=== PATIENT | male | born 1930 | race African-American/Black ===

== ENCOUNTER 2018-03-07 23:02 | Inpatient (IN) | payer MEDICARE, OTHER ==
[~2018-03-07] VITALS: Ht 175.3 cm; Wt 81.2 kg
[2018-03-08] VITALS (10 sets, daily range): BP systolic 85–186; BP diastolic 52–113
--- NOTE | 2018-03-08 00:10 | NUR ---
NURSE NOTES: Given report via telephone by Zayra CONTRERAS from [place]. Will await for pt arrival.
--- NOTE | 2018-03-08 02:10 | NUR ---
NURSE NOTES: Pt transferred via gurney by QUE Urbina from [facility]. Pt asleep, no s/s of acute distress noted, breathing even and unlabored to room air. Pt was given Dilaudid 1mg IVP at 1240 before being transferred to our facility. Oriented pt to room, instructed pt to use call light when needed assistance. Bed to lowest position, call light within reach. belongings at bedside with patient. Will continue to monitor. Will call MD for admission orders.
--- NOTE | 2018-03-08 02:30 | NUR ---
Called and left message to Dr. Valdovinos for admission orders. Will await for call back.
--- NOTE | 2018-03-08 03:56 | NUR ---
NURSE NOTES: Called and left message to Dr. Valdovinos for admitting orders. Awaiting for call back.
[2018-03-08] MEDS ORDERED: Norco 5mg/325mg tab ORAL PRN ×2 (05:30→17:30)
--- NOTE | 2018-03-08 06:00 | NUR ---
NURSE NOTES: Pt not able to tell his medication taken at home and background history. The only thing he remember is being diagnosed with HTN.
[2018-03-08 07:00] LABS: INR 1.1 (0.9-1.1)
[2018-03-08 07:09] LABS: BASOPHILS % (AUTO) 0.2 % (0.0-2.0); HEMATOCRIT 35.9 % (42.0-52.0); HEMOGLOBIN 11.9 G/DL (14.2-18.0); LYMPHOCYTES % (AUTO) 6.7 % (20.0-45.0); MEAN CORPUSCULAR VOLUME 87 FL (80-99); MONOCYTES % (AUTO) 8.2 % (1.0-10.0); NEUTROPHILS % (AUTO) 84.9 % (45.0-75.0); PLATELET COUNT 179 K/UL (150-450); RED BLOOD COUNT 4.12 M/UL (4.70-6.10); RED CELL DISTRIBUTION WIDTH 12.1 % (11.6-14.8); WHITE BLOOD COUNT 12.6 K/UL (4.8-10.8)
--- NOTE | 2018-03-08 07:10 | NUR ---
HAND-OFF: Report given to BEN Haq.
[2018-03-08 07:14] LABS: ALANINE AMINOTRANSFERASE 17 U/L (12-78); ALBUMIN 3.5 G/DL (3.4-5.0); ALBUMIN/GLOBULIN RATIO 0.9 (1.0-2.7); ALKALINE PHOSPHATASE 77 U/L (46-116); ANION GAP 12 mmol/L (5-15); ASPARTATE AMINO TRANSFERASE 18 U/L (15-37); BLOOD UREA NITROGEN 21 mg/dL (7-18); CALCIUM 9.5 MG/DL (8.5-10.1); CARBON DIOXIDE 27 MMOL/L (21-32); CHLORIDE 104 MMOL/L (98-107); CREATININE 2.7 MG/DL (0.55-1.30); PHOSPHORUS 4.9 MG/DL (2.5-4.9); POTASSIUM 4.7 MMOL/L (3.5-5.1); SODIUM 142 MMOL/L (136-145)
[2018-03-08] MEDS: Morphine Sulfate 4mg/ml Inj (IV/IM USE ONLY) IVP PRN ×2 (08:14→14:39)
[2018-03-08] MEDS: D5 1/2NS w/KCl 20mEq 1,000 ML IV SCH ×2 (08:24→21:23)
[2018-03-08] MEDS: Heparin 5000 units/ml inj SUBQ SCH ×2 (09:00→21:00)
[2018-03-08] MEDS: Metoprolol 25mg tab ORAL SCH ×2 (09:00→18:00)
--- NOTE | 2018-03-08 09:10 | NUR ---
NURSE NOTES:Pt complaining of pain Morphine given as well as Zofran ,. Pt noted with brown emesis moderate in amount. Dr. Ingram made aware, pt pending for Left ORIF
--- NOTE | 2018-03-08 11:37 | History & Physical ---
History and Physical History & Physicial JoB [id number] Kaiser Price MD Mar 08, 2018 11:37
[2018-03-08] MEDS ORDERED: Magnesium Sulfate 2,000 MG in D5W 100 ML IV ONE (11:45)
--- NOTE | 2018-03-08 12:20 | Diagnostic Imaging Report ---
Indication: Shortness of breath Technique: One view of the chest Comparison: none Findings: Reticular interstitial disease is seen at both lung bases. There is some atelectasis at the left lung base. The heart is enlarged. The upper lungs are clear. Impression: Bilateral basilar reticular interstitial disease, acuity indeterminant, may reflect chronic interstitial fibrosis or acute infiltrates. Correlate with clinical findings
[2018-03-08] MEDS: Magnesium Sulfate 1gm/100ml IVPB SCH ×2 (12:30→14:39)
--- NOTE | 2018-03-08 12:30 | NUR ---
NURSE NOTES: 1200 v/s entered in error. Correction made
--- NOTE | 2018-03-08 12:36 | Cardiac Electrophysiology PN ---
Subjective Subjective [id number] Objective Last 24 Hour Vital Signs Date Time Temp Pulse Resp B/P (MAP) Pulse Ox O2 Delivery O2 Flow Rate FiO2 03/08/18 03:45 98.0 92 18 131/62 (85) 94 03/08/18 02:43 Room Air Intake and Output 03/07/18 03/08/18 19:00 07:00 Output Total 0 ml Balance 0 ml Output Urine Total 0 ml Laboratory Tests Test 03/08/18 06:30 White Blood Count 12.6 K/UL (4.8-10.8) H Red Blood Count 4.12 M/UL (4.70-6.10) L Hemoglobin 11.9 G/DL (14.2-18.0) L Hematocrit 35.9 % (42.0-52.0) L Mean Corpuscular Volume 87 FL (80-99) Mean Corpuscular Hemoglobin 29.0 PG (27.0-31.0) Mean Corpuscular Hemoglobin Concent 33.3 G/DL (32.0-36.0) Red Cell Distribution Width 12.1 % (11.6-14.8) Platelet Count 179 K/UL (150-450) Mean Platelet Volume 5.3 FL (6.5-10.1) L Neutrophils (%) (Auto) 84.9 % (45.0-75.0) H Lymphocytes (%) (Auto) 6.7 % (20.0-45.0) L Monocytes (%) (Auto) 8.2 % (1.0-10.0) Eosinophils (%) (Auto) 0.0 % (0.0-3.0) Basophils (%) (Auto) 0.2 % (0.0-2.0) Prothrombin Time 11.5 SEC (9.30-11.50) Prothromb Time International Ratio 1.1 (0.9-1.1) Activated Partial Thromboplast Time 23 SEC (23-33) Sodium Level 142 MMOL/L (136-145) Potassium Level 4.7 MMOL/L (3.5-5.1) Chloride Level 104 MMOL/L (98-107) Carbon Dioxide Level 27 MMOL/L (21-32) Anion Gap 12 mmol/L (5-15) Blood Urea Nitrogen 21 mg/dL (7-18) H Creatinine 2.7 MG/DL (0.55-1.30) H Estimat Glomerular Filtration Rate mL/min (>60) Glucose Level 168 MG/DL (74-106) H Calcium Level 9.5 MG/DL (8.5-10.1) Phosphorus Level 4.9 MG/DL (2.5-4.9) Magnesium Level 1.6 MG/DL (1.8-2.4) L Total Bilirubin 1.0 MG/DL (0.2-1.0) Aspartate Amino Transf (AST/SGOT) 18 U/L (15-37) Alanine Aminotransferase (ALT/SGPT) 17 U/L (12-78) Alkaline Phosphatase 77 U/L (46-116) Troponin I 0.000 ng/mL (0.000-0.056) Total Protein 7.5 G/DL (6.4-8.2) Albumin 3.5 G/DL (3.4-5.0) Globulin 4.0 g/dL Albumin/Globulin Ratio 0.9 (1.0-2.7) L Med Faria MD Mar 08, 2018 12:36
--- NOTE | 2018-03-08 14:14 | Consultation ---
Consult Note Consult Note Asked to eval by Dr Price had mechanical fall and left hip fx Cr 2.7 High Glucose at bedside conditions: 1. Mechanical fall with the left hip fracture. 2. Hypertension. 3. Chronic kidney disease. 4. BPH. 5. 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 Assessment/Plan plan: campbell monitor renal parameters Avoid nephrotoxics cardiac clearance- Ortho intervention Ortiz Kinsey MD Mar 08, 2018 14:14
--- NOTE | 2018-03-08 14:30 | NUR ---
NURSE NOTES: Sister is at bedside. New IV site required to be placed, due to intermittent confusion. Required education on importance of keeping O2 in place. attempted to apply f/c pt did not have urine backflow. Is able to answer direct questions despite slight confusion.
--- NOTE | 2018-03-08 15:54 | GI Initial Consult Note ---
History of Present Illness General Date patient seen: Mar 08, 2018 Time patient seen: 15:50 Referring physician: kady Price Reason for Consultation: Coffee-ground emesis Present Illness HPI Patient is a 88-year-old male who presents with left leg pain status post mechanical fall today. The patient reported that he was walking downstairs lost his balance and fell onto his hip. The patient denies hitting his head or losing. Patient unable to bear any weight on his left lower extremity. Patient complaining of deformity to his left leg. Patient reports the pain of positional, severe intensity, nonradiating. GI consulted for reports of coffee-ground emesis. ROS limited, patient seen awake alert no apparent distress and no signs of symptoms of nausea vomiting. DPOA at bedside. Per RN report the patient arrived to the hospital noted with coffee-ground emesis. Labs reviewed showed the patient has normocytic anemia. Mild leukocytosis. No transaminitis. Hypo-magnesemia. Patient denies any pain at this time. No noted bowel movements at this time. Unknown history of endoscopic or colonoscopy. Patient is pending ORIF today. Med list reviewed/reconciled: Yes Allergies: Coded Allergies: NO KNOWN ALLERGIES (Verified Allergy, Unknown, 03/08/18) Patient History Limited by: medical condition History Provided By: Medical Record PMH Narrative See HPI Social History: Denies: smoking, alcohol use, drug use, other Review of Systems All Other Systems: limited Physical Exam Vital Signs Date Time Temp Pulse Resp B/P (MAP) Pulse Ox O2 Delivery O2 Flow Rate FiO2 03/08/18 02:43 Room Air 03/08/18 03:45 98.0 92 18 131/62 (85) 94 03/08/18 09:00 2.0 Sp02 EP Interpretation: reviewed, normal Labs Laboratory Tests Test 03/08/18 06:30 White Blood Count 12.6 K/UL (4.8-10.8) H Red Blood Count 4.12 M/UL (4.70-6.10) L Hemoglobin 11.9 G/DL (14.2-18.0) L Hematocrit 35.9 % (42.0-52.0) L Mean Corpuscular Volume 87 FL (80-99) Mean Corpuscular Hemoglobin 29.0 PG (27.0-31.0) Mean Corpuscular Hemoglobin Concent 33.3 G/DL (32.0-36.0) Red Cell Distribution Width 12.1 % (11.6-14.8) Platelet Count 179 K/UL (150-450) Mean Platelet Volume 5.3 FL (6.5-10.1) L Neutrophils (%) (Auto) 84.9 % (45.0-75.0) H Lymphocytes (%) (Auto) 6.7 % (20.0-45.0) L Monocytes (%) (Auto) 8.2 % (1.0-10.0) Eosinophils (%) (Auto) 0.0 % (0.0-3.0) Basophils (%) (Auto) 0.2 % (0.0-2.0) Prothrombin Time 11.5 SEC (9.30-11.50) Prothromb Time International Ratio 1.1 (0.9-1.1) Activated Partial Thromboplast Time 23 SEC (23-33) Sodium Level 142 MMOL/L (136-145) Potassium Level 4.7 MMOL/L (3.5-5.1) Chloride Level 104 MMOL/L (98-107) Carbon Dioxide Level 27 MMOL/L (21-32) Anion Gap 12 mmol/L (5-15) Blood Urea Nitrogen 21 mg/dL (7-18) H Creatinine 2.7 MG/DL (0.55-1.30) H Estimat Glomerular Filtration Rate mL/min (>60) Glucose Level 168 MG/DL (74-106) H Calcium Level 9.5 MG/DL (8.5-10.1) Phosphorus Level 4.9 MG/DL (2.5-4.9) Magnesium Level 1.6 MG/DL (1.8-2.4) L Total Bilirubin 1.0 MG/DL (0.2-1.0) Aspartate Amino Transf (AST/SGOT) 18 U/L (15-37) Alanine Aminotransferase (ALT/SGPT) 17 U/L (12-78) Alkaline Phosphatase 77 U/L (46-116) Troponin I 0.000 ng/mL (0.000-0.056) C-Reactive Protein, Quantitative 1.5 mg/dL (0.00-0.90) H Total Protein 7.5 G/DL (6.4-8.2) Albumin 3.5 G/DL (3.4-5.0) Globulin 4.0 g/dL Albumin/Globulin Ratio 0.9 (1.0-2.7) L General Appearance: well appearing, no apparent distress, alert Head: normocephalic EENT: PERRL/EOMI, normal ENT inspection Neck: supple Respiratory: normal breath sounds, no respiratory distress Cardiovascular: normal rate Gastrointestinal: normal inspection, non tender, soft, normal bowel sounds, non -distended Rectal: deferred Genitourinary: deferred Musculoskeletal: normal inspection, back normal Neurologic: alert Psychiatric: normal inspection, judgement/insight normal, memory normal Skin: normal inspection, normal color, no rash, warm/dry, palpation normal, well hydrated Lymphatic: normal inspection, no adenopathy Current Medications Current Medications Medications (Trade) Dose Ordered Sig/Lorena Route PRN Reason Start Time Stop Time Status Last Admin Dose Admin Acetaminophen (Tylenol) 650 mg Q6H PRN ORAL Mild Pain/Temp > 100.0 03/08/18 05:30 04/07/18 05:29 Acetaminophen/ Hydrocodone Bitart (Whitmer 5/325) 1 tab Q6H PRN ORAL For Pain 03/08/18 05:30 03/15/18 05:29 Clonidine HCl (Catapres Tab) 0.1 mg Q4H PRN ORAL sbp>170 03/08/18 12:39 04/07/18 12:38 Dextrose/ Electrolytes 1,000 ml @ 75 mls/hr [id number] IV 03/08/18 07:00 04/07/18 06:59 03/08/18 08:24 Heparin Sodium (Porcine) (Heparin 5000 units/ml) 5,000 units EVERY 12 HOURS SUBQ 03/08/18 09:00 04/07/18 08:59 Metoprolol Tartrate (Lopressor) 25 mg BID ORAL 03/08/18 09:00 04/07/18 08:59 Morphine Sulfate (Morphine Sulfate) 4 mg Q4H PRN IVP For Pain 03/08/18 05:30 03/15/18 05:29 03/08/18 14:39 Ondansetron HCl (Zofran) 4 mg Q4HR PRN IVP Nausea & Vomiting 03/08/18 05:30 04/07/18 05:29 03/08/18 08:14 Pantoprazole (Protonix) 40 mg DAILY ORAL 03/09/18 09:00 04/08/18 08:59 GI: Plan Problems: (1) Anemia (2) Coffee ground emesis (3) Electrolyte imbalance (4) Leukocytosis (5) Upper GI bleed Plan Patient scheduled for ORIF today. We will consider endoscopy next Sunday pending anemia workup OB stool r/o GI bleed monitor H&H, prn transfusions bowel regime ppi BID fu labs will follow with additional recommendations over the weekend Discussed with Dr. Krause. Thank you for this patient referral, we will follow. The patient was seen and examined at bedside and all new and available data was reviewed in the patients chart. I agree with the above findings, impression and plan. (Patient seen earlier today. Signature stamp does not reflect patient encounter time.). - MD [facility] Mar 08, 2018 15:54
[2018-03-08 16:27] LABS: APPEARANCE,URINE SLIGHTLY CLOUDY; BILIRUBIN, URINE NEGATIVE (NEGATIVE); COLOR,URINE PALE YELLOW; GLUCOSE, URINE (UA) NEGATIVE (NEGATIVE); KETONES,URINE NEGATIVE (NEGATIVE); LEUKOCYTE ESTERASE ,URINE 1+ (NEGATIVE); NITRITE,URINE NEGATIVE (NEGATIVE); PH,URINE 8 (4.5-8.0); PROTEIN,URINE 1+ (NEGATIVE); UROBILINOGEN,URINE NORMAL MG/DL (0.0-1.0)
--- NOTE | 2018-03-08 16:30 | NUR ---
NURSE NOTES: Patient off unit, for pending ORIf to left hip. Dr Pham here in facility seen pt gave orders for Protonix. Made aware of pt emeses, appearance coffee ground moderate in amount. Dr will follow up with further orders after procedure.
[2018-03-08] MEDS ORDERED: D5 1/2NS w/KCl 20mEq 1,000 ML IV SCH (16:37)
--- NOTE | 2018-03-08 16:37 | Pre-Procedure Note/Attestation ---
Pre-Procedure Note/Attestation Complete Prior to Procedure Planned Procedure: left Procedure Narrative: hip orif Indications for Procedure Pre-Operative Diagnosis: left it hip fx Attestation I attest that I discussed the nature of the procedure; its benefits; risks and complications; and alternatives (and the risks and benefits of such alternatives ), prior to the procedure, with the patient (or the patient's legal airline security representative). I attest that, if there was a reasonable possibility of needing a blood transfusion, the patient (or the patient's legal airline security representative) was given the [facility] standardized written summary, pursuant to the Asael Wilkerson Blood Safety Act ([place] Health and Safety Code # 1645, as amended). I attest that I re-evaluated the patient just prior to the surgery and that there has been no change in the patient's H&P, except as documented below: Cezar Ingram MD Mar 08, 2018 16:37
--- NOTE | 2018-03-08 16:38 | Operative Note - PDOC ---
Operative Note Operative Note Pre-op Diagnosis: left it hip fx Procedure: see op report Post-op Diagnosis: same as pre-op plus Operative Findings: consistent w/pre-op dx studies Anesthesia: MAC Specimen: none Complications: none Condition: stable Estimated Blood Loss: none Implant(s) used?: Yes Cezar Ingram MD Mar 08, 2018 16:38
--- NOTE | 2018-03-08 16:41 | NUR ---
CASE MANAGEMENT:REVIEW DIRECT ADMIT FROM [place] SI: LT HIP FRACTURE 97.4 107 18 110/61 96% ON 2L/NC IS: TO SURGERY LT HIP ORIF : TO MED/SURG INTERQUAL CRITERIA MET
[2018-03-08] MEDS ORDERED: Morphine Sulfate 2mg/ml Inj IVP PRN ×2 (16:45)
[2018-03-08] MEDS ORDERED: Milk of Magnesia 30ml Ud ORAL PRN (16:45)
[2018-03-08] MEDS ORDERED: HYDROcodone/Acetamin 7.5/325 tab ORAL PRN ×2 (16:45→17:30)
--- NOTE | 2018-03-08 17:01 | History and Physical Report ---
DATE OF ADMISSION: 03/08/2018 CHIEF COMPLAINT: Fall with left hip injury. HISTORY OF PRESENT ILLNESS: This is a 87-year-old gentleman with past medical history significant for hypertension, chronic kidney disease, BPH who presented to the hospital initially to [facility] complaining about the fall with the left hip injury. The patient stated that he had a mechanical fall while he was walking downstairs and lost his balance and fell onto his left hip. Denies any head trauma or loss of consciousness. Denies any seizure activity. He was not able to bear weight on his left lower extremity and complained about the deformity of the left leg and reports the pain worsening on position and shortly after initial evaluation at [facility] the patient was confirmed to have the left hip fracture and was subsequently transferred to the [facility] for possible surgical intervention. PAST MEDICAL HISTORY/PAST SURGICAL HISTORY: As above, history of hypertension, chronic kidney disease, BPH. The patient is a poor historian and forgetful. The patient denies any past surgical history. MEDICATIONS: At home significant for finasteride and blood pressure medication, but he does not remember specifically. ALLERGIES: No known drug allergies. SOCIAL HISTORY: The patient has a far history of smoking over 40 years ago. Denies any substance or alcohol abuse. He is retired. Lives by himself. 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 FAMILY HISTORY: Noncontributory. REVIEW OF SYSTEMS: Mostly as above. Denies any dysuria, frequency, or hematuria. Denies any hemoptysis, hematochezia. Denies any chest pain. Denies any loss of consciousness, complained about the left hip pain. Denies any double vision. Denies any suicidal or homicidal ideation. PHYSICAL EXAMINATION: VITAL SIGNS: Upon arrival to the hospital, temperature 98, pulse of 92, respirations 18, and blood pressure 131/62. GENERAL: The patient is awake, responsive, in no acute distress. HEENT: Head and neck examination, pupils are reactive to light. Extraocular movements are intact. NECK: Supple. No JVD. LUNGS: Good air entry. No wheezes or rales. HEART: S1 and S2. Regular rhythm. No gallops. ABDOMEN: Soft, nondistended, nontender. Positive bowel sounds. EXTREMITIES: No cyanosis, clubbing, or edema. Left hip has a tenderness to touch as well as left lower extremity has external rotated flexion. NEUROLOGIC: Cranial nerves II through XII grossly intact. The patient moving all extremities except the left lower extremity due to the pain. RECTAL/GENITOURINARY: Refused and deferred. LABORATORY AND DIAGNOSTIC DATA: On admission sodium 142, potassium 4.7, chloride 104, bicarbonate 27, BUN 21, creatinine 2.7, calcium is 9.5, glucose is 168, magnesium is 1.6. Troponin 0.00. Total protein is 7.5 and PT of 11, INR 1.1, and PTT of 23. WBC of 12, hemoglobin of 11, hematocrit 35, platelets is 179. EKG still pending. Echocardiogram done, results still pending. ASSESSMENT: 1. Mechanical fall with the left hip fracture. 2. Hypertension. 3. Chronic kidney disease. 4. BPH. 5. 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 PLAN: Admit the patient to the medical floor. We will follow up with an EKG as well as chest x-ray. Evaluate the patient for surgery for a part of preop. Follow up with Dr. Colin Ingram from Orthopedics, Dr. Faria from Cardiology and Dr. Fields from Nephrology. Code status full code. DVT prophylaxis, heparin subcutaneous. Discussed with the patient extensively with regard to the care will be provided and possible surgery today. The patient is NPO after breakfast. IV hydration. Kaiser Price M.D. DR: Alex JOB#: [id number] CC:
--- NOTE | 2018-03-08 17:15 | Consultation ---
DATE OF CONSULTATION: 03/08/2018 CARDIOLOGY CONSULTATION CONSULTING PHYSICIAN: Med Faria M.D. REFERRING PHYSICIAN: Kaiser Price M.D. REASON FOR CONSULTATION: Preoperative clearance prior to surgery. HISTORY OF PRESENT ILLNESS: The patient is an 88-year-old gentleman, who presented to [facility] Emergency Room with left leg pain after he had a mechanical fall with resultant hip fracture. The patient denied losing consciousness or hitting his head. The patient was then transferred to [facility] for further evaluation and management. At the time of my evaluation, the patient denies any chest pain, palpitation, or shortness of breath. REVIEW OF SYSTEMS: Negative other than what was mentioned in the history of present illness. PAST MEDICAL HISTORY: The patient denies any prior myocardial infarction, congestive heart failure, or coronary artery disease. FAMILY HISTORY: Noncontributory. SOCIAL HISTORY: Does not smoke or drink alcohol. MEDICATIONS: Currently, he is taking metoprolol 25 mg b.i.d. PHYSICAL EXAMINATION: VITAL SIGNS: Show blood pressure 131/62, pulse is 92, respirations 18, and he is afebrile. HEAD AND NECK: Showed no JVD or carotid bruit. LUNGS: Clear. CARDIOVASCULAR: Shows regular S1 and S2 with no gallop or murmur. ABDOMEN: Soft. EXTREMITIES: He has left leg with external rotation. LABORATORY DATA: White count 12.7, hemoglobin 11.9, hematocrit 35.9, platelet 179,000. Sodium 142, potassium 4.7, BUN of 21, creatinine of 2.7, glucose of 168. Troponin is negative. ASSESSMENT AND PLAN: 1. Status post mechanical fall with left hip fracture. The patient's EKG shows sinus rhythm with right bundle-branch block and left anterior fascicular block. His echocardiogram showed normal left ventricular systolic function, EF of 60%. No further cardiac intervention is needed at this time for this gentleman with no prior history of coronary artery disease or congestive heart failure. The patient is also able to lie flat in bed without any shortness of breath. I will keep the patient on metoprolol perioperatively to decrease the risk of postoperative atrial fibrillation. 2. Questionable hypertension. Blood pressure is stable on metoprolol 25 mg p.o. b.i.d. 3. Renal failure with creatinine of 2.7. Thank you very much, Dr. Price, for allowing me to participate in the care of this patient. Please do not hesitate to contact me for any questions regarding my evaluation. Med Faria M.D. DR: Celia JOB#: [id number] CC:
[2018-03-08] MEDS ORDERED: cloNIDine 1000mcg/10ml inj ONE (17:19)
[2018-03-08] MEDS ORDERED: Bupivacaine 0.5% Inj 30 ml vial INJ ONE ×2 (17:19→17:23)
[2018-03-08] MEDS ORDERED: LR 1000ml 1,000 ML IVLG SCH (17:23)
[2018-03-08] MEDS ORDERED: Bacitracin 50000 Units Vial ONE (17:24)
[2018-03-08] MEDS ORDERED: NeoSporin Gu Irrig 1ml Amp IRRIG ONE (17:24)
--- NOTE | 2018-03-08 17:26 | Anethesia Preoperative Eval ---
Anesthesia Pre-op PMH/ROS General Date of Evaluation: Mar 08, 2018 Time of Evaluation: 17:52 Anesthesiologist: Farhat ASA Score: ASA 4 - Emergency Mallampati Score Class I : Soft palate, uvula, fauces, pillars visible Class II: Soft palate, uvula, fauces visible Class III: Soft palate, base of uvula visible Class IV: Only hard plate visible Mallampati Classification: Class III Surgeon: Juan Jose Diagnosis: L Hip Pain Surgical Procedure: L Hip ORIF Anesthesia History: none Family History: no anesthesia problems Allergies: Coded Allergies: NO KNOWN ALLERGIES (Verified Allergy, Unknown, 03/08/18) Medications: see eMAR Patient NPO?: Yes NPO Date: Mar 07, 2018 NPO Time: 2300 Past Medical History Cardiovascular: Reports: HTN Gastrointestinal/Genitourinary: Reports: other - UGI Bleed Neurologic/Psychiatric: Reports: dementia Hematology/Immune: Reports: anemia Musculoskeletal/Integumentary: Reports: other - L Hip Fracture Anesthesia Pre-op Phys. Exam Physician Exam Last Vital Signs Date Time Temp Pulse Resp B/P (MAP) Pulse Ox O2 Delivery O2 Flow Rate FiO2 03/08/18 09:00 Nasal Cannula 2.0 03/08/18 08:00 97.4 107 18 110/61 (77) 96 Constitutional: NAD Neurologic: CN 2-12 intact Cardiovascular: RRR Respiratory: CTA Gastrointestinal: S/NT/ND Airway Exam Mallampati Score: Class III MO: full ROM: limited Teeth: missing, intact Anesthesia Pre-op A/P Labs Hematology Test 03/08/18 06:30 White Blood Count 12.6 K/UL (4.8-10.8) H Red Blood Count 4.12 M/UL (4.70-6.10) L Hemoglobin 11.9 G/DL (14.2-18.0) L Hematocrit 35.9 % (42.0-52.0) L Mean Corpuscular Volume 87 FL (80-99) Mean Corpuscular Hemoglobin 29.0 PG (27.0-31.0) Mean Corpuscular Hemoglobin Concent 33.3 G/DL (32.0-36.0) Red Cell Distribution Width 12.1 % (11.6-14.8) Platelet Count 179 K/UL (150-450) Mean Platelet Volume 5.3 FL (6.5-10.1) L Neutrophils (%) (Auto) 84.9 % (45.0-75.0) H Lymphocytes (%) (Auto) 6.7 % (20.0-45.0) L Monocytes (%) (Auto) 8.2 % (1.0-10.0) Eosinophils (%) (Auto) 0.0 % (0.0-3.0) Basophils (%) (Auto) 0.2 % (0.0-2.0) Coagulation Test 03/08/18 06:30 Prothrombin Time 11.5 SEC (9.30-11.50) Prothromb Time International Ratio 1.1 (0.9-1.1) Activated Partial Thromboplast Time 23 SEC (23-33) Chemistry Test 03/08/18 06:30 Sodium Level 142 MMOL/L (136-145) Potassium Level 4.7 MMOL/L (3.5-5.1) Chloride Level 104 MMOL/L (98-107) Carbon Dioxide Level 27 MMOL/L (21-32) Anion Gap 12 mmol/L (5-15) Blood Urea Nitrogen 21 mg/dL (7-18) H Creatinine 2.7 MG/DL (0.55-1.30) H Estimat Glomerular Filtration Rate mL/min (>60) Glucose Level 168 MG/DL (74-106) H Calcium Level 9.5 MG/DL (8.5-10.1) Phosphorus Level 4.9 MG/DL (2.5-4.9) Magnesium Level 1.6 MG/DL (1.8-2.4) L Total Bilirubin 1.0 MG/DL (0.2-1.0) Aspartate Amino Transf (AST/SGOT) 18 U/L (15-37) Alanine Aminotransferase (ALT/SGPT) 17 U/L (12-78) Alkaline Phosphatase 77 U/L (46-116) Troponin I 0.000 ng/mL (0.000-0.056) C-Reactive Protein, Quantitative 1.5 mg/dL (0.00-0.90) H Total Protein 7.5 G/DL (6.4-8.2) Albumin 3.5 G/DL (3.4-5.0) Globulin 4.0 g/dL Albumin/Globulin Ratio 0.9 (1.0-2.7) L Risk Assessment & Plan Assessment: ASA 4E Plan: GA, SED, Spinal Status Change Before Surgery: No Pre-Antibiotics Dru Gram Ancef IV Given Within 1 Hr of Incision: Yes Time Given: 18:24 Jefe Dougherty MD Mar 08, 2018 17:26
[2018-03-08] MEDS ORDERED: DiphenhydrAMINE 50mg/ml Inj IVP PRN (17:30)
[2018-03-08] MEDS ORDERED: Midazolam 2mg/2ml Inj IVP PRN (17:30)
[2018-03-08] MEDS ORDERED: fentaNYL 100 mcg/2 mL IV PRN (17:30)
[2018-03-08] MEDS ORDERED: Meperidine 50mg/ml Inj(FOR RIGORS ONLY) IVP PRN (17:30)
[2018-03-08] MEDS ORDERED: Hydromorphone 0.5mg/0.5ml inj IVP PRN (17:30)
[2018-03-08] MEDS ORDERED: Atropine Sulfate 0.4mg/ml inj IVP PRN (17:30)
[2018-03-08] MEDS ORDERED: LORazepam Inj 2mg/ml 1ml IV PRN (17:30)
[2018-03-08] MEDS ORDERED: oxyCODONE HCL/Acetaminophen 5/325mg ORAL PRN (17:30)
[2018-03-08] MEDS ORDERED: Metoclopramide 10mg/2ml Inj IVP PRN (17:30)
[2018-03-08] MEDS ORDERED: Lidocaine 1% MPF 10mg/ml 5ml ONE (17:47)
[2018-03-08] MEDS ORDERED: Propofol 200mg/20ml IV ONE (17:47)
[2018-03-08] MEDS ORDERED: Sodium Chloride 10ml vial INJ ONE (17:47)
[2018-03-08] MEDS ORDERED: LR 1000ml ONE (18:00)
[2018-03-08] MEDS ORDERED: Midazolam 2mg/2ml Inj ONE (18:01)
[2018-03-08] MEDS ORDERED: NS Irrig 1000ml IRRIG ONE (18:17)
--- NOTE | 2018-03-08 18:32 | Immediate Post-Op Evaluation ---
Immediate Post-Op Evalulation Immediate Post-Op Evalulation Procedure: ORIF L Hip Date of Evaluation: Mar 08, 2018 Time of Evaluation: 19:40 IV Fluids: 700 LR Blood Products: 0 Estimated Blood Loss: 75 Urinary Output: 100 Blood Pressure Systolic: 186 Blood Pressure Diastolic: 101 Pulse Rate: 107 Respiratory Rate: 16 O2 Sat by Pulse Oximetry: 99 Pain Score (1-10): 1 Nausea: No Vomiting: No Complications 0 Patient Status: awake, reacts, patent, none Hydration Status: adequate Dru Gram Ancef IV Given Within 1 Hr of Incision: Yes Time Given: 18:24 Jefe Dougherty MD Mar 08, 2018 18:32
--- NOTE | 2018-03-08 18:32 | 48 Hour Post Anesthesia Eval ---
Post Anesthesia Evaluation Procedure: ORIF L Hip Date of Evaluation: Mar 08, 2018 Time of Evaluation: 21:45 Blood Pressure Systolic: 98 0: 67 Pulse Rate: 98 Respiratory Rate: 18 Temperature (Fahrenheit): 98.2 O2 Sat by Pulse Oximetry: 97 Airway: patent Nausea: No Vomiting: No Pain Intensity: 1 Hydration Status: adequate Cardiopulmonary Status: Stable Mental Status/LOC: patient returned to baseline Follow-up Care/Observations: 0 Post-Anesthesia Complications: 0 Follow-up care needed: N/A Jefe Dougherty MD Mar 08, 2018 18:32
[2018-03-08] MEDS ORDERED: ePHEDrine 50mg/ml Inj ONE ×2 (18:47→18:49)
--- NOTE | 2018-03-08 19:25 | NUR ---
NURSE NOTES: Pt is not in unit. Will await for his return.
--- NOTE | 2018-03-08 19:28 | NUR ---
NURSE NOTES: Upon this writing pt remains off unit for left hip ORIF. Oncoming nurse made aware of acknowledge orders, pending evaluation from Dr. Pham, as well as pending stool collection for occult blood.
--- NOTE | 2018-03-08 19:30 | NUR ---
HAND-OFF: Report given to Anabella CONTRERAS.
--- NOTE | 2018-03-08 19:58 | NUR ---
NURSE NOTES: Dr Price phoned in regards to pt congestion and order for albumin from Dr Kinsey. Pt is on hospice, Rt phoned made aware of need for breathing tx, for comfort. Oncoming nurse made aware of current status. Remains on oxygen at this time. Nonverbal. Charge nurse made aware, awaiting return page from Dr. Price Addendum: 03/08/18 at 2004 by Eun Mcintyre RN wrong pt errror in entry
--- NOTE | 2018-03-08 20:02 | NUR ---
HAND-OFF: Report given to Fabrizio RN Addendum: 03/08/18 at 2003 by Eun Mcintyre RN error in entry wrong pt
--- NOTE | 2018-03-08 20:16 | NUR ---
HAND-OFF: Report given to Dee CONTRERAS.
--- NOTE | 2018-03-08 20:57 | NUR ---
NURSE NOTES: Pt came back from surgery, report given by BEN Han. Pt breathing even and unlabored to via NC 3L/min. IV patent with no s/s of infiltration. Wound dressing left thigh has mild serosanguinous drainage. BP low 94/57 with O2 status 94%. Addendum: 03/08/18 at 2114 by Dee Soliman RN Heart rate 90, campbell catheter draining, pt no c/o pain, pt resting in bed. bed to lowest position, call light within reach will continue to monitor.
[2018-03-08] MEDS ORDERED: Pantoprazole Inj IVP SCH (21:00)
--- NOTE | 2018-03-08 22:30 | Consultation ---
DATE OF CONSULTATION: 03/08/2018 ORTHOPEDIC CONSULTATION HISTORY OF PRESENT ILLNESS: The patient is a pleasant 87-year-old gentleman, who was seen at outside facility at [place], diagnosed with right intertrochanteric fracture, and transferred here at [facility]. Orthopedic consultation was obtained for fracture of the left hip. The patient has marked pain and discomfort in the left hip. He denied any shortness of breath or chest pain. PAST MEDICAL HISTORY: Reviewed from the intake chart. SURGICAL HISTORY: Reviewed from the intake chart. MEDICATION: Reviewed from the intake chart. PHYSICAL EXAMINATION: GENERAL: The patient is alert. He is resting comfortably in bed. He has pain in his left hip. Posterior calf is soft. Neurovascular is normal. Report from [facility] showed three-part intertrochanteric hip fracture. ASSESSMENT: Right three-part intertrochanteric hip fracture. DISCUSSION: We will just proceed with open reduction and internal fixation of the left hip. Risks, limitations, expectations, and complications of the procedure were discussed in detail. All questions addressed. He will be made NPO today. Anticipation of surgery later on today. Cezar Ingram M.D. DR: LEFTY JOB#: [id number] CC: MEGHANA
--- NOTE | 2018-03-08 23:05 | NUR ---
NURSE NOTES: Instructed pt to use incentive spirometer as MD ordered, Pt verbalized understanding. Will continue to monitor.
[2018-03-09] VITALS (10 sets, daily range): BP systolic 91–139; BP diastolic 58–71
--- NOTE | 2018-03-09 00:51 | Consultation ---
History of Present Illness General Date patient seen: Mar 08, 2018 Referring physician: kady Price Reason for Consultation: agitation Present Illness HPI 87-year-old male with history significant for hypertension, chronic kidney disease, BPH who presented to the hospital initially to [facility] complaining about the fall with the left hip injury. the pt is waxing and waning. he was disoriented and agitated he pulled his IV access out. The pt was unable to understand the questions. Allergies: Coded Allergies: NO KNOWN ALLERGIES (Verified Allergy, Unknown, 03/08/18) Patient History Limited by: medical condition History Provided By: Patient, Medical Record, PMD Healthcare decision maker Resuscitation status Advanced Directive on File No Past Medical/Surgical History Past Medical/Surgical History: (1) Hip fracture (2) Anemia (3) Leukocytosis (4) Electrolyte imbalance (5) Coffee ground emesis (6) Upper GI bleed Review of Systems Psychiatric: Reports: anxiety, hallucinations Physical Exam General Appearance: confused, moderate distress, agitated Last 24 Hour Vital Signs Date Time Temp Pulse Resp B/P (MAP) Pulse Ox O2 Delivery O2 Flow Rate FiO2 03/08/18 20:30 97.9 92 15 99/61 96 Nasal Cannula 3 03/08/18 20:15 95 19 89/55 96 Nasal Cannula 3 03/08/18 20:00 82 17 88/56 95 Nasal Cannula 3 03/08/18 19:50 91 19 109/66 96 Simple Mask 6 03/08/18 19:40 93 20 85/52 98 Simple Mask 6 03/08/18 19:33 98 18 97 03/08/18 19:29 97.6 107 16 186/113 99 Simple Mask 6 03/08/18 19:29 107 16 99 03/08/18 16:00 98.6 90 18 99/59 (72) 98 03/08/18 12:00 97.5 65 18 93/54 (67) 95 03/08/18 12:00 115/72 (86) 03/08/18 09:00 Nasal Cannula 2.0 03/08/18 08:00 97.4 107 18 110/61 (77) 96 03/08/18 03:45 98.0 92 18 131/62 (85) 94 03/08/18 02:43 Room Air Intake and Output 03/08/18 03/09/18 19:00 07:00 Intake Total 300 ml 200 ml Output Total 100 ml Balance 300 ml 100 ml Intake Oral 50 ml IV Total 300 ml 150 ml Output Urine Total 100 ml # Voids 1 Laboratory Tests Test 03/08/18 06:30 03/08/18 15:10 White Blood Count 12.6 K/UL (4.8-10.8) H Red Blood Count 4.12 M/UL (4.70-6.10) L Hemoglobin 11.9 G/DL (14.2-18.0) L Hematocrit 35.9 % (42.0-52.0) L Mean Corpuscular Volume 87 FL (80-99) Mean Corpuscular Hemoglobin 29.0 PG (27.0-31.0) Mean Corpuscular Hemoglobin Concent 33.3 G/DL (32.0-36.0) Red Cell Distribution Width 12.1 % (11.6-14.8) Platelet Count 179 K/UL (150-450) Mean Platelet Volume 5.3 FL (6.5-10.1) L Neutrophils (%) (Auto) 84.9 % (45.0-75.0) H Lymphocytes (%) (Auto) 6.7 % (20.0-45.0) L Monocytes (%) (Auto) 8.2 % (1.0-10.0) Eosinophils (%) (Auto) 0.0 % (0.0-3.0) Basophils (%) (Auto) 0.2 % (0.0-2.0) Prothrombin Time 11.5 SEC (9.30-11.50) Prothromb Time International Ratio 1.1 (0.9-1.1) Activated Partial Thromboplast Time 23 SEC (23-33) Sodium Level 142 MMOL/L (136-145) Potassium Level 4.7 MMOL/L (3.5-5.1) Chloride Level 104 MMOL/L (98-107) Carbon Dioxide Level 27 MMOL/L (21-32) Anion Gap 12 mmol/L (5-15) Blood Urea Nitrogen 21 mg/dL (7-18) H Creatinine 2.7 MG/DL (0.55-1.30) H Estimat Glomerular Filtration Rate mL/min (>60) Glucose Level 168 MG/DL (74-106) H Calcium Level 9.5 MG/DL (8.5-10.1) Phosphorus Level 4.9 MG/DL (2.5-4.9) Magnesium Level 1.6 MG/DL (1.8-2.4) L Total Bilirubin 1.0 MG/DL (0.2-1.0) Aspartate Amino Transf (AST/SGOT) 18 U/L (15-37) Alanine Aminotransferase (ALT/SGPT) 17 U/L (12-78) Alkaline Phosphatase 77 U/L (46-116) Troponin I 0.000 ng/mL (0.000-0.056) C-Reactive Protein, Quantitative 1.5 mg/dL (0.00-0.90) H Total Protein 7.5 G/DL (6.4-8.2) Albumin 3.5 G/DL (3.4-5.0) Globulin 4.0 g/dL Albumin/Globulin Ratio 0.9 (1.0-2.7) L Urine Color Pale yellow Urine Appearance Slightly cloudy Urine pH 8 (4.5-8.0) Urine Specific Tyner 1.005 (1.005-1.035) Urine Protein 1+ (NEGATIVE) H Urine Glucose (UA) Negative (NEGATIVE) Urine Ketones Negative (NEGATIVE) Urine Blood Negative (NEGATIVE) Urine Nitrite Negative (NEGATIVE) Urine Bilirubin Negative (NEGATIVE) Urine Urobilinogen Normal MG/DL (0.0-1.0) Urine Leukocyte Esterase 1+ (NEGATIVE) H Urine RBC 0-2 /HPF (0 - 0) H Urine WBC 10-15 /HPF (0 - 0) H Urine Squamous Epithelial Cells Moderate /LPF (NONE/OCC) H Urine Bacteria Many /HPF (NONE) H Height (Feet): 5 Height (Inches): 9.00 Weight (Pounds): 178 Medications Current Medications Medications (Trade) Dose Ordered Sig/Lorena Route PRN Reason Start Time Stop Time Status Last Admin Dose Admin Acetaminophen (Tylenol) 650 mg Q6H PRN ORAL Mild Pain/Temp > 100.0 03/08/18 05:30 04/07/18 05:29 Acetaminophen/ Hydrocodone Bitart (Delco 5/325) 2 tab Q6H PRN ORAL Severe Pain (Pain Scale 7-10) 03/08/18 16:45 03/15/18 16:44 Acetaminophen/ Hydrocodone Bitart (Delco 7.5/325) 1 tab Q4H PRN ORAL Moderate Pain (Pain Scale 4-6) 03/08/18 16:45 03/15/18 16:44 Cefazolin Sodium 2 gm/Dextrose 110 ml @ 220 mls/hr Q8H IV 03/09/18 03:00 03/09/18 11:29 Clonidine HCl (Catapres Tab) 0.1 mg Q4H PRN ORAL sbp>170 03/08/18 12:39 04/07/18 12:38 Dextrose/ Electrolytes 1,000 ml @ 75 mls/hr [id number] IV 03/08/18 07:00 04/07/18 06:59 03/08/18 21:23 Docusate Sodium (Colace) 100 mg THREE TIMES A DAY ORAL 03/09/18 09:00 04/08/18 08:59 Ferrous Sulfate (Feosol) 325 mg THREE TIMES A DAY ORAL 03/09/18 09:00 04/08/18 08:59 Heparin Sodium (Porcine) (Heparin 5000 units/ml) 5,000 units EVERY 12 HOURS SUBQ 03/08/18 09:00 04/07/18 08:59 Magnesium Hydroxide (Mom) 30 ml DAILYPRN PRN ORAL Constipation 03/08/18 16:45 04/07/18 16:44 Metoprolol Tartrate (Lopressor) 25 mg BID ORAL 03/08/18 09:00 04/07/18 08:59 Morphine Sulfate (Morphine Sulfate) 1 mg Q3H PRN IVP Pain scale 1-3 03/08/18 16:45 03/15/18 16:44 Morphine Sulfate (Morphine Sulfate) 2 mg Q3H PRN IVP Moderate Pain (Pain Scale 4-6) 03/08/18 16:45 03/15/18 16:44 Ondansetron HCl (Zofran) 4 mg Q6H PRN IVP Nausea & Vomiting 03/08/18 16:45 04/07/18 16:44 Pantoprazole (Protonix) 40 mg BID ORAL 03/08/18 18:00 04/07/18 17:59 Senna/Docusate Sodium (Ijeoma-Colace) 1 tab TWICE A DAY ORAL 03/09/18 09:00 04/08/18 08:59 Temazepam (Restoril) 7.5 mg DAILY PRN ORAL Insomnia 03/08/18 16:45 03/15/18 16:44 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
[2018-03-09] MEDS ORDERED: Haloperidol 5mg/ml Inj IM PRN (01:00)
[2018-03-09] MEDS: Norco 5mg/325mg tab ORAL PRN ×2 (01:00→08:26)
--- NOTE | 2018-03-09 02:30 | Operative Note - Dictated ---
DATE OF OPERATION: 03/08/2018 PREOPERATIVE DIAGNOSIS: Left comminuted intertrochanteric subtroch femur fracture. POSTOPERATIVE DIAGNOSIS: Left comminuted intertrochanteric subtroch femur fracture. PROCEDURES: Open reduction and internal fixation of left comminuted intertrochanteric subtroch fracture. SURGEON: Cezar Ingram M.D. ANESTHESIA: Spinal. INDICATION FOR PROCEDURE: The patient is a pleasant gentleman who sustained a mechanical fall and was diagnosed with left intertrochanteric subtroch fractures and intraoperative fixation. Risks, limitations, expectations, and complications of procedure were discussed in detail. All questions were addressed. DESCRIPTION OF PROCEDURE: After informed consent was obtained, the patient was brought to the operating room and placed under spinal anesthesia. Dowell catheter was placed. Ancef was administered. The patient was then placed on the fracture table. Reduction of the fracture was attempted under fluoroscopic imaging. There was some comminution with a pretty significant lateral or medial butterfly fragment. Multiple attempts for possible anatomic reduction. However, overall alignment of the femoral neck-head junction was unacceptable. Therefore, a lateral stab incision was then made, guidewire was placed in proximal femur. Guidewire was then passed through the proximal segment of the distal fragment. Sequential reaming was performed, 11 x 330 nail was placed, a 105 cannulated screw was placed in the neck-head junction. Two distal locking screws were placed. There was still significant comminution with the medial calcar, medial butterfly fragment, but given his age and activity level, it was felt that formal fixation with open reduction and internal fixation for this stripping would require additional operative time, potentially increased infection, and wound complications. It was felt that the overall alignment although the bone was not anatomic was acceptable and hopefully will heal. ESTIMATED BLOOD LOSS: 25 mL. COMPLICATIONS: None. SPECIMENS: None. IMPLANTS: Include a long gamma nail 11 x 330, a 105 mm cannulated screw and 2 distal locking screws 45 mm and 47.5. Cezar Ingram M.D. DR: LEFTY JOB#: [id number] CC:
[2018-03-09] MEDS ORDERED: ceFAZolin sod 2 GM in D5W 110 ML IV SCH (03:00)
[2018-03-09 06:14] LABS: APPEARANCE,URINE SLIGHTLY CLOUDY; BILIRUBIN, URINE NEGATIVE (NEGATIVE); GLUCOSE, URINE (UA) NEGATIVE (NEGATIVE); KETONES,URINE NEGATIVE (NEGATIVE); LEUKOCYTE ESTERASE ,URINE 1+ (NEGATIVE); NITRITE,URINE NEGATIVE (NEGATIVE); PH,URINE 8 (4.5-8.0); PROTEIN,URINE 2+ (NEGATIVE); UROBILINOGEN,URINE 1 MG/DL (0.0-1.0)
[2018-03-09 06:16] LABS: COLOR,URINE BROWN
--- NOTE | 2018-03-09 06:25 | NUR ---
NURSE NOTES: Pt transferred to ast, via bed. Report given to Zachary CONTRERAS. Patient alert and oriented x3, patient transferred with oxygenation 2L/min. IV site patent and no s/s of infiltration. Pt stated, "belongings were taken by Micki (friend) to his home".
--- NOTE | 2018-03-09 06:30 | NUR ---
NURSE NOTES: Patient transferred from on hospital bed, report taken from Dee RN. Patient dressing has minor saturation, but intact. Patient is A&Ox3, needs orienting to where he is. IV site clean, dry, intact and patent, wrapped with gauze because patient has taken IV out before. Belongings were reported by patient that he gave them to a friend to take home. Bed in lowest position, call light within reach.
--- NOTE | 2018-03-09 07:34 | NUR ---
HAND-OFF: Report given to BEN Saenz and BEN Stephens.
[2018-03-09 07:36] LABS: ALANINE AMINOTRANSFERASE 23 U/L (12-78); ALBUMIN 2.9 G/DL (3.4-5.0); ALKALINE PHOSPHATASE 57 U/L (46-116); ANION GAP 14 mmol/L (5-15); ASPARTATE AMINO TRANSFERASE 79 U/L (15-37); BILIRUBIN,DIRECT 0.3 MG/DL (0.0-0.3); BILIRUBIN,TOTAL 0.9 MG/DL (0.2-1.0); BLOOD UREA NITROGEN 46 mg/dL (7-18); CALCIUM 9.1 MG/DL (8.5-10.1); CARBON DIOXIDE 24 MMOL/L (21-32); CHLORIDE 102 MMOL/L (98-107); CHOLESTEROL 80 MG/DL (< 200); CREATINE KINASE 1857 U/L (26-308); FERRITIN 182 NG/ML (8-388); GAMMA GLUTAMYL TRANSPEPTIDASE 28 U/L (5-85); HDL CHOLESTEROL 40 MG/DL (40-60); PHOSPHORUS 2.9 MG/DL (2.5-4.9); POTASSIUM 4.5 MMOL/L (3.5-5.1); SODIUM 140 MMOL/L (136-145); TRIGLYCERIDES 85 MG/DL (30-150)
[2018-03-09 07:37] LABS: % IRON SATURATION 10 % (15-50); IRON 24 ug/dL (50-175); TOTAL IRON BINDING CAPACITY 233 ug/dL (250-450)
[2018-03-09 07:43] LABS: BASOPHILS % (AUTO) 0.5 % (0.0-2.0); HEMATOCRIT 28.2 % (42.0-52.0); HEMOGLOBIN 9.3 G/DL (14.2-18.0); LYMPHOCYTES % (AUTO) 8.9 % (20.0-45.0); MEAN CORPUSCULAR VOLUME 87 FL (80-99); MONOCYTES % (AUTO) 9.2 % (1.0-10.0); NEUTROPHILS % (AUTO) 81.4 % (45.0-75.0); PLATELET COUNT 142 K/UL (150-450); RED BLOOD COUNT 3.25 M/UL (4.70-6.10); RED CELL DISTRIBUTION WIDTH 12.1 % (11.6-14.8)
--- NOTE | 2018-03-09 07:46 | NUR ---
NURSE NOTES: Received report from BEN Ledbetter. Pt is in the bed, On the 2L NC. No s/s of respiratory distress or discomfort noted. Bed is in the lowest position. Call light is within the reach. Will continue to monitor.
[2018-03-09] MEDS: Metoprolol 25mg tab ORAL SCH ×3 (08:25→21:57)
--- NOTE | 2018-03-09 08:29 | General Progress Note ---
Assessment/Plan Problem List: (1) Renal insufficiency ICD Codes: N28.9 - Disorder of kidney and ureter, unspecified SNOMED: 765483811, 957103661 (2) Coffee ground emesis ICD Codes: K92.0 - Hematemesis SNOMED: 91804046, 597381481 (3) Hip fracture ICD Codes: S72.009A - Fracture of unspecified part of neck of unspecified femur , initial encounter for closed fracture SNOMED: 562440546 (4) Anemia ICD Codes: D64.9 - Anemia, unspecified SNOMED: 258254324 Assessment/Plan add colace and miralax fu stool ob EGD if needed ppi daily Subjective ROS Limited/Unobtainable: Yes Allergies: Coded Allergies: NO KNOWN ALLERGIES (Verified Allergy, Unknown, 03/08/18) Objective Last 24 Hour Vital Signs Date Time Temp Pulse Resp B/P (MAP) Pulse Ox O2 Delivery O2 Flow Rate FiO2 03/09/18 08:25 108 139/61 03/09/18 08:00 99.0 108 18 139/61 (87) 96 03/09/18 06:30 99.5 108 21 137/65 (89) 98 03/09/18 04:00 98.5 100 20 105/69 (81) 93 03/09/18 01:00 103 20 121/65 (83) 95 03/09/18 00:00 98.2 104 20 91/58 (69) 91 03/08/18 21:00 Nasal Cannula 2.0 03/08/18 20:30 97.9 92 15 99/61 96 Nasal Cannula 3 03/08/18 20:15 95 19 89/55 96 Nasal Cannula 3 03/08/18 20:00 82 17 88/56 95 Nasal Cannula 3 03/08/18 19:50 91 19 109/66 96 Simple Mask 6 03/08/18 19:40 93 20 85/52 98 Simple Mask 6 03/08/18 19:33 98 18 97 03/08/18 19:29 97.6 107 16 186/113 99 Simple Mask 6 03/08/18 19:29 107 16 99 03/08/18 16:00 98.6 90 18 99/59 (72) 98 03/08/18 12:00 97.5 65 18 93/54 (67) 95 12/21/18 12:00 115/72 (86) 03/08/18 09:00 Nasal Cannula 2.0 Intake and Output 03/08/18 03/09/18 18:59 06:59 Intake Total 300 ml 630 ml Output Total 550 ml Balance 300 ml 80 ml Intake Oral 110 ml IV Total 300 ml 520 ml Output Urine Total 550 ml # Voids 1 Laboratory Tests 03/08/18 15:10: Urine Color Pale yellow, Urine Appearance Slightly cloudy, Urine pH 8, Urine Specific Daggett 1.005, Urine Protein 1+H, Urine Glucose (UA) Negative, Urine Ketones Negative, Urine Blood Negative, Urine Nitrite Negative, Urine Bilirubin Negative, Urine Urobilinogen Normal, Urine Leukocyte Esterase 1+H, Urine RBC 0- 2H, Urine WBC 10-15H, Urine Squamous Epithelial Cells ModerateH, Urine Bacteria ManyH 03/09/18 03:50: Urine Color Brown, Urine Appearance Slightly cloudy, Urine pH 8, Urine Specific Daggett 1.015, Urine Protein 2+H, Urine Glucose (UA) Negative, Urine Ketones Negative, Urine Blood 5+H, Urine Nitrite Negative, Urine Bilirubin Negative, Urine Urobilinogen 1H, Urine Leukocyte Esterase 1+H, Urine RBC 40-60H, Urine WBC 5-10H, Urine Squamous Epithelial Cells Occasional, Urine Bacteria ModerateH 03/09/18 05:15: White Blood Count 16.0H, Red Blood Count 3.25L, Hemoglobin 9.3L, Hematocrit 28.2L, Mean Corpuscular Volume 87, Mean Corpuscular Hemoglobin 28.7, Mean Corpuscular Hemoglobin Concent 33.0, Red Cell Distribution Width 12.1, Platelet Count 142L, Mean Platelet Volume 5.7L, Neutrophils (%) (Auto) 81.4H, Lymphocytes (%) (Auto) 8.9L, Monocytes (%) (Auto) 9.2, Eosinophils (%) (Auto) 0.0, Basophils (%) (Auto) 0.5, Sodium Level 140, Potassium Level 4.5, Chloride Level 102, Carbon Dioxide Level 24, Anion Gap 14, Blood Urea Nitrogen 46H, Creatinine 4.0H, Estimat Glomerular Filtration Rate , Glucose Level 99, Hemoglobin A1c 5.2, Uric Acid 7.3H, Calcium Level 9.1, Phosphorus Level 2.9, Magnesium Level 1.7L, Iron Level 24L, Total Iron Binding Capacity 233L, Percent Iron Saturation 10L, Unsaturated Iron Binding 209, Ferritin 182, Total Bilirubin 0.9, Direct Bilirubin 0.3, Gamma Glutamyl Transpeptidase 28, Aspartate Amino Transf (AST/SGOT) 79H, Alanine Aminotransferase (ALT/SGPT) 23, Alkaline Phosphatase 57, Total Creatine Kinase 1857H, Troponin I 0.029, Pro-B- Type Natriuretic Peptide 552H, Total Protein 6.5, Albumin 2.9L, Triglycerides Level 85, Cholesterol Level 80, LDL Cholesterol 36, HDL Cholesterol 40, Cholesterol/HDL Ratio 2.0L, Vitamin B12 Level 472, Folate 26.5, Thyroid Stimulating Hormone (TSH) 1.077 Height (Feet): 5 Height (Inches): 9.00 Weight (Pounds): 178 General Appearance: alert EENT: normal ENT inspection Neck: supple Cardiovascular: normal rate Respiratory/Chest: decreased breath sounds Abdomen: normal bowel sounds, non tender, soft Extremities: non-tender Roderick rKause MD Mar 09, 2018 08:29
[2018-03-09] MEDS: Docusate 100mg cap ORAL SCH ×2 (09:00→18:13)
[2018-03-09] MEDS ORDERED: Docusate 100mg cap ORAL SCH (09:00)
[2018-03-09] MEDS ORDERED: Docusate Sod/Senna tab ORAL SCH (09:00)
[2018-03-09] MEDS: Heparin 5000 units/ml inj SUBQ SCH ×2 (09:00→21:00)
[2018-03-09] MEDS: D5 1/2NS w/KCl 20mEq 1,000 ML IV SCH (09:40)
--- NOTE | 2018-03-09 10:48 | NUR ---
Social Work This SW received a consult to assist with a home safety evaluation. This SW met with patient who appears alert/oriented x3, with some forgetfulness. Patient explained to this SW that he lives with his friend, Anisa Sweet who was assisting him with basic ADLs ie cooking, cleaning. Patient explained he was independent with ADLS, ambulation and did not use any DME prior. Patient currently is requiring max assist with ambulation/ADLs due to fractured hip. This Sw recommended SNF placement for further P.T/rehab upon discharge (patient in agreement). Patient explains his son, Campbell Aldridge ([phone]) is his POA for healthcare, but is currently out of town (this SW made attempts to contact son, no answer).
[2018-03-09] MEDS ORDERED: ceFAZolin 2gm/50ml Premix 50 ML IV SCH (11:00)
--- NOTE | 2018-03-09 12:30 | Cardiology Report ---
APPROVED REPORT EXAM: Two-dimensional and M-mode echocardiogram with Doppler and color Doppler. INDICATION Pre-Op Technically difficult and limited study due to poor acoustic windows. Study quality precludes accurate assessment of regional wall motion. M-mode measurements of left ventricle not obtainable due to cardiac position (angle). Normal left ventricular chamber size, hyperdynamic systolic function and wall motion. Left ventricular ejection fraction estimated to be 70-75 % with evidence for cavity obliteration . There appears to be mild left ventricular hypertrophy. No evidence of pericardial effusion. All other cardiac chamber sizes are within normal limits. Focal aortic valve sclerosis with adequate cusp excursion. Thickened mitral valve leaflets with normal excursion. Mitral annulus and aortic root calcification. Pulmonic valve not visualized. Normal tricuspid valve structure. IVC is normal in size with physiological collapse. A color flow and spectral Doppler study was performed and revealed: No aortic insufficiency. No mitral regurgitation. Mitral diastolic velocities suggest mild left ventricular diastolic dysfunction (Grade I). Trace tricuspid regurgitation. Tricuspid systolic velocities suggests peak right ventricular systolic pressure of 34 mmHg.
--- NOTE | 2018-03-09 13:32 | NUR ---
NURSE NOTES: Patient became agitated, trying to get out of the bed. Pulled his IV and trying to pull out Dowell. Tried to reorient patient along with the charge nurse. Dr Price and Dr Mchugh are notified. Addendum: 03/09/18 at 1503 by Jerri Mix RN NURSE NOTES: Holdol administered.
--- NOTE | 2018-03-09 15:14 | Nephrology Progress Note ---
Assessment/Plan Problem List: (1) Acute on chronic renal failure (2) Hip fracture Assessment: left- surgery 03/08 (3) Anemia Assessment: likely mixed ckd and blood loss (4) BPH (benign prostatic hyperplasia) (5) Hypertensive kidney disease Assessment Acute on chronic renal failure Hip Surgery 03/08 - Post op day one today- left hip HTN BPH CKD Dementia Plan NPO as mentation is poor and prone to aspiration Restraint hands- pulled out campbell re insert Campbell IV fluids IV Venofer Alb bolus as needed IV protonix monitor renal parameters Subjective ROS Limited/Unobtainable: No Constitutional: Reports: malaise, other - sedated Objective Objective Last 24 Hour Vital Signs Date Time Temp Pulse Resp B/P (MAP) Pulse Ox O2 Delivery O2 Flow Rate FiO2 03/09/18 12:00 98.5 105 19 96/71 (79) 93 03/09/18 09:00 Nasal Cannula 2.0 03/09/18 08:25 108 139/61 03/09/18 08:00 99.0 108 18 139/61 (87) 96 03/09/18 06:30 99.5 108 21 137/65 (89) 98 03/09/18 04:00 98.5 100 20 105/69 (81) 93 03/09/18 01:00 103 20 121/65 (83) 95 03/09/18 00:00 98.2 104 20 91/58 (69) 91 03/08/18 21:00 Nasal Cannula 2.0 03/08/18 20:30 97.9 92 15 99/61 96 Nasal Cannula 3 03/08/18 20:15 95 19 89/55 96 Nasal Cannula 3 03/08/18 20:00 82 17 88/56 95 Nasal Cannula 3 03/08/18 19:50 91 19 109/66 96 Simple Mask 6 03/08/18 19:40 93 20 85/52 98 Simple Mask 6 03/08/18 19:33 98 18 97 03/08/18 19:29 97.6 107 16 186/113 99 Simple Mask 6 03/08/18 19:29 107 16 99 03/08/18 16:00 98.6 90 18 99/59 (72) 98 Intake and Output 03/08/18 03/09/18 19:00 07:00 Intake Total 300 ml 630 ml Output Total 550 ml Balance 300 ml 80 ml Intake Oral 110 ml IV Total 300 ml 520 ml Output Urine Total 550 ml # Voids 1 Laboratory Tests 03/09/18 03:50: Urine Color Brown, Urine Appearance Slightly cloudy, Urine pH 8, Urine Specific Willis 1.015, Urine Protein 2+H, Urine Glucose (UA) Negative, Urine Ketones Negative, Urine Blood 5+H, Urine Nitrite Negative, Urine Bilirubin Negative, Urine Urobilinogen 1H, Urine Leukocyte Esterase 1+H, Urine RBC 40-60H, Urine WBC 5-10H, Urine Squamous Epithelial Cells Occasional, Urine Bacteria ModerateH 03/09/18 05:15: White Blood Count 16.0H, Red Blood Count 3.25L, Hemoglobin 9.3L, Hematocrit 28.2L, Mean Corpuscular Volume 87, Mean Corpuscular Hemoglobin 28.7, Mean Corpuscular Hemoglobin Concent 33.0, Red Cell Distribution Width 12.1, Platelet Count 142L, Mean Platelet Volume 5.7L, Neutrophils (%) (Auto) 81.4H, Lymphocytes (%) (Auto) 8.9L, Monocytes (%) (Auto) 9.2, Eosinophils (%) (Auto) 0.0, Basophils (%) (Auto) 0.5, Sodium Level 140, Potassium Level 4.5, Chloride Level 102, Carbon Dioxide Level 24, Anion Gap 14, Blood Urea Nitrogen 46H, Creatinine 4.0H, Estimat Glomerular Filtration Rate , Glucose Level 99, Hemoglobin A1c 5.2, Uric Acid 7.3H, Calcium Level 9.1, Phosphorus Level 2.9, Magnesium Level 1.7L, Iron Level 24L, Total Iron Binding Capacity 233L, Percent Iron Saturation 10L, Unsaturated Iron Binding 209, Ferritin 182, Total Bilirubin 0.9, Direct Bilirubin 0.3, Gamma Glutamyl Transpeptidase 28, Aspartate Amino Transf (AST/SGOT) 79H, Alanine Aminotransferase (ALT/SGPT) 23, Alkaline Phosphatase 57, Total Creatine Kinase 1857H, Troponin I 0.029, Pro-B- Type Natriuretic Peptide 552H, Total Protein 6.5, Albumin 2.9L, Triglycerides Level 85, Cholesterol Level 80, LDL Cholesterol 36, HDL Cholesterol 40, Cholesterol/HDL Ratio 2.0L, Vitamin B12 Level 472, Folate 26.5, Thyroid Stimulating Hormone (TSH) 1.077 Height (Feet): 5 Height (Inches): 9.00 Weight (Pounds): 178 Cardiovascular: tachycardia Respiratory/Chest: decreased breath sounds Abdomen: soft Neurologic: other - agitated at times and uncooprative Ortiz Kinsey MD Mar 09, 2018 15:14
[2018-03-09] MEDS ORDERED: D5 1/2NS 1,000 ML IV SCH (15:15)
[2018-03-09] MEDS ORDERED: HydrALAZINE 25mg tab ORAL PRN (15:15)
--- NOTE | 2018-03-09 15:56 | Internal Med Progress Note ---
Subjective Date of Service: Mar 09, 2018 Physician Name CarlieFletcher Attending Physician Kaiser Price MD Current Medications Medications (Trade) Dose Ordered Sig/Lorena Route PRN Reason Start Time Stop Time Status Last Admin Dose Admin Acetaminophen (Tylenol) 650 mg Q6H PRN ORAL Mild Pain/Temp > 100.0 03/08/18 05:30 04/07/18 05:29 Albumin Human 500 ml @ 0 mls/hr Q0M ONCE IV 03/09/18 16:00 03/09/18 16:01 Dextrose/Sodium Chloride 1,000 ml @ 100 mls/hr Q10H IV 03/09/18 15:15 04/08/18 15:14 Docusate Sodium (Colace) 100 mg TWICE A DAY ORAL 03/09/18 09:00 04/08/18 08:59 Haloperidol Lactate (Haldol) 5 mg Q6H PRN IM Agitation 03/09/18 01:00 04/08/18 00:59 03/09/18 13:39 Heparin Sodium (Porcine) (Heparin 5000 units/ml) 5,000 units EVERY 12 HOURS SUBQ 03/08/18 09:00 04/07/18 08:59 Hydralazine HCl (Apresoline) 25 mg Q4H PRN ORAL bp over 160 syst 03/09/18 15:15 04/08/18 15:14 Iron Sucrose 100 mg/Sodium Chloride 60 ml @ 240 mls/hr BEDTIME IV 03/10/18 21:00 03/14/18 21:14 Iron Sucrose 200 mg/Sodium Chloride 120 ml @ 240 mls/hr ONCE IV 03/09/18 16:00 03/09/18 17:00 Metoprolol Tartrate (Lopressor) 25 mg Q12HR ORAL 03/09/18 21:00 04/08/18 20:59 Morphine Sulfate (Morphine Sulfate) 1 mg Q3H PRN IVP Pain scale 1-3 03/08/18 16:45 03/15/18 16:44 Morphine Sulfate (Morphine Sulfate) 2 mg Q3H PRN IVP Moderate Pain (Pain Scale 4-6) 03/08/18 16:45 03/15/18 16:44 03/09/18 06:12 Ondansetron HCl (Zofran) 4 mg Q6H PRN IVP Nausea & Vomiting 03/08/18 16:45 04/07/18 16:44 Pantoprazole (Protonix) 40 mg EVERY 12 HOURS IVP 03/09/18 21:00 04/08/18 20:59 Polyethylene Glycol (Miralax) 17 gm BEDTIME ORAL 03/09/18 21:00 04/08/18 20:59 Temazepam (Restoril) 7.5 mg DAILY PRN ORAL Insomnia 03/08/18 16:45 03/15/18 16:44 Allergies: Coded Allergies: NO KNOWN ALLERGIES (Verified Allergy, Unknown, 03/08/18) ROS Limited/Unobtainable: No Constitutional: Reports: no symptoms HEENT: Reports: no symptoms Cardiovascular: Reports: no symptoms Respiratory: Reports: no symptoms Gastrointestinal/Abdominal: Reports: no symptoms Genitourinary: Reports: no symptoms Neurologic/Psychiatric: Reports: no symptoms Subjective 87 YO M admitted with fracture left femur. S/P ORIF 03/08/18. Cover for Int Aashish-Dr Price Objective Last Vital Signs Date Time Temp Pulse Resp B/P (MAP) Pulse Ox O2 Delivery O2 Flow Rate FiO2 03/09/18 12:00 98.5 105 19 96/71 (79) 93 03/09/18 09:00 Nasal Cannula 2.0 General Appearance: WD/WN, no apparent distress, alert EENT: PERRL/EOMI, normal ENT inspection, TMs normal Neck: non-tender, normal alignment, supple, normal inspection Cardiovascular: normal peripheral pulses, normal rate, regular rhythm, no gallop/murmur, no JVD Respiratory/Chest: chest wall non-tender, lungs clear, normal breath sounds, no respiratory distress, no accessory muscle use Abdomen: normal bowel sounds, non tender, soft, no organomegaly, no mass Extremities: normal range of motion, non-tender 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 II-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 grossly normal, no motor/sensory deficits Skin: normal pigmentation, warm/dry Laboratory Tests Test 03/09/18 03:50 03/09/18 05:15 Urine Color Brown Urine Appearance Slightly cloudy Urine pH 8 (4.5-8.0) Urine Specific [place] 1.015 (1.005-1.035) Urine Protein 2+ (NEGATIVE) H Urine Glucose (UA) Negative (NEGATIVE) Urine Ketones Negative (NEGATIVE) Urine Blood 5+ (NEGATIVE) H Urine Nitrite Negative (NEGATIVE) Urine Bilirubin Negative (NEGATIVE) Urine Urobilinogen 1 MG/DL (0.0-1.0) H Urine Leukocyte Esterase 1+ (NEGATIVE) H Urine RBC 40-60 /HPF (0 - 0) H Urine WBC 5-10 /HPF (0 - 0) H Urine Squamous Epithelial Cells Occasional /LPF Urine Bacteria Moderate /HPF (NONE) H White Blood Count 16.0 K/UL (4.8-10.8) H Red Blood Count 3.25 M/UL (4.70-6.10) L Hemoglobin 9.3 G/DL (14.2-18.0) L Hematocrit 28.2 % (42.0-52.0) L Mean Corpuscular Volume 87 FL (80-99) Mean Corpuscular Hemoglobin 28.7 PG (27.0-31.0) Mean Corpuscular Hemoglobin Concent 33.0 G/DL (32.0-36.0) Red Cell Distribution Width 12.1 % (11.6-14.8) Platelet Count 142 K/UL (150-450) L Mean Platelet Volume 5.7 FL (6.5-10.1) L Neutrophils (%) (Auto) 81.4 % (45.0-75.0) H Lymphocytes (%) (Auto) 8.9 % (20.0-45.0) L Monocytes (%) (Auto) 9.2 % (1.0-10.0) Eosinophils (%) (Auto) 0.0 % (0.0-3.0) Basophils (%) (Auto) 0.5 % (0.0-2.0) Sodium Level 140 MMOL/L (136-145) Potassium Level 4.5 MMOL/L (3.5-5.1) Chloride Level 102 MMOL/L (98-107) Carbon Dioxide Level 24 MMOL/L (21-32) Anion Gap 14 mmol/L (5-15) Blood Urea Nitrogen 46 mg/dL (7-18) H Creatinine 4.0 MG/DL (0.55-1.30) H Estimat Glomerular Filtration Rate mL/min (>60) Glucose Level 99 MG/DL (74-106) Hemoglobin A1c 5.2 % (4.3-6.0) Uric Acid 7.3 MG/DL (2.6-7.2) H Calcium Level 9.1 MG/DL (8.5-10.1) Phosphorus Level 2.9 MG/DL (2.5-4.9) Magnesium Level 1.7 MG/DL (1.8-2.4) L Iron Level 24 ug/dL (50-175) L Total Iron Binding Capacity 233 ug/dL (250-450) L Percent Iron Saturation 10 % (15-50) L Unsaturated Iron Binding 209 ug/dL (112-346) Ferritin 182 NG/ML (8-388) Total Bilirubin 0.9 MG/DL (0.2-1.0) Direct Bilirubin 0.3 MG/DL (0.0-0.3) Gamma Glutamyl Transpeptidase 28 U/L (5-85) Aspartate Amino Transf (AST/SGOT) 79 U/L (15-37) H Alanine Aminotransferase (ALT/SGPT) 23 U/L (12-78) Alkaline Phosphatase 57 U/L (46-116) Total Creatine Kinase 1857 U/L (26-308) H Troponin I 0.029 ng/mL (0.000-0.056) C-Reactive Protein, Quantitative Pending Pro-B-Type Natriuretic Peptide 552 pg/mL (0-125) H Total Protein 6.5 G/DL (6.4-8.2) Albumin 2.9 G/DL (3.4-5.0) L Triglycerides Level 85 MG/DL (30-150) Cholesterol Level 80 MG/DL (< 200) LDL Cholesterol 36 mg/dL (<100) HDL Cholesterol 40 MG/DL (40-60) Cholesterol/HDL Ratio 2.0 (3.3-4.4) L Vitamin B12 Level 472 PG/ML (193-986) Folate 26.5 NG/ML (8.6-58.9) Thyroid Stimulating Hormone (TSH) 1.077 uiU/mL (0.358-3.740) Microbiology Date/Time Source Procedure Growth Status 03/08/18 15:10 Urine,Clean Catch Urine Culture - Preliminary NO GROWTH Resulted Intake and Output 03/08/18 03/09/18 19:00 07:00 Intake Total 300 ml 630 ml Output Total 550 ml Balance 300 ml 80 ml Intake Oral 110 ml IV Total 300 ml 520 ml Output Urine Total 550 ml # Voids 1 Assessment/Plan Problem List: (1) Hypertension Assessment & Plan: Continue current medication (2) Left displaced femoral neck fracture Assessment & Plan: S/P ORIF on 03/08/18. See ortho note. (3) BPH (benign prostatic hyperplasia) (4) Acute on chronic renal failure Assessment & Plan: See nephrology note. May require hemodialysis Fletcher Sexton MD Mar 09, 2018 15:56
[2018-03-09] MEDS ORDERED: Iron Sucrose 200 MG in NS 110 ML IV SCH (16:00)
--- NOTE | 2018-03-09 16:28 | NUR ---
PT Note PT urvashi completed, treatment initiated. Patient's LLE is held in external rotation and is swollen. Patient was able to sit at the EOB but was unable to stand. Patient needs skilled PT services to increase his muscle strength to improve his functional mobility and gait. Recommend for patient to be DC'd to a SNF. Addendum: 03/09/18 at 1629 by CHRISTIANA PELLETIER PT Amended: Links added.
--- NOTE | 2018-03-09 18:16 | NUR ---
NURSE NOTES: Patient was noted with the removed campbell catheter. No bleeding. Patient is confused and disoriented. Removing the Nasal Canula and incompliant. Per Dr Kinsey's order, non behavioral restraints applied. as well as 16 Fr Campbell catheter inserted. Addendum: 03/09/18 at 1822 by Jerri Mix RN NURSE NOTES: Restraints were applied at 1500
--- NOTE | 2018-03-09 19:10 | NUR ---
HAND-OFF: Report given to BEN Armstrong.
[2018-03-09] MEDS ORDERED: Iron Sucrose 100 MG in NS 55 ML IV SCH (21:00)
[2018-03-09] MEDS ORDERED: Miralax 17gm pkt ORAL SCH (21:00)
--- NOTE | 2018-03-09 21:56 | General Progress Note ---
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 Status: stable, progressing Assessment/Plan Haldol Im prn the pts next of keen should makes decisions the pt lacks capacity Subjective Neurologic/Psychiatric: Reports: anxiety, emotional problems Allergies: Coded Allergies: NO KNOWN ALLERGIES (Verified Allergy, Unknown, 03/08/18) Objective Last 24 Hour Vital Signs Date Time Temp Pulse Resp B/P (MAP) Pulse Ox O2 Delivery O2 Flow Rate FiO2 03/09/18 16:00 100.1 103 19 91/58 (69) 97 03/09/18 12:00 98.5 105 19 96/71 (79) 93 03/09/18 09:00 Nasal Cannula 2.0 03/09/18 08:25 108 139/61 03/09/18 08:00 99.0 108 18 139/61 (87) 96 03/09/18 06:30 99.5 108 21 137/65 (89) 98 03/09/18 04:00 98.5 100 20 105/69 (81) 93 03/09/18 01:00 103 20 121/65 (83) 95 03/09/18 00:00 98.2 104 20 91/58 (69) 91 Intake and Output 03/08/18 03/09/18 19:00 07:00 Intake Total 300 ml 630 ml Output Total 550 ml Balance 300 ml 80 ml Intake Oral 110 ml IV Total 300 ml 520 ml Output Urine Total 550 ml # Voids 1 Laboratory Tests 03/09/18 03:50: Urine Color Brown, Urine Appearance Slightly cloudy, Urine pH 8, Urine Specific [place] 1.015, Urine Protein 2+H, Urine Glucose (UA) Negative, Urine Ketones Negative, Urine Blood 5+H, Urine Nitrite Negative, Urine Bilirubin Negative, Urine Urobilinogen 1H, Urine Leukocyte Esterase 1+H, Urine RBC 40-60H, Urine WBC 5-10H, Urine Squamous Epithelial Cells Occasional, Urine Bacteria ModerateH 03/09/18 05:15: White Blood Count 16.0H, Red Blood Count 3.25L, Hemoglobin 9.3L, Hematocrit 28.2L, Mean Corpuscular Volume 87, Mean Corpuscular Hemoglobin 28.7, Mean Corpuscular Hemoglobin Concent 33.0, Red Cell Distribution Width 12.1, Platelet Count 142L, Mean Platelet Volume 5.7L, Neutrophils (%) (Auto) 81.4H, Lymphocytes (%) (Auto) 8.9L, Monocytes (%) (Auto) 9.2, Eosinophils (%) (Auto) 0.0, Basophils (%) (Auto) 0.5, Sodium Level 140, Potassium Level 4.5, Chloride Level 102, Carbon Dioxide Level 24, Anion Gap 14, Blood Urea Nitrogen 46H, Creatinine 4.0H, Estimat Glomerular Filtration Rate , Glucose Level 99, Hemoglobin A1c 5.2, Uric Acid 7.3H, Calcium Level 9.1, Phosphorus Level 2.9, Magnesium Level 1.7L, Iron Level 24L, Total Iron Binding Capacity 233L, Percent Iron Saturation 10L, Unsaturated Iron Binding 209, Ferritin 182, Total Bilirubin 0.9, Direct Bilirubin 0.3, Gamma Glutamyl Transpeptidase 28, Aspartate Amino Transf (AST/SGOT) 79H, Alanine Aminotransferase (ALT/SGPT) 23, Alkaline Phosphatase 57, Total Creatine Kinase 1857H, Troponin I 0.029, C- Reactive Protein, Quantitative 24.8H, Pro-B-Type Natriuretic Peptide 552H, Total Protein 6.5, Albumin 2.9L, Triglycerides Level 85, Cholesterol Level 80, LDL Cholesterol 36, HDL Cholesterol 40, Cholesterol/HDL Ratio 2.0L, Vitamin B12 Level 472, Folate 26.5, Thyroid Stimulating Hormone (TSH) 1.077 Height (Feet): 5 Height (Inches): 9.00 Weight (Pounds): 178 General Appearance: confused, agitated Domenic Solomon MD Mar 09, 2018 21:56
--- NOTE | 2018-03-09 22:24 | NUR ---
NURSE NOTES: Patient's hr ranging 115-155. O2 sat ranging 74-84. RT called for assessment. Placed on nonrebreather. current o2 100 percent. HR 118-155. Patient remains confused, aox2. Skin warm to touch, hands slightly cool touch. Expresses pain related to urge to have a bm. Refusing po Metoprolol. Dr. Price made aware. Patiet to be transferred to [facility] for rehabilitation. Stat cxr ordered.
[2018-03-09] MEDS: Pantoprazole Inj IVP SCH (22:33)
[2018-03-09] MEDS ORDERED: Metoprolol 5mg/5ml Inj IVP SCH (23:15)
--- NOTE | 2018-03-09 23:24 | NUR ---
NURSE NOTES: Patient transferred to [facility]. Report given to Joanna CONTRERAS. Belongings list signed.
--- NOTE | 2018-03-09 23:25 | NUR ---
NURSE NOTES: Received report from BEN Armstrong. Patient was transferred from 3E to 2E Telemetry unit via 2 staff member assist without incident. No signs of acute distress noted; denies pain at this time. On 15L non-rebreather mask saturating at 100%. AOx2-3; verbalizes needs with periods of confusion. Checked IV site; patent and flushed. No erythema, bleeding, or infiltration noted. Patient put on Tele box; sinus tachycardic with BBB and PACs (110s and peaking at 151 bpm). Belongings list checked with transferring RN. Dowell catheter draining well to gravity. Bed at lowest position, brakes on, siderails up x3. Call light within reach. Will continue to monitor.
[2018-03-10] VITALS (7 sets, daily range): BP systolic 99–161; BP diastolic 54–74
[2018-03-10] MEDS: Pantoprazole Inj IVP SCH ×3 (00:07→21:36)
--- NOTE | 2018-03-10 01:20 | NUR ---
NURSE NOTES: Patient strongly refuses to use abduction pillow at this time. Risks and benefits explained x3; still refusing.
--- NOTE | 2018-03-10 02:05 | NUR ---
NURSE NOTES: Patient is strongly refusing ABG draw at this time, stating, "I don't want it now. Come back next week." Risks and benefits explained x3; still adamantly refusing.
[2018-03-10] MEDS ORDERED: HydrALAZINE 25mg tab ORAL PRN ×2 (03:15→11:15)
--- NOTE | 2018-03-10 03:33 | NUR ---
NURSE NOTES: Patient is awake lying semi-metzger's; resting comfortably. No signs of acute distress noted; denies pain at this time. On 15L non-rebreather mask saturating at 98%. Dowell catheter draining well to gravity.
[2018-03-10] MEDS ORDERED: Morphine Sulfate 2mg/ml Inj IVP PRN (04:45)
--- NOTE | 2018-03-10 05:26 | NUR ---
NURSE NOTES: Called Dr. Price regarding patient's ABG results and heart rate peaking at 151 bpm. Awaiting callback. Addendum: 03/10/18 at 0813 by TANIA JOY RN RN Also notified Dr. Price regarding patient's hgb of 7.8.
[2018-03-10 05:55] LABS: HEMOGLOBIN 7.8 G/DL (14.2-18.0); MEAN CORPUSCULAR VOLUME 85 FL (80-99); PLATELET COUNT 130 K/UL (150-450); RED BLOOD COUNT 2.69 M/UL (4.70-6.10); WHITE BLOOD COUNT 12.3 K/UL (4.8-10.8)
[2018-03-10 06:27] LABS: ALANINE AMINOTRANSFERASE 38 U/L (12-78); ALBUMIN 3.1 G/DL (3.4-5.0); ALBUMIN/GLOBULIN RATIO 0.9 (1.0-2.7); ALKALINE PHOSPHATASE 53 U/L (46-116); ANION GAP 12 mmol/L (5-15); ASPARTATE AMINO TRANSFERASE 176 U/L (15-37); BILIRUBIN,TOTAL 1.1 MG/DL (0.2-1.0); BLOOD UREA NITROGEN 44 mg/dL (7-18); CALCIUM 9.2 MG/DL (8.5-10.1); CARBON DIOXIDE 25 MMOL/L (21-32); CHLORIDE 106 MMOL/L (98-107); CREATINE KINASE 4173 U/L (26-308); CREATININE 2.7 MG/DL (0.55-1.30); GAMMA GLUTAMYL TRANSPEPTIDASE 28 U/L (5-85); PHOSPHORUS 2.7 MG/DL (2.5-4.9); SODIUM 143 MMOL/L (136-145)
[2018-03-10 06:29] LABS: BILIRUBIN,DIRECT 0.5 MG/DL (0.0-0.3)
[2018-03-10] MEDS ORDERED: Haloperidol 5mg/ml Inj IM PRN ×2 (07:00→13:00)
--- NOTE | 2018-03-10 07:44 | NUR ---
NURSE NOTES: Received new orders from Dr. Price. Noted and carried out.
--- NOTE | 2018-03-10 07:55 | NUR ---
HAND-OFF: Report given to Corine RN and BEN Rhodes. Patient is awake restless. On 15L non-rebreather mask. Dowell catheter draining well to gravity. Endorsed to oncoming RN regarding patient's pending transfer to [facility]; verbalized understanding.
[2018-03-10] MEDS ORDERED: Digoxin 0.5mg/2ml Inj IVP SCH ×2 (08:00→09:15)
--- NOTE | 2018-03-10 08:00 | NUR ---
NURSE NOTES: Received bedside report from Britney CONTRERAS. Previous shift nurse received order from Dr. Price to transfer pt. to ICU/[facility] now.
--- NOTE | 2018-03-10 08:10 | NUR ---
NURSE NOTES: Patient arrived in unit with RN Viji 2E per bed on venturi mask 50%,campbell,left hip surgery,small pink/red drainage,head elevated 30 degrees,aspiration precaution,tachycardic, HR-128,made comfortable,continue care,there is order digoxin
--- NOTE | 2018-03-10 08:25 | NUR ---
NURSE NOTES: Transferred pt. to 2W room 234. Gave report to Donna CONTRERAS.
[2018-03-10] MEDS ORDERED: D5 1/2NS 1000ml IV ONE (08:42)
[2018-03-10] MEDS ORDERED: Tubing IV Secondary IV ONE (08:42)
--- NOTE | 2018-03-10 08:43 | NUR ---
PT Note Patient was transferred to tele unit last night then transferred to [facility] this AM due to decline in medical condition. Will hold PT for now when patient is more medically stable and when new orders are received.
[2018-03-10] MEDS ORDERED: Digoxin 0.5mg/2ml Inj IVP ONE (09:00)
[2018-03-10] MEDS ORDERED: Heparin 5000 units/ml inj SUBQ SCH (09:00)
[2018-03-10] MEDS ORDERED: Pantoprazole Inj IVP SCH (09:00)
[2018-03-10] MEDS ORDERED: Docusate 100mg cap ORAL SCH (09:00)
[2018-03-10] MEDS ORDERED: Metoprolol 25mg tab ORAL SCH (09:00)
--- NOTE | 2018-03-10 09:48 | General Progress Note ---
Assessment/Plan Problem List: (1) Renal insufficiency ICD Codes: N28.9 - Disorder of kidney and ureter, unspecified SNOMED: 914408013, 702331585 (2) Coffee ground emesis ICD Codes: K92.0 - Hematemesis SNOMED: 66956304, 566707728 (3) Hip fracture ICD Codes: S72.009A - Fracture of unspecified part of neck of unspecified femur , initial encounter for closed fracture SNOMED: 270839442 (4) Anemia ICD Codes: D64.9 - Anemia, unspecified SNOMED: 473013968 Assessment/Plan colace and miralax fu stool ob transfuse one unit PRBC ppi daily EGD in am if stable Subjective ROS Limited/Unobtainable: Yes Allergies: Coded Allergies: NO KNOWN ALLERGIES (Verified Allergy, Unknown, 03/08/18) Objective Last 24 Hour Vital Signs Date Time Temp Pulse Resp B/P (MAP) Pulse Ox O2 Delivery O2 Flow Rate FiO2 03/10/18 08:00 99.5 75 20 121/54 (76) 93 03/10/18 04:00 99.1 113 20 117/66 (83) 99 03/10/18 04:00 121 03/10/18 01:27 96 Non-Rebreather 15.0 100 03/10/18 01:27 Non-Rebreather 15.0 100 03/10/18 00:00 98.5 111 20 99/65 (76) 99 03/09/18 23:46 109 03/09/18 23:43 115 102/64 03/09/18 23:17 151 03/09/18 22:00 138 20 110/64 (79) 100 03/09/18 21:30 117 18 106/68 (81) 78 03/09/18 21:00 Nasal Cannula 2.0 03/09/18 21:00 97.9 123 20 116/65 (82) 96 03/09/18 16:00 100.1 103 19 91/58 (69) 97 03/09/18 12:00 98.5 105 19 96/71 (79) 93 Intake and Output 03/09/18 03/10/18 18:59 06:59 Intake Total 700 ml Output Total 500 ml 1700 ml Balance 200 ml -1700 ml Intake Oral 600 ml IV Total 100 ml Output Urine Total 500 ml 1700 ml Laboratory Tests 03/10/18 03:03: Arterial Blood pH 7.498H, Arterial Blood Partial Pressure CO2 30.6L, Arterial Blood Partial Pressure O2 110.5H, Arterial Blood HCO3 23.2, Arterial Blood Oxygen Saturation 97.1, Arterial Blood Base Excess 0.3, Marito Test Positive 03/10/18 05:25: White Blood Count 12.3H, Red Blood Count 2.69L, Hemoglobin 7.8L, Hematocrit 23.0L, Mean Corpuscular Volume 85, Mean Corpuscular Hemoglobin 29.0, Mean Corpuscular Hemoglobin Concent 34.0, Red Cell Distribution Width 12.0, Platelet Count 130L, Mean Platelet Volume 5.6L, Neutrophils (%) (Auto) , Lymphocytes (%) (Auto) , Monocytes (%) (Auto) , Eosinophils (%) (Auto) , Basophils (%) (Auto) , Differential Total Cells Counted 100, Neutrophils % (Manual) 84H, Lymphocytes % (Manual) 10L, Monocytes % (Manual) 6, Eosinophils % (Manual) 0, Basophils % ( Manual) 0, Band Neutrophils 0, Platelet Estimate DecreasedL, Platelet Morphology Normal, Hypochromasia 1+, Sodium Level 143, Potassium Level 4.0, Chloride Level 106, Carbon Dioxide Level 25, Anion Gap 12, Blood Urea Nitrogen 44H, Creatinine 2.7H, Estimat Glomerular Filtration Rate , Glucose Level 86, Uric Acid 8.0H, Calcium Level 9.2, Phosphorus Level 2.7, Magnesium Level 1.8, Total Bilirubin 1.1H, Direct Bilirubin 0.5H, Gamma Glutamyl Transpeptidase 28, Aspartate Amino Transf (AST/SGOT) 176H, Alanine Aminotransferase (ALT/SGPT) 38, Alkaline Phosphatase 53, Total Creatine Kinase 4173H, Pro-B-Type Natriuretic Peptide 3142H, Total Protein 6.5, Albumin 3.1L, Globulin 3.4, Albumin/Globulin Ratio 0.9L Height (Feet): 5 Height (Inches): 9.00 Weight (Pounds): 178 General Appearance: mild distress EENT: normal ENT inspection Neck: supple Cardiovascular: tachycardia Respiratory/Chest: decreased breath sounds Abdomen: normal bowel sounds, non tender, soft Extremities: non-tender Roderick Krause MD Mar 10, 2018 09:48
--- NOTE | 2018-03-10 09:55 | NUR ---
NURSE NOTES: Digoxin given HR 125for CT chest
--- NOTE | 2018-03-10 10:30 | NUR ---
NURSE NOTES: with patient to CT scan [place] cardioac monitor HR [phone] ,tolerated 1040 back to unit ,HR better ,no chest pain
--- NOTE | 2018-03-10 11:19 | Diagnostic Imaging Report ---
EXAM: CT Chest Without Intravenous Contrast CLINICAL HISTORY: Shortness of breath TECHNIQUE: Axial computed tomography images of the chest without intravenous contrast. CTDI is 22.57 mGy and DLP is 645 mGy-cm. One or more of the following dose reduction techniques were used: automated exposure control, adjustment of the mA and/or kV according to patient size, use of iterative reconstruction technique. COMPARISON: Chest x-ray dated 03/09/18 FINDINGS: Lungs: Patchy consolidation in the right lower lobe with reticular interstitial infiltrates in the dependent portions of the right upper and middle lobes and the left lower lobe, concerning for pneumonia. Pleural space: Small layering right pleural effusion. No pneumothorax. Heart: Coronary Artery Calcifications. No significant pericardial effusion. Bones/joints: Moderate degenerative changes in the right shoulder joint. Multilevel degenerative changes throughout the visualized spine with disc space loss and endplate osteophytes. No acute fracture. No dislocation. Soft tissues: Unremarkable. Vasculature: Unremarkable. No thoracic aortic aneurysm. Lymph nodes: Unremarkable. No enlarged lymph nodes. Spleen: Scattered subcentimeter Granulomas in the Liver and Spleen. Kidneys and ureters: Partial visualization of a 5.4 seen simple- appearing left upper pole renal cortical cyst. IMPRESSION: 1. Patchy consolidation in the right lower lobe with reticular interstitial infiltrates in the dependent portions of the right upper and middle lobes and the left lower lobe, concerning for pneumonia. 2. Small layering right pleural effusion. 3. Coronary Artery Calcifications. 4. Partial visualization of a 5.4 seen simple-appearing left upper pole renal cortical cyst.
[2018-03-10] MEDS: Docusate 100mg cap ORAL SCH ×2 (12:18→18:00)
[2018-03-10] MEDS: Heparin 5000 units/ml inj SUBQ SCH ×2 (12:27→21:00)
[2018-03-10] MEDS: Metoprolol 25mg tab ORAL SCH ×2 (12:28→21:36)
[2018-03-10] MEDS ORDERED: Albuterol/Ipratropium 3ml neb HHN PRN (14:00)
[2018-03-10] MEDS: D5 1/2NS 1,000 ML IV SCH ×2 (14:03→23:28)
--- NOTE | 2018-03-10 14:05 | Nephrology Progress Note ---
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 Subjective ROS Limited/Unobtainable: No Constitutional: Reports: malaise, weakness, other - agitated periodically Objective Objective Last 24 Hour Vital Signs Date Time Temp Pulse Resp B/P (MAP) Pulse Ox O2 Delivery O2 Flow Rate FiO2 03/10/18 12:28 124 141/74 03/10/18 12:00 100.0 124 20 141/74 (96) 100 03/10/18 09:51 75 03/10/18 08:30 100.4 118 20 105/60 (75) 96 03/10/18 08:00 99.5 75 20 121/54 (76) 93 03/10/18 04:00 99.1 113 20 117/66 (83) 99 03/10/18 04:00 121 03/10/18 01:27 96 Non-Rebreather 15.0 100 03/10/18 01:27 Non-Rebreather 15.0 100 03/10/18 00:00 98.5 111 20 99/65 (76) 99 03/09/18 23:46 109 03/09/18 23:43 115 102/64 03/09/18 23:17 151 03/09/18 22:00 138 20 110/64 (79) 100 03/09/18 21:30 117 18 106/68 (81) 78 03/09/18 21:00 Nasal Cannula 2.0 03/09/18 21:00 97.9 123 20 116/65 (82) 96 03/09/18 16:00 100.1 103 19 91/58 (69) 97 Intake and Output 03/09/18 03/10/18 19:00 07:00 Intake Total 700 ml Output Total 500 ml 1700 ml Balance 200 ml -1700 ml Intake Oral 600 ml IV Total 100 ml Output Urine Total 500 ml 1700 ml Laboratory Tests 03/10/18 03:03: Arterial Blood pH 7.498H, Arterial Blood Partial Pressure CO2 30.6L, Arterial Blood Partial Pressure O2 110.5H, Arterial Blood HCO3 23.2, Arterial Blood Oxygen Saturation 97.1, Arterial Blood Base Excess 0.3, Marito Test Positive 03/10/18 05:25: White Blood Count 12.3H, Red Blood Count 2.69L, Hemoglobin 7.8L, Hematocrit 23.0L, Mean Corpuscular Volume 85, Mean Corpuscular Hemoglobin 29.0, Mean Corpuscular Hemoglobin Concent 34.0, Red Cell Distribution Width 12.0, Platelet Count 130L, Mean Platelet Volume 5.6L, Neutrophils (%) (Auto) , Lymphocytes (%) (Auto) , Monocytes (%) (Auto) , Eosinophils (%) (Auto) , Basophils (%) (Auto) , Differential Total Cells Counted 100, Neutrophils % (Manual) 84H, Lymphocytes % (Manual) 10L, Monocytes % (Manual) 6, Eosinophils % (Manual) 0, Basophils % ( Manual) 0, Band Neutrophils 0, Platelet Estimate DecreasedL, Platelet Morphology Normal, Hypochromasia 1+, Sodium Level 143, Potassium Level 4.0, Chloride Level 106, Carbon Dioxide Level 25, Anion Gap 12, Blood Urea Nitrogen 44H, Creatinine 2.7H, Estimat Glomerular Filtration Rate , Glucose Level 86, Uric Acid 8.0H, Calcium Level 9.2, Phosphorus Level 2.7, Magnesium Level 1.8, Total Bilirubin 1.1H, Direct Bilirubin 0.5H, Gamma Glutamyl Transpeptidase 28, Aspartate Amino Transf (AST/SGOT) 176H, Alanine Aminotransferase (ALT/SGPT) 38, Alkaline Phosphatase 53, Total Creatine Kinase 4173H, Pro-B-Type Natriuretic Peptide 3142H, Total Protein 6.5, Albumin 3.1L, Globulin 3.4, Albumin/Globulin Ratio 0.9L 03/10/18 08:53: Arterial Blood pH 7.507H, Arterial Blood Partial Pressure CO2 29.0L, Arterial Blood Partial Pressure O2 78.2, Arterial Blood HCO3 22.5, Arterial Blood Oxygen Saturation 94.3L, Arterial Blood Base Excess -0.2, Marito Test Positive Height (Feet): 5 Height (Inches): 9.00 Weight (Pounds): 178 Cardiovascular: tachycardia Respiratory/Chest: decreased breath sounds Abdomen: distended Ortiz Kinsey MD Mar 10, 2018 14:05
--- NOTE | 2018-03-10 14:07 | Consultation ---
History of Present Illness General Date patient seen: Mar 10, 2018 Time patient seen: 13:58 Chief Complaint: SOB/hypoxemia Referring physician: kady Price Reason for Consultation: SOB Present Illness HPI 87 M h/o HTN, CKD, possible dementia initially transferred from [facility] after mechanical fall and ? CGE with L hip Fx now S/P ORIF 03/08. Post-op course c/b anemia, worsening encephalopathy, YOAV on CKD and progressive hypoxemia. Non- contrast CT shows RLL infiltrates c/w aspiration. Given abnormal renal function angio not done. The patient himself is confused and is unable to provide any further history. Allergies: Coded Allergies: NO KNOWN ALLERGIES (Verified Allergy, Unknown, 03/08/18) Medication History Medications Narrative Current Medications Medications (Trade) Dose Ordered Sig/Lorena Route PRN Reason Start Time Stop Time Status Last Admin Dose Admin Acetaminophen (Tylenol) 650 mg Q6H PRN ORAL Mild Pain/Temp > 100.0 03/10/18 11:30 04/07/18 05:29 03/10/18 12:20 Amlodipine Besylate (Norvasc) 5 mg Q4H PRN ORAL SBP > 120 03/10/18 11:15 04/08/18 19:14 Dextrose/Sodium Chloride 1,000 ml @ 100 mls/hr Q10H IV 03/10/18 12:30 04/09/18 12:29 Docusate Sodium (Colace) 100 mg TWICE A DAY ORAL 03/10/18 09:00 04/08/18 08:59 03/10/18 12:18 Finasteride (Proscar) 5 mg DAILY ORAL 03/10/18 09:00 04/09/18 08:59 03/10/18 12:19 Haloperidol Lactate (Haldol) 5 mg Q6H PRN IM Agitation 03/10/18 13:00 04/08/18 00:59 Heparin Sodium (Porcine) (Heparin 5000 units/ml) 5,000 units EVERY 12 HOURS SUBQ 03/10/18 09:00 04/07/18 08:59 03/10/18 12:27 Hydralazine HCl (Apresoline) 25 mg Q4H PRN ORAL bp over 160 syst 03/10/18 11:15 04/08/18 15:14 Iron Sucrose 100 mg/Sodium Chloride 60 ml @ 240 mls/hr BEDTIME IV 03/10/18 21:00 03/14/18 21:14 Metoprolol Tartrate (Lopressor) 25 mg Q12HR ORAL 03/10/18 09:00 04/08/18 20:59 03/10/18 12:28 Morphine Sulfate (Morphine Sulfate) 2 mg Q3H PRN IVP Moderate Pain (Pain Scale 4-6) 03/10/18 10:45 03/15/18 16:44 Ondansetron HCl (Zofran) 4 mg Q6H PRN IVP Nausea & Vomiting 03/10/18 10:45 04/07/18 16:44 Pantoprazole (Protonix) 40 mg EVERY 12 HOURS IVP 03/10/18 09:00 04/08/18 20:59 03/10/18 12:18 Piperacillin Sod/ Tazobactam Sod 3.375 gm/Dextrose 110 ml @ 27.5 mls/hr Q8H IVPB 03/10/18 16:00 03/17/18 15:59 Polyethylene Glycol (Miralax) 17 gm BEDTIME ORAL 03/10/18 21:00 04/08/18 20:59 Temazepam (Restoril) 7.5 mg DAILYPRN PRN ORAL Insomnia 03/10/18 09:00 03/17/18 08:59 Patient History Limited by: medical condition History Provided By: Medical Record Healthcare decision maker Resuscitation status Advanced Directive on File No Past Medical/Surgical History Past Medical/Surgical History: (1) Hypertensive kidney disease (2) BPH (benign prostatic hyperplasia) (3) Renal insufficiency (4) Hypertension Review of Systems ROS Narrative Unobtainable Physical Exam General Appearance: no apparent distress, confused Lines, tubes and drains: peripheral HEENT: normocephalic, atraumatic, anicteric, mucous membranes moist Neck: supple Respiratory/Chest: rhonchi - bilaterally Cardiovascular/Chest: normal peripheral pulses, normal rate, regular rhythm Abdomen: normal bowel sounds, non tender, soft, no organomegaly, no mass Extremities: no edema, no cyanosis Neurologic: disoriented Last 24 Hour Vital Signs Date Time Temp Pulse Resp B/P (MAP) Pulse Ox O2 Delivery O2 Flow Rate FiO2 03/10/18 12:28 124 141/74 03/10/18 12:00 100.0 124 20 141/74 (96) 100 03/10/18 09:51 75 03/10/18 08:30 100.4 118 20 105/60 (75) 96 03/10/18 08:00 99.5 75 20 121/54 (76) 93 03/10/18 04:00 99.1 113 20 117/66 (83) 99 03/10/18 04:00 121 03/10/18 01:27 96 Non-Rebreather 15.0 100 03/10/18 01:27 Non-Rebreather 15.0 100 03/10/18 00:00 98.5 111 20 99/65 (76) 99 03/09/18 23:46 109 03/09/18 23:43 115 102/64 03/09/18 23:17 151 03/09/18 22:00 138 20 110/64 (79) 100 03/09/18 21:30 117 18 106/68 (81) 78 03/09/18 21:00 Nasal Cannula 2.0 03/09/18 21:00 97.9 123 20 116/65 (82) 96 03/09/18 16:00 100.1 103 19 91/58 (69) 97 Intake and Output 03/09/18 03/10/18 19:00 07:00 Intake Total 700 ml Output Total 500 ml 1700 ml Balance 200 ml -1700 ml Intake Oral 600 ml IV Total 100 ml Output Urine Total 500 ml 1700 ml Laboratory Tests Test 03/10/18 03:03 03/10/18 05:25 03/10/18 08:53 Arterial Blood pH 7.498 (7.350-7.450) 7.507 (7.350-7.450) Arterial Blood Partial Pressure CO2 30.6 mmHg (35.0-45.0) L 29.0 mmHg (35.0-45.0) L Arterial Blood Partial Pressure O2 110.5 mmHg (75.0-100.0) H 78.2 mmHg (75.0-100.0) Arterial Blood HCO3 23.2 mmol/L (22.0-26.0) 22.5 mmol/L (22.0-26.0) Arterial Blood Oxygen Saturation 97.1 % (95-100) 94.3 % (95-100) L Arterial Blood Base Excess 0.3 (-2-2) -0.2 (-2-2) Marito Test Positive Positive White Blood Count 12.3 K/UL (4.8-10.8) H Red Blood Count 2.69 M/UL (4.70-6.10) L Hemoglobin 7.8 G/DL (14.2-18.0) L Hematocrit 23.0 % (42.0-52.0) L Mean Corpuscular Volume 85 FL (80-99) Mean Corpuscular Hemoglobin 29.0 PG (27.0-31.0) Mean Corpuscular Hemoglobin Concent 34.0 G/DL (32.0-36.0) Red Cell Distribution Width 12.0 % (11.6-14.8) Platelet Count 130 K/UL (150-450) L Mean Platelet Volume 5.6 FL (6.5-10.1) L Neutrophils (%) (Auto) % (45.0-75.0) Lymphocytes (%) (Auto) % (20.0-45.0) Monocytes (%) (Auto) % (1.0-10.0) Eosinophils (%) (Auto) % (0.0-3.0) Basophils (%) (Auto) % (0.0-2.0) Differential Total Cells Counted 100 Neutrophils % (Manual) 84 % (45-75) H Lymphocytes % (Manual) 10 % (20-45) L Monocytes % (Manual) 6 % (1-10) Eosinophils % (Manual) 0 % (0-3) Basophils % (Manual) 0 % (0-2) Band Neutrophils 0 % (0-8) Platelet Estimate Decreased L Platelet Morphology Normal Hypochromasia 1+ Sodium Level 143 MMOL/L (136-145) Potassium Level 4.0 MMOL/L (3.5-5.1) Chloride Level 106 MMOL/L (98-107) Carbon Dioxide Level 25 MMOL/L (21-32) Anion Gap 12 mmol/L (5-15) Blood Urea Nitrogen 44 mg/dL (7-18) H Creatinine 2.7 MG/DL (0.55-1.30) H Estimat Glomerular Filtration Rate mL/min (>60) Glucose Level 86 MG/DL (74-106) Uric Acid 8.0 MG/DL (2.6-7.2) H Calcium Level 9.2 MG/DL (8.5-10.1) Phosphorus Level 2.7 MG/DL (2.5-4.9) Magnesium Level 1.8 MG/DL (1.8-2.4) Total Bilirubin 1.1 MG/DL (0.2-1.0) H Direct Bilirubin 0.5 MG/DL (0.0-0.3) H Gamma Glutamyl Transpeptidase 28 U/L (5-85) Aspartate Amino Transf (AST/SGOT) 176 U/L (15-37) H Alanine Aminotransferase (ALT/SGPT) 38 U/L (12-78) Alkaline Phosphatase 53 U/L (46-116) Total Creatine Kinase 4173 U/L (26-308) H Pro-B-Type Natriuretic Peptide 3142 pg/mL (0-125) H Total Protein 6.5 G/DL (6.4-8.2) Albumin 3.1 G/DL (3.4-5.0) L Globulin 3.4 g/dL Albumin/Globulin Ratio 0.9 (1.0-2.7) L Height (Feet): 5 Height (Inches): 9.00 Weight (Pounds): 178 Medications Current Medications Medications (Trade) Dose Ordered Sig/Lorena Route PRN Reason Start Time Stop Time Status Last Admin Dose Admin Acetaminophen (Tylenol) 650 mg Q6H PRN ORAL Mild Pain/Temp > 100.0 03/10/18 11:30 04/07/18 05:29 03/10/18 12:20 Amlodipine Besylate (Norvasc) 5 mg Q4H PRN ORAL SBP > 120 03/10/18 11:15 04/08/18 19:14 Dextrose/Sodium Chloride 1,000 ml @ 100 mls/hr Q10H IV 03/10/18 12:30 04/09/18 12:29 Docusate Sodium (Colace) 100 mg TWICE A DAY ORAL 03/10/18 09:00 04/08/18 08:59 03/10/18 12:18 Finasteride (Proscar) 5 mg DAILY ORAL 03/10/18 09:00 04/09/18 08:59 03/10/18 12:19 Haloperidol Lactate (Haldol) 5 mg Q6H PRN IM Agitation 03/10/18 13:00 04/08/18 00:59 Heparin Sodium (Porcine) (Heparin 5000 units/ml) 5,000 units EVERY 12 HOURS SUBQ 03/10/18 09:00 04/07/18 08:59 03/10/18 12:27 Hydralazine HCl (Apresoline) 25 mg Q4H PRN ORAL bp over 160 syst 03/10/18 11:15 04/08/18 15:14 Iron Sucrose 100 mg/Sodium Chloride 60 ml @ 240 mls/hr BEDTIME IV 03/10/18 21:00 03/14/18 21:14 Metoprolol Tartrate (Lopressor) 25 mg Q12HR ORAL 03/10/18 09:00 04/08/18 20:59 03/10/18 12:28 Morphine Sulfate (Morphine Sulfate) 2 mg Q3H PRN IVP Moderate Pain (Pain Scale 4-6) 03/10/18 10:45 03/15/18 16:44 Ondansetron HCl (Zofran) 4 mg Q6H PRN IVP Nausea & Vomiting 03/10/18 10:45 04/07/18 16:44 Pantoprazole (Protonix) 40 mg EVERY 12 HOURS IVP 03/10/18 09:00 04/08/18 20:59 03/10/18 12:18 Piperacillin Sod/ Tazobactam Sod 3.375 gm/Dextrose 110 ml @ 27.5 mls/hr Q8H IVPB 03/10/18 16:00 03/17/18 15:59 Polyethylene Glycol (Miralax) 17 gm BEDTIME ORAL 03/10/18 21:00 04/08/18 20:59 Temazepam (Restoril) 7.5 mg DAILYPRN PRN ORAL Insomnia 03/10/18 09:00 03/17/18 08:59 Assessment/Plan Status Narrative 87 M h/o HTN, CKD, possible dementia initially transferred from [facility] after mechanical fall and ? CGE with L hip Fx now S/P ORIF 03/08. Post-op course c/b anemia, worsening encephalopathy, YOAV on CKD and progressive hypoxemia likely 2/ 2 aspiration pneumonia. Assessment/Plan ASSESSMENT: * Post-operative hypoxemia * RLL infiltrate, likely aspiration * L hip Fx S/P ORIF 03/08 * Mechanical fall * YOAV on CKD * HTN * AMS, likely toxic metabolic encephalopathy on top of underlying dementia * Acute on chronic anemia * ? CGE PLAN: * Optimize pulmonary hygiene/mobilize as tolerated * Titrate down FiO2 to keep SaO2 > 90% * RTC and PRN DUOnebs * Start Zosyn (D1), F/U Cx's * F/U Duplex * NPO, [employer] eval when able * Pain control/supportive care * Monitor volumes and renal function * Monitor HH, transfuse as needed, PPI, F/U GI recs, plan for endoscopy tomorrow * mIVF * DVT Px: Hep SQ * FC Gabe Willams MD Mar 10, 2018 14:07
--- NOTE | 2018-03-10 14:07 | Cardiology Report ---
APPROVED REPORT EKG Measurement Heart [id number] Sinus tachycardia with premature atrial complexes with aberrant conduction Left axis deviation Right bundle branch block Abnormal ECG
--- NOTE | 2018-03-10 14:13 | Cardiology Report ---
APPROVED REPORT EKG Measurement Heart [id number] Sinus tachycardia with premature supraventricular complexes Right bundle branch block Left anterior fascicular block Bifascicular block Septal infarct, age undetermined Abnormal ECG
--- NOTE | 2018-03-10 14:45 | Internal Med Progress Note ---
Subjective Physician Name Kaiser Price Attending Physician Kaiser Price MD Current Medications Medications (Trade) Dose Ordered Sig/Lorena Route PRN Reason Start Time Stop Time Status Last Admin Dose Admin Acetaminophen (Tylenol) 650 mg Q6H PRN ORAL Mild Pain/Temp > 100.0 03/10/18 11:30 04/07/18 05:29 03/10/18 12:20 Albuterol/ Ipratropium (Albuterol/ Ipratropium) 3 ml Q4H PRN HHN Shortness of Breath 03/10/18 14:00 03/15/18 13:59 Albuterol/ Ipratropium (Albuterol/ Ipratropium) 3 ml Q6HRT HHN 03/10/18 19:00 03/15/18 18:59 Amlodipine Besylate (Norvasc) 5 mg Q4H PRN ORAL SBP > 120 03/10/18 11:15 04/08/18 19:14 Dextrose/Sodium Chloride 1,000 ml @ 100 mls/hr Q10H IV 03/10/18 12:30 04/09/18 12:29 03/10/18 14:03 Docusate Sodium (Colace) 100 mg TWICE A DAY ORAL 03/10/18 09:00 04/08/18 08:59 03/10/18 12:18 Finasteride (Proscar) 5 mg DAILY ORAL 03/10/18 09:00 04/09/18 08:59 03/10/18 12:19 Haloperidol Lactate (Haldol) 5 mg Q6H PRN IM Agitation 03/10/18 13:00 04/08/18 00:59 Heparin Sodium (Porcine) (Heparin 5000 units/ml) 5,000 units EVERY 12 HOURS SUBQ 03/10/18 09:00 04/07/18 08:59 03/10/18 12:27 Hydralazine HCl (Apresoline) 25 mg Q4H PRN ORAL bp over 160 syst 03/10/18 11:15 04/08/18 15:14 Iron Sucrose 100 mg/Sodium Chloride 60 ml @ 240 mls/hr BEDTIME IV 03/10/18 21:00 03/14/18 21:14 Metoprolol Tartrate (Lopressor) 25 mg Q12HR ORAL 03/10/18 09:00 04/08/18 20:59 03/10/18 12:28 Morphine Sulfate (Morphine Sulfate) 2 mg Q3H PRN IVP Moderate Pain (Pain Scale 4-6) 03/10/18 10:45 03/15/18 16:44 Ondansetron HCl (Zofran) 4 mg Q6H PRN IVP Nausea & Vomiting 03/10/18 10:45 04/07/18 16:44 Pantoprazole (Protonix) 40 mg EVERY 12 HOURS IVP 03/10/18 09:00 04/08/18 20:59 03/10/18 12:18 Piperacillin Sod/ Tazobactam Sod 3.375 gm/Dextrose 110 ml @ 27.5 mls/hr Q12H IVPB 03/10/18 16:00 03/17/18 15:59 Polyethylene Glycol (Miralax) 17 gm BEDTIME ORAL 03/10/18 21:00 04/08/18 20:59 Temazepam (Restoril) 7.5 mg DAILYPRN PRN ORAL Insomnia 03/10/18 09:00 03/17/18 08:59 Allergies: Coded Allergies: NO KNOWN ALLERGIES (Verified Allergy, Unknown, 03/08/18) Subjective Hypoxemia and tachycardia, transfer to [facility], awake, responsive, but confuse, Hgb : 7.8, Objective Last Vital Signs Date Time Temp Pulse Resp B/P (MAP) Pulse Ox O2 Delivery O2 Flow Rate FiO2 03/10/18 12:50 100.5 03/10/18 12:28 124 141/74 03/10/18 12:00 20 100 03/10/18 01:27 Non-Rebreather 15.0 100 Laboratory Tests Test 03/10/18 03:03 03/10/18 05:25 03/10/18 08:53 Arterial Blood pH 7.498 (7.350-7.450) 7.507 (7.350-7.450) Arterial Blood Partial Pressure CO2 30.6 mmHg (35.0-45.0) L 29.0 mmHg (35.0-45.0) L Arterial Blood Partial Pressure O2 110.5 mmHg (75.0-100.0) H 78.2 mmHg (75.0-100.0) Arterial Blood HCO3 23.2 mmol/L (22.0-26.0) 22.5 mmol/L (22.0-26.0) Arterial Blood Oxygen Saturation 97.1 % (95-100) 94.3 % (95-100) L Arterial Blood Base Excess 0.3 (-2-2) -0.2 (-2-2) Marito Test Positive Positive White Blood Count 12.3 K/UL (4.8-10.8) H Red Blood Count 2.69 M/UL (4.70-6.10) L Hemoglobin 7.8 G/DL (14.2-18.0) L Hematocrit 23.0 % (42.0-52.0) L Mean Corpuscular Volume 85 FL (80-99) Mean Corpuscular Hemoglobin 29.0 PG (27.0-31.0) Mean Corpuscular Hemoglobin Concent 34.0 G/DL (32.0-36.0) Red Cell Distribution Width 12.0 % (11.6-14.8) Platelet Count 130 K/UL (150-450) L Mean Platelet Volume 5.6 FL (6.5-10.1) L Neutrophils (%) (Auto) % (45.0-75.0) Lymphocytes (%) (Auto) % (20.0-45.0) Monocytes (%) (Auto) % (1.0-10.0) Eosinophils (%) (Auto) % (0.0-3.0) Basophils (%) (Auto) % (0.0-2.0) Differential Total Cells Counted 100 Neutrophils % (Manual) 84 % (45-75) H Lymphocytes % (Manual) 10 % (20-45) L Monocytes % (Manual) 6 % (1-10) Eosinophils % (Manual) 0 % (0-3) Basophils % (Manual) 0 % (0-2) Band Neutrophils 0 % (0-8) Platelet Estimate Decreased L Platelet Morphology Normal Hypochromasia 1+ Sodium Level 143 MMOL/L (136-145) Potassium Level 4.0 MMOL/L (3.5-5.1) Chloride Level 106 MMOL/L (98-107) Carbon Dioxide Level 25 MMOL/L (21-32) Anion Gap 12 mmol/L (5-15) Blood Urea Nitrogen 44 mg/dL (7-18) H Creatinine 2.7 MG/DL (0.55-1.30) H Estimat Glomerular Filtration Rate mL/min (>60) Glucose Level 86 MG/DL (74-106) Uric Acid 8.0 MG/DL (2.6-7.2) H Calcium Level 9.2 MG/DL (8.5-10.1) Phosphorus Level 2.7 MG/DL (2.5-4.9) Magnesium Level 1.8 MG/DL (1.8-2.4) Total Bilirubin 1.1 MG/DL (0.2-1.0) H Direct Bilirubin 0.5 MG/DL (0.0-0.3) H Gamma Glutamyl Transpeptidase 28 U/L (5-85) Aspartate Amino Transf (AST/SGOT) 176 U/L (15-37) H Alanine Aminotransferase (ALT/SGPT) 38 U/L (12-78) Alkaline Phosphatase 53 U/L (46-116) Total Creatine Kinase 4173 U/L (26-308) H Pro-B-Type Natriuretic Peptide 3142 pg/mL (0-125) H Total Protein 6.5 G/DL (6.4-8.2) Albumin 3.1 G/DL (3.4-5.0) L Globulin 3.4 g/dL Albumin/Globulin Ratio 0.9 (1.0-2.7) L Microbiology Date/Time Source Procedure Growth Status 03/09/18 03:50 Urine,Clean Catch Urine Culture - Preliminary NO GROWTH Resulted 03/08/18 15:10 Urine,Clean Catch Urine Culture - Preliminary Mixed Gram Positive Organism Resulted Intake and Output 03/09/18 03/10/18 19:00 07:00 Intake Total 700 ml Output Total 500 ml 1700 ml Balance 200 ml -1700 ml Intake Oral 600 ml IV Total 100 ml Output Urine Total 500 ml 1700 ml Objective General: No acute distress, awake and alert HEENT: NCAT, sclera anicteric, PERRL, EOMI. Neck: Supple, no significant jugular venous distention, Lungs: Fair inspiratory effort, decrease air on bases, no Wheeze or Rales. Heart: Regular rate and rhythm, normal S1/S2, no murmurs Abdomen: soft, nontender, nondistended. Normoactive bowel sounds. / Rectal: Refused and deferred. Extremities: No Cyanosis , clubbing or edema. Left hip surgical incision intact. Neuro: A&O x 3, Able to move all extremities Skin: warm, no rashes or lesions Assessment/Plan Assessment/Plan 1. Mechanical fall with the left hip fracture / Left comminuted intertrochanteric subtroch femur fracture S/p Open reduction and internal fixation of left comminuted intertrochanteric subtroch fracture (03/08/2018). 2. Hypertension. 3. YOAV on Chronic kidney disease. 4. BPH. 5. 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 6. Post surgery Anemia, most likely due to acute blood loss. 7. Hypoxemia most likely due to aspiration pneumonia. 8. Coffee ground emesis possible due to Upper GI bleeding. 9. Sinus tachycardia with premature supraventricular complexes, Right bundle branch block, Left anterior fascicular block, (Bifascicular block). 10. Dementia with agitation. PLAN: Code status full code. DVT prophylaxis, heparin subcutaneous. Transfuse 1 U PRBC Start on Zosyn IV Sitter at bedside Discuss with Daughter, Nancy, at bedside regarding plan of care and blood transfusion. Kaiser Price MD Mar 10, 2018 14:45
[2018-03-10] MEDS ORDERED: Piperacillin/Tazobactam 3.375 GM in D5W 110 ML IVPB SCH (16:00)
[2018-03-10] MEDS: Piperacillin/Tazobactam 3.375 GM in D5W 110 ML IVPB SCH (16:00)
--- NOTE | 2018-03-10 16:06 | NUR ---
NURSE NOTES: sputum collected by Respiratory therapistMassiel,collected sent to lab Addendum: 03/10/18 at 1752 by Jadiel CHOPRA RN Patient NPO no IV fluids,notified Dr. Kinsey ordered to keep IV D51/2 NS at 100 ml/hr,notified resume when transferred here,verbalize he ordered yesterday for this IV fluids,IV infusing starting 0800 Addendum: 03/10/18 at 1950 [address] RN [address] Price notified Platelet 130-to give Heparin,patient no signs bleeding
[2018-03-10] MEDS: Albuterol/Ipratropium 3ml neb HHN SCH (19:18)
--- NOTE | 2018-03-10 19:48 | NUR ---
HAND-OFF: Report given to RN Enid patient awake confused family at bedside.
--- NOTE | 2018-03-10 19:50 | NUR ---
NURSE NOTES: Received patient from FLOREC[facility] CONTRERAS. Awake, confused. Family at bedside. Denies pain at this time. on Venturi mask 40% with no SOB. Surgical wound on left hip is clean. no bleeding noted.on bilateral soft wrist restraints to prevent pull out o2 mask and IV lines.Dowell cath in placed with dark yellow urine.D5 1/2 NS running at 100/hr. will continue to monitor .
[2018-03-10] MEDS ORDERED: Iron Sucrose 100 MG in NS 55 ML IV SCH ×4 (21:00)
[2018-03-10] MEDS: Miralax 17gm pkt ORAL SCH (21:00)
[2018-03-10] MEDS ORDERED: Miralax 17gm pkt ORAL SCH (21:00)
[2018-03-10] MEDS: Iron Sucrose 100 MG in NS 55 ML IV SCH (21:35)
--- NOTE | 2018-03-10 22:20 | NUR ---
NURSE NOTES: 1 PRBC transfusion started. vs stable. afebrile. continue to monitor.
--- NOTE | 2018-03-10 22:25 | General Progress Note ---
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 Assessment/Plan Haldol Im prn the pts next of keen should makes decisions the pt lacks capacity Subjective Neurologic/Psychiatric: Reports: anxiety Allergies: Coded Allergies: NO KNOWN ALLERGIES (Verified Allergy, Unknown, 03/08/18) Objective Last 24 Hour Vital Signs Date Time Temp Pulse Resp B/P (MAP) Pulse Ox O2 Delivery O2 Flow Rate FiO2 03/10/18 21:36 118 161/71 03/10/18 20:00 98.6 118 24 161/71 (101) 99 03/10/18 19:28 95 20 99 Venturi Mask 8.0 40 03/10/18 19:18 101 18 99 Venturi Mask 8.0 40 03/10/18 19:17 101 18 Venturi Mask 8.0 40 03/10/18 19:17 Venturi Mask 8.0 40 03/10/18 19:17 99 Venturi Mask 8.0 40 03/10/18 16:51 109 03/10/18 16:00 98.2 124 20 132/56 (81) 100 03/10/18 12:50 100.5 03/10/18 12:28 124 141/74 03/10/18 12:00 100.0 124 20 141/74 (96) 100 03/10/18 09:51 75 03/10/18 08:45 Venturi Mask 12.0 03/10/18 08:30 100.4 118 20 105/60 (75) 96 03/10/18 08:00 99.5 75 20 121/54 (76) 93 03/10/18 04:00 99.1 113 20 117/66 (83) 99 03/10/18 04:00 121 03/10/18 01:27 96 Non-Rebreather 15.0 100 03/10/18 01:27 Non-Rebreather 15.0 100 03/10/18 00:00 98.5 111 20 99/65 (76) 99 03/09/18 23:46 109 03/09/18 23:43 115 102/64 03/09/18 23:17 151 Intake and Output 03/09/18 03/10/18 19:00 07:00 Intake Total 700 ml Output Total 500 ml 1700 ml Balance 200 ml -1700 ml Intake Oral 600 ml IV Total 100 ml Output Urine Total 500 ml 1700 ml Laboratory Tests 12/23/18 03:03: Arterial Blood pH 7.498H, Arterial Blood Partial Pressure CO2 30.6L, Arterial Blood Partial Pressure O2 110.5H, Arterial Blood HCO3 23.2, Arterial Blood Oxygen Saturation 97.1, Arterial Blood Base Excess 0.3, Marito Test Positive 03/10/18 05:25: White Blood Count 12.3H, Red Blood Count 2.69L, Hemoglobin 7.8L, Hematocrit 23.0L, Mean Corpuscular Volume 85, Mean Corpuscular Hemoglobin 29.0, Mean Corpuscular Hemoglobin Concent 34.0, Red Cell Distribution Width 12.0, Platelet Count 130L, Mean Platelet Volume 5.6L, Neutrophils (%) (Auto) , Lymphocytes (%) (Auto) , Monocytes (%) (Auto) , Eosinophils (%) (Auto) , Basophils (%) (Auto) , Differential Total Cells Counted 100, Neutrophils % (Manual) 84H, Lymphocytes % (Manual) 10L, Monocytes % (Manual) 6, Eosinophils % (Manual) 0, Basophils % ( Manual) 0, Band Neutrophils 0, Platelet Estimate DecreasedL, Platelet Morphology Normal, Hypochromasia 1+, Sodium Level 143, Potassium Level 4.0, Chloride Level 106, Carbon Dioxide Level 25, Anion Gap 12, Blood Urea Nitrogen 44H, Creatinine 2.7H, Estimat Glomerular Filtration Rate , Glucose Level 86, Uric Acid 8.0H, Calcium Level 9.2, Phosphorus Level 2.7, Magnesium Level 1.8, Total Bilirubin 1.1H, Direct Bilirubin 0.5H, Gamma Glutamyl Transpeptidase 28, Aspartate Amino Transf (AST/SGOT) 176H, Alanine Aminotransferase (ALT/SGPT) 38, Alkaline Phosphatase 53, Total Creatine Kinase 4173H, Pro-B-Type Natriuretic Peptide 3142H, Total Protein 6.5, Albumin 3.1L, Globulin 3.4, Albumin/Globulin Ratio 0.9L 03/10/18 08:53: Arterial Blood pH 7.507H, Arterial Blood Partial Pressure CO2 29.0L, Arterial Blood Partial Pressure O2 78.2, Arterial Blood HCO3 22.5, Arterial Blood Oxygen Saturation 94.3L, Arterial Blood Base Excess -0.2, Marito Test Positive Height (Feet): 5 Height (Inches): 9.00 Weight (Pounds): 178 General Appearance: alert, confused, agitated Domenic Solomon MD Mar 10, 2018 22:25
[2018-03-11] VITALS (10 sets, daily range): BP systolic 131–160; BP diastolic 52–85
--- NOTE | 2018-03-11 00:30 | NUR ---
NURSE NOTES: Transfusion finished with no s/s of transfusion reactions.vs stable. afebrile.
[2018-03-11] MEDS: Albuterol/Ipratropium 3ml neb HHN SCH ×4 (01:11→18:59)
[2018-03-11] MEDS: Morphine Sulfate 2mg/ml Inj IVP PRN (02:08)
[2018-03-11] MEDS: Piperacillin/Tazobactam 3.375 GM in D5W 110 ML IVPB SCH ×2 (04:07→15:17)
[2018-03-11 05:43] LABS: BASOPHILS % (AUTO) 0.5 % (0.0-2.0); EOSINOPHILS % (AUTO) 0.3 % (0.0-3.0); HEMATOCRIT 24.4 % (42.0-52.0); HEMOGLOBIN 8.2 G/DL (14.2-18.0); LYMPHOCYTES % (AUTO) 10.6 % (20.0-45.0); MEAN CORPUSCULAR VOLUME 87 FL (80-99); NEUTROPHILS % (AUTO) 79.6 % (45.0-75.0); PLATELET COUNT 140 K/UL (150-450); RED CELL DISTRIBUTION WIDTH 11.8 % (11.6-14.8)
[2018-03-11 06:30] LABS: ALANINE AMINOTRANSFERASE 47 U/L (12-78); ALBUMIN 2.8 G/DL (3.4-5.0); ALBUMIN/GLOBULIN RATIO 0.7 (1.0-2.7); ALKALINE PHOSPHATASE 55 U/L (46-116); ANION GAP 10 mmol/L (5-15); ASPARTATE AMINO TRANSFERASE 154 U/L (15-37); BILIRUBIN,TOTAL 1.1 MG/DL (0.2-1.0); BLOOD UREA NITROGEN 32 mg/dL (7-18); CALCIUM 9.4 MG/DL (8.5-10.1); CARBON DIOXIDE 24 MMOL/L (21-32); CHLORIDE 110 MMOL/L (98-107); CREATINE KINASE 2684 U/L (26-308); CREATININE 1.9 MG/DL (0.55-1.30); PHOSPHORUS 2.5 MG/DL (2.5-4.9); POTASSIUM 3.8 MMOL/L (3.5-5.1); SODIUM 144 MMOL/L (136-145)
[2018-03-11 06:42] LABS: BILIRUBIN,DIRECT 0.3 MG/DL (0.0-0.3)
--- NOTE | 2018-03-11 07:13 | General Progress Note ---
Assessment/Plan Problem List: (1) Renal insufficiency ICD Codes: N28.9 - Disorder of kidney and ureter, unspecified SNOMED: 291863115, 550504202 (2) Coffee ground emesis ICD Codes: K92.0 - Hematemesis SNOMED: 06415368, 360528755 (3) Hip fracture ICD Codes: S72.009A - Fracture of unspecified part of neck of unspecified femur , initial encounter for closed fracture SNOMED: 862282198 (4) Anemia ICD Codes: D64.9 - Anemia, unspecified SNOMED: 397975196 Assessment/Plan plan possible EGD today Subjective ROS Limited/Unobtainable: No Allergies: Coded Allergies: NO KNOWN ALLERGIES (Verified Allergy, Unknown, 03/08/18) Objective Last 24 Hour Vital Signs Date Time Temp Pulse Resp B/P (MAP) Pulse Ox O2 Delivery O2 Flow Rate FiO2 03/11/18 04:00 104 03/11/18 04:00 98.9 114 24 156/85 (108) 100 03/11/18 01:22 95 20 98 Venturi Mask 8.0 40 03/11/18 01:11 95 22 97 Venturi Mask 8.0 40 03/11/18 00:00 99.2 92 24 160/68 (98) 100 03/11/18 00:00 93 03/10/18 21:36 118 161/71 03/10/18 21:00 Venturi Mask 12.0 03/10/18 20:00 100 03/10/18 20:00 98.6 118 24 161/71 (101) 99 03/10/18 19:28 95 20 99 Venturi Mask 8.0 40 03/10/18 19:18 101 18 99 Venturi Mask 8.0 40 03/10/18 19:17 101 18 Venturi Mask 8.0 40 03/10/18 19:17 Venturi Mask 8.0 40 03/10/18 19:17 99 Venturi Mask 8.0 40 03/10/18 16:51 109 03/10/18 16:00 98.2 124 20 132/56 (81) 100 03/10/18 12:50 100.5 03/10/18 12:28 124 141/74 03/10/18 12:00 100.0 124 20 141/74 (96) 100 03/10/18 09:51 75 03/10/18 08:45 Venturi Mask 12.0 03/10/18 08:30 100.4 118 20 105/60 (75) 96 03/10/18 08:00 99.5 75 20 121/54 (76) 93 Intake and Output 03/10/18 03/11/18 19:00 07:00 Intake Total 455.0 ml 1268.0 ml Output Total 725 ml 1500 ml Balance -270.0 ml -232.0 ml Intake Oral 100 ml IV Total 455.0 ml 1168.0 ml Output Urine Total 725 ml 1500 ml Laboratory Tests 03/10/18 08:53: Arterial Blood pH 7.507H, Arterial Blood Partial Pressure CO2 29.0L, Arterial Blood Partial Pressure O2 78.2, Arterial Blood HCO3 22.5, Arterial Blood Oxygen Saturation 94.3L, Arterial Blood Base Excess -0.2, Marito Test Positive 03/11/18 03:10: White Blood Count 11.0H, Red Blood Count 2.80L, Hemoglobin 8.2L, Hematocrit 24.4L, Mean Corpuscular Volume 87, Mean Corpuscular Hemoglobin 29.4, Mean Corpuscular Hemoglobin Concent 33.8, Red Cell Distribution Width 11.8, Platelet Count 140L, Mean Platelet Volume 5.6L, Neutrophils (%) (Auto) 79.6H, Lymphocytes (%) (Auto) 10.6L, Monocytes (%) (Auto) 9.0, Eosinophils (%) (Auto) 0.3, Basophils (%) (Auto) 0.5, Sodium Level 144, Potassium Level 3.8, Chloride Level 110H, Carbon Dioxide Level 24, Anion Gap 10, Blood Urea Nitrogen 32H, Creatinine 1.9H, Estimat Glomerular Filtration Rate , Glucose Level 113H, Uric Acid 6.1, Calcium Level 9.4, Phosphorus Level 2.5, Magnesium Level 1.9, Total Bilirubin 1.1H, Direct Bilirubin 0.3, Aspartate Amino Transf (AST/SGOT) 154H, Alanine Aminotransferase (ALT/SGPT) 47, Alkaline Phosphatase 55, Total Creatine Kinase 2684H, C-Reactive Protein, Quantitative 26.5H, Pro-B-Type Natriuretic Peptide 3288H, Total Protein 7.1, Albumin 2.8L, Globulin 4.3, Albumin/Globulin Ratio 0.7L Height (Feet): 5 Height (Inches): 9.00 Weight (Pounds): 178 General Appearance: no apparent distress EENT: normal ENT inspection Neck: supple Cardiovascular: normal rate Respiratory/Chest: decreased breath sounds Abdomen: normal bowel sounds, non tender, soft Extremities: non-tender Roderick Krause MD Mar 11, 2018 07:13
--- NOTE | 2018-03-11 07:37 | NUR ---
HAND-OFF: Report given to BALA CONTRERAS.
--- NOTE | 2018-03-11 07:56 | NUR ---
NURSE NOTES: Report received from BEN Rossi. Observed patient in bed sleeping. Arousable by voice and touch. Verbally responsive with confusion and agitation. Receiving oxygen via venturi mask FiO2 40% with no distress noted. Denies pain at this time. IVF running at prescribed rate. Bed in lowest position. Call light within reach. Will continue to monitor.
[2018-03-11] MEDS: Heparin 5000 units/ml inj SUBQ SCH ×2 (08:13→21:32)
[2018-03-11] MEDS: D5 1/2NS 1,000 ML IV SCH (08:21)
[2018-03-11] MEDS: Metoprolol Tartrate 50mg tab ORAL SCH ×2 (08:22→21:30)
[2018-03-11] MEDS: Pantoprazole Inj IVP SCH ×2 (08:22→21:30)
[2018-03-11] MEDS: Docusate 100mg cap ORAL SCH ×2 (08:22→17:05)
--- NOTE | 2018-03-11 09:09 | Pre-Procedure Note/Attestation ---
Pre-Procedure Note/Attestation Complete Prior to Procedure Planned Procedure: not applicable Procedure Narrative: egd Indications for Procedure Pre-Operative Diagnosis: gib Attestation I attest that I discussed the nature of the procedure; its benefits; risks and complications; and alternatives (and the risks and benefits of such alternatives ), prior to the procedure, with the patient (or the patient's legal installation service representative). I attest that, if there was a reasonable possibility of needing a blood transfusion, the patient (or the patient's legal installation service representative) was given the [facility] standardized written summary, pursuant to the Asael Jeanna Blood Safety Act ([place] Health and Safety Code # 1645, as amended). I attest that I re-evaluated the patient just prior to the surgery and that there has been no change in the patient's H&P, except as documented below: Roderick Krause MD Mar 11, 2018 09:09
[2018-03-11] MEDS ORDERED: Midazolam 2mg/2ml Inj ONE (09:14)
--- NOTE | 2018-03-11 09:18 | NUR ---
CASE MANAGEMENT: REVIEW SI: LEFT HIP FRACTURE . GI BLEED T 98.6 HR 118 RR 24 BP 161/71 SAT 99% VENTURI MASK 12.0 WBC 11.0 H/H 8.2/24.4 IS: PROSCAR PO QD HEPARIN SQ Q12HR LOPRESSOR PO Q12HR ZOSYN IV Q12HR DOXYCYCLINE IV Q12HR MED/SURG STATUS DCP: PATIENT IS FROM HOME
--- NOTE | 2018-03-11 09:24 | NUR ---
ST NOTE: CHART REVIEWED. CURRENTLY, PT IS NPO FOR PROCEDURE. UNABLE TO COMPLETE BEDSIDE SWALLOW EVAL AT THIS TIME. WILL FOLLOW UP. RNBALA, NOTIFIED.
[2018-03-11] MEDS ORDERED: Lidocaine 1% MPF 10mg/ml 5ml ONE (10:00)
--- NOTE | 2018-03-11 10:00 | NUR ---
NURSE NOTES: Pt. off the unit for EGD. Stable condition.
[2018-03-11] MEDS ORDERED: NS 500ML IVPB ONE (10:15)
--- NOTE | 2018-03-11 10:29 | Endoscopy Procedure Note ---
Endoscopy Procedure Note General Indication for Procedure: gib Procedures Performed: EGD Operative Findings/Diagnosis: gastritis, gastric polyp Specimen: yes Pt Tolerated Procedure Well: Yes Estimated Blood Loss: none Anesthesia Anesthesiologist: jomar Anesthesia: MAC Inserted Devices Implant(s) used?: No GI Core Measures 50 yrs or older w/o bx or poly: Not Applicable 10yrs. F/U not recommended: Not Applicable Roderick Krause MD Mar 11, 2018 10:29
[2018-03-11] MEDS ORDERED: LR 1000ml 1,000 ML IVLG SCH (10:35)
--- NOTE | 2018-03-11 10:39 | Immediate Post-Op Evaluation ---
Immediate Post-Op Evalulation Immediate Post-Op Evalulation Procedure: EGD with Bx Date of Evaluation: Mar 11, 2018 Time of Evaluation: 10:49 IV Fluids: 200 NS Blood Products: 0 Estimated Blood Loss: 1 Urinary Output: 0 Blood Pressure Systolic: 131 Blood Pressure Diastolic: 61 Pulse Rate: 81 Respiratory Rate: 16 O2 Sat by Pulse Oximetry: 99 Temperature (Fahrenheit): 97.6 Pain Score (1-10): 1 Nausea: No Vomiting: No Complications 0 Patient Status: awake, reacts, patent, none Hydration Status: adequate Jefe Dougherty MD Mar 11, 2018 10:39
--- NOTE | 2018-03-11 10:40 | 48 Hour Post Anesthesia Eval ---
Post Anesthesia Evaluation Procedure: EGD with Bx Date of Evaluation: Mar 11, 2018 Time of Evaluation: 11:56 Blood Pressure Systolic: 146 0: 72 Pulse Rate: 81 Respiratory Rate: 18 Temperature (Fahrenheit): 97.6 O2 Sat by Pulse Oximetry: 100 Airway: patent Nausea: No Vomiting: No Pain Intensity: 1 Hydration Status: adequate Cardiopulmonary Status: Stable Mental Status/LOC: patient returned to baseline Follow-up Care/Observations: 0 Post-Anesthesia Complications: 0 Follow-up care needed: N/A Jefe Dougherty MD Mar 11, 2018 10:40
[2018-03-11] MEDS ORDERED: HYDROcodone/Acetamin 7.5/325 tab ORAL PRN (10:45)
[2018-03-11] MEDS ORDERED: Hydromorphone 0.5mg/0.5ml inj IVP PRN (10:45)
[2018-03-11] MEDS ORDERED: Atropine Sulfate 0.4mg/ml inj IVP PRN (10:45)
[2018-03-11] MEDS ORDERED: oxyCODONE HCL/Acetaminophen 5/325mg ORAL PRN (10:45)
[2018-03-11] MEDS ORDERED: DiphenhydrAMINE 50mg/ml Inj IVP PRN (10:45)
[2018-03-11] MEDS ORDERED: fentaNYL 100 mcg/2 mL IV PRN (10:45)
[2018-03-11] MEDS ORDERED: LORazepam Inj 2mg/ml 1ml IV PRN (10:45)
[2018-03-11] MEDS ORDERED: Midazolam 2mg/2ml Inj IVP PRN (10:45)
[2018-03-11] MEDS ORDERED: Meperidine 50mg/ml Inj(FOR RIGORS ONLY) IVP PRN (10:45)
[2018-03-11] MEDS ORDERED: Norco 5mg/325mg tab ORAL PRN (10:45)
[2018-03-11] MEDS ORDERED: D5 1/2NS 1000ml IV ONE (10:50)
[2018-03-11] MEDS ORDERED: NS 275ml ONE (10:50)
[2018-03-11] MEDS ORDERED: Tubing IV Secondary IV ONE (10:50)
--- NOTE | 2018-03-11 11:00 | NUR ---
NURSE NOTES: Patient back to unit via shelbi accompanied with GI lab nurse. Report received from BEN Desouza. Patient is alert and verbally responsive. On 2L of oxygen via N/C with no distress noted. Vitals are stable. Stable condition.
--- NOTE | 2018-03-11 11:31 | Diagnostic Imaging Report ---
INDICATION: Pain, intraoperative TECHNIQUE: Intraoperative imaging Fluoroscopy time: 73.5 seconds Total dose: 0.20241 mGym2 Total number of images: 7 COMPARISON: None FINDINGS: Intraoperative images demonstrate surgical repair of left hip intertrochanteric fracture with medullary lester and compression screw IMPRESSION: Intraoperative imaging, as described
--- NOTE | 2018-03-11 12:45 | Procedure Note ---
DATE OF PROCEDURE: 03/11/2018 SURGEON: Roderick Krause M.D. ANESTHESIOLOGIST: Jefe Dougherty M.D. PROCEDURE: Upper endoscopy with biopsy. INSTRUMENT: Olympus adult flexible upper endoscope. INDICATION: GI bleeding. REASON FOR PROCEDURE: The procedure, risks, benefits, and possible consequences, including hemorrhage, aspiration, perforation and infection, and alternative treatments, were explained to the patient/legal guardian by Dr. Roderick Krause and the patient/legal guardian understood and accepted these risks. PROCEDURE IN DETAIL: After informed consent was obtained and the patient was adequately sedated, Olympus upper endoscope was advanced from the mouth into the second portion of the duodenum and retroflexion was performed in the stomach. The patient has diffuse gastritis. This pattern was suspicious for portal hypertensive gastropathy. Biopsy from antrum was obtained. The patient has inflammatory-looking polyp in the lesser curvature of the stomach, that polyp measured roughly about 6 mm, removed with cold biopsy forceps technique. The rest of the examination grossly within normal limits. The patient tolerated the procedure very well without any complication. SUMMARY OF FINDINGS: 1. Diffuse gastritis, suspicious for portal hypertensive gastropathy. 2. One inflammatory-looking gastric polyp removed, see above for details. RECOMMENDATIONS: 1. Abdominal ultrasound to rule out liver disease. 2. Follow up biopsy results. 3. Continue on PPI. 4. Monitor hemoglobin and hematocrit. Transfuse to keep hemoglobin above 7. 5. We are going to order swallow evaluation. Meanwhile, we will start the patient on pureed diet with thickened liquid until the swallow evaluation is done. I would like to thank Dr. Kaiser Price, for this kind referral. Roderick Krause M.D. DR: ADDY JOB#: [id number] CC: Kaiser Price M.D.; Fax#: [phone]
--- NOTE | 2018-03-11 13:16 | Nephrology Progress Note ---
Assessment/Plan Problem List: (1) Acute on chronic renal failure Assessment: Cr lowering (2) Hip fracture Assessment: left- surgery 03/08 (3) Anemia Assessment: likely mixed ckd and blood loss (4) BPH (benign prostatic hyperplasia) (5) Hypertensive kidney disease Assessment Acute on chronic renal failure Hip Surgery 03/08 - Post op day one today- left hip HTN BPH CKD Dementia Plan Po as mentation improves re insert Dowell down on IV fluids IV Venofer as needed Alb bolus as needed IV protonix monitor renal parameters transfuse ? Subjective ROS Limited/Unobtainable: No Constitutional: Reports: malaise Objective Objective Last 24 Hour Vital Signs Date Time Temp Pulse Resp B/P (MAP) Pulse Ox O2 Delivery O2 Flow Rate FiO2 03/11/18 12:00 83 03/11/18 12:00 Nasal Cannula 2.0 03/11/18 11:49 98.6 84 20 143/61 (88) 100 03/11/18 10:55 98.0 78 16 144/73 100 Nasal Cannula 3 03/11/18 10:49 67 15 142/52 100 Nasal Cannula 3 03/11/18 10:43 77 18 142/62 96 Simple Mask 6 03/11/18 10:40 81 18 100 03/11/18 10:39 81 16 99 03/11/18 10:38 97.6 59 16 131/61 96 Simple Mask 6 03/11/18 09:00 Venturi Mask 12.0 03/11/18 08:22 102 155/81 03/11/18 08:00 99.1 100 21 155/81 (105) 98 03/11/18 08:00 97 03/11/18 07:35 87 20 100 Venturi Mask 8.0 40 03/11/18 07:24 94 20 100 Venturi Mask 8.0 40 03/11/18 07:23 100 Venturi Mask 8.0 40 03/11/18 07:23 Venturi Mask 8.0 40 03/11/18 04:00 104 03/11/18 04:00 98.9 114 24 156/85 (108) 100 03/11/18 01:22 95 20 98 Venturi Mask 8.0 40 03/11/18 01:11 95 22 97 Venturi Mask 8.0 40 03/11/18 00:00 99.2 92 24 160/68 (98) 100 03/11/18 00:00 93 03/10/18 21:36 118 161/71 03/10/18 21:00 Venturi Mask 12.0 03/10/18 20:00 100 03/10/18 20:00 98.6 118 24 161/71 (101) 99 03/10/18 19:28 95 20 99 Venturi Mask 8.0 40 03/10/18 19:18 101 18 99 Venturi Mask 8.0 40 03/10/18 19:17 101 18 Venturi Mask 8.0 40 03/10/18 19:17 Venturi Mask 8.0 40 03/10/18 19:17 99 Venturi Mask 8.0 40 03/10/18 16:51 109 03/10/18 16:00 98.2 124 20 132/56 (81) 100 Intake and Output 03/10/18 03/11/18 18:59 06:59 Intake Total 455.0 ml 1268.0 ml Output Total 725 ml 1500 ml Balance -270.0 ml -232.0 ml Intake Oral 100 ml IV Total 455.0 ml 1168.0 ml Output Urine Total 725 ml 1500 ml Laboratory Tests 03/11/18 03:10: White Blood Count 11.0H, Red Blood Count 2.80L, Hemoglobin 8.2L, Hematocrit 24.4L, Mean Corpuscular Volume 87, Mean Corpuscular Hemoglobin 29.4, Mean Corpuscular Hemoglobin Concent 33.8, Red Cell Distribution Width 11.8, Platelet Count 140L, Mean Platelet Volume 5.6L, Neutrophils (%) (Auto) 79.6H, Lymphocytes (%) (Auto) 10.6L, Monocytes (%) (Auto) 9.0, Eosinophils (%) (Auto) 0.3, Basophils (%) (Auto) 0.5, Sodium Level 144, Potassium Level 3.8, Chloride Level 110H, Carbon Dioxide Level 24, Anion Gap 10, Blood Urea Nitrogen 32H, Creatinine 1.9H, Estimat Glomerular Filtration Rate , Glucose Level 113H, Uric Acid 6.1, Calcium Level 9.4, Phosphorus Level 2.5, Magnesium Level 1.9, Total Bilirubin 1.1H, Direct Bilirubin 0.3, Aspartate Amino Transf (AST/SGOT) 154H, Alanine Aminotransferase (ALT/SGPT) 47, Alkaline Phosphatase 55, Total Creatine Kinase 2684H, C-Reactive Protein, Quantitative 26.5H, Pro-B-Type Natriuretic Peptide 3288H, Total Protein 7.1, Albumin 2.8L, Globulin 4.3, Albumin/Globulin Ratio 0.7L Height (Feet): 5 Height (Inches): 9.00 Weight (Pounds): 178 General Appearance: no apparent distress, lethargic Cardiovascular: normal rate Respiratory/Chest: decreased breath sounds Abdomen: distended Ortiz Kinsey MD Mar 11, 2018 13:16
--- NOTE | 2018-03-11 14:21 | Diagnostic Imaging Report ---
Indication: Abdominal pain, abnormal liver function tests, abnormal renal function tests Technique: Veliz-scale and duplex images of the upper abdomen were obtained. Doppler interrogation of the pancreatic and hepatic vessels Comparison: none Findings: Gallbladder is unremarkable, without stones, wall thickening, nor pericholecystic fluid. Demonstrates sludge. No stones. No gallbladder wall thickening or pericholecystic fluid Common bile duct measures 5 mm in diameter. No intrahepatic biliary ductal dilatation. Liver demonstrates normal echogenicity, no focal abnormality. Portal vein and hepatic veins are patent. Pancreas is unremarkable. Spleen is unremarkable. Left kidney measures 10.8 cm in length. Right kidney measures 9.9 cm length. Both kidneys demonstrate normal echogenicity. No left hydronephrosis. There is a small left renal cyst The right kidney demonstrates hydronephrosis. It demonstrates multiple cysts. The bladder demonstrates a volume of 176 mL despite the presence of a Dowell catheter. There is prominent, measures 40 mL. Non-aneurysmal abdominal aorta . Impression: Gallbladder sludge. Negative for biliary ductal dilatation Right hydronephrosis, etiology not demonstrated 176 mL bladder volume despite the presence of a Dowell catheter Prominent prostate Incidental finding bilateral renal cysts
--- NOTE | 2018-03-11 14:38 | NUR ---
P.T Note: late entry 0900 P.T services deferred. Pt preparing for procedure ( EGD ).
--- NOTE | 2018-03-11 16:38 | Pulmonology Progress Note ---
Assessment/Plan Problems: (1) Hypoxemia (2) Pneumonia (3) Leukocytosis (4) Hip fracture (5) Coffee ground emesis (6) Upper GI bleed (7) Anemia (8) Renal insufficiency (9) Hypertension Assessment/Plan 87 M h/o HTN, CKD, possible dementia initially transferred from [facility] after mechanical fall and ? CGE with L hip Fx now S/P ORIF 03/08. Post-op course c/b anemia, worsening encephalopathy, YOAV on CKD and progressive hypoxemia likely 2/ 2 aspiration pneumonia. ASSESSMENT: * Post-operative hypoxemia - IMPROVED * RLL infiltrate, likely aspiration * L hip Fx S/P ORIF 03/08 * Mechanical fall * YOAV on CKD * HTN * AMS, likely toxic metabolic encephalopathy on top of underlying dementia * Acute on chronic anemia * ? CGE PLAN: * Optimize pulmonary hygiene/mobilize as tolerated * Titrate down FiO2 to keep SaO2 > 90% * RTC and PRN DUOnebs * Continue Zosyn (D2), F/U Cx's * F/U Duplex * [employer] eval, aspiration precautions * Pain control/supportive care * Monitor volumes and renal function * Monitor HH, transfuse as needed, PPI, F/U GI recs --> OCTO EGD * mIVF * DVT Px: Hep SQ * FC Subjective Allergies: Coded Allergies: NO KNOWN ALLERGIES (Verified Allergy, Unknown, 03/08/18) Subjective Tm 100 VSS now on 2L Seen earlier, plan was for EGD No distress, some cough per RN, no F/C no CP S/P PRBC Objective Last 24 Hour Vital Signs Date Time Temp Pulse Resp B/P (MAP) Pulse Ox O2 Delivery O2 Flow Rate FiO2 03/11/18 16:00 94 03/11/18 16:00 Nasal Cannula 2.0 03/11/18 13:35 80 20 100 Nasal Cannula 3.0 32 03/11/18 13:25 87 18 100 Nasal Cannula 3.0 32 03/11/18 12:00 83 03/11/18 12:00 Nasal Cannula 2.0 03/11/18 11:49 98.6 84 20 143/61 (88) 100 03/11/18 10:55 98.0 78 16 144/73 100 Nasal Cannula 3 03/11/18 10:49 67 15 142/52 100 Nasal Cannula 3 03/11/18 10:43 77 18 142/62 96 Simple Mask 6 03/11/18 10:40 81 18 100 03/11/18 10:39 81 16 99 03/11/18 10:38 97.6 59 16 131/61 96 Simple Mask 6 03/11/18 09:00 Venturi Mask 12.0 03/11/18 08:22 102 155/81 03/11/18 08:00 99.1 100 21 155/81 (105) 98 03/11/18 08:00 97 03/11/18 07:35 87 20 100 Venturi Mask 8.0 40 03/11/18 07:24 94 20 100 Venturi Mask 8.0 40 03/11/18 07:23 100 Venturi Mask 8.0 40 03/11/18 07:23 Venturi Mask 8.0 40 03/11/18 04:00 104 03/11/18 04:00 98.9 114 24 156/85 (108) 100 03/11/18 01:22 95 20 98 Venturi Mask 8.0 40 03/11/18 01:11 95 22 97 Venturi Mask 8.0 40 03/11/18 00:00 99.2 92 24 160/68 (98) 100 03/11/18 00:00 93 03/10/18 21:36 118 161/71 03/10/18 21:00 Venturi Mask 12.0 03/10/18 20:00 100 03/10/18 20:00 98.6 118 24 161/71 (101) 99 03/10/18 19:28 95 20 99 Venturi Mask 8.0 40 03/10/18 19:18 101 18 99 Venturi Mask 8.0 40 03/10/18 19:17 101 18 Venturi Mask 8.0 40 03/10/18 19:17 Venturi Mask 8.0 40 03/10/18 19:17 99 Venturi Mask 8.0 40 03/10/18 16:51 109 Intake and Output 03/10/18 03/11/18 19:00 07:00 Intake Total 455.0 ml 1395.5 ml Output Total 725 ml 1500 ml Balance -270.0 ml -104.5 ml Intake Oral 100 ml IV Total 455.0 ml 1295.5 ml Output Urine Total 725 ml 1500 ml General Appearance: no acute distress, cachetic, other - confused HEENT: normocephalic, atraumatic, anicteric Respiratory/Chest: chest wall non-tender, rhonchi Cardiovascular: normal peripheral pulses, normal rate, regular rhythm Abdomen: normal bowel sounds, soft, non tender, no organomegaly, non distended , no mass Extremities: no cyanosis, no clubbing, no edema Microbiology Date/Time Source Procedure Growth Status 03/10/18 15:36 Sputum Expectorated Gram Stain - Final Resulted 03/10/18 15:36 Sputum Expectorated Sputum Culture - Preliminary NORMAL UPPER RESPIRATORY JUSTIN AT 24 ... Resulted 03/09/18 03:50 Urine,Clean Catch Urine Culture - Preliminary NO GROWTH AFTER 24 HOURS Resulted Laboratory Tests 03/11/18 03:10: White Blood Count 11.0H, Red Blood Count 2.80L, Hemoglobin 8.2L, Hematocrit 24.4L, Mean Corpuscular Volume 87, Mean Corpuscular Hemoglobin 29.4, Mean Corpuscular Hemoglobin Concent 33.8, Red Cell Distribution Width 11.8, Platelet Count 140L, Mean Platelet Volume 5.6L, Neutrophils (%) (Auto) 79.6H, Lymphocytes (%) (Auto) 10.6L, Monocytes (%) (Auto) 9.0, Eosinophils (%) (Auto) 0.3, Basophils (%) (Auto) 0.5, Sodium Level 144, Potassium Level 3.8, Chloride Level 110H, Carbon Dioxide Level 24, Anion Gap 10, Blood Urea Nitrogen 32H, Creatinine 1.9H, Estimat Glomerular Filtration Rate , Glucose Level 113H, Uric Acid 6.1, Calcium Level 9.4, Phosphorus Level 2.5, Magnesium Level 1.9, Total Bilirubin 1.1H, Direct Bilirubin 0.3, Aspartate Amino Transf (AST/SGOT) 154H, Alanine Aminotransferase (ALT/SGPT) 47, Alkaline Phosphatase 55, Total Creatine Kinase 2684H, C-Reactive Protein, Quantitative 26.5H, Pro-B-Type Natriuretic Peptide 3288H, Total Protein 7.1, Albumin 2.8L, Globulin 4.3, Albumin/Globulin Ratio 0.7L Current Medications Medications (Trade) Dose Ordered Sig/Lorean Route PRN Reason Start Time Stop Time Status Last Admin Dose Admin Acetaminophen (Tylenol) 650 mg Q6H PRN ORAL Mild Pain/Temp > 100.0 03/10/18 11:30 04/07/18 05:29 03/10/18 12:20 Albuterol/ Ipratropium (Albuterol/ Ipratropium) 3 ml Q4H PRN HHN Shortness of Breath 03/10/18 14:00 03/15/18 13:59 Albuterol/ Ipratropium (Albuterol/ Ipratropium) 3 ml Q6HRT HHN 03/10/18 19:00 03/15/18 18:59 03/11/18 13:29 Amlodipine Besylate (Norvasc) 5 mg Q4H PRN ORAL SBP > 120 03/10/18 11:15 04/08/18 19:14 Dextrose/Sodium Chloride 1,000 ml @ 50 mls/hr Q20H IV 03/11/18 08:00 04/09/18 07:59 03/11/18 08:21 Docusate Sodium (Colace) 100 mg TWICE A DAY ORAL 03/10/18 09:00 04/08/18 08:59 03/11/18 08:22 Finasteride (Proscar) 5 mg DAILY ORAL 03/10/18 09:00 04/09/18 08:59 03/11/18 08:22 Haloperidol Lactate (Haldol) 5 mg Q6H PRN IM Agitation 03/10/18 13:00 04/08/18 00:59 Heparin Sodium (Porcine) (Heparin 5000 units/ml) 5,000 units EVERY 12 HOURS SUBQ 03/10/18 09:00 04/07/18 08:59 03/10/18 12:27 Hydralazine HCl (Apresoline) 25 mg Q4H PRN ORAL bp over 160 syst 03/10/18 11:15 04/08/18 15:14 Iron Sucrose 100 mg/Sodium Chloride 60 ml @ 240 mls/hr BEDTIME IV 03/10/18 21:00 03/14/18 21:14 03/10/18 21:35 Metoprolol Tartrate (Lopressor) 50 mg Q12HR ORAL 03/11/18 09:00 04/10/18 08:59 03/11/18 08:22 Morphine Sulfate (Morphine Sulfate) 2 mg Q3H PRN IVP Moderate Pain (Pain Scale 4-6) 03/10/18 10:45 03/15/18 16:44 03/11/18 02:08 Ondansetron HCl (Zofran) 4 mg Q6H PRN IVP Nausea & Vomiting 03/10/18 10:45 04/07/18 16:44 Pantoprazole (Protonix) 40 mg EVERY 12 HOURS IVP 03/10/18 09:00 04/08/18 20:59 03/11/18 08:22 Piperacillin Sod/ Tazobactam Sod 3.375 gm/Dextrose 110 ml @ 27.5 mls/hr Q12H IVPB 03/10/18 16:00 03/17/18 15:59 03/11/18 15:17 Polyethylene Glycol (Miralax) 17 gm BEDTIME ORAL 03/10/18 21:00 04/08/18 20:59 Temazepam (Restoril) 7.5 mg DAILYPRN PRN ORAL Insomnia 03/10/18 09:00 03/17/18 08:59 Gabe Willams MD Mar 11, 2018 16:38
--- NOTE | 2018-03-11 17:46 | Internal Med Progress Note ---
Subjective Physician Name Kaiser Price Attending Physician Kaiser Price MD Current Medications Medications (Trade) Dose Ordered Sig/Lorena Route PRN Reason Start Time Stop Time Status Last Admin Dose Admin Acetaminophen (Tylenol) 650 mg Q6H PRN ORAL Mild Pain/Temp > 100.0 03/10/18 11:30 04/07/18 05:29 03/10/18 12:20 Albuterol/ Ipratropium (Albuterol/ Ipratropium) 3 ml Q4H PRN HHN Shortness of Breath 03/10/18 14:00 03/15/18 13:59 Albuterol/ Ipratropium (Albuterol/ Ipratropium) 3 ml Q6HRT HHN 03/10/18 19:00 03/15/18 18:59 03/11/18 13:29 Amlodipine Besylate (Norvasc) 5 mg Q4H PRN ORAL SBP > 120 03/10/18 11:15 04/08/18 19:14 Dextrose/Sodium Chloride 1,000 ml @ 50 mls/hr Q20H IV 03/11/18 08:00 04/09/18 07:59 03/11/18 08:21 Docusate Sodium (Colace) 100 mg TWICE A DAY ORAL 03/10/18 09:00 04/08/18 08:59 03/11/18 17:05 Finasteride (Proscar) 5 mg DAILY ORAL 03/10/18 09:00 04/09/18 08:59 03/11/18 08:22 Haloperidol Lactate (Haldol) 5 mg Q6H PRN IM Agitation 03/10/18 13:00 04/08/18 00:59 Heparin Sodium (Porcine) (Heparin 5000 units/ml) 5,000 units EVERY 12 HOURS SUBQ 03/10/18 09:00 04/07/18 08:59 03/10/18 12:27 Hydralazine HCl (Apresoline) 25 mg Q4H PRN ORAL bp over 160 syst 03/10/18 11:15 04/08/18 15:14 Iron Sucrose 100 mg/Sodium Chloride 60 ml @ 240 mls/hr BEDTIME IV 03/10/18 21:00 03/14/18 21:14 03/10/18 21:35 Metoprolol Tartrate (Lopressor) 50 mg Q12HR ORAL 03/11/18 09:00 04/10/18 08:59 03/11/18 08:22 Morphine Sulfate (Morphine Sulfate) 2 mg Q3H PRN IVP Moderate Pain (Pain Scale 4-6) 03/10/18 10:45 03/15/18 16:44 03/11/18 02:08 Ondansetron HCl (Zofran) 4 mg Q6H PRN IVP Nausea & Vomiting 03/10/18 10:45 04/07/18 16:44 Pantoprazole (Protonix) 40 mg EVERY 12 HOURS IVP 03/10/18 09:00 04/08/18 20:59 03/11/18 08:22 Piperacillin Sod/ Tazobactam Sod 3.375 gm/Dextrose 110 ml @ 27.5 mls/hr Q12H IVPB 03/10/18 16:00 03/17/18 15:59 03/11/18 15:17 Polyethylene Glycol (Miralax) 17 gm BEDTIME ORAL 03/10/18 21:00 04/08/18 20:59 Temazepam (Restoril) 7.5 mg DAILYPRN PRN ORAL Insomnia 03/10/18 09:00 03/17/18 08:59 Allergies: Coded Allergies: NO KNOWN ALLERGIES (Verified Allergy, Unknown, 03/08/18) Subjective awake, responsive, less confuse, feeling better, No CP or SOB, renal function improving, Objective Last Vital Signs Date Time Temp Pulse Resp B/P (MAP) Pulse Ox O2 Delivery O2 Flow Rate FiO2 03/11/18 16:00 99.4 88 23 135/56 (82) 100 03/11/18 16:00 Nasal Cannula 2.0 03/11/18 13:35 32 Laboratory Tests Test 03/11/18 03:10 White Blood Count 11.0 K/UL (4.8-10.8) H Red Blood Count 2.80 M/UL (4.70-6.10) L Hemoglobin 8.2 G/DL (14.2-18.0) L Hematocrit 24.4 % (42.0-52.0) L Mean Corpuscular Volume 87 FL (80-99) Mean Corpuscular Hemoglobin 29.4 PG (27.0-31.0) Mean Corpuscular Hemoglobin Concent 33.8 G/DL (32.0-36.0) Red Cell Distribution Width 11.8 % (11.6-14.8) Platelet Count 140 K/UL (150-450) L Mean Platelet Volume 5.6 FL (6.5-10.1) L Neutrophils (%) (Auto) 79.6 % (45.0-75.0) H Lymphocytes (%) (Auto) 10.6 % (20.0-45.0) L Monocytes (%) (Auto) 9.0 % (1.0-10.0) Eosinophils (%) (Auto) 0.3 % (0.0-3.0) Basophils (%) (Auto) 0.5 % (0.0-2.0) Sodium Level 144 MMOL/L (136-145) Potassium Level 3.8 MMOL/L (3.5-5.1) Chloride Level 110 MMOL/L (98-107) H Carbon Dioxide Level 24 MMOL/L (21-32) Anion Gap 10 mmol/L (5-15) Blood Urea Nitrogen 32 mg/dL (7-18) H Creatinine 1.9 MG/DL (0.55-1.30) H Estimat Glomerular Filtration Rate mL/min (>60) Glucose Level 113 MG/DL (74-106) H Uric Acid 6.1 MG/DL (2.6-7.2) Calcium Level 9.4 MG/DL (8.5-10.1) Phosphorus Level 2.5 MG/DL (2.5-4.9) Magnesium Level 1.9 MG/DL (1.8-2.4) Total Bilirubin 1.1 MG/DL (0.2-1.0) H Direct Bilirubin 0.3 MG/DL (0.0-0.3) Aspartate Amino Transf (AST/SGOT) 154 U/L (15-37) H Alanine Aminotransferase (ALT/SGPT) 47 U/L (12-78) Alkaline Phosphatase 55 U/L (46-116) Total Creatine Kinase 2684 U/L (26-308) H C-Reactive Protein, Quantitative 26.5 mg/dL (0.00-0.90) H Pro-B-Type Natriuretic Peptide 3288 pg/mL (0-125) H Total Protein 7.1 G/DL (6.4-8.2) Albumin 2.8 G/DL (3.4-5.0) L Globulin 4.3 g/dL Albumin/Globulin Ratio 0.7 (1.0-2.7) L Microbiology Date/Time Source Procedure Growth Status 03/10/18 15:36 Sputum Expectorated Gram Stain - Final Resulted 03/10/18 15:36 Sputum Expectorated Sputum Culture - Preliminary NORMAL UPPER RESPIRATORY JUSTIN AT 24 ... Resulted 03/09/18 03:50 Urine,Clean Catch Urine Culture - Preliminary NO GROWTH AFTER 24 HOURS Resulted Intake and Output 03/10/18 03/11/18 19:00 07:00 Intake Total 455.0 ml 1395.5 ml Output Total 725 ml 1500 ml Balance -270.0 ml -104.5 ml Intake Oral 100 ml IV Total 455.0 ml 1295.5 ml Output Urine Total 725 ml 1500 ml Objective General: No acute distress, awake and alert HEENT: NCAT, sclera anicteric, PERRL, EOMI. Neck: Supple, no significant jugular venous distention, Lungs: Fair inspiratory effort, decrease air on bases, no Wheeze or Rales. Heart: Regular rate and rhythm, normal S1/S2, no murmurs Abdomen: soft, nontender, nondistended. Normoactive bowel sounds. / Rectal: Refused and deferred. Extremities: No Cyanosis , clubbing or edema. Left hip surgical incision intact. Neuro: A&O x 3, Able to move all extremities Skin: warm, no rashes or lesions Assessment/Plan Assessment/Plan 1. Mechanical fall with the left hip fracture / Left comminuted intertrochanteric subtroch femur fracture S/p Open reduction and internal fixation of left comminuted intertrochanteric subtroch fracture (03/08/2018). 2. Hypertension. 3. YOAV on Chronic kidney disease. 4. BPH. 5. 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 6. Post surgery Anemia, most likely due to acute blood loss. 7. Hypoxemia most likely due to aspiration pneumonia. 8. Coffee ground emesis possible due to Upper GI bleeding. 9. Sinus tachycardia with premature supraventricular complexes, Right bundle branch block, Left anterior fascicular block, (Bifascicular block). 10. Dementia with agitation. 11. Rhabdomyolysis. PLAN: Code status full code. DVT prophylaxis, heparin subcutaneous. Abx: Zosyn IV Monitor labs and cultures start diet.. Kaiser Price MD Mar 11, 2018 17:46
--- NOTE | 2018-03-11 18:08 | General Progress Note ---
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 Assessment/Plan Haldol Im prn the pts next of keen should makes decisions the pt lacks capacity Subjective Neurologic/Psychiatric: Reports: anxiety Allergies: Coded Allergies: NO KNOWN ALLERGIES (Verified Allergy, Unknown, 03/08/18) Subjective cont to be confused however improving Objective Last 24 Hour Vital Signs Date Time Temp Pulse Resp B/P (MAP) Pulse Ox O2 Delivery O2 Flow Rate FiO2 03/11/18 16:00 99.4 88 23 135/56 (82) 100 03/11/18 16:00 94 03/11/18 16:00 Nasal Cannula 2.0 03/11/18 13:35 80 20 100 Nasal Cannula 3.0 32 03/11/18 13:25 87 18 100 Nasal Cannula 3.0 32 03/11/18 12:00 83 03/11/18 12:00 Nasal Cannula 2.0 03/11/18 11:49 98.6 84 20 143/61 (88) 100 03/11/18 10:55 98.0 78 16 144/73 100 Nasal Cannula 3 03/11/18 10:49 67 15 142/52 100 Nasal Cannula 3 03/11/18 10:43 77 18 142/62 96 Simple Mask 6 03/11/18 10:40 81 18 100 03/11/18 10:39 81 16 99 03/11/18 10:38 97.6 59 16 131/61 96 Simple Mask 6 03/11/18 09:00 Venturi Mask 12.0 03/11/18 08:22 102 155/81 03/11/18 08:00 99.1 100 21 155/81 (105) 98 03/11/18 08:00 97 03/11/18 07:35 87 20 100 Venturi Mask 8.0 40 03/11/18 07:24 94 20 100 Venturi Mask 8.0 40 03/11/18 07:23 100 Venturi Mask 8.0 40 03/11/18 07:23 Venturi Mask 8.0 40 03/11/18 04:00 104 03/11/18 04:00 98.9 114 24 156/85 (108) 100 03/11/18 01:22 95 20 98 Venturi Mask 8.0 40 03/11/18 01:11 95 22 97 Venturi Mask 8.0 40 03/11/18 00:00 99.2 92 24 160/68 (98) 100 03/11/18 00:00 93 03/10/18 21:36 118 161/71 03/10/18 21:00 Venturi Mask 12.0 03/10/18 20:00 100 03/10/18 20:00 98.6 118 24 161/71 (101) 99 03/10/18 19:28 95 20 99 Venturi Mask 8.0 40 03/10/18 19:18 101 18 99 Venturi Mask 8.0 40 03/10/18 19:17 101 18 Venturi Mask 8.0 40 03/10/18 19:17 Venturi Mask 8.0 40 03/10/18 19:17 99 Venturi Mask 8.0 40 Intake and Output 03/10/18 03/11/18 19:00 07:00 Intake Total 455.0 ml 1395.5 ml Output Total 725 ml 1500 ml Balance -270.0 ml -104.5 ml Intake Oral 100 ml IV Total 455.0 ml 1295.5 ml Output Urine Total 725 ml 1500 ml Laboratory Tests 03/11/18 03:10: White Blood Count 11.0H, Red Blood Count 2.80L, Hemoglobin 8.2L, Hematocrit 24.4L, Mean Corpuscular Volume 87, Mean Corpuscular Hemoglobin 29.4, Mean Corpuscular Hemoglobin Concent 33.8, Red Cell Distribution Width 11.8, Platelet Count 140L, Mean Platelet Volume 5.6L, Neutrophils (%) (Auto) 79.6H, Lymphocytes (%) (Auto) 10.6L, Monocytes (%) (Auto) 9.0, Eosinophils (%) (Auto) 0.3, Basophils (%) (Auto) 0.5, Sodium Level 144, Potassium Level 3.8, Chloride Level 110H, Carbon Dioxide Level 24, Anion Gap 10, Blood Urea Nitrogen 32H, Creatinine 1.9H, Estimat Glomerular Filtration Rate , Glucose Level 113H, Uric Acid 6.1, Calcium Level 9.4, Phosphorus Level 2.5, Magnesium Level 1.9, Total Bilirubin 1.1H, Direct Bilirubin 0.3, Aspartate Amino Transf (AST/SGOT) 154H, Alanine Aminotransferase (ALT/SGPT) 47, Alkaline Phosphatase 55, Total Creatine Kinase 2684H, C-Reactive Protein, Quantitative 26.5H, Pro-B-Type Natriuretic Peptide 3288H, Total Protein 7.1, Albumin 2.8L, Globulin 4.3, Albumin/Globulin Ratio 0.7L Height (Feet): 5 Height (Inches): 9.00 Weight (Pounds): 178 General Appearance: alert, confused, agitated Domenic Solomon MD Mar 11, 2018 18:08
--- NOTE | 2018-03-11 19:21 | NUR ---
HAND-OFF: Report given to BEN Lilly. Stable condition.
--- NOTE | 2018-03-11 19:22 | NUR ---
NURSE NOTES: Report received from BEN Payton. Pt alert and oriented x3. patient monitor shows SR. Pt currently on 2L/min NC. Shows no signs of cardiac or respiratory disterss. Pt on a pureed moist nectar thick diet. A campbell catheter in place, patent and draining well. Pt has a left hip surgical site. Dressing change was doing 03/11 in AM. Pt has a L hand 22 gauge, and a RFA 20 gauge IV with D51/2 NS running at 50 ml/hr. Pt has restraints in place. Skin intact, no signs of redness, swelling or irritation. Pt currently comfortable and follows commands appropriately. Bed in lowest position, call light within reach, bed alarms have been placed. Will continue to monitor and with patients plan of care
[2018-03-11] MEDS: Miralax 17gm pkt ORAL SCH (21:00)
[2018-03-11] MEDS: Iron Sucrose 100 MG in NS 55 ML IV SCH (21:30)
--- NOTE | 2018-03-11 22:00 | NUR ---
NURSE NOTES: Pt follows commands appropriately, shows no signs of irritation or combativeness, harm to self or others. Restraints were removed. Will continue to monitor and with patients plan of care.
[2018-03-12] VITALS: BP 164/72
[2018-03-12] MEDS: Albuterol/Ipratropium 3ml neb HHN SCH ×4 (00:58→20:06)
[2018-03-12] MEDS: Morphine Sulfate 2mg/ml Inj IVP PRN ×3 (01:03→09:39)
[2018-03-12] MEDS: Piperacillin/Tazobactam 3.375 GM in D5W 110 ML IVPB SCH ×2 (03:28→16:20)
[2018-03-12] MEDS: D5 1/2NS 1,000 ML IV SCH (03:29)
[2018-03-12 04:00] VITALS: BP 121/86
[2018-03-12 05:14] LABS: BASOPHILS % (AUTO) 0.5 % (0.0-2.0); EOSINOPHILS % (AUTO) 1.3 % (0.0-3.0); HEMATOCRIT 26.2 % (42.0-52.0); HEMOGLOBIN 8.9 G/DL (14.2-18.0); LYMPHOCYTES % (AUTO) 10.2 % (20.0-45.0); MEAN CORPUSCULAR VOLUME 89 FL (80-99); MONOCYTES % (AUTO) 8.8 % (1.0-10.0); NEUTROPHILS % (AUTO) 79.2 % (45.0-75.0); PLATELET COUNT 164 K/UL (150-450); RED BLOOD COUNT 2.96 M/UL (4.70-6.10); RED CELL DISTRIBUTION WIDTH 12.4 % (11.6-14.8); WHITE BLOOD COUNT 11.2 K/UL (4.8-10.8)
[2018-03-12 05:47] LABS: ALANINE AMINOTRANSFERASE 54 U/L (12-78); ALBUMIN 2.7 G/DL (3.4-5.0); ALBUMIN/GLOBULIN RATIO 0.6 (1.0-2.7); ALKALINE PHOSPHATASE 70 U/L (46-116); ANION GAP 9 mmol/L (5-15); ASPARTATE AMINO TRANSFERASE 114 U/L (15-37); BILIRUBIN,TOTAL 1.3 MG/DL (0.2-1.0); BLOOD UREA NITROGEN 24 mg/dL (7-18); CALCIUM 9.3 MG/DL (8.5-10.1); CARBON DIOXIDE 26 MMOL/L (21-32); CHLORIDE 109 MMOL/L (98-107); CREATININE 1.6 MG/DL (0.55-1.30); PHOSPHORUS 2.6 MG/DL (2.5-4.9); POTASSIUM 3.7 MMOL/L (3.5-5.1); SODIUM 144 MMOL/L (136-145)
[2018-03-12 05:51] LABS: BILIRUBIN,DIRECT 0.4 MG/DL (0.0-0.3)
--- NOTE | 2018-03-12 07:17 | NUR ---
NURSE NOTES: Report received from BEN Lilly. Observed patient in bed sleeping. Arousable by voice and verbally responsive. Denies pain at this time. No distress noted in room air. IVF running at prescribed rate. F/C intact and draining well. Bed in lowest position. Call light within reach. Will continue to monitor.
[2018-03-12 08:00] VITALS: BP 122/69
[2018-03-12] MEDS: Pantoprazole Inj IVP SCH (08:47)
[2018-03-12] MEDS: Metoprolol Tartrate 50mg tab ORAL SCH ×2 (08:47→22:35)
[2018-03-12] MEDS: Docusate 100mg cap ORAL SCH ×2 (08:47→17:06)
[2018-03-12] MEDS: Heparin 5000 units/ml inj SUBQ SCH ×2 (08:49→20:47)
--- NOTE | 2018-03-12 11:19 | General Progress Note ---
Assessment/Plan Problem List: (1) Renal insufficiency ICD Codes: N28.9 - Disorder of kidney and ureter, unspecified SNOMED: 821307753, 388821862 (2) Coffee ground emesis ICD Codes: K92.0 - Hematemesis SNOMED: 23428095, 323991219 (3) Hip fracture ICD Codes: S72.009A - Fracture of unspecified part of neck of unspecified femur , initial encounter for closed fracture SNOMED: 560670969 (4) Anemia ICD Codes: D64.9 - Anemia, unspecified SNOMED: 336793423 Assessment/Plan s/p EGD us reviewed ppi daily pending swallow eval on puree diet Subjective ROS Limited/Unobtainable: Yes Allergies: Coded Allergies: NO KNOWN ALLERGIES (Verified Allergy, Unknown, 03/08/18) Objective Last 24 Hour Vital Signs Date Time Temp Pulse Resp B/P (MAP) Pulse Ox O2 Delivery O2 Flow Rate FiO2 03/12/18 08:47 75 122/69 03/12/18 08:00 Room Air 03/12/18 08:00 99.0 103 21 122/69 (86) 96 03/12/18 08:00 129 03/12/18 07:14 88 18 100 Nasal Cannula 2.0 28 03/12/18 07:14 Nasal Cannula 2.0 28 03/12/18 07:14 100 Nasal Cannula 2.0 28 03/12/18 07:02 99 18 97 Nasal Cannula 2.0 28 03/12/18 04:00 Nasal Cannula 2.0 03/12/18 04:00 104 03/12/18 04:00 97.9 89 20 121/86 (98) 98 03/12/18 01:08 91 18 99 Nasal Cannula 3.0 32 03/12/18 00:59 94 18 99 Nasal Cannula 2.0 28 03/12/18 00:00 Nasal Cannula 2.0 03/12/18 00:00 98.6 70 20 164/72 (102) 100 03/12/18 00:00 90 03/11/18 21:30 88 133/56 03/11/18 20:00 98.7 80 24 133/56 (81) 100 03/11/18 20:00 Nasal Cannula 2.0 03/11/18 20:00 95 03/11/18 19:07 97 18 100 Nasal Cannula 3.0 32 03/11/18 19:00 99 18 99 Nasal Cannula 2.0 28 03/11/18 19:00 99 Nasal Cannula 2.0 28 03/11/18 19:00 Nasal Cannula 2.0 28 03/11/18 16:00 99.4 88 23 135/56 (82) 100 03/11/18 16:00 94 03/11/18 16:00 Nasal Cannula 2.0 03/11/18 13:35 80 20 100 Nasal Cannula 3.0 32 03/11/18 13:25 87 18 100 Nasal Cannula 3.0 32 03/11/18 12:00 83 03/11/18 12:00 Nasal Cannula 2.0 03/11/18 11:49 98.6 84 20 143/61 (88) 100 Intake and Output 03/11/18 03/12/18 19:00 07:00 Intake Total 1035.0 ml 362.5 ml Output Total 1000 ml 1100 ml Balance 35.0 ml -737.5 ml Intake Oral 300 ml 120 ml IV Total 735.0 ml 242.5 ml Output Urine Total 1000 ml 1100 ml # Bowel Movements 1 4 Laboratory Tests 03/11/18 18:00: Stool Occult Blood Positive 03/12/18 03:00: White Blood Count 11.2H, Red Blood Count 2.96L, Hemoglobin 8.9L, Hematocrit 26.2L, Mean Corpuscular Volume 89, Mean Corpuscular Hemoglobin 30.2, Mean Corpuscular Hemoglobin Concent 34.1, Red Cell Distribution Width 12.4, Platelet Count 164, Mean Platelet Volume 4.9L, Neutrophils (%) (Auto) 79.2H, Lymphocytes (%) (Auto) 10.2L, Monocytes (%) (Auto) 8.8, Eosinophils (%) (Auto) 1.3, Basophils (%) (Auto) 0.5, Sodium Level 144, Potassium Level 3.7, Chloride Level 109H, Carbon Dioxide Level 26, Anion Gap 9, Blood Urea Nitrogen 24H, Creatinine 1.6H, Estimat Glomerular Filtration Rate , Glucose Level 93, Calcium Level 9.3, Phosphorus Level 2.6, Magnesium Level 1.8, Total Bilirubin 1.3H, Direct Bilirubin 0.4H, Aspartate Amino Transf (AST/SGOT) 114H, Alanine Aminotransferase (ALT/SGPT) 54, Alkaline Phosphatase 70, Total Protein 7.2, Albumin 2.7L, Globulin 4.5, Albumin/Globulin Ratio 0.6L Height (Feet): 5 Height (Inches): 9.00 Weight (Pounds): 178 General Appearance: alert EENT: normal ENT inspection Neck: supple Cardiovascular: normal rate Respiratory/Chest: decreased breath sounds Abdomen: normal bowel sounds, non tender, soft Extremities: non-tender Roderick Krause MD Mar 12, 2018 11:19
[2018-03-12 12:00] VITALS: BP 107/54
--- NOTE | 2018-03-12 12:12 | NUR ---
NURSE NOTES: Dowell catheter removed per Dr. Price's order. Monitor for urine output.
--- NOTE | 2018-03-12 12:21 | Pulmonology Progress Note ---
Assessment/Plan Problems: (1) Hypoxemia Assessment & Plan: RESOLVED (2) Pneumonia (3) Leukocytosis (4) Hip fracture (5) Coffee ground emesis Assessment & Plan: S/P EGD c/w gastritis HH stable (6) Upper GI bleed Assessment & Plan: as above (7) Anemia (8) Renal insufficiency Assessment & Plan: Improved (9) Hypertension Assessment/Plan 87 M h/o HTN, CKD, possible dementia initially transferred from [facility] after mechanical fall and ? CGE with L hip Fx now S/P ORIF 03/08. Post-op course c/b anemia, worsening encephalopathy, YOAV on CKD and progressive hypoxemia likely 2/ 2 aspiration pneumonia. ASSESSMENT: * Post-operative hypoxemia - IMPROVED * RLL infiltrate, likely aspiration * L hip Fx S/P ORIF 03/08 * Mechanical fall * YOAV on CKD - IMPROVED * HTN * AMS, likely toxic metabolic encephalopathy on top of underlying dementia * Acute on chronic anemia * ? CGE S/P EGD 03/11 --> gastritis PLAN: * Optimize pulmonary hygiene/mobilize as tolerated * PRN O2 * RTC and PRN DUOnebs * Continue Zosyn (D2), F/U Cx's * F/U Duplex * F[employer]MER eval, aspiration precautions * Pain control/supportive care * Monitor volumes and renal function * Monitor HH, transfuse as needed, PPI, F/U GI recs * mIVF * DVT Px: Hep SQ * FC * TTF Subjective Allergies: Coded Allergies: NO KNOWN ALLERGIES (Verified Allergy, Unknown, 03/08/18) Subjective AFVSS now on RA S/P EGD c/w gastritis No distress, denies cough or SOB, no F/C no CP Cr better, H&H stable Objective Last 24 Hour Vital Signs Date Time Temp Pulse Resp B/P (MAP) Pulse Ox O2 Delivery O2 Flow Rate FiO2 03/12/18 12:00 Room Air 03/12/18 12:00 98.4 78 20 107/54 (71) 99 03/12/18 08:47 75 122/69 03/12/18 08:00 Room Air 03/12/18 08:00 99.0 103 21 122/69 (86) 96 03/12/18 08:00 129 03/12/18 07:14 88 18 100 Nasal Cannula 2.0 28 03/12/18 07:14 Nasal Cannula 2.0 28 03/12/18 07:14 100 Nasal Cannula 2.0 28 03/12/18 07:02 99 18 97 Nasal Cannula 2.0 28 03/12/18 04:00 Nasal Cannula 2.0 03/12/18 04:00 104 03/12/18 04:00 97.9 89 20 121/86 (98) 98 03/12/18 01:08 91 18 99 Nasal Cannula 3.0 32 03/12/18 00:59 94 18 99 Nasal Cannula 2.0 28 03/12/18 00:00 Nasal Cannula 2.0 03/12/18 00:00 98.6 70 20 164/72 (102) 100 03/12/18 00:00 90 03/11/18 21:30 88 133/56 03/11/18 20:00 98.7 80 24 133/56 (81) 100 03/11/18 20:00 Nasal Cannula 2.0 03/11/18 20:00 95 03/11/18 19:07 97 18 100 Nasal Cannula 3.0 32 03/11/18 19:00 99 18 99 Nasal Cannula 2.0 28 03/11/18 19:00 99 Nasal Cannula 2.0 28 03/11/18 19:00 Nasal Cannula 2.0 28 03/11/18 16:00 99.4 88 23 135/56 (82) 100 03/11/18 16:00 94 03/11/18 16:00 Nasal Cannula 2.0 03/11/18 13:35 80 20 100 Nasal Cannula 3.0 32 03/11/18 13:25 87 18 100 Nasal Cannula 3.0 32 Intake and Output 03/11/18 03/12/18 19:00 07:00 Intake Total 1035.0 ml 362.5 ml Output Total 1000 ml 1100 ml Balance 35.0 ml -737.5 ml Intake Oral 300 ml 120 ml IV Total 735.0 ml 242.5 ml Output Urine Total 1000 ml 1100 ml # Bowel Movements 1 4 General Appearance: no acute distress, cachetic HEENT: normocephalic, atraumatic, anicteric, mucous membranes moist Respiratory/Chest: chest wall non-tender, lungs clear, normal breath sounds, no respiratory distress, no accessory muscle use Cardiovascular: normal peripheral pulses, normal rate, regular rhythm Abdomen: normal bowel sounds, soft, non tender, no organomegaly, non distended , no mass Extremities: no cyanosis, no clubbing, no edema Microbiology Date/Time Source Procedure Growth Status 03/10/18 15:36 Sputum Expectorated Gram Stain - Final Complete 03/10/18 15:36 Sputum Expectorated Sputum Culture - Final NORMAL UPPER RESPIRATORY JUSTIN PRESENT Complete Laboratory Tests 03/11/18 18:00: Stool Occult Blood Positive 03/12/18 03:00: White Blood Count 11.2H, Red Blood Count 2.96L, Hemoglobin 8.9L, Hematocrit 26.2L, Mean Corpuscular Volume 89, Mean Corpuscular Hemoglobin 30.2, Mean Corpuscular Hemoglobin Concent 34.1, Red Cell Distribution Width 12.4, Platelet Count 164, Mean Platelet Volume 4.9L, Neutrophils (%) (Auto) 79.2H, Lymphocytes (%) (Auto) 10.2L, Monocytes (%) (Auto) 8.8, Eosinophils (%) (Auto) 1.3, Basophils (%) (Auto) 0.5, Sodium Level 144, Potassium Level 3.7, Chloride Level 109H, Carbon Dioxide Level 26, Anion Gap 9, Blood Urea Nitrogen 24H, Creatinine 1.6H, Estimat Glomerular Filtration Rate , Glucose Level 93, Calcium Level 9.3, Phosphorus Level 2.6, Magnesium Level 1.8, Total Bilirubin 1.3H, Direct Bilirubin 0.4H, Aspartate Amino Transf (AST/SGOT) 114H, Alanine Aminotransferase (ALT/SGPT) 54, Alkaline Phosphatase 70, Total Protein 7.2, Albumin 2.7L, Globulin 4.5, Albumin/Globulin Ratio 0.6L Current Medications Medications (Trade) Dose Ordered Sig/Lorena Route PRN Reason Start Time Stop Time Status Last Admin Dose Admin Acetaminophen (Tylenol) 650 mg Q6H PRN ORAL Mild Pain/Temp > 100.0 03/10/18 11:30 04/07/18 05:29 03/10/18 12:20 Albuterol/ Ipratropium (Albuterol/ Ipratropium) 3 ml Q4H PRN HHN Shortness of Breath 03/10/18 14:00 03/15/18 13:59 Albuterol/ Ipratropium (Albuterol/ Ipratropium) 3 ml Q6HRT HHN 03/10/18 19:00 03/15/18 18:59 03/12/18 07:02 Amlodipine Besylate (Norvasc) 5 mg Q4H PRN ORAL SBP > 120 03/10/18 11:15 04/08/18 19:14 Dextrose/Sodium Chloride 1,000 ml @ 50 mls/hr Q20H IV 03/11/18 08:00 04/09/18 07:59 03/12/18 03:29 Docusate Sodium (Colace) 100 mg TWICE A DAY ORAL 03/10/18 09:00 04/08/18 08:59 03/12/18 08:47 Finasteride (Proscar) 5 mg DAILY ORAL 03/10/18 09:00 04/09/18 08:59 03/12/18 08:47 Haloperidol Lactate (Haldol) 5 mg Q6H PRN IM Agitation 03/10/18 13:00 04/08/18 00:59 Heparin Sodium (Porcine) (Heparin 5000 units/ml) 5,000 units EVERY 12 HOURS SUBQ 03/10/18 09:00 04/07/18 08:59 03/12/18 08:49 Hydralazine HCl (Apresoline) 25 mg Q4H PRN ORAL bp over 160 syst 03/10/18 11:15 04/08/18 15:14 Iron Sucrose 100 mg/Sodium Chloride 60 ml @ 240 mls/hr BEDTIME IV 03/10/18 21:00 03/14/18 21:14 03/11/18 21:30 Metoprolol Tartrate (Lopressor) 50 mg Q12HR ORAL 03/11/18 09:00 04/10/18 08:59 03/12/18 08:47 Morphine Sulfate (Morphine Sulfate) 2 mg Q3H PRN IVP Moderate Pain (Pain Scale 4-6) 03/10/18 10:45 03/15/18 16:44 03/12/18 09:39 Ondansetron HCl (Zofran) 4 mg Q6H PRN IVP Nausea & Vomiting 03/10/18 10:45 04/07/18 16:44 Pantoprazole (Protonix) 40 mg EVERY 12 HOURS IVP 03/10/18 09:00 04/08/18 20:59 03/12/18 08:47 Piperacillin Sod/ Tazobactam Sod 3.375 gm/Dextrose 110 ml @ 27.5 mls/hr Q12H IVPB 03/10/18 16:00 03/17/18 15:59 03/12/18 03:28 Polyethylene Glycol (Miralax) 17 gm BEDTIME ORAL 03/10/18 21:00 04/08/18 20:59 Temazepam (Restoril) 7.5 mg DAILYPRN PRN ORAL Insomnia 03/10/18 09:00 03/17/18 08:59 Gabe Willams MD Mar 12, 2018 12:21
--- NOTE | 2018-03-12 12:59 | Internal Med Progress Note ---
Subjective Physician Name Kaiser Price Attending Physician Kaiser Price MD Current Medications Medications (Trade) Dose Ordered Sig/Lorena Route PRN Reason Start Time Stop Time Status Last Admin Dose Admin Acetaminophen (Tylenol) 650 mg Q6H PRN ORAL Mild Pain/Temp > 100.0 03/10/18 11:30 04/07/18 05:29 03/10/18 12:20 Albuterol/ Ipratropium (Albuterol/ Ipratropium) 3 ml Q4H PRN HHN Shortness of Breath 03/10/18 14:00 03/15/18 13:59 Albuterol/ Ipratropium (Albuterol/ Ipratropium) 3 ml Q6HRT HHN 03/10/18 19:00 03/15/18 18:59 03/12/18 12:40 Amlodipine Besylate (Norvasc) 5 mg Q4H PRN ORAL SBP > 120 03/10/18 11:15 04/08/18 19:14 Dextrose/Sodium Chloride 1,000 ml @ 50 mls/hr Q20H IV 03/11/18 08:00 04/09/18 07:59 03/12/18 03:29 Docusate Sodium (Colace) 100 mg TWICE A DAY ORAL 03/10/18 09:00 04/08/18 08:59 03/12/18 08:47 Finasteride (Proscar) 5 mg DAILY ORAL 03/10/18 09:00 04/09/18 08:59 03/12/18 08:47 Haloperidol Lactate (Haldol) 5 mg Q6H PRN IM Agitation 03/10/18 13:00 04/08/18 00:59 Heparin Sodium (Porcine) (Heparin 5000 units/ml) 5,000 units EVERY 12 HOURS SUBQ 03/10/18 09:00 04/07/18 08:59 03/12/18 08:49 Hydralazine HCl (Apresoline) 25 mg Q4H PRN ORAL bp over 160 syst 03/10/18 11:15 04/08/18 15:14 Iron Sucrose 100 mg/Sodium Chloride 60 ml @ 240 mls/hr BEDTIME IV 03/10/18 21:00 03/14/18 21:14 03/11/18 21:30 Metoprolol Tartrate (Lopressor) 50 mg Q12HR ORAL 03/11/18 09:00 04/10/18 08:59 03/12/18 08:47 Morphine Sulfate (Morphine Sulfate) 2 mg Q3H PRN IVP Moderate Pain (Pain Scale 4-6) 03/10/18 10:45 03/15/18 16:44 03/12/18 09:39 Ondansetron HCl (Zofran) 4 mg Q6H PRN IVP Nausea & Vomiting 03/10/18 10:45 04/07/18 16:44 Pantoprazole (Protonix) 40 mg EVERY 12 HOURS IVP 03/10/18 09:00 04/08/18 20:59 03/12/18 08:47 Piperacillin Sod/ Tazobactam Sod 3.375 gm/Dextrose 110 ml @ 27.5 mls/hr Q12H IVPB 03/10/18 16:00 03/17/18 15:59 03/12/18 03:28 Polyethylene Glycol (Miralax) 17 gm BEDTIME ORAL 03/10/18 21:00 04/08/18 20:59 Temazepam (Restoril) 7.5 mg DAILYPRN PRN ORAL Insomnia 03/10/18 09:00 03/17/18 08:59 Allergies: Coded Allergies: NO KNOWN ALLERGIES (Verified Allergy, Unknown, 03/08/18) Subjective awake, alert responsive, feeling better, No CP or SOB, renal function improving , at bedside, Objective Last Vital Signs Date Time Temp Pulse Resp B/P (MAP) Pulse Ox O2 Delivery O2 Flow Rate FiO2 03/12/18 12:48 78 18 100 Room Air 21 03/12/18 12:40 2.0 03/12/18 12:00 98.4 107/54 (71) Laboratory Tests Test 03/11/18 18:00 03/12/18 03:00 Stool Occult Blood Positive (NEGATIVE) White Blood Count 11.2 K/UL (4.8-10.8) H Red Blood Count 2.96 M/UL (4.70-6.10) L Hemoglobin 8.9 G/DL (14.2-18.0) L Hematocrit 26.2 % (42.0-52.0) L Mean Corpuscular Volume 89 FL (80-99) Mean Corpuscular Hemoglobin 30.2 PG (27.0-31.0) Mean Corpuscular Hemoglobin Concent 34.1 G/DL (32.0-36.0) Red Cell Distribution Width 12.4 % (11.6-14.8) Platelet Count 164 K/UL (150-450) Mean Platelet Volume 4.9 FL (6.5-10.1) L Neutrophils (%) (Auto) 79.2 % (45.0-75.0) H Lymphocytes (%) (Auto) 10.2 % (20.0-45.0) L Monocytes (%) (Auto) 8.8 % (1.0-10.0) Eosinophils (%) (Auto) 1.3 % (0.0-3.0) Basophils (%) (Auto) 0.5 % (0.0-2.0) Sodium Level 144 MMOL/L (136-145) Potassium Level 3.7 MMOL/L (3.5-5.1) Chloride Level 109 MMOL/L (98-107) H Carbon Dioxide Level 26 MMOL/L (21-32) Anion Gap 9 mmol/L (5-15) Blood Urea Nitrogen 24 mg/dL (7-18) H Creatinine 1.6 MG/DL (0.55-1.30) H Estimat Glomerular Filtration Rate mL/min (>60) Glucose Level 93 MG/DL (74-106) Calcium Level 9.3 MG/DL (8.5-10.1) Phosphorus Level 2.6 MG/DL (2.5-4.9) Magnesium Level 1.8 MG/DL (1.8-2.4) Total Bilirubin 1.3 MG/DL (0.2-1.0) H Direct Bilirubin 0.4 MG/DL (0.0-0.3) H Aspartate Amino Transf (AST/SGOT) 114 U/L (15-37) H Alanine Aminotransferase (ALT/SGPT) 54 U/L (12-78) Alkaline Phosphatase 70 U/L (46-116) Total Protein 7.2 G/DL (6.4-8.2) Albumin 2.7 G/DL (3.4-5.0) L Globulin 4.5 g/dL Albumin/Globulin Ratio 0.6 (1.0-2.7) L Microbiology Date/Time Source Procedure Growth Status 03/10/18 15:36 Sputum Expectorated Gram Stain - Final Complete 03/10/18 15:36 Sputum Expectorated Sputum Culture - Final NORMAL UPPER RESPIRATORY JUSTIN PRESENT Complete Intake and Output 03/11/18 03/12/18 19:00 07:00 Intake Total 1035.0 ml 362.5 ml Output Total 1000 ml 1100 ml Balance 35.0 ml -737.5 ml Intake Oral 300 ml 120 ml IV Total 735.0 ml 242.5 ml Output Urine Total 1000 ml 1100 ml # Bowel Movements 1 4 Objective General: No acute distress, awake and alert HEENT: NCAT, sclera anicteric, PERRL, EOMI. Neck: Supple, no significant jugular venous distention, Lungs: Fair inspiratory effort, decrease air on bases, no Wheeze or Rales. Heart: Regular rate and rhythm, normal S1/S2, no murmurs Abdomen: soft, nontender, nondistended. Normoactive bowel sounds. / Rectal: Refused and deferred. Extremities: No Cyanosis , clubbing or edema. Left hip surgical incision intact. Neuro: A&O x 3, Able to move all extremities Skin: warm, no rashes or lesions Assessment/Plan Assessment/Plan 1. Mechanical fall with the left hip fracture / Left comminuted intertrochanteric subtroch femur fracture S/p Open reduction and internal fixation of left comminuted intertrochanteric subtroch fracture (03/08/2018). 2. Hypertension. 3. YOAV on Chronic kidney disease. 4. BPH. 5. 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 6. Post surgery Anemia, most likely due to acute blood loss. 7. Hypoxemia most likely due to aspiration pneumonia. 8. Coffee ground emesis possible due to Upper GI bleeding s/p EGD (03/11/2018) - -> gastritis, gastric polyp. 9. Sinus tachycardia with premature supraventricular complexes, Right bundle branch block, Left anterior fascicular block, (Bifascicular block). 10. Dementia with agitation. 11. Rhabdomyolysis. PLAN: Code status full code. DVT prophylaxis, heparin subcutaneous. Abx: Zosyn IV Monitor labs and cultures DC Telemetry DC planning to SNF Discuss with patient and regarding discharge planning and plan of care. Kaiser Price MD Mar 12, 2018 12:59
--- NOTE | 2018-03-12 14:11 | Nephrology Progress Note ---
Assessment/Plan Problem List: (1) Acute on chronic renal failure Assessment: Cr lowering (2) Hip fracture Assessment: left- surgery 03/08 (3) Anemia Assessment: likely mixed ckd and blood loss (4) BPH (benign prostatic hyperplasia) (5) Hypertensive kidney disease Assessment Acute on chronic renal failure Hip Surgery 03/08 - Post op day one today- left hip HTN BPH CKD Dementia Plan DC campbell DC IV fluids IV Venofer as needed Alb bolus as needed DC IV protonix - PO Pepcid monitor renal parameters med surg Subjective ROS Limited/Unobtainable: No Constitutional: Reports: malaise, other - more responsive Objective Objective Last 24 Hour Vital Signs Date Time Temp Pulse Resp B/P (MAP) Pulse Ox O2 Delivery O2 Flow Rate FiO2 03/12/18 12:48 78 18 100 Room Air 21 03/12/18 12:40 100 20 97 Nasal Cannula 2.0 28 03/12/18 12:00 85 03/12/18 12:00 Room Air 03/12/18 12:00 98.4 78 20 107/54 (71) 99 03/12/18 08:47 75 122/69 03/12/18 08:00 Room Air 03/12/18 08:00 99.0 103 21 122/69 (86) 96 03/12/18 08:00 129 03/12/18 07:14 88 18 100 Nasal Cannula 2.0 28 03/12/18 07:14 Nasal Cannula 2.0 28 03/12/18 07:14 100 Nasal Cannula 2.0 28 03/12/18 07:02 99 18 97 Nasal Cannula 2.0 28 03/12/18 04:00 Nasal Cannula 2.0 03/12/18 04:00 104 03/12/18 04:00 97.9 89 20 121/86 (98) 98 03/12/18 01:08 91 18 99 Nasal Cannula 3.0 32 03/12/18 00:59 94 18 99 Nasal Cannula 2.0 28 03/12/18 00:00 Nasal Cannula 2.0 03/12/18 00:00 98.6 70 20 164/72 (102) 100 03/12/18 00:00 90 03/11/18 21:30 88 133/56 03/11/18 20:00 98.7 80 24 133/56 (81) 100 12/24/18 20:00 Nasal Cannula 2.0 03/11/18 20:00 95 03/11/18 19:07 97 18 100 Nasal Cannula 3.0 32 03/11/18 19:00 99 18 99 Nasal Cannula 2.0 28 03/11/18 19:00 99 Nasal Cannula 2.0 28 03/11/18 19:00 Nasal Cannula 2.0 28 03/11/18 16:00 99.4 88 23 135/56 (82) 100 03/11/18 16:00 94 03/11/18 16:00 Nasal Cannula 2.0 Intake and Output 03/11/18 03/12/18 19:00 07:00 Intake Total 1035.0 ml 362.5 ml Output Total 1000 ml 1100 ml Balance 35.0 ml -737.5 ml Intake Oral 300 ml 120 ml IV Total 735.0 ml 242.5 ml Output Urine Total 1000 ml 1100 ml # Bowel Movements 1 4 Laboratory Tests 03/11/18 18:00: Stool Occult Blood Positive 03/12/18 03:00: White Blood Count 11.2H, Red Blood Count 2.96L, Hemoglobin 8.9L, Hematocrit 26.2L, Mean Corpuscular Volume 89, Mean Corpuscular Hemoglobin 30.2, Mean Corpuscular Hemoglobin Concent 34.1, Red Cell Distribution Width 12.4, Platelet Count 164, Mean Platelet Volume 4.9L, Neutrophils (%) (Auto) 79.2H, Lymphocytes (%) (Auto) 10.2L, Monocytes (%) (Auto) 8.8, Eosinophils (%) (Auto) 1.3, Basophils (%) (Auto) 0.5, Sodium Level 144, Potassium Level 3.7, Chloride Level 109H, Carbon Dioxide Level 26, Anion Gap 9, Blood Urea Nitrogen 24H, Creatinine 1.6H, Estimat Glomerular Filtration Rate , Glucose Level 93, Calcium Level 9.3, Phosphorus Level 2.6, Magnesium Level 1.8, Total Bilirubin 1.3H, Direct Bilirubin 0.4H, Aspartate Amino Transf (AST/SGOT) 114H, Alanine Aminotransferase (ALT/SGPT) 54, Alkaline Phosphatase 70, Total Protein 7.2, Albumin 2.7L, Globulin 4.5, Albumin/Globulin Ratio 0.6L Height (Feet): 5 Height (Inches): 9.00 Weight (Pounds): 178 General Appearance: no apparent distress Cardiovascular: normal rate Respiratory/Chest: decreased breath sounds Abdomen: soft Ortiz Kinsey MD Mar 12, 2018 14:11
[2018-03-12] MEDS ORDERED: Albuterol/Ipratropium 3ml neb HHN PRN (14:55)
[2018-03-12] MEDS ORDERED: Haloperidol 5mg/ml Inj IM PRN (14:55)
[2018-03-12] MEDS ORDERED: Morphine Sulfate 2mg/ml Inj IVP PRN (14:55)
--- NOTE | 2018-03-12 15:04 | NUR ---
TRANSFER TO FLOOR: Patient transferred to [facility] via hospital bed. Report given to BEN Contreras. Belongings and medications given to RN. Family is at bedside. Stable condition.
[2018-03-12 16:00] VITALS: BP 120/74
--- NOTE | 2018-03-12 16:25 | NUR ---
NURSE NOTES: pt urinated after d/c campbell cath
[2018-03-12] MEDS ORDERED: Docusate 100mg cap ORAL SCH (18:00)
--- NOTE | 2018-03-12 19:33 | NUR ---
HAND-OFF: Report given to BEN Stephens, Pt is in stable condition.
--- NOTE | 2018-03-12 19:34 | NUR ---
NURSE NOTES: Endorse to BEN Stephens for pt is positive stool occult. reported to Dr. Juan Jose mckinney and follow up with primary dr tomorrow.
[2018-03-12 20:00] VITALS: BP 111/75
--- NOTE | 2018-03-12 20:12 | NUR ---
NURSE NOTES: Recvd pt. Pt is AOX2. Pt is on room air with no sign of sob or resp distress. Pt receiving breathing tx. Pt is using IS at bedside 10x/hr. Pt pulled IV site out, advised pt, he needs to finish his abx tx. Will attempt to restart IV. Bed in lowest position, will continue with plan of care.
[2018-03-12] MEDS ORDERED: Tamsulosin 0.4mg cap ORAL SCH (21:00)
[2018-03-12] MEDS: Miralax 17gm pkt ORAL SCH (22:36)
[2018-03-12] MEDS: Iron Sucrose 100 MG in NS 55 ML IV SCH (22:36)
[2018-03-12] MEDS: Tamsulosin 0.4mg cap ORAL SCH (22:36)
[2018-03-13] VITALS (9 sets, daily range): BP systolic 110–150; BP diastolic 74–96
[2018-03-13] MEDS: Albuterol/Ipratropium 3ml neb HHN SCH ×4 (01:21→20:33)
--- NOTE | 2018-03-13 02:39 | NUR ---
NURSE NOTES: Pt became agitated at 0200 with call light cord wrapped around his waist. Call light cord was removed from his possession.
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
--- NOTE | 2018-03-13 03:38 | NUR ---
NURSE NOTES: recvd call from Dr Solomon regarding pt. physician ordered on time dose of Benadryl and ativan both IM. Order to continue soft restraints.
[2018-03-13] MEDS ORDERED: LORazepam Inj 2mg/ml 1ml IM SCH (03:45)
[2018-03-13] MEDS ORDERED: DiphenhydrAMINE 50mg/ml Inj IM SCH (03:45)
[2018-03-13] MEDS: Piperacillin/Tazobactam 3.375 GM in D5W 110 ML IVPB SCH ×2 (05:26→15:38)
[2018-03-13 07:21] LABS: BASOPHILS % (AUTO) 0.9 % (0.0-2.0); EOSINOPHILS % (AUTO) 1.1 % (0.0-3.0); HEMATOCRIT 27.3 % (42.0-52.0); HEMOGLOBIN 9.3 G/DL (14.2-18.0); LYMPHOCYTES % (AUTO) 11.4 % (20.0-45.0); MEAN CORPUSCULAR VOLUME 89 FL (80-99); MONOCYTES % (AUTO) 9.8 % (1.0-10.0); NEUTROPHILS % (AUTO) 76.9 % (45.0-75.0); PLATELET COUNT 207 K/UL (150-450); RED BLOOD COUNT 3.08 M/UL (4.70-6.10); RED CELL DISTRIBUTION WIDTH 13.4 % (11.6-14.8); WHITE BLOOD COUNT 12.6 K/UL (4.8-10.8)
--- NOTE | 2018-03-13 07:43 | NUR ---
HAND-OFF: Report given to Osiel CONTRERAS .
--- NOTE | 2018-03-13 07:44 | NUR ---
NURSE NOTES: Received report from from BEN Stephens. Patient A & O X2, person and situation. Denies any pain, no s/s of respiratory distress. Noted patient is on bilateral soft restraint for agitation, restlessness, pulling equipment and trying to get out of bed as per night nurse nurse, assessed patient for range of patient, sensation, no swelling noted and skin is intact. Call light within reach. Bed is in lowest position, brakes engaged for safety. Will continue with the plan of care. safety measures in place.
[2018-03-13 07:54] LABS: ALANINE AMINOTRANSFERASE 65 U/L (12-78); ALBUMIN 2.7 G/DL (3.4-5.0); ALBUMIN/GLOBULIN RATIO 0.6 (1.0-2.7); ALKALINE PHOSPHATASE 81 U/L (46-116); ANION GAP 13 mmol/L (5-15); ASPARTATE AMINO TRANSFERASE 101 U/L (15-37); BILIRUBIN,TOTAL 1.6 MG/DL (0.2-1.0); BLOOD UREA NITROGEN 22 mg/dL (7-18); CALCIUM 9.6 MG/DL (8.5-10.1); CARBON DIOXIDE 24 MMOL/L (21-32); CHLORIDE 107 MMOL/L (98-107); CREATININE 1.6 MG/DL (0.55-1.30); PHOSPHORUS 2.4 MG/DL (2.5-4.9); POTASSIUM 3.4 MMOL/L (3.5-5.1); SODIUM 144 MMOL/L (136-145)
[2018-03-13 08:00] LABS: BILIRUBIN,DIRECT 0.6 MG/DL (0.0-0.3)
--- NOTE | 2018-03-13 08:51 | NUR ---
ST NOTE: BEDSIDE SWALLOW EVAL RECEIVED BEDSIDE SWALLOW EVAL ORDER CHART REVIEWED PRIOR THE EVALUATION PT IS A 87-YEAR-OLD MALE WHO WAS ADMITTED TO [facility] [place] [facility] [place] RISK FACTORS: ADVANCED AGE, R-SIDED PNA(LIKELY ASPIRATION PNA, PER MD), HTN, UNDERLYING DEMENTIA, L-HIP INJURY, CHRONIC KIDNEY DISEASE PER CXR: Bilateral basilar reticular interstitial disease, acuity indeterminant, may reflect chronic interstitial fibrosis or acute infiltrates. Correlate with clinical findings. PLOF: PT LIVES AT HOME WITH FRIEND. NO POLST WAS NOTED IN THE CHART. CURRENT STATUS: PT SEEN AT BEDSIDE IN AM. ALERT, VERBAL, FOLLOWS DIRECTIONS, SEEMS CONFUSED. 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 MILD INCREASED ORAL TRANSIT TIME AND OROPHARYNGEAL TRANSIT TIME FAIR LARYNGEAL ELEVATION, NO OVERT S/S OF ASPIRATION. DUE TO PT HAS R-SIDED PNA AND UNDERLYING PNA, PT HAS RISK FOR (SILENT) ASPIRATION. RECOMMENDATIONS: 1. FOR QUALITY OF LIFE, CONTINUE ORAL DIET. DIET RECOMMENDED MOIST PUREE WITH NECTAR THICK LIQUIDS. 2. STRICT ASPIRATION PRECAUTIONS WITH 1TO1 FEEDING/ASSIST. 3. VIDEOSWALLOW STUDY IP OR OP(DO NOT HOLD UP THE CHARGE). D/W RT, RN, GABRIELA. POSTED ASPIRATION/REFLUX PRECAUTIONS SIGN.
[2018-03-13] MEDS: Metoprolol Tartrate 50mg tab ORAL SCH ×2 (09:41→20:54)
[2018-03-13] MEDS: Docusate 100mg cap ORAL SCH ×3 (09:42→17:38)
[2018-03-13] MEDS: Heparin 5000 units/ml inj SUBQ SCH ×2 (09:43→21:00)
--- NOTE | 2018-03-13 11:07 | GI Progress Note ---
Assessment/Plan Problems: (1) Upper GI bleed ICD Codes: K92.2 - Gastrointestinal hemorrhage, unspecified SNOMED: 63728737 (2) Coffee ground emesis ICD Codes: K92.0 - Hematemesis SNOMED: 43554059, 243228861 (3) Electrolyte imbalance ICD Codes: E87.8 - Other disorders of electrolyte and fluid balance, not elsewhere classified SNOMED: 385641932 (4) Anemia ICD Codes: D64.9 - Anemia, unspecified SNOMED: 101021603 Status: stable Status Narrative Discussed with Dr. Krause Assessment/Plan s/p EGD noted with gastritis, gastric polyps >> follow-up biopsy us reviewed ppi daily pending swallow eval on puree diet Follow-up labs The patient was seen and examined at bedside and all new and available data was reviewed in the patients chart. I agree with the above findings, impression and plan. (Patient seen earlier today. Signature stamp does not reflect patient encounter time.). - Roderick Krause MD Subjective Gastrointestinal/Abdominal: Reports: no symptoms Objective Last 24 Hour Vital Signs Date Time Temp Pulse Resp B/P (MAP) Pulse Ox O2 Delivery O2 Flow Rate FiO2 03/13/18 09:41 103 143/85 03/13/18 08:06 86 20 99 Room Air 03/13/18 07:59 94 20 98 Room Air 03/13/18 07:59 Nasal Cannula 2.0 28 03/13/18 07:59 99 Room Air 03/13/18 04:15 97.1 81 19 117/75 (89) 96 03/13/18 04:00 97.1 107 19 142/90 (107) 95 03/13/18 03:45 97.1 99 19 150/96 (114) 95 03/13/18 03:30 98.4 106 19 110/74 (86) 98 03/13/18 01:23 89 20 99 Room Air 21 03/13/18 01:17 99 20 98 Room Air 21 03/13/18 00:00 97.3 86 18 125/80 (95) 93 03/12/18 22:35 85 111/75 03/12/18 21:00 Room Air 03/12/18 20:20 85 20 99 Room Air 21 03/12/18 20:05 96 20 96 Room Air 21 03/12/18 20:04 Room Air 21 03/12/18 20:02 96 Room Air 21 03/12/18 20:00 98.3 79 18 111/75 (87) 92 03/12/18 16:00 98.0 84 18 120/74 (89) 96 03/12/18 12:48 78 18 100 Room Air 21 03/12/18 12:40 100 20 97 Nasal Cannula 2.0 28 03/12/18 12:00 85 03/12/18 12:00 Room Air 03/12/18 12:00 98.4 78 20 107/54 (71) 99 Intake and Output 03/12/18 03/13/18 19:00 07:00 Intake Total 905 ml Output Total 1350 ml 250 ml Balance -445 ml -250 ml Intake Oral 450 ml IV Total 455 ml Output Urine Total 1350 ml 250 ml # Voids 1 Laboratory Tests Test 03/13/18 06:25 White Blood Count 12.6 K/UL (4.8-10.8) H Red Blood Count 3.08 M/UL (4.70-6.10) L Hemoglobin 9.3 G/DL (14.2-18.0) L Hematocrit 27.3 % (42.0-52.0) L Mean Corpuscular Volume 89 FL (80-99) Mean Corpuscular Hemoglobin 30.2 PG (27.0-31.0) Mean Corpuscular Hemoglobin Concent 34.0 G/DL (32.0-36.0) Red Cell Distribution Width 13.4 % (11.6-14.8) Platelet Count 207 K/UL (150-450) Mean Platelet Volume 5.0 FL (6.5-10.1) L Neutrophils (%) (Auto) 76.9 % (45.0-75.0) H Lymphocytes (%) (Auto) 11.4 % (20.0-45.0) L Monocytes (%) (Auto) 9.8 % (1.0-10.0) Eosinophils (%) (Auto) 1.1 % (0.0-3.0) Basophils (%) (Auto) 0.9 % (0.0-2.0) Sodium Level 144 MMOL/L (136-145) Potassium Level 3.4 MMOL/L (3.5-5.1) L Chloride Level 107 MMOL/L (98-107) Carbon Dioxide Level 24 MMOL/L (21-32) Anion Gap 13 mmol/L (5-15) Blood Urea Nitrogen 22 mg/dL (7-18) H Creatinine 1.6 MG/DL (0.55-1.30) H Estimat Glomerular Filtration Rate mL/min (>60) Glucose Level 82 MG/DL (74-106) Calcium Level 9.6 MG/DL (8.5-10.1) Phosphorus Level 2.4 MG/DL (2.5-4.9) L Magnesium Level 1.7 MG/DL (1.8-2.4) L Total Bilirubin 1.6 MG/DL (0.2-1.0) H Direct Bilirubin 0.6 MG/DL (0.0-0.3) H Aspartate Amino Transf (AST/SGOT) 101 U/L (15-37) H Alanine Aminotransferase (ALT/SGPT) 65 U/L (12-78) Alkaline Phosphatase 81 U/L (46-116) Total Protein 7.0 G/DL (6.4-8.2) Albumin 2.7 G/DL (3.4-5.0) L Globulin 4.3 g/dL Albumin/Globulin Ratio 0.6 (1.0-2.7) L Height (Feet): 5 Height (Inches): 9.00 Weight (Pounds): 179 General Appearance: alert Cardiovascular: normal rate Respiratory/Chest: normal breath sounds, no respiratory distress Abdominal Exam: normal bowel sounds, non tender, soft Extremities: non-tender Karl Coffman EDGE BANDING OFF BEARER Mar 13, 2018 11:07
--- NOTE | 2018-03-13 11:59 | Cardiac Electrophysiology PN ---
Assessment/Plan Assessment/Plan 1. Status post mechanical fall with left hip fracture. The patient's EKG shows sinus rhythm with right bundle-branch block and left anterior fascicular block. His echocardiogram showed normal left ventricular systolic function, EF of 60%. Tolerated the surgery well. 2. Hypertension. Blood pressure is stable on metoprolol 50 mg p.o. b.i.d. 3. Renal failure with creatinine of 2.7, improved to 1.6 Subjective Subjective Confused in restraints. No CP or SOB Objective Last 24 Hour Vital Signs Date Time Temp Pulse Resp B/P (MAP) Pulse Ox O2 Delivery O2 Flow Rate FiO2 03/13/18 09:41 103 143/85 03/13/18 08:06 86 20 99 Room Air 21 03/13/18 07:59 94 20 98 Room Air 21 03/13/18 07:59 Nasal Cannula 2.0 28 03/13/18 07:59 99 Room Air 21 03/13/18 04:15 97.1 81 19 117/75 (89) 96 03/13/18 04:00 97.1 107 19 142/90 (107) 95 03/13/18 03:45 97.1 99 19 150/96 (114) 95 03/13/18 03:30 98.4 106 19 110/74 (86) 98 03/13/18 01:23 89 20 99 Room Air 21 03/13/18 01:17 99 20 98 Room Air 21 03/13/18 00:00 97.3 86 18 125/80 (95) 93 03/12/18 22:35 85 111/75 03/12/18 21:00 Room Air 03/12/18 20:20 85 20 99 Room Air 21 03/12/18 20:05 96 20 96 Room Air 21 03/12/18 20:04 Room Air 21 03/12/18 20:02 96 Room Air 21 03/12/18 20:00 98.3 79 18 111/75 (87) 92 03/12/18 16:00 98.0 84 18 120/74 (89) 96 03/12/18 12:48 78 18 100 Room Air 21 03/12/18 12:40 100 20 97 Nasal Cannula 2.0 28 03/12/18 12:00 85 03/12/18 12:00 Room Air 03/12/18 12:00 98.4 78 20 107/54 (71) 99 Intake and Output 03/12/18 03/13/18 19:00 07:00 Intake Total 905 ml Output Total 1350 ml 250 ml Balance -445 ml -250 ml Intake Oral 450 ml IV Total 455 ml Output Urine Total 1350 ml 250 ml # Voids 1 Laboratory Tests Test 03/13/18 06:25 White Blood Count 12.6 K/UL (4.8-10.8) H Red Blood Count 3.08 M/UL (4.70-6.10) L Hemoglobin 9.3 G/DL (14.2-18.0) L Hematocrit 27.3 % (42.0-52.0) L Mean Corpuscular Volume 89 FL (80-99) Mean Corpuscular Hemoglobin 30.2 PG (27.0-31.0) Mean Corpuscular Hemoglobin Concent 34.0 G/DL (32.0-36.0) Red Cell Distribution Width 13.4 % (11.6-14.8) Platelet Count 207 K/UL (150-450) Mean Platelet Volume 5.0 FL (6.5-10.1) L Neutrophils (%) (Auto) 76.9 % (45.0-75.0) H Lymphocytes (%) (Auto) 11.4 % (20.0-45.0) L Monocytes (%) (Auto) 9.8 % (1.0-10.0) Eosinophils (%) (Auto) 1.1 % (0.0-3.0) Basophils (%) (Auto) 0.9 % (0.0-2.0) Sodium Level 144 MMOL/L (136-145) Potassium Level 3.4 MMOL/L (3.5-5.1) L Chloride Level 107 MMOL/L (98-107) Carbon Dioxide Level 24 MMOL/L (21-32) Anion Gap 13 mmol/L (5-15) Blood Urea Nitrogen 22 mg/dL (7-18) H Creatinine 1.6 MG/DL (0.55-1.30) H Estimat Glomerular Filtration Rate mL/min (>60) Glucose Level 82 MG/DL (74-106) Calcium Level 9.6 MG/DL (8.5-10.1) Phosphorus Level 2.4 MG/DL (2.5-4.9) L Magnesium Level 1.7 MG/DL (1.8-2.4) L Total Bilirubin 1.6 MG/DL (0.2-1.0) H Direct Bilirubin 0.6 MG/DL (0.0-0.3) H Aspartate Amino Transf (AST/SGOT) 101 U/L (15-37) H Alanine Aminotransferase (ALT/SGPT) 65 U/L (12-78) Alkaline Phosphatase 81 U/L (46-116) Total Protein 7.0 G/DL (6.4-8.2) Albumin 2.7 G/DL (3.4-5.0) L Globulin 4.3 g/dL Albumin/Globulin Ratio 0.6 (1.0-2.7) L Microbiology Date/Time Source Procedure Growth Status 03/10/18 15:36 Sputum Expectorated Gram Stain - Final Complete 03/10/18 15:36 Sputum Expectorated Sputum Culture - Final NORMAL UPPER RESPIRATORY JUSTIN PRESENT Complete Objective HEAD AND NECK: Showed no JVD or carotid bruit. LUNGS: Clear. CARDIOVASCULAR: Shows regular S1 and S2 with no gallop or murmur. ABDOMEN: Soft. EXTREMITIES: S/P left hip surgery Med Faria MD Mar 13, 2018 11:59
--- NOTE | 2018-03-13 13:25 | Pulmonology Progress Note ---
Assessment/Plan Problems: (1) Hypoxemia Assessment & Plan: RESOLVED (2) Pneumonia (3) Leukocytosis (4) Hip fracture (5) Coffee ground emesis Assessment & Plan: S/P EGD c/w gastritis HH stable (6) Upper GI bleed Assessment & Plan: as above (7) Anemia (8) Renal insufficiency Assessment & Plan: Improved (9) Hypertension Assessment/Plan 87 M h/o HTN, CKD, possible dementia initially transferred from [facility] after mechanical fall and ? CGE with L hip Fx now S/P ORIF 03/08. Post-op course c/b anemia, worsening encephalopathy, YOAV on CKD and progressive hypoxemia likely 2/ 2 aspiration pneumonia. ASSESSMENT: * Post-operative hypoxemia - IMPROVED * RLL infiltrate, likely aspiration * L hip Fx S/P ORIF 03/08 * Mechanical fall * YOAV on CKD - IMPROVED * HTN * AMS, likely toxic metabolic encephalopathy on top of underlying dementia * Acute on chronic anemia * ? CGE S/P EGD 03/11 --> gastritis PLAN: * Optimize pulmonary hygiene/mobilize as tolerated * PRN O2 * RTC and PRN DUOnebs * Continue Zosyn (D3), F/U Cx's * F/U Duplex * [employer] eval noted, F/U VSS, aspiration precautions * Pain control/supportive care * Monitor volumes and renal function * Monitor HH, transfuse as needed, PPI, F/U GI recs * mIVF * DVT Px: Hep SQ * FC Subjective Allergies: Coded Allergies: NO KNOWN ALLERGIES (Verified Allergy, Unknown, 03/08/18) Subjective AFVSS now on RA No distress, denies cough or SOB, no F/C no CP Cr better, H&H stable Objective Last 24 Hour Vital Signs Date Time Temp Pulse Resp B/P (MAP) Pulse Ox O2 Delivery O2 Flow Rate FiO2 03/13/18 13:12 84 20 99 Room Air 21 03/13/18 13:06 91 20 98 Room Air 21 03/13/18 12:00 98.0 98 19 143/88 (106) 98 03/13/18 09:41 103 143/85 03/13/18 09:00 Room Air 03/13/18 08:06 86 20 99 Room Air 21 03/13/18 08:00 98.2 103 19 143/85 (104) 97 03/13/18 07:59 94 20 98 Room Air 21 03/13/18 07:59 Nasal Cannula 2.0 28 03/13/18 07:59 99 Room Air 21 03/13/18 04:15 97.1 81 19 117/75 (89) 96 03/13/18 04:00 97.1 107 19 142/90 (107) 95 03/13/18 03:45 97.1 99 19 150/96 (114) 95 03/13/18 03:30 98.4 106 19 110/74 (86) 98 03/13/18 01:23 89 20 99 Room Air 21 03/13/18 01:17 99 20 98 Room Air 21 03/13/18 00:00 97.3 86 18 125/80 (95) 93 03/12/18 22:35 85 111/75 03/12/18 21:00 Room Air 03/12/18 20:20 85 20 99 Room Air 21 03/12/18 20:05 96 20 96 Room Air 21 03/12/18 20:04 Room Air 21 03/12/18 20:02 96 Room Air 21 03/12/18 20:00 98.3 79 18 111/75 (87) 92 03/12/18 16:00 98.0 84 18 120/74 (89) 96 Intake and Output 03/12/18 03/13/18 19:00 07:00 Intake Total 905 ml Output Total 1350 ml 250 ml Balance -445 ml -250 ml Intake Oral 450 ml IV Total 455 ml Output Urine Total 1350 ml 250 ml # Voids 1 General Appearance: no acute distress, cachetic HEENT: normocephalic, atraumatic, anicteric, mucous membranes moist Respiratory/Chest: chest wall non-tender, lungs clear, normal breath sounds, no respiratory distress, no accessory muscle use Cardiovascular: normal peripheral pulses, normal rate, regular rhythm Abdomen: normal bowel sounds, soft, non tender, no organomegaly, non distended , no mass Extremities: no cyanosis, no clubbing, no edema Microbiology Date/Time Source Procedure Growth Status 03/10/18 15:36 Sputum Expectorated Gram Stain - Final Complete 03/10/18 15:36 Sputum Expectorated Sputum Culture - Final NORMAL UPPER RESPIRATORY JUSTIN PRESENT Complete Laboratory Tests 03/13/18 06:25: White Blood Count 12.6H, Red Blood Count 3.08L, Hemoglobin 9.3L, Hematocrit 27.3L, Mean Corpuscular Volume 89, Mean Corpuscular Hemoglobin 30.2, Mean Corpuscular Hemoglobin Concent 34.0, Red Cell Distribution Width 13.4, Platelet Count 207, Mean Platelet Volume 5.0L, Neutrophils (%) (Auto) 76.9H, Lymphocytes (%) (Auto) 11.4L, Monocytes (%) (Auto) 9.8, Eosinophils (%) (Auto) 1.1, Basophils (%) (Auto) 0.9, Sodium Level 144, Potassium Level 3.4L, Chloride Level 107, Carbon Dioxide Level 24, Anion Gap 13, Blood Urea Nitrogen 22H, Creatinine 1.6H, Estimat Glomerular Filtration Rate , Glucose Level 82, Calcium Level 9.6, Phosphorus Level 2.4L, Magnesium Level 1.7L, Total Bilirubin 1.6H, Direct Bilirubin 0.6H, Aspartate Amino Transf (AST/SGOT) 101H, Alanine Aminotransferase (ALT/SGPT) 65, Alkaline Phosphatase 81, Total Protein 7.0, Albumin 2.7L, Globulin 4.3, Albumin/Globulin Ratio 0.6L Current Medications Medications (Trade) Dose Ordered Sig/Lorena Route PRN Reason Start Time Stop Time Status Last Admin Dose Admin Acetaminophen (Tylenol) 650 mg Q6H PRN ORAL Mild Pain/Temp > 100.0 03/12/18 14:54 04/07/18 14:53 Albuterol/ Ipratropium (Albuterol/ Ipratropium) 3 ml Q4H PRN HHN Shortness of Breath 03/12/18 14:55 03/15/18 14:54 Albuterol/ Ipratropium (Albuterol/ Ipratropium) 3 ml Q6HRT HHN 03/12/18 19:00 03/15/18 18:59 03/13/18 13:06 Amlodipine Besylate (Norvasc) 2.5 mg Q4H PRN ORAL SBP > 120 03/12/18 14:54 04/08/18 14:53 Docusate Sodium (Colace) 100 mg TID ORAL 03/12/18 18:00 04/08/18 08:59 03/13/18 13:17 Famotidine (Pepcid) 20 mg BID ORAL 03/12/18 18:00 04/11/18 17:59 03/13/18 09:54 Finasteride (Proscar) 5 mg DAILY ORAL 03/13/18 09:00 04/09/18 08:59 03/13/18 09:41 Haloperidol Lactate (Haldol) 5 mg Q6H PRN IM Agitation 03/12/18 14:55 04/08/18 14:54 03/13/18 02:01 Heparin Sodium (Porcine) (Heparin 5000 units/ml) 5,000 units EVERY 12 HOURS SUBQ 03/12/18 21:00 04/07/18 08:59 03/13/18 09:43 Hydralazine HCl (Apresoline) 25 mg Q4H PRN ORAL bp over 160 syst 03/12/18 15:15 04/08/18 15:14 Iron Sucrose 100 mg/Sodium Chloride 60 ml @ 240 mls/hr BEDTIME IV 03/12/18 21:00 03/14/18 21:14 03/12/18 22:36 Metoprolol Tartrate (Lopressor) 50 mg Q12HR ORAL 03/12/18 21:00 04/10/18 08:59 03/13/18 09:41 Morphine Sulfate (Morphine Sulfate) 2 mg Q3H PRN IVP Moderate Pain (Pain Scale 4-6) 03/12/18 14:55 03/15/18 14:54 Ondansetron HCl (Zofran) 4 mg Q6H PRN IVP Nausea & Vomiting 03/12/18 14:55 04/07/18 14:54 Piperacillin Sod/ Tazobactam Sod 3.375 gm/Dextrose 110 ml @ 27.5 mls/hr Q12H IVPB 03/12/18 16:00 03/17/18 15:59 03/13/18 05:26 Polyethylene Glycol (Miralax) 17 gm BEDTIME ORAL 03/12/18 21:00 04/08/18 20:59 03/12/18 22:36 Tamsulosin HCl (Flomax) 0.4 mg BEDTIME ORAL 03/12/18 21:00 04/11/18 20:59 03/12/18 22:36 Temazepam (Restoril) 7.5 mg DAILYPRN PRN ORAL Insomnia 03/12/18 14:56 03/19/18 14:55 Gabe Willams MD Mar 13, 2018 13:25
--- NOTE | 2018-03-13 13:40 | Nephrology Progress Note ---
Assessment/Plan Problem List: (1) Acute on chronic renal failure Assessment: Cr lowering (2) Hip fracture Assessment: left- surgery 03/08 (3) Anemia Assessment: likely mixed ckd and blood loss (4) BPH (benign prostatic hyperplasia) (5) Hypertensive kidney disease Assessment Acute on chronic renal failure Hip Surgery 03/08 - Post op day one today- left hip HTN BPH CKD Dementia Plan DC campbell Mag and k supplement as needed DC IV fluids IV Venofer as needed Alb bolus as needed DC IV protonix - PO Pepcid monitor renal parameters med surg Subjective ROS Limited/Unobtainable: No Constitutional: Reports: malaise Objective Objective Last 24 Hour Vital Signs Date Time Temp Pulse Resp B/P (MAP) Pulse Ox O2 Delivery O2 Flow Rate FiO2 03/13/18 13:12 84 20 99 Room Air 21 03/13/18 13:06 91 20 98 Room Air 21 03/13/18 12:00 98.0 98 19 143/88 (106) 98 03/13/18 09:41 103 143/85 03/13/18 09:00 Room Air 03/13/18 08:06 86 20 99 Room Air 21 03/13/18 08:00 98.2 103 19 143/85 (104) 97 03/13/18 07:59 94 20 98 Room Air 03/13/18 07:59 Nasal Cannula 2.0 28 03/13/18 07:59 99 Room Air 03/13/18 04:15 97.1 81 19 117/75 (89) 96 03/13/18 04:00 97.1 107 19 142/90 (107) 95 03/13/18 03:45 97.1 99 19 150/96 (114) 95 03/13/18 03:30 98.4 106 19 110/74 (86) 98 03/13/18 01:23 89 20 99 Room Air 21 03/13/18 01:17 99 20 98 Room Air 21 03/13/18 00:00 97.3 86 18 125/80 (95) 93 03/12/18 22:35 85 111/75 03/12/18 21:00 Room Air 03/12/18 20:20 85 20 99 Room Air 21 03/12/18 20:05 96 20 96 Room Air 21 03/12/18 20:04 Room Air 21 12/25/18 20:02 96 Room Air 21 03/12/18 20:00 98.3 79 18 111/75 (87) 92 03/12/18 16:00 98.0 84 18 120/74 (89) 96 Intake and Output 03/12/18 03/13/18 19:00 07:00 Intake Total 905 ml Output Total 1350 ml 250 ml Balance -445 ml -250 ml Intake Oral 450 ml IV Total 455 ml Output Urine Total 1350 ml 250 ml # Voids 1 Laboratory Tests 03/13/18 06:25: White Blood Count 12.6H, Red Blood Count 3.08L, Hemoglobin 9.3L, Hematocrit 27.3L, Mean Corpuscular Volume 89, Mean Corpuscular Hemoglobin 30.2, Mean Corpuscular Hemoglobin Concent 34.0, Red Cell Distribution Width 13.4, Platelet Count 207, Mean Platelet Volume 5.0L, Neutrophils (%) (Auto) 76.9H, Lymphocytes (%) (Auto) 11.4L, Monocytes (%) (Auto) 9.8, Eosinophils (%) (Auto) 1.1, Basophils (%) (Auto) 0.9, Sodium Level 144, Potassium Level 3.4L, Chloride Level 107, Carbon Dioxide Level 24, Anion Gap 13, Blood Urea Nitrogen 22H, Creatinine 1.6H, Estimat Glomerular Filtration Rate , Glucose Level 82, Calcium Level 9.6, Phosphorus Level 2.4L, Magnesium Level 1.7L, Total Bilirubin 1.6H, Direct Bilirubin 0.6H, Aspartate Amino Transf (AST/SGOT) 101H, Alanine Aminotransferase (ALT/SGPT) 65, Alkaline Phosphatase 81, Total Protein 7.0, Albumin 2.7L, Globulin 4.3, Albumin/Globulin Ratio 0.6L Height (Feet): 5 Height (Inches): 9.00 Weight (Pounds): 179 General Appearance: no apparent distress, confused Cardiovascular: normal rate Respiratory/Chest: decreased breath sounds Abdomen: soft Objective no change Ortiz Kinsey MD Mar 13, 2018 13:40
[2018-03-13] MEDS ORDERED: Tubing IV Secondary IV ONE (15:40)
--- NOTE | 2018-03-13 16:54 | Internal Med Progress Note ---
Subjective Physician Name Kaiser Price Attending Physician Kaiser Price MD Current Medications Medications (Trade) Dose Ordered Sig/Lorena Route PRN Reason Start Time Stop Time Status Last Admin Dose Admin Acetaminophen (Tylenol) 650 mg Q6H PRN ORAL Mild Pain/Temp > 100.0 03/12/18 14:54 04/07/18 14:53 Albuterol/ Ipratropium (Albuterol/ Ipratropium) 3 ml Q4H PRN HHN Shortness of Breath 03/12/18 14:55 03/15/18 14:54 Albuterol/ Ipratropium (Albuterol/ Ipratropium) 3 ml Q6HRT HHN 03/12/18 19:00 03/15/18 18:59 03/13/18 13:06 Amlodipine Besylate (Norvasc) 2.5 mg Q4H PRN ORAL SBP > 120 03/12/18 14:54 04/08/18 14:53 Docusate Sodium (Colace) 100 mg TID ORAL 03/12/18 18:00 04/08/18 08:59 03/13/18 13:17 Famotidine (Pepcid) 20 mg BID ORAL 03/12/18 18:00 04/11/18 17:59 03/13/18 09:54 Finasteride (Proscar) 5 mg DAILY ORAL 03/13/18 09:00 04/09/18 08:59 03/13/18 09:41 Haloperidol Lactate (Haldol) 5 mg Q6H PRN IM Agitation 03/12/18 14:55 04/08/18 14:54 03/13/18 02:01 Heparin Sodium (Porcine) (Heparin 5000 units/ml) 5,000 units EVERY 12 HOURS SUBQ 03/12/18 21:00 04/07/18 08:59 03/13/18 09:43 Hydralazine HCl (Apresoline) 25 mg Q4H PRN ORAL bp over 160 syst 03/12/18 15:15 04/08/18 15:14 Iron Sucrose 100 mg/Sodium Chloride 60 ml @ 240 mls/hr BEDTIME IV 03/12/18 21:00 03/14/18 21:14 03/12/18 22:36 Magnesium Oxide (Mag-Ox 400mg) 400 mg THREE TIMES A DAY ORAL 03/13/18 18:00 04/12/18 17:59 Metoprolol Tartrate (Lopressor) 50 mg Q12HR ORAL 03/12/18 21:00 04/10/18 08:59 03/13/18 09:41 Morphine Sulfate (Morphine Sulfate) 2 mg Q3H PRN IVP Moderate Pain (Pain Scale 4-6) 03/12/18 14:55 03/15/18 14:54 Ondansetron HCl (Zofran) 4 mg Q6H PRN IVP Nausea & Vomiting 03/12/18 14:55 04/07/18 14:54 Piperacillin Sod/ Tazobactam Sod 3.375 gm/Dextrose 110 ml @ 27.5 mls/hr Q12H IVPB 03/12/18 16:00 03/17/18 15:59 03/13/18 15:38 Polyethylene Glycol (Miralax) 17 gm BEDTIME ORAL 03/12/18 21:00 04/08/18 20:59 03/12/18 22:36 Tamsulosin HCl (Flomax) 0.4 mg BEDTIME ORAL 03/12/18 21:00 04/11/18 20:59 03/12/18 22:36 Temazepam (Restoril) 7.5 mg DAILYPRN PRN ORAL Insomnia 03/12/18 14:56 03/19/18 14:55 Allergies: Coded Allergies: NO KNOWN ALLERGIES (Verified Allergy, Unknown, 03/08/18) Subjective awake, responsive, feeling okay, confused, No CP or SOB, WBC: 12.6. Objective Last Vital Signs Date Time Temp Pulse Resp B/P (MAP) Pulse Ox O2 Delivery O2 Flow Rate FiO2 03/13/18 13:12 84 20 99 Room Air 21 03/13/18 12:00 98.0 143/88 (106) 03/13/18 07:59 2.0 Laboratory Tests Test 03/13/18 06:25 White Blood Count 12.6 K/UL (4.8-10.8) H Red Blood Count 3.08 M/UL (4.70-6.10) L Hemoglobin 9.3 G/DL (14.2-18.0) L Hematocrit 27.3 % (42.0-52.0) L Mean Corpuscular Volume 89 FL (80-99) Mean Corpuscular Hemoglobin 30.2 PG (27.0-31.0) Mean Corpuscular Hemoglobin Concent 34.0 G/DL (32.0-36.0) Red Cell Distribution Width 13.4 % (11.6-14.8) Platelet Count 207 K/UL (150-450) Mean Platelet Volume 5.0 FL (6.5-10.1) L Neutrophils (%) (Auto) 76.9 % (45.0-75.0) H Lymphocytes (%) (Auto) 11.4 % (20.0-45.0) L Monocytes (%) (Auto) 9.8 % (1.0-10.0) Eosinophils (%) (Auto) 1.1 % (0.0-3.0) Basophils (%) (Auto) 0.9 % (0.0-2.0) Sodium Level 144 MMOL/L (136-145) Potassium Level 3.4 MMOL/L (3.5-5.1) L Chloride Level 107 MMOL/L (98-107) Carbon Dioxide Level 24 MMOL/L (21-32) Anion Gap 13 mmol/L (5-15) Blood Urea Nitrogen 22 mg/dL (7-18) H Creatinine 1.6 MG/DL (0.55-1.30) H Estimat Glomerular Filtration Rate mL/min (>60) Glucose Level 82 MG/DL (74-106) Calcium Level 9.6 MG/DL (8.5-10.1) Phosphorus Level 2.4 MG/DL (2.5-4.9) L Magnesium Level 1.7 MG/DL (1.8-2.4) L Total Bilirubin 1.6 MG/DL (0.2-1.0) H Direct Bilirubin 0.6 MG/DL (0.0-0.3) H Aspartate Amino Transf (AST/SGOT) 101 U/L (15-37) H Alanine Aminotransferase (ALT/SGPT) 65 U/L (12-78) Alkaline Phosphatase 81 U/L (46-116) Total Protein 7.0 G/DL (6.4-8.2) Albumin 2.7 G/DL (3.4-5.0) L Globulin 4.3 g/dL Albumin/Globulin Ratio 0.6 (1.0-2.7) L Intake and Output 03/12/18 03/13/18 18:59 06:59 Intake Total 905 ml Output Total 1350 ml 250 ml Balance -445 ml -250 ml Intake Oral 450 ml IV Total 455 ml Output Urine Total 1350 ml 250 ml # Voids 1 Objective General: No acute distress, awake and responsive. HEENT: NCAT, sclera anicteric, PERRL, EOMI. Neck: Supple, no significant jugular venous distention, Lungs: Fair inspiratory effort, decrease air on bases, no Wheeze or Rales. Heart: Regular rate and rhythm, normal S1/S2, no murmurs Abdomen: soft, nontender, nondistended. Normoactive bowel sounds. / Rectal: Refused and deferred. Extremities: No Cyanosis , clubbing or edema. Left hip surgical incision intact. Neuro: A&O x 3, Able to move all extremities Skin: warm, no rashes or lesions Assessment/Plan Assessment/Plan 1. Mechanical fall with the left hip fracture / Left comminuted intertrochanteric subtroch femur fracture S/p Open reduction and internal fixation of left comminuted intertrochanteric subtroch fracture (03/08/2018). 2. Hypertension. 3. YOAV on Chronic kidney disease. 4. BPH. 5. 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 6. Post surgery Anemia, most likely due to acute blood loss. 7. Hypoxemia most likely due to aspiration pneumonia. 8. Coffee ground emesis possible due to Upper GI bleeding s/p EGD (03/11/2018) - -> gastritis, gastric polyp. 9. Sinus tachycardia with premature supraventricular complexes, Right bundle branch block, Left anterior fascicular block, (Bifascicular block). 10. Dementia with agitation. 11. Rhabdomyolysis. 12. Leukocytosis etiology? PLAN: Code status full code. DVT prophylaxis, heparin subcutaneous. Abx: Zosyn IV Monitor labs and cultures DOMINICK planning to SNF Discuss with patient and regarding discharge planning and plan of care. Kaiser Hoffmann MD Mar 13, 2018 16:54
[2018-03-13] MEDS: Magnesium Oxide 400mg tab ORAL SCH (17:38)
--- NOTE | 2018-03-13 19:38 | NUR ---
HAND-OFF: Report given to Deb RN's. Patient is in stable condition.
--- NOTE | 2018-03-13 19:39 | NUR ---
NURSE NOTES: Report taken from BEN Cartagena. Patient awake and calm in bed. A&Ox3, on room air. Patients family member present at bedside. Vitals stable. Incision site clean, dry, and intact. IV site patent, clean, dry, and intact. Restraints checked, no signs of loss of circulation. Bed in lowest position, call light within reach.
[2018-03-13] MEDS ORDERED: LORazepam Inj 2mg/ml 1ml IM PRN (20:15)
[2018-03-13] MEDS ORDERED: DiphenhydrAMINE 50mg/ml Inj IM PRN (20:15)
--- NOTE | 2018-03-13 20:17 | General Progress Note ---
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 Status: deteriorating Assessment/Plan Haldol Im prn the pts next of keen should makes decisions the pt lacks capacity ahsanyprexamando becker dw sister Subjective Neurologic/Psychiatric: Reports: anxiety, depressed Allergies: Coded Allergies: NO KNOWN ALLERGIES (Verified Allergy, Unknown, 03/08/18) Subjective cont to be confused was agitated last night and received a cocktail Objective Last 24 Hour Vital Signs Date Time Temp Pulse Resp B/P (MAP) Pulse Ox O2 Delivery O2 Flow Rate FiO2 03/13/18 16:00 98.0 101 19 138/80 (99) 98 03/13/18 13:12 84 20 99 Room Air 21 03/13/18 13:06 91 20 98 Room Air 21 03/13/18 12:00 98.0 98 19 143/88 (106) 98 03/13/18 09:41 103 143/85 03/13/18 09:00 Room Air 03/13/18 08:06 86 20 99 Room Air 21 03/13/18 08:00 98.2 103 19 143/85 (104) 97 03/13/18 07:59 94 20 98 Room Air 21 03/13/18 07:59 Nasal Cannula 2.0 28 03/13/18 07:59 99 Room Air 21 03/13/18 04:15 97.1 81 19 117/75 (89) 96 03/13/18 04:00 97.1 107 19 142/90 (107) 95 03/13/18 03:45 97.1 99 19 150/96 (114) 95 03/13/18 03:30 98.4 106 19 110/74 (86) 98 03/13/18 01:23 89 20 99 Room Air 21 03/13/18 01:17 99 20 98 Room Air 21 03/13/18 00:00 97.3 86 18 125/80 (95) 93 03/12/18 22:35 85 111/75 03/12/18 21:00 Room Air 03/12/18 20:20 85 20 99 Room Air 21 Intake and Output 03/12/18 03/13/18 18:59 06:59 Intake Total 905 ml Output Total 1350 ml 250 ml Balance -445 ml -250 ml Intake Oral 450 ml IV Total 455 ml Output Urine Total 1350 ml 250 ml # Voids 1 Laboratory Tests 12/26/18 06:25: White Blood Count 12.6H, Red Blood Count 3.08L, Hemoglobin 9.3L, Hematocrit 27.3L, Mean Corpuscular Volume 89, Mean Corpuscular Hemoglobin 30.2, Mean Corpuscular Hemoglobin Concent 34.0, Red Cell Distribution Width 13.4, Platelet Count 207, Mean Platelet Volume 5.0L, Neutrophils (%) (Auto) 76.9H, Lymphocytes (%) (Auto) 11.4L, Monocytes (%) (Auto) 9.8, Eosinophils (%) (Auto) 1.1, Basophils (%) (Auto) 0.9, Sodium Level 144, Potassium Level 3.4L, Chloride Level 107, Carbon Dioxide Level 24, Anion Gap 13, Blood Urea Nitrogen 22H, Creatinine 1.6H, Estimat Glomerular Filtration Rate , Glucose Level 82, Calcium Level 9.6, Phosphorus Level 2.4L, Magnesium Level 1.7L, Total Bilirubin 1.6H, Direct Bilirubin 0.6H, Aspartate Amino Transf (AST/SGOT) 101H, Alanine Aminotransferase (ALT/SGPT) 65, Alkaline Phosphatase 81, Total Protein 7.0, Albumin 2.7L, Globulin 4.3, Albumin/Globulin Ratio 0.6L Height (Feet): 5 Height (Inches): 9.00 Weight (Pounds): 179 General Appearance: alert, confused, agitated Domenic Solomon MD Mar 13, 2018 20:17
[2018-03-13] MEDS: Tamsulosin 0.4mg cap ORAL SCH (20:54)
[2018-03-13] MEDS: Iron Sucrose 100 MG in NS 55 ML IV SCH (20:54)
[2018-03-13] MEDS: Miralax 17gm pkt ORAL SCH (20:56)
[2018-03-14] VITALS (7 sets, daily range): BP systolic 130–184; BP diastolic 64–89
[2018-03-14] MEDS: Albuterol/Ipratropium 3ml neb HHN SCH ×4 (00:35→19:42)
[2018-03-14] MEDS: HydrALAZINE 25mg tab ORAL PRN ×2 (00:37→04:32)
[2018-03-14] MEDS: Piperacillin/Tazobactam 3.375 GM in D5W 110 ML IVPB SCH (04:05)
[2018-03-14 07:11] LABS: BASOPHILS % (AUTO) 0.9 % (0.0-2.0); EOSINOPHILS % (AUTO) 0.8 % (0.0-3.0); HEMATOCRIT 29.7 % (42.0-52.0); MEAN CORPUSCULAR VOLUME 89 FL (80-99); MONOCYTES % (AUTO) 9.2 % (1.0-10.0); NEUTROPHILS % (AUTO) 78.1 % (45.0-75.0); PLATELET COUNT 267 K/UL (150-450); RED BLOOD COUNT 3.33 M/UL (4.70-6.10); RED CELL DISTRIBUTION WIDTH 13.5 % (11.6-14.8); WHITE BLOOD COUNT 14.4 K/UL (4.8-10.8)
[2018-03-14 07:20] LABS: ANION GAP 12 mmol/L (5-15); BLOOD UREA NITROGEN 23 mg/dL (7-18); CALCIUM 9.7 MG/DL (8.5-10.1); CARBON DIOXIDE 23 MMOL/L (21-32); CHLORIDE 109 MMOL/L (98-107); CREATININE 1.7 MG/DL (0.55-1.30); POTASSIUM 3.5 MMOL/L (3.5-5.1); SODIUM 144 MMOL/L (136-145)
--- NOTE | 2018-03-14 07:30 | NUR ---
HAND-OFF: Report given to BEN Carcamo.
--- NOTE | 2018-03-14 08:04 | NUR ---
NURSE NOTES: Received report from Zachary CONTRERAS. On rounds, patient is asleep, no s/s acute distress noted, breathing even and unlabored. Bilateral soft wrist restraints in place, order checked. Called Dr. Price and inquired whether scheduled heparin should be given due to positive OB stool, left voicemail, will await callback from MD. Fall precautions maintained, side rails upx3, bed low and locked, call light in reach. Will continue to monitor.
--- NOTE | 2018-03-14 08:52 | Pulmonology Progress Note ---
Assessment/Plan Problems: (1) Hypoxemia Assessment & Plan: RESOLVED (2) Pneumonia (3) Leukocytosis (4) Hip fracture (5) Coffee ground emesis Assessment & Plan: S/P EGD c/w gastritis HH stable (6) Upper GI bleed Assessment & Plan: as above (7) Anemia (8) Renal insufficiency Assessment & Plan: Improved (9) Hypertension Assessment/Plan 87 M h/o HTN, CKD, possible dementia initially transferred from [facility] after mechanical fall and ? CGE with L hip Fx now S/P ORIF 03/08. Post-op course c/b anemia, worsening encephalopathy, YOAV on CKD and progressive hypoxemia likely 2/ 2 aspiration pneumonia. ASSESSMENT: * Post-operative hypoxemia - IMPROVED * RLL infiltrate, likely aspiration * L hip Fx S/P ORIF 03/08 * Mechanical fall * YOAV on CKD - IMPROVED * HTN * AMS, likely toxic metabolic encephalopathy on top of underlying dementia * Acute on chronic anemia * ? CGE S/P EGD 03/11 --> gastritis PLAN: * Transfer to [facility] * ECG, trop, CXR, Duplex * Optimize pulmonary hygiene/mobilize as tolerated * PRN O2 * RTC and PRN DUOnebs * Continue Zosyn (D4), F/U Cx's * ROAD [employer] eval noted, F/U VSS, aspiration precautions * Pain control/supportive care * Monitor volumes and renal function * Monitor HH, transfuse as needed, PPI, F/U GI recs * DVT Px: Hep SQ * FC Subjective Allergies: Coded Allergies: NO KNOWN ALLERGIES (Verified Allergy, Unknown, 03/08/18) Subjective Inc WOB this am, + congestion, + ST, c/o chest discomfort not pain Denies cough or SOB, no F/C Objective Last 24 Hour Vital Signs Date Time Temp Pulse Resp B/P (MAP) Pulse Ox O2 Delivery O2 Flow Rate FiO2 03/14/18 08:10 88 18 100 Room Air 03/14/18 08:00 97 Room Air 03/14/18 08:00 Room Air 21 03/14/18 08:00 94 18 97 Room Air 21 03/14/18 04:32 188/76 03/14/18 04:00 98.2 93 25 184/81 (115) 98 03/14/18 00:48 79 18 93 Room Air 21 03/14/18 00:39 77 18 93 Room Air 21 03/14/18 00:37 164/88 03/14/18 00:00 97.7 85 20 164/88 (113) 97 03/14/18 00:00 97.7 85 20 164/88 (113) 97 03/13/18 21:00 Room Air 03/13/18 20:54 78 145/85 03/13/18 20:42 78 20 99 Room Air 21 03/13/18 20:38 Room Air 21 03/13/18 20:38 100 Room Air 21 03/13/18 20:35 81 20 100 Room Air 21 03/13/18 20:00 97.4 78 22 145/85 (105) 93 03/13/18 16:00 98.0 101 19 138/80 (99) 98 03/13/18 13:12 84 20 99 Room Air 21 03/13/18 13:06 91 20 98 Room Air 21 03/13/18 12:00 98.0 98 19 143/88 (106) 98 03/13/18 09:41 103 143/85 03/13/18 09:00 Room Air Intake and Output 03/13/18 03/14/18 19:00 07:00 Intake Total 800 ml 240 ml Balance 800 ml 240 ml Intake Oral 800 ml 240 ml # Voids 5 9 General Appearance: no acute distress HEENT: normocephalic, atraumatic, anicteric, mucous membranes moist Respiratory/Chest: rhonchi Cardiovascular: tachycardia Abdomen: normal bowel sounds, soft, non tender, no organomegaly, non distended , no mass Extremities: no cyanosis, no clubbing, no edema Laboratory Tests 03/14/18 05:42: White Blood Count 14.4H, Red Blood Count 3.33L, Hemoglobin 10.0L, Hematocrit 29.7L, Mean Corpuscular Volume 89, Mean Corpuscular Hemoglobin 30.0, Mean Corpuscular Hemoglobin Concent 33.6, Red Cell Distribution Width 13.5, Platelet Count 267, Mean Platelet Volume 5.0L, Neutrophils (%) (Auto) 78.1H, Lymphocytes (%) (Auto) 11.0L, Monocytes (%) (Auto) 9.2, Eosinophils (%) (Auto) 0.8, Basophils (%) (Auto) 0.9, Sodium Level 144, Potassium Level 3.5, Chloride Level 109H, Carbon Dioxide Level 23, Anion Gap 12, Blood Urea Nitrogen 23H, Creatinine 1.7H, Estimat Glomerular Filtration Rate , Glucose Level 98, Calcium Level 9.7 Current Medications Medications (Trade) Dose Ordered Sig/Lorena Route PRN Reason Start Time Stop Time Status Last Admin Dose Admin Acetaminophen (Tylenol) 650 mg Q6H PRN ORAL Mild Pain/Temp > 100.0 03/12/18 14:54 04/07/18 14:53 Albuterol/ Ipratropium (Albuterol/ Ipratropium) 3 ml Q4H PRN HHN Shortness of Breath 03/12/18 14:55 03/15/18 14:54 Albuterol/ Ipratropium (Albuterol/ Ipratropium) 3 ml Q6HRT HHN 03/12/18 19:00 03/15/18 18:59 03/14/18 08:00 Amlodipine Besylate (Norvasc) 2.5 mg Q4H PRN ORAL SBP > 120 03/12/18 14:54 04/08/18 14:53 Diphenhydramine HCl (Benadryl) 25 mg Q6H PRN IM agitation 03/13/18 20:15 04/12/18 20:14 Docusate Sodium (Colace) 100 mg TID ORAL 03/12/18 18:00 04/08/18 08:59 03/13/18 17:38 Famotidine (Pepcid) 20 mg BID ORAL 03/12/18 18:00 04/11/18 17:59 03/13/18 18:39 Finasteride (Proscar) 5 mg DAILY ORAL 03/13/18 09:00 04/09/18 08:59 03/13/18 09:41 Haloperidol Lactate (Haldol) 5 mg Q6H PRN IM Agitation 03/12/18 14:55 04/08/18 14:54 03/13/18 02:01 Heparin Sodium (Porcine) (Heparin 5000 units/ml) 5,000 units EVERY 12 HOURS SUBQ 03/12/18 21:00 04/07/18 08:59 03/13/18 09:43 Hydralazine HCl (Apresoline) 25 mg Q4H PRN ORAL bp over 160 syst 03/12/18 15:15 04/08/18 15:14 03/14/18 04:32 Iron Sucrose 100 mg/Sodium Chloride 60 ml @ 240 mls/hr BEDTIME IV 03/12/18 21:00 03/14/18 21:14 03/13/18 20:54 Lorazepam (Ativan 2mg/ml 1ml) 2 mg Q6H PRN IM For Anxiety 03/13/18 20:15 03/20/18 20:14 Magnesium Oxide (Mag-Ox 400mg) 400 mg THREE TIMES A DAY ORAL 03/13/18 18:00 04/12/18 17:59 03/13/18 17:38 Metoprolol Tartrate (Lopressor) 50 mg Q12HR ORAL 03/12/18 21:00 04/10/18 08:59 03/13/18 20:54 Morphine Sulfate (Morphine Sulfate) 2 mg Q3H PRN IVP Moderate Pain (Pain Scale 4-6) 03/12/18 14:55 03/15/18 14:54 Olanzapine (ZyPREXA) 5 mg BEDTIME ORAL 03/13/18 21:00 04/12/18 20:59 03/13/18 20:54 Ondansetron HCl (Zofran) 4 mg Q6H PRN IVP Nausea & Vomiting 03/12/18 14:55 04/07/18 14:54 Piperacillin Sod/ Tazobactam Sod 3.375 gm/Dextrose 110 ml @ 27.5 mls/hr Q12H IVPB 03/12/18 16:00 03/17/18 15:59 03/14/18 04:05 Polyethylene Glycol (Miralax) 17 gm BEDTIME ORAL 03/12/18 21:00 04/08/18 20:59 03/13/18 20:56 Tamsulosin HCl (Flomax) 0.4 mg BEDTIME ORAL 03/12/18 21:00 04/11/18 20:59 03/13/18 20:54 Temazepam (Restoril) 7.5 mg DAILYPRN PRN ORAL Insomnia 03/12/18 14:56 03/19/18 14:55 03/14/18 00:36 Gabe Willams MD Mar 14, 2018 08:52
[2018-03-14] MEDS: Magnesium Oxide 400mg tab ORAL SCH ×3 (09:15→17:49)
[2018-03-14] MEDS: Docusate 100mg cap ORAL SCH ×3 (09:15→17:49)
[2018-03-14] MEDS: Metoprolol Tartrate 50mg tab ORAL SCH ×2 (09:15→21:21)
--- NOTE | 2018-03-14 09:17 | NUR ---
CASE MANAGEMENT: REVIEW SI: LEFT HIP FRACTURE . GI BLEED T 98.1 HR 101 RR 24 BP 145/89 SAT 97% ROOM AIR WBC 12.6 H/H 9.3/27.3 BUN 23 CR 1.7 IS: PROSCAR PO QD HEPARIN SQ Q12HR LOPRESSOR PO Q12HR ZOSYN IV Q12HR DOXYCYCLINE IV Q12HR MED/SURG STATUS DCP: PATIENT IS FROM HOME
--- NOTE | 2018-03-14 09:55 | NUR ---
NURSE NOTES: Received patient via gurney from Med- Surg, Report given by BEN Mroales.Patient is resting in bed, no signs and symptoms of acute distress at this time. IV site is asymptomatic and patent. No sign of SOB. Bed in lowest position with two side rails up. Side table and call light within reach, will continue to monitor and follow plan of care.
--- NOTE | 2018-03-14 09:55 | NUR ---
RADIOLOGY DEPT CHEST X-RAY DONE.-P.DYE
--- NOTE | 2018-03-14 09:59 | NUR ---
NURSE NOTES: Patient was transferred to telemetry at 0945 due to episode of chest pain this morning. Gave report to Di CONTRERAS. Called Dr. Price and reported to MD that troponin is 0.137, also reported that patient has been transferred to tele. MD aware. Called patient's daughter and reported that patient has been transferred to tele.
[2018-03-14] MEDS ORDERED: DiphenhydrAMINE 50mg/ml Inj IM PRN (10:10)
[2018-03-14] MEDS ORDERED: Haloperidol 5mg/ml Inj IM PRN (10:10)
[2018-03-14] MEDS ORDERED: Morphine Sulfate 2mg/ml Inj IVP PRN (10:11)
[2018-03-14] MEDS ORDERED: HydrALAZINE 25mg tab ORAL PRN (10:11)
[2018-03-14] MEDS ORDERED: LORazepam Inj 2mg/ml 1ml IM PRN (10:11)
--- NOTE | 2018-03-14 10:35 | Cardiac Electrophysiology PN ---
Assessment/Plan Assessment/Plan 1. Status post mechanical fall with left hip fracture. No syncope 2. 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 His echocardiogram showed normal left ventricular systolic function, EF of 60%. Tolerated the surgery well. 3. Hypertension. Blood pressure is stable on metoprolol 50 mg p.o. b.i.d. 4. Renal failure with creatinine of 2.7, improved to 1.6 5. Dementia D WRN Subjective Subjective Confused in restraints. No CP or SOB. In sinus tach with PACs and PVCs. Objective Last 24 Hour Vital Signs Date Time Temp Pulse Resp B/P (MAP) Pulse Ox O2 Delivery O2 Flow Rate FiO2 03/14/18 09:15 101 145/89 03/14/18 08:10 88 18 100 Room Air 21 03/14/18 08:00 97 Room Air 21 03/14/18 08:00 Room Air 21 03/14/18 08:00 97.8 101 26 145/89 (107) 97 03/14/18 08:00 94 18 97 Room Air 21 03/14/18 04:32 188/76 03/14/18 04:00 98.2 93 25 184/81 (115) 98 03/14/18 00:48 79 18 93 Room Air 21 03/14/18 00:39 77 18 93 Room Air 21 03/14/18 00:37 164/88 03/14/18 00:00 97.7 85 20 164/88 (113) 97 03/14/18 00:00 97.7 85 20 164/88 (113) 97 03/13/18 21:00 Room Air 03/13/18 20:54 78 145/85 03/13/18 20:42 78 20 99 Room Air 21 03/13/18 20:38 Room Air 21 03/13/18 20:38 100 Room Air 21 03/13/18 20:35 81 20 100 Room Air 21 03/13/18 20:00 97.4 78 22 145/85 (105) 93 03/13/18 16:00 98.0 101 19 138/80 (99) 98 03/13/18 13:12 84 20 99 Room Air 21 03/13/18 13:06 91 20 98 Room Air 21 03/13/18 12:00 98.0 98 19 143/88 (106) 98 Intake and Output 03/13/18 03/14/18 19:00 07:00 Intake Total 800 ml 240 ml Balance 800 ml 240 ml Intake Oral 800 ml 240 ml # Voids 5 9 Laboratory Tests Test 03/14/18 05:42 White Blood Count 14.4 K/UL (4.8-10.8) H Red Blood Count 3.33 M/UL (4.70-6.10) L Hemoglobin 10.0 G/DL (14.2-18.0) L Hematocrit 29.7 % (42.0-52.0) L Mean Corpuscular Volume 89 FL (80-99) Mean Corpuscular Hemoglobin 30.0 PG (27.0-31.0) Mean Corpuscular Hemoglobin Concent 33.6 G/DL (32.0-36.0) Red Cell Distribution Width 13.5 % (11.6-14.8) Platelet Count 267 K/UL (150-450) Mean Platelet Volume 5.0 FL (6.5-10.1) L Neutrophils (%) (Auto) 78.1 % (45.0-75.0) H Lymphocytes (%) (Auto) 11.0 % (20.0-45.0) L Monocytes (%) (Auto) 9.2 % (1.0-10.0) Eosinophils (%) (Auto) 0.8 % (0.0-3.0) Basophils (%) (Auto) 0.9 % (0.0-2.0) Sodium Level 144 MMOL/L (136-145) Potassium Level 3.5 MMOL/L (3.5-5.1) Chloride Level 109 MMOL/L (98-107) H Carbon Dioxide Level 23 MMOL/L (21-32) Anion Gap 12 mmol/L (5-15) Blood Urea Nitrogen 23 mg/dL (7-18) H Creatinine 1.7 MG/DL (0.55-1.30) H Estimat Glomerular Filtration Rate mL/min (>60) Glucose Level 98 MG/DL (74-106) Calcium Level 9.7 MG/DL (8.5-10.1) Troponin I 0.137 ng/mL (0.000-0.056) Objective HEAD AND NECK: Showed no JVD or carotid bruit. LUNGS: Clear. CARDIOVASCULAR: Tachy regular S1 and S2 with no gallop or murmur. ABDOMEN: Soft. EXTREMITIES: S/P left hip surgery Med Faria MD Mar 14, 2018 10:35
--- NOTE | 2018-03-14 10:57 | GI Progress Note ---
Assessment/Plan Problems: (1) Upper GI bleed ICD Codes: K92.2 - Gastrointestinal hemorrhage, unspecified SNOMED: 54156248 (2) Coffee ground emesis ICD Codes: K92.0 - Hematemesis SNOMED: 45258809, 417173076 (3) Electrolyte imbalance ICD Codes: E87.8 - Other disorders of electrolyte and fluid balance, not elsewhere classified SNOMED: 778468583 (4) Anemia ICD Codes: D64.9 - Anemia, unspecified SNOMED: 282975043 Status: stable Status Narrative Discussed with Dr. Krause. Assessment/Plan s/p EGD noted with gastritis, gastric polyps >> follow-up biopsy swallow eval noted >> continue oral diet, pured us reviewed ppi daily Bowel regimen Stable H&H, as needed transfusions Follow-up labs Follow-up cardiology recommendations given elevated troponin The patient was seen and examined at bedside and all new and available data was reviewed in the patients chart. I agree with the above findings, impression and plan. (Patient seen earlier today. Signature stamp does not reflect patient encounter time.). - Roderick Krause MD Subjective Subjective Limited Objective Last 24 Hour Vital Signs Date Time Temp Pulse Resp B/P (MAP) Pulse Ox O2 Delivery O2 Flow Rate FiO2 03/14/18 09:15 101 145/89 03/14/18 08:10 88 18 100 Room Air 21 03/14/18 08:00 97 Room Air 03/14/18 08:00 Room Air 21 03/14/18 08:00 97.8 101 26 145/89 (107) 97 03/14/18 08:00 94 18 97 Room Air 03/14/18 04:32 188/76 03/14/18 04:00 98.2 93 25 184/81 (115) 98 03/14/18 00:48 79 18 93 Room Air 21 03/14/18 00:39 77 18 93 Room Air 21 03/14/18 00:37 164/88 03/14/18 00:00 97.7 85 20 164/88 (113) 97 03/14/18 00:00 97.7 85 20 164/88 (113) 97 03/13/18 21:00 Room Air 03/13/18 20:54 78 145/85 03/13/18 20:42 78 20 99 Room Air 21 03/13/18 20:38 Room Air 21 03/13/18 20:38 100 Room Air 21 03/13/18 20:35 81 20 100 Room Air 21 03/13/18 20:00 97.4 78 22 145/85 (105) 93 03/13/18 16:00 98.0 101 19 138/80 (99) 98 03/13/18 13:12 84 20 99 Room Air 21 03/13/18 13:06 91 20 98 Room Air 21 03/13/18 12:00 98.0 98 19 143/88 (106) 98 Intake and Output 03/13/18 03/14/18 19:00 07:00 Intake Total 800 ml 240 ml Balance 800 ml 240 ml Intake Oral 800 ml 240 ml # Voids 5 9 Laboratory Tests Test 03/14/18 05:42 White Blood Count 14.4 K/UL (4.8-10.8) H Red Blood Count 3.33 M/UL (4.70-6.10) L Hemoglobin 10.0 G/DL (14.2-18.0) L Hematocrit 29.7 % (42.0-52.0) L Mean Corpuscular Volume 89 FL (80-99) Mean Corpuscular Hemoglobin 30.0 PG (27.0-31.0) Mean Corpuscular Hemoglobin Concent 33.6 G/DL (32.0-36.0) Red Cell Distribution Width 13.5 % (11.6-14.8) Platelet Count 267 K/UL (150-450) Mean Platelet Volume 5.0 FL (6.5-10.1) L Neutrophils (%) (Auto) 78.1 % (45.0-75.0) H Lymphocytes (%) (Auto) 11.0 % (20.0-45.0) L Monocytes (%) (Auto) 9.2 % (1.0-10.0) Eosinophils (%) (Auto) 0.8 % (0.0-3.0) Basophils (%) (Auto) 0.9 % (0.0-2.0) Sodium Level 144 MMOL/L (136-145) Potassium Level 3.5 MMOL/L (3.5-5.1) Chloride Level 109 MMOL/L (98-107) H Carbon Dioxide Level 23 MMOL/L (21-32) Anion Gap 12 mmol/L (5-15) Blood Urea Nitrogen 23 mg/dL (7-18) H Creatinine 1.7 MG/DL (0.55-1.30) H Estimat Glomerular Filtration Rate mL/min (>60) Glucose Level 98 MG/DL (74-106) Calcium Level 9.7 MG/DL (8.5-10.1) Troponin I 0.137 ng/mL (0.000-0.056) Height (Feet): 5 Height (Inches): 9.00 Weight (Pounds): 179 General Appearance: WD/WN, no apparent distress, alert Cardiovascular: normal rate Respiratory/Chest: normal breath sounds, no respiratory distress Abdominal Exam: normal bowel sounds, non tender, soft Extremities: normal range of motion, non-tender, other - On restraints Karl Coffman NP Mar 14, 2018 10:57
[2018-03-14] MEDS ORDERED: Albuterol/Ipratropium 3ml neb HHN PRN (11:00)
--- NOTE | 2018-03-14 12:51 | Diagnostic Imaging Report ---
Indication: Chest pain Technique: XRAY Chest 1v Comparison: 03/09/18 Findings: Heart size and mediastinal contours are stable. Atherosclerotic calcifications again noted. There are degenerative changes of the spine. Increased reticular markings again noted, most pronounced at the bases. There is streaky opacities which most likely represent subsegmental atelectasis. No pleural effusion or pneumothorax. Impression: Increased reticular markings most pronounced at the bases bilaterally. Findings may be due to a degree of chronic interstitial fibrosis/interstitial disease. Linear opacities at the bases thought related to subsegmental atelectasis. No new focal consolidation compared to prior exam.
--- NOTE | 2018-03-14 14:13 | NUR ---
RD ASSESSMENT & RECOMMENDATIONS SEE CARE ACTIVITY FOR COMPLETE ASSESSMENT DAILY ESTIMATED NEEDS: Needs based on Surgery, advanced age 81kg 25-35 kcals/kg 8751-3878 total kcals 1-2 g protein/kg 81-162 g total protein 20-30ml/kcal mL/kg 8964-1276 total fluid mLs NUTRITION DIAGNOSIS: 1) Increased kcal and protein needs r/t surgical wound healing as evidenced by pt is >85 y/o, now s/p L hip ORIF, w/ variable po intake. 2) Chewing/ swallowing difficulty r/t confusion, dysphagia, as evidenced by pt seen by HELIARC WELDER, recs for puree texture diet w/ NTL. CURRENT DIET: Regular puree PO DIET RECOMMENDATIONS: [place] / Regular diet (texture per HELIARC WELDER) ADDITIONAL RECOMMENDATIONS: 1) RE-calibrate bed scale post txr to Tele 2) Add ENSURE BID in b/w meals w/ current variable po intake 3) Add GENESIS BID + VIT C 500mg daily for surgical wound integrity 4) Monitor lytes, replete as needed (low phos, mg)
--- NOTE | 2018-03-14 14:22 | Nephrology Progress Note ---
Assessment/Plan Problem List: (1) Acute on chronic renal failure Assessment: Cr lowering (2) Hip fracture Assessment: left- surgery 03/08 (3) Anemia Assessment: likely mixed ckd and blood loss (4) BPH (benign prostatic hyperplasia) (5) Hypertensive kidney disease Assessment in2E for CP and rise in Cr Acute on chronic renal failure Hip Surgery 03/08 - Post op day one today- left hip HTN BPH CKD Dementia Plan campbell out add asa and norvasc Cardiac advise Mag and k supplement as needed IV Venofer as needed Alb bolus as needed monitor renal parameters Subjective ROS Limited/Unobtainable: No Constitutional: Reports: malaise, weakness Objective Objective Last 24 Hour Vital Signs Date Time Temp Pulse Resp B/P (MAP) Pulse Ox O2 Delivery O2 Flow Rate FiO2 03/14/18 13:18 79 18 100 Room Air 21 03/14/18 13:09 72 18 98 Room Air 21 03/14/18 12:00 100 03/14/18 09:50 98.1 78 24 134/75 (94) 97 03/14/18 09:15 101 145/89 03/14/18 09:00 Room Air 03/14/18 08:10 88 18 100 Room Air 21 03/14/18 08:00 97 Room Air 21 03/14/18 08:00 Room Air 21 03/14/18 08:00 97.8 101 26 145/89 (107) 97 03/14/18 08:00 94 18 97 Room Air 21 03/14/18 04:32 188/76 03/14/18 04:00 98.2 93 25 184/81 (115) 98 03/14/18 00:48 79 18 93 Room Air 21 03/14/18 00:39 77 18 93 Room Air 21 03/14/18 00:37 164/88 03/14/18 00:00 97.7 85 20 164/88 (113) 97 03/14/18 00:00 97.7 85 20 164/88 (113) 97 03/13/18 21:00 Room Air 03/13/18 20:54 78 145/85 03/13/18 20:42 78 20 99 Room Air 21 03/13/18 20:38 Room Air 21 03/13/18 20:38 100 Room Air 21 03/13/18 20:35 81 20 100 Room Air 21 03/13/18 20:00 97.4 78 22 145/85 (105) 93 03/13/18 16:00 98.0 101 19 138/80 (99) 98 Intake and Output 03/13/18 03/14/18 19:00 07:00 Intake Total 800 ml 240 ml Balance 800 ml 240 ml Intake Oral 800 ml 240 ml # Voids 5 9 Laboratory Tests 03/14/18 05:42: White Blood Count 14.4H, Red Blood Count 3.33L, Hemoglobin 10.0L, Hematocrit 29.7L, Mean Corpuscular Volume 89, Mean Corpuscular Hemoglobin 30.0, Mean Corpuscular Hemoglobin Concent 33.6, Red Cell Distribution Width 13.5, Platelet Count 267, Mean Platelet Volume 5.0L, Neutrophils (%) (Auto) 78.1H, Lymphocytes (%) (Auto) 11.0L, Monocytes (%) (Auto) 9.2, Eosinophils (%) (Auto) 0.8, Basophils (%) (Auto) 0.9, Sodium Level 144, Potassium Level 3.5, Chloride Level 109H, Carbon Dioxide Level 23, Anion Gap 12, Blood Urea Nitrogen 23H, Creatinine 1.7H, Estimat Glomerular Filtration Rate , Glucose Level 98, Calcium Level 9.7, Troponin I 0.137H Height (Feet): 5 Height (Inches): 9.00 Weight (Pounds): 179 General Appearance: no apparent distress, confused Cardiovascular: tachycardia Respiratory/Chest: decreased breath sounds Abdomen: soft Objective no change Ortiz Kinsey MD Mar 14, 2018 14:22
--- NOTE | 2018-03-14 14:58 | Internal Med Progress Note ---
Subjective Physician Name Kaiser Price Attending Physician Kaiser Price MD Current Medications Medications (Trade) Dose Ordered Sig/Lorena Route PRN Reason Start Time Stop Time Status Last Admin Dose Admin Acetaminophen (Tylenol) 650 mg Q6H PRN ORAL Mild Pain/Temp > 100.0 03/14/18 10:10 04/07/18 10:09 Albuterol/ Ipratropium (Albuterol/ Ipratropium) 3 ml Q4H PRN HHN Shortness of Breath 03/14/18 11:00 03/15/18 14:54 Albuterol/ Ipratropium (Albuterol/ Ipratropium) 3 ml Q6HRT HHN 03/14/18 13:00 03/15/18 18:59 03/14/18 13:08 Amlodipine Besylate (Norvasc) 2.5 mg DAILY ORAL 03/14/18 14:22 04/13/18 14:21 Aspirin (ASA) 81 mg DAILY ORAL 03/14/18 14:22 04/13/18 14:21 Diphenhydramine HCl (Benadryl) 25 mg Q6H PRN IM agitation 03/14/18 10:10 04/12/18 10:09 Docusate Sodium (Colace) 100 mg TID ORAL 03/14/18 13:00 04/08/18 08:59 03/14/18 13:18 Famotidine (Pepcid) 20 mg BID ORAL 03/14/18 18:00 04/11/18 17:59 Finasteride (Proscar) 5 mg DAILY ORAL 03/15/18 09:00 04/09/18 08:59 Haloperidol Lactate (Haldol) 5 mg Q6H PRN IM Agitation 03/14/18 10:10 04/08/18 10:09 Heparin Sodium (Porcine) (Heparin 5000 units/ml) 5,000 units EVERY 12 HOURS SUBQ 03/14/18 21:00 04/07/18 08:59 Hydralazine HCl (Apresoline) 25 mg Q4H PRN ORAL bp over 160 syst 03/14/18 10:11 04/08/18 10:10 Iron Sucrose 100 mg/Sodium Chloride 60 ml @ 240 mls/hr BEDTIME IV 03/14/18 21:00 03/14/18 21:14 Lorazepam (Ativan 2mg/ml 1ml) 2 mg Q6H PRN IM For Anxiety 03/14/18 10:11 03/20/18 10:10 Magnesium Oxide (Mag-Ox 400mg) 400 mg THREE TIMES A DAY ORAL 03/14/18 13:00 04/12/18 17:59 03/14/18 13:18 Metoprolol Tartrate (Lopressor) 50 mg Q12HR ORAL 03/14/18 21:00 04/10/18 08:59 Morphine Sulfate (Morphine Sulfate) 2 mg Q3H PRN IVP Moderate Pain (Pain Scale 4-6) 03/14/18 10:11 03/15/18 10:10 Nitroglycerin (Ntg) 1 patch Q24H TDERMAL 03/14/18 15:00 04/13/18 14:59 Olanzapine (ZyPREXA) 5 mg BEDTIME ORAL 03/14/18 21:00 04/12/18 20:59 Ondansetron HCl (Zofran) 4 mg Q6H PRN IVP Nausea & Vomiting 03/14/18 10:11 04/07/18 10:10 Piperacillin Sod/ Tazobactam Sod 3.375 gm/Dextrose 110 ml @ 27.5 mls/hr Q12H IVPB 03/14/18 16:00 03/17/18 15:59 Polyethylene Glycol (Miralax) 17 gm BEDTIME ORAL 03/14/18 21:00 04/08/18 20:59 Tamsulosin HCl (Flomax) 0.4 mg BEDTIME ORAL 03/14/18 21:00 04/11/18 20:59 Temazepam (Restoril) 7.5 mg DAILYPRN PRN ORAL Insomnia 03/14/18 10:12 03/19/18 10:11 Allergies: Coded Allergies: NO KNOWN ALLERGIES (Verified Allergy, Unknown, 03/08/18) Subjective awake, responsive, feeling okay, confused, No SOB, C/O chest pain earlier transfer to telemetry, Troponin 0.137 Objective Last Vital Signs Date Time Temp Pulse Resp B/P (MAP) Pulse Ox O2 Delivery O2 Flow Rate FiO2 03/14/18 13:18 79 18 100 Room Air 21 03/14/18 09:50 98.1 134/75 (94) 03/13/18 07:59 2.0 Laboratory Tests Test 03/14/18 05:42 White Blood Count 14.4 K/UL (4.8-10.8) H Red Blood Count 3.33 M/UL (4.70-6.10) L Hemoglobin 10.0 G/DL (14.2-18.0) L Hematocrit 29.7 % (42.0-52.0) L Mean Corpuscular Volume 89 FL (80-99) Mean Corpuscular Hemoglobin 30.0 PG (27.0-31.0) Mean Corpuscular Hemoglobin Concent 33.6 G/DL (32.0-36.0) Red Cell Distribution Width 13.5 % (11.6-14.8) Platelet Count 267 K/UL (150-450) Mean Platelet Volume 5.0 FL (6.5-10.1) L Neutrophils (%) (Auto) 78.1 % (45.0-75.0) H Lymphocytes (%) (Auto) 11.0 % (20.0-45.0) L Monocytes (%) (Auto) 9.2 % (1.0-10.0) Eosinophils (%) (Auto) 0.8 % (0.0-3.0) Basophils (%) (Auto) 0.9 % (0.0-2.0) Sodium Level 144 MMOL/L (136-145) Potassium Level 3.5 MMOL/L (3.5-5.1) Chloride Level 109 MMOL/L (98-107) H Carbon Dioxide Level 23 MMOL/L (21-32) Anion Gap 12 mmol/L (5-15) Blood Urea Nitrogen 23 mg/dL (7-18) H Creatinine 1.7 MG/DL (0.55-1.30) H Estimat Glomerular Filtration Rate mL/min (>60) Glucose Level 98 MG/DL (74-106) Calcium Level 9.7 MG/DL (8.5-10.1) Troponin I 0.137 ng/mL (0.000-0.056) Intake and Output 03/13/18 03/14/18 19:00 07:00 Intake Total 800 ml 240 ml Balance 800 ml 240 ml Intake Oral 800 ml 240 ml # Voids 5 9 Objective General: No acute distress, awake and responsive. HEENT: NCAT, sclera anicteric, PERRL, EOMI. Neck: Supple, no significant jugular venous distention, Lungs: Fair inspiratory effort, decrease air on bases, no Wheeze or Rales. Heart: Regular rate and rhythm, normal S1/S2, no murmurs Abdomen: soft, nontender, nondistended. Normoactive bowel sounds. / Rectal: Refused and deferred. Extremities: No Cyanosis , clubbing or edema. Left hip surgical incision intact. Neuro: A&O x 3, Able to move all extremities Skin: warm, no rashes or lesions Assessment/Plan Assessment/Plan 1. Mechanical fall with the left hip fracture / Left comminuted intertrochanteric subtroch femur fracture S/p Open reduction and internal fixation of left comminuted intertrochanteric subtroch fracture (03/08/2018). 2. Hypertension. 3. YOAV on Chronic kidney disease. 4. BPH. 5. 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 6. Post surgery Anemia, most likely due to acute blood loss. 7. Hypoxemia most likely due to aspiration pneumonia. 8. Coffee ground emesis possible due to Upper GI bleeding s/p EGD (03/11/2018) - -> gastritis, gastric polyp. 9. Sinus tachycardia with premature supraventricular complexes, Right bundle branch block, Left anterior fascicular block, (Bifascicular block). 10. Dementia with agitation. 11. Rhabdomyolysis. 12. Leukocytosis etiology? 13. Chest pain R/O ACS. PLAN: Code status full code. DVT prophylaxis, heparin subcutaneous. Abx: Zosyn IV Monitor labs and cultures DC planning to SNF Monitor Troponin and EKG Kaiser Price MD Mar 14, 2018 14:58
[2018-03-14] MEDS ORDERED: Tubing IV Secondary IV ONE (15:19)
[2018-03-14] MEDS ORDERED: Piperacillin/Tazobactam 3.375 GM in D5W 110 ML IVPB SCH (16:00)
[2018-03-14] MEDS: Nitroglycerin Patch 0.4mg TDERMAL SCH (16:08)
[2018-03-14] MEDS: Aspirin Baby 81mg ORAL SCH (16:08)
--- NOTE | 2018-03-14 17:06 | Diagnostic Imaging Report ---
APPROVED REPORT CPT Code: 07841 Present Symptoms Comments: Pain BILATERAL: Imaging reveals a patent deep venous system bilaterally. There is no evidence of thrombus within the femoral, popliteal or tibial segments. The greater saphenous veins are also within normal limits. Doppler indicates normal spontaneous flow within these segments.
--- NOTE | 2018-03-14 18:42 | Infectious Diseases Prog Note ---
Assessment/Plan Assessment/Plan Full consult dictated: A) 1) sepsis, fevers, pna, leukocytosis, ? cholecystitis, ? other 2) pmh noted 3) allergies - nkda P) 1) zosyn, add doxycycline for atypical pna coverage 2) avoid proarrhythmic abx such as azithromycin and nephrotoxic abx 3) check CT abdomen and pelvis without contrast, check cultures and labs 4) thank you Subjective Allergies: Coded Allergies: NO KNOWN ALLERGIES (Verified Allergy, Unknown, 03/08/18) Objective Vital Signs Last 24 Hour Vital Signs Date Time Temp Pulse Resp B/P (MAP) Pulse Ox O2 Delivery O2 Flow Rate FiO2 03/14/18 16:08 134/75 03/14/18 16:08 79 134/75 03/14/18 16:00 97.7 61 22 155/81 (105) 95 03/14/18 13:18 79 18 100 Room Air 21 03/14/18 13:09 72 18 98 Room Air 21 03/14/18 12:00 98.2 81 18 130/64 (86) 96 03/14/18 12:00 100 03/14/18 09:50 98.1 78 24 134/75 (94) 97 03/14/18 09:15 101 145/89 03/14/18 09:00 Room Air 03/14/18 08:10 88 18 100 Room Air 21 03/14/18 08:00 97 Room Air 21 03/14/18 08:00 Room Air 21 03/14/18 08:00 97.8 101 26 145/89 (107) 97 03/14/18 08:00 94 18 97 Room Air 21 03/14/18 04:32 188/76 03/14/18 04:00 98.2 93 25 184/81 (115) 98 03/14/18 00:48 79 18 93 Room Air 21 03/14/18 00:39 77 18 93 Room Air 21 03/14/18 00:37 164/88 03/14/18 00:00 97.7 85 20 164/88 (113) 97 03/14/18 00:00 97.7 85 20 164/88 (113) 97 03/13/18 21:00 Room Air 03/13/18 20:54 78 145/85 03/13/18 20:42 78 20 99 Room Air 21 03/13/18 20:38 Room Air 21 03/13/18 20:38 100 Room Air 21 03/13/18 20:35 81 20 100 Room Air 21 03/13/18 20:00 97.4 78 22 145/85 (105) 93 Height (Feet): 5 Height (Inches): 9.00 Weight (Pounds): 179 Laboratory Tests Test 03/14/18 05:42 03/14/18 06:00 White Blood Count 14.4 K/UL (4.8-10.8) H Red Blood Count 3.33 M/UL (4.70-6.10) L Hemoglobin 10.0 G/DL (14.2-18.0) L Hematocrit 29.7 % (42.0-52.0) L Mean Corpuscular Volume 89 FL (80-99) Mean Corpuscular Hemoglobin 30.0 PG (27.0-31.0) Mean Corpuscular Hemoglobin Concent 33.6 G/DL (32.0-36.0) Red Cell Distribution Width 13.5 % (11.6-14.8) Platelet Count 267 K/UL (150-450) Mean Platelet Volume 5.0 FL (6.5-10.1) L Neutrophils (%) (Auto) 78.1 % (45.0-75.0) H Lymphocytes (%) (Auto) 11.0 % (20.0-45.0) L Monocytes (%) (Auto) 9.2 % (1.0-10.0) Eosinophils (%) (Auto) 0.8 % (0.0-3.0) Basophils (%) (Auto) 0.9 % (0.0-2.0) Sodium Level 144 MMOL/L (136-145) Potassium Level 3.5 MMOL/L (3.5-5.1) Chloride Level 109 MMOL/L (98-107) H Carbon Dioxide Level 23 MMOL/L (21-32) Anion Gap 12 mmol/L (5-15) Blood Urea Nitrogen 23 mg/dL (7-18) H Creatinine 1.7 MG/DL (0.55-1.30) H Estimat Glomerular Filtration Rate mL/min (>60) Glucose Level 98 MG/DL (74-106) Calcium Level 9.7 MG/DL (8.5-10.1) Troponin I 0.137 ng/mL (0.000-0.056) C-Reactive Protein, Quantitative 25.0 mg/dL (0.00-0.90) H Current Medications Medications (Trade) Dose Ordered Sig/Lorena Route PRN Reason Start Time Stop Time Status Last Admin Dose Admin Acetaminophen (Tylenol) 650 mg Q6H PRN ORAL Mild Pain/Temp > 100.0 03/14/18 10:10 04/07/18 10:09 Albuterol/ Ipratropium (Albuterol/ Ipratropium) 3 ml Q4H PRN HHN Shortness of Breath 03/14/18 11:00 03/15/18 14:54 Albuterol/ Ipratropium (Albuterol/ Ipratropium) 3 ml Q6HRT HHN 03/14/18 13:00 03/15/18 18:59 03/14/18 13:08 Amlodipine Besylate (Norvasc) 2.5 mg DAILY ORAL 03/14/18 14:22 04/13/18 14:21 03/14/18 16:08 Aspirin (ASA) 81 mg DAILY ORAL 03/14/18 14:22 04/13/18 14:21 03/14/18 16:08 Diphenhydramine HCl (Benadryl) 25 mg Q6H PRN IM agitation 03/14/18 10:10 04/12/18 10:09 Docusate Sodium (Colace) 100 mg TID ORAL 03/14/18 13:00 04/08/18 08:59 03/14/18 17:49 Famotidine (Pepcid) 20 mg BID ORAL 03/14/18 18:00 04/11/18 17:59 03/14/18 17:49 Finasteride (Proscar) 5 mg DAILY ORAL 03/15/18 09:00 04/09/18 08:59 Haloperidol Lactate (Haldol) 5 mg Q6H PRN IM Agitation 03/14/18 10:10 04/08/18 10:09 Heparin Sodium (Porcine) (Heparin 5000 units/ml) 5,000 units EVERY 12 HOURS SUBQ 03/14/18 21:00 04/07/18 08:59 Hydralazine HCl (Apresoline) 25 mg Q4H PRN ORAL bp over 160 syst 03/14/18 10:11 04/08/18 10:10 Iron Sucrose 100 mg/Sodium Chloride 60 ml @ 240 mls/hr BEDTIME IV 03/14/18 21:00 03/14/18 21:14 Lorazepam (Ativan 2mg/ml 1ml) 2 mg Q6H PRN IM For Anxiety 03/14/18 10:11 03/20/18 10:10 Magnesium Oxide (Mag-Ox 400mg) 400 mg THREE TIMES A DAY ORAL 03/14/18 13:00 04/12/18 17:59 03/14/18 17:49 Metoprolol Tartrate (Lopressor) 50 mg Q12HR ORAL 03/14/18 21:00 04/10/18 08:59 Morphine Sulfate (Morphine Sulfate) 2 mg Q3H PRN IVP Moderate Pain (Pain Scale 4-6) 03/14/18 10:11 03/15/18 10:10 Nitroglycerin (Ntg) 1 patch Q24H TDERMAL 03/14/18 15:00 04/13/18 14:59 03/14/18 16:08 Olanzapine (ZyPREXA) 5 mg BEDTIME ORAL 03/14/18 21:00 04/12/18 20:59 Ondansetron HCl (Zofran) 4 mg Q6H PRN IVP Nausea & Vomiting 03/14/18 10:11 04/07/18 10:10 Piperacillin Sod/ Tazobactam Sod 3.375 gm/Dextrose 110 ml @ 27.5 mls/hr Q12H IVPB 03/14/18 16:00 03/17/18 15:59 03/14/18 16:14 Polyethylene Glycol (Miralax) 17 gm BEDTIME ORAL 03/14/18 21:00 04/08/18 20:59 Tamsulosin HCl (Flomax) 0.4 mg BEDTIME ORAL 03/14/18 21:00 04/11/18 20:59 Temazepam (Restoril) 7.5 mg DAILYPRN PRN ORAL Insomnia 03/14/18 10:12 03/19/18 10:11 Ilya Bridges MD Mar 14, 2018 18:42
[2018-03-14] MEDS ORDERED: cefTRIAXone 1 GM in D5W 50 ML IVPB SCH (20:00)
--- NOTE | 2018-03-14 20:00 | NUR ---
NURSE NOTES: Patient received from Di CONTRERAS. Patient is in bed resting with no signs of acute distress. Son at bedside. Respiration even and non labored. Bed in lowest position. Call light within reach. Will continue plan of care.
[2018-03-14] MEDS ORDERED: Iron Sucrose 100 MG in NS 55 ML IV SCH (21:00)
[2018-03-14] MEDS: Miralax 17gm pkt ORAL SCH (21:00)
[2018-03-14] MEDS: Tamsulosin 0.4mg cap ORAL SCH (21:20)
[2018-03-14] MEDS: Heparin 5000 units/ml inj SUBQ SCH (21:22)
--- NOTE | 2018-03-14 22:00 | Consultation ---
DATE OF CONSULTATION: 03/14/2018 INFECTIOUS DISEASE CONSULTATION CONSULTING PHYSICIAN: Ilya Bridges M.D. ATTENDING PHYSICIAN: Kaiser Price M.D. REFERRING PHYSICIAN: Kaiser Price M.D. REASON FOR CONSULTATION: Possible sepsis, seizures, leukocytosis, pneumonia. CHIEF COMPLAINT: The patient's chief complaint coming into the hospital is fracture of the hip and gastrointestinal bleed. HISTORY OF PRESENT ILLNESS: This is an 87-year-old male, who comes in to [facility], was noted to have a hip fracture and repair of the left hip. The patient's operation looks like was done on 03/08/2018. The patient open reduction and internal fixation. The patient is status post fall. The patient was noted to have initially had fevers and has persistent leukocytosis. Because of persistent leukocytosis, possibility of sepsis, Infectious Disease consultation is requested. The patient is on IV Zosyn, adjusted for renal insufficiency dosing adjusted for renal insufficiency. The patient's workup shows a possible urinary tract infection, however, urine culture is negative. The patient had a positive urinalysis. The patient also looks on the chest x-ray has pneumonia. The patient is high risk for aspiration with healthcare-acquired pneumonia in addition to community-acquired pneumonia. Infectious Disease consultation was requested for antibiotic management. The patient still has leukocytosis despite Zosyn. Patient has been recultured. The patient was also noted to have gallbladder wall sludge on ultrasound and has elevated LFTs. His total and direct bilirubins have been consistently elevated and LFTs have been elevated also. MAR was noted. Orders were noted. Notes are reviewed. Imaging and cultures and laboratories noted also. Case was discussed with Dr. Price. The patient continued on Zosyn and doxycycline for now. Follow up cultures have been ordered. The patient also of note is in renal failure. REVIEW OF SYSTEMS: CONSTITUTIONAL: The patient has a Dowell. He has generalized fatigue, but is alert and responsive. No acute distress noted. HEAD AND NECK: He denies any head pain, neck pain. CARDIAC: No chest pain. GASTROINTESTINAL: No nausea, vomiting, or diarrhea. GENITOURINARY: He has a Dowell. PULMONARY: No congestion, shortness of breath, hemoptysis, or secretions. SKIN: No rash or itching. EXTREMITIES: He has left leg pain. NEUROLOGIC: No seizures. Pain is controlled seems like. Generalized fatigue and weakness. No fevers, chills, or night sweats as mentioned. PAST MEDICAL HISTORY: The patient's past medical history includes history of following. The patient has a past medical history of fall and fracture of the left hip. He has anemia, elevated creatinine, possible chronic renal failure with possible acute renal failure. He has history of hypertension, chronic kidney disease, and BPH. He has anemia. No history of diabetes. He has history of coffee-ground emesis, gastritis seen on esophagogastroduodenoscopy. He has history of altered mental status, chronic anemia. He has history of BPH and hypertensive kidney disease. He has history of poor memory, possible Alzheimer's dementia. He has history of dementia. 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 ALLERGIES: No known drug allergies. SOCIAL HISTORY: Currently, negative for smoking, alcohol, or drug abuse. FAMILY HISTORY: Noncontributory. Negative for cancer, diabetes, or tuberculosis. MEDICATIONS: Upon reviewing the MAR, he is on the following medications, Proscar, finasteride, heparin, metoprolol, Zyprexa, and polyethylene. He is also on Flomax, famotidine, Pepcid, Zosyn, nitroglycerin, aspirin, Norvasc, Colace, albuterol, abx, Restoril, Apresoline, Ativan, morphine, Zofran, acetaminophen, amlodipine, haloperidol, diphenhydramine, Zyprexa, lorazepam, and abx. He is on Zosyn, adjusted for renal insufficiency. Fentanyl citrate, intravenous fluids, and Demerol. Outside medications were noted and reconciliated. MAR again was noted. PHYSICAL EXAMINATION: VITAL SIGNS: Temperature is 97.7, pulse rate 61, respiratory rate 22, blood pressure 155/81, and saturation 95%. T-max was 100.5, pulse rate has been as high as 101 recently, again pulse rate now is 79, temperature 97.7, respiratory rate 22, blood pressure 155/81, and saturation 95%. GENERAL: Alert, responsive, in no distress. HEAD AND NECK: Oral exam, no thrush. Eye exam, no icterus. Neck is supple. No JVD. Normocephalic. No thrush. Neck is supple. HEART: Regular. No obvious gallop or murmur. No friction rub. ABDOMEN: Soft. Positive bowel sounds. Nontender. LUNGS: Bilateral rhonchi and rales. SKIN: No rash. MUSCULOSKELETAL: No effusion. Left foot is covered. PERIPHERAL VASCULAR: No gangrene. GENITOURINARY: He has a Dowell. Urine is slightly cloudy. LINES: Line sites without phlebitis. NEUROLOGIC: He has had generalized weakness, responsive. Alert and responsive. LABORATORY AND DIAGNOSTIC DATA: Laboratory data as follows, creatinine 1.7. LFT, total bilirubin 1.6, direct 0.6, AST 101. White count 14.4, hemoglobin 10.0, platelet count is 267, and white count has been persistently elevated at 16.0 on admission also. UA had 1+ leukocyte esterase, 5 to 10 white blood cells, moderate bacteria previous, 10 to 15 white blood cells, and many bacteria. Urine culture initially showed mixed organism and followup urine culture negative. Sputum culture, normal asaf. Chest x-ray, showed increased reticular markings bilaterally, this is from the . CT scan of the chest showed patchy consolidation of right lower lobe with reticular infiltrates in the dependent portion of the right upper lobe and middle lobe concerning for pneumonia. ASSESSMENT AND PLAN: 1. The patient has persistent leukocytosis with possible sepsis, fevers, elevated white count. Most likely, source is pneumonia and the patient's head CT scan consistent with pneumonia and the patient is high risk for aspiration and healthcare-acquired pneumonia. In addition, he though he could have had initial community-acquired pneumonia, but more likely aspiration, healthcare-acquired pneumonia. The patient also had elevated liver enzymes including total bilirubin. Of note, his abdominal ultrasound did show gallbladder wall sludge, but no ductal dilatation. It did show hydronephrosis also. At this time, I concur with Zosyn, this will have excellent coverage for pneumonia including community-acquired pneumonia and aspiration pneumonia. Sputum culture has normal asaf. The patient also has reticular markings bilaterally again concerned for viral or community-acquired pneumonia. At this time, we will continue Zosyn and add doxycycline for atypical coverage. Check followup laboratories, cultures, and chest x-ray. Also, get a CT scan of the abdomen and pelvis without contrast since the patient has persistent leukocytosis and it is unclear why that it still persists and despite appropriate antibiotic coverage for pneumonia. Continue doxycycline and Zosyn. Check cultures, laboratories, and CT scan of the abdomen and pelvis without contrast, and we will adjust antibiotics accordingly based on cultures and imaging studies. Avoid pro-arrhythmic drugs such as azithromycin or fluoroquinolones as the patient has history of heart block and SVT and also avoid nephrotoxic medications because of his renal failure. 2. The patient has anemia. 3. Elevated creatinine. 4. Chronic renal failure. 5. Hypertension. 6. Hypertensive kidney disease. 7. Arrhythmia risk with history of heart block and SVT. 8. No history of diabetes. 9. Status post fall and fracture of left hip, status post open reduction and internal fixation. 10. Possible Alzheimer's. 11. Dementia. 12. Hypoxia. 13. BPH. 14. Mechanical fall. 15. Rhabdomyolysis. 16. Coffee-ground emesis with gastritis seen on esophagogastroduodenoscopy. 17. History of hypoxia. 18. Memory loss. 19. Past medical history as noted. 20. No known allergies. 21. Social history is negative. 22. Family history is noncontributory. 23. MAR was noted. 24. Case was discussed with RN. 25. Case was discussed with Dr. Price. 26. Continue treatment per primary consultants. 27. Skin care protocol. Ilya Bridges M.D. DR: ANNA JOB#: [id number] CC: MEGHANA
--- NOTE | 2018-03-14 22:35 | General Progress Note ---
Assessment/Plan Assessment/Plan Assessment - UGIB - Gastritis - Anemia - s/p (L) hip ORIF - abnormal LFT - GB sludge Recommendations - follow H&H - H2B - OOB - Follow LFT - Check hepatitis serologies - Await CT scan Subjective Allergies: Coded Allergies: NO KNOWN ALLERGIES (Verified Allergy, Unknown, 03/08/18) Subjective Above noted standing up for PT no abdominal pain Objective Last 24 Hour Vital Signs Date Time Temp Pulse Resp B/P (MAP) Pulse Ox O2 Delivery O2 Flow Rate FiO2 03/14/18 21:21 130 122/81 03/14/18 19:52 87 18 99 Room Air 21 03/14/18 19:44 Room Air 21 03/14/18 19:44 97 Room Air 21 03/14/18 19:42 79 18 97 Room Air 21 03/14/18 16:08 134/75 03/14/18 16:08 79 134/75 03/14/18 16:00 97.7 61 22 155/81 (105) 95 03/14/18 16:00 104 03/14/18 13:18 79 18 100 Room Air 21 03/14/18 13:09 72 18 98 Room Air 21 03/14/18 12:00 98.2 81 18 130/64 (86) 96 03/14/18 12:00 100 03/14/18 09:50 98.1 78 24 134/75 (94) 97 03/14/18 09:15 101 145/89 03/14/18 09:00 Room Air 03/14/18 08:10 88 18 100 Room Air 21 03/14/18 08:00 97 Room Air 21 03/14/18 08:00 Room Air 21 03/14/18 08:00 97.8 101 26 145/89 (107) 97 03/14/18 08:00 94 18 97 Room Air 21 03/14/18 04:32 188/76 03/14/18 04:00 98.2 93 25 184/81 (115) 98 03/14/18 00:48 79 18 93 Room Air 21 03/14/18 00:39 77 18 93 Room Air 21 03/14/18 00:37 164/88 03/14/18 00:00 97.7 85 20 164/88 (113) 97 03/14/18 00:00 97.7 85 20 164/88 (113) 97 Intake and Output 03/13/18 03/14/18 18:59 06:59 Intake Total 800 ml 240 ml Balance 800 ml 240 ml Intake Oral 800 ml 240 ml # Voids 5 9 Laboratory Tests 03/14/18 05:42: White Blood Count 14.4H, Red Blood Count 3.33L, Hemoglobin 10.0L, Hematocrit 29.7L, Mean Corpuscular Volume 89, Mean Corpuscular Hemoglobin 30.0, Mean Corpuscular Hemoglobin Concent 33.6, Red Cell Distribution Width 13.5, Platelet Count 267, Mean Platelet Volume 5.0L, Neutrophils (%) (Auto) 78.1H, Lymphocytes (%) (Auto) 11.0L, Monocytes (%) (Auto) 9.2, Eosinophils (%) (Auto) 0.8, Basophils (%) (Auto) 0.9, Sodium Level 144, Potassium Level 3.5, Chloride Level 109H, Carbon Dioxide Level 23, Anion Gap 12, Blood Urea Nitrogen 23H, Creatinine 1.7H, Estimat Glomerular Filtration Rate , Glucose Level 98, Calcium Level 9.7, Troponin I 0.137H 03/14/18 06:00: C-Reactive Protein, Quantitative 25.0H, Mycoplasma pneumoniae IgG Antibody [ Pending], Mycoplasma pneumoniae IgM Ab Titer [Pending] Height (Feet): 5 Height (Inches): 9.00 Weight (Pounds): 179 Objective Elderly WM (L) face ecchymosis supple CTA RRR Abd soft ND NT trace b/l LE edema, (R) hip bandage Vickey Mirza MD Mar 14, 2018 22:35
[2018-03-14 23:02] LABS: APPEARANCE,URINE CLEAR; BILIRUBIN, URINE NEGATIVE (NEGATIVE); COLOR,URINE YELLOW; GLUCOSE, URINE (UA) NEGATIVE (NEGATIVE); KETONES,URINE NEGATIVE (NEGATIVE); LEUKOCYTE ESTERASE ,URINE NEGATIVE (NEGATIVE); NITRITE,URINE NEGATIVE (NEGATIVE); PH,URINE 5 (4.5-8.0); PROTEIN,URINE 3+ (NEGATIVE); UROBILINOGEN,URINE 4 MG/DL (0.0-1.0)
[2018-03-15] VITALS: BP_SYST 159; BP_SYST 179; BP_DIAS 95
[2018-03-15] MEDS: Albuterol/Ipratropium 3ml neb HHN SCH ×3 (00:58→13:00)
[2018-03-15 04:00] VITALS: BP 157/89
--- NOTE | 2018-03-15 07:26 | NUR ---
NURSE NOTES: Received report from Ant RN and Yaw RN. Patient in bed sleeping, bed in lowest position, side rails up x2, bed alarm on, call light within reach. HR 104 with julito DUEÑAS. Endorsed CT abdomen without contrast scheduled for today 03/15/18. IV site asymptomatic patent, intact. Will continue to monitor.
--- NOTE | 2018-03-15 07:27 | NUR ---
HAND-OFF: Report given to BEN Salvador and Gabriel CONTRERAS. Patient is asleep in bed with no signs of acute distress.
[2018-03-15 08:00] VITALS: BP 154/63
--- NOTE | 2018-03-15 08:04 | NUR ---
P.T Note: late entry 03/14/18 0930 Skilled P.T service on hold due to tachycardia. Pt will be transferred to telemetry for further monitoring and management. please reorder P.T when pt is stable for mobilization. Thank you.
[2018-03-15] MEDS: Aspirin Baby 81mg ORAL SCH (08:41)
[2018-03-15] MEDS: Magnesium Oxide 400mg tab ORAL SCH ×3 (08:41→17:44)
[2018-03-15] MEDS: Metoprolol Tartrate 50mg tab ORAL SCH ×2 (08:43→21:12)
[2018-03-15] MEDS: Docusate 100mg cap ORAL SCH ×3 (09:00→17:44)
[2018-03-15] MEDS: Heparin 5000 units/ml inj SUBQ SCH ×3 (09:00→21:14)
--- NOTE | 2018-03-15 09:03 | NUR ---
CASE MANAGEMENT: REVIEW SI: LEFT HIP FRACTURE . GI BLEED T 97.8 HR 118 RR 20 BP 157/89 SAT 93% ROOM AIR WBC 14.4 H/H 10.0/29.7 IS: PROSCAR PO QD HEPARIN SQ Q12HR LOPRESSOR PO Q12HR ZOSYN IV Q12HR DOXYCYCLINE IV Q12HR TELEMETRY UNIT STATUS DCP: PATIENT IS FROM HOME
[2018-03-15 09:53] LABS: BASOPHILS % (AUTO) 0.6 % (0.0-2.0); EOSINOPHILS % (AUTO) 1.5 % (0.0-3.0); HEMATOCRIT 29.3 % (42.0-52.0); HEMOGLOBIN 9.7 G/DL (14.2-18.0); LYMPHOCYTES % (AUTO) 10.2 % (20.0-45.0); MEAN CORPUSCULAR VOLUME 91 FL (80-99); MONOCYTES % (AUTO) 9.4 % (1.0-10.0); NEUTROPHILS % (AUTO) 78.2 % (45.0-75.0); PLATELET COUNT 304 K/UL (150-450); RED BLOOD COUNT 3.23 M/UL (4.70-6.10); RED CELL DISTRIBUTION WIDTH 14.1 % (11.6-14.8)
[2018-03-15 10:26] LABS: ALANINE AMINOTRANSFERASE 55 U/L (12-78); ALBUMIN 2.7 G/DL (3.4-5.0); ALBUMIN/GLOBULIN RATIO 0.6 (1.0-2.7); ALKALINE PHOSPHATASE 78 U/L (46-116); ANION GAP 13 mmol/L (5-15); ASPARTATE AMINO TRANSFERASE 48 U/L (15-37); BILIRUBIN,TOTAL 1.7 MG/DL (0.2-1.0); BLOOD UREA NITROGEN 32 mg/dL (7-18); CALCIUM 9.9 MG/DL (8.5-10.1); CARBON DIOXIDE 25 MMOL/L (21-32); CHLORIDE 112 MMOL/L (98-107); CREATININE 2.1 MG/DL (0.55-1.30); PHOSPHORUS 3.8 MG/DL (2.5-4.9); POTASSIUM 3.8 MMOL/L (3.5-5.1); SODIUM 149 MMOL/L (136-145)
[2018-03-15 10:44] LABS: BILIRUBIN,DIRECT 0.8 MG/DL (0.0-0.3)
--- NOTE | 2018-03-15 11:32 | Cardiac Electrophysiology PN ---
Assessment/Plan Assessment/Plan 1. Status post mechanical fall with left hip fracture. No syncope 2. 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 EF of 60%. Tolerated the surgery well. 3. Hypertension. Blood pressure is stable on metoprolol 50 mg p.o. b.i.d. 4. Renal failure with creatinine of 2.7, improved to 1.6 5. Dementia DW RN Subjective Subjective No CP or SOB. In sinus tach with PACs and PVCs. Objective Last 24 Hour Vital Signs Date Time Temp Pulse Resp B/P (MAP) Pulse Ox O2 Delivery O2 Flow Rate FiO2 03/15/18 09:00 Room Air 03/15/18 08:43 117 154/63 03/15/18 08:42 117 154/63 03/15/18 08:06 Room Air 21 03/15/18 08:00 97.5 117 20 154/63 (93) 97 03/15/18 08:00 111 03/15/18 07:57 98 Room Air 03/15/18 07:57 118 20 98 Room Air 21 03/15/18 07:57 Room Air 21 03/15/18 04:00 104 03/15/18 04:00 97.8 80 20 157/89 (111) 93 03/15/18 01:11 78 18 99 Room Air 03/15/18 01:02 72 18 98 Room Air 21 03/15/18 00:00 111 03/15/18 00:00 97.9 63 20 159/95 (116) 93 03/14/18 21:21 130 122/81 03/14/18 21:00 Room Air 03/14/18 20:00 97.5 75 20 146/85 (105) 92 03/14/18 20:00 142 03/14/18 19:52 87 18 99 Room Air 03/14/18 19:44 Room Air 21 03/14/18 19:44 97 Room Air 21 03/14/18 19:42 79 18 97 Room Air 21 03/14/18 16:08 134/75 03/14/18 16:08 79 134/75 03/14/18 16:00 97.7 61 22 155/81 (105) 95 03/14/18 16:00 104 03/14/18 13:18 79 18 100 Room Air 21 03/14/18 13:09 72 18 98 Room Air 21 03/14/18 12:00 98.2 81 18 130/64 (86) 96 03/14/18 12:00 100 Intake and Output 03/14/18 03/15/18 19:00 07:00 Output Total 400 ml Balance -400 ml Output Urine Total 400 ml Laboratory Tests Test 03/14/18 21:00 03/15/18 09:25 Urine Color Yellow Urine Appearance Clear Urine pH 5 (4.5-8.0) Urine Specific [place] 1.010 (1.005-1.035) Urine Protein 3+ (NEGATIVE) H Urine Glucose (UA) Negative (NEGATIVE) Urine Ketones Negative (NEGATIVE) Urine Blood 3+ (NEGATIVE) H Urine Nitrite Negative (NEGATIVE) Urine Bilirubin Negative (NEGATIVE) Urine Urobilinogen 4 MG/DL (0.0-1.0) H Urine Leukocyte Esterase Negative (NEGATIVE) Urine RBC 2-4 /HPF (0 - 0) H Urine WBC 0-2 /HPF (0 - 0) Urine Squamous Epithelial Cells Few /LPF (NONE/OCC) Urine Bacteria Few /HPF (NONE) Urine Legionella Antigen Pending White Blood Count 14.0 K/UL (4.8-10.8) H Red Blood Count 3.23 M/UL (4.70-6.10) L Hemoglobin 9.7 G/DL (14.2-18.0) L Hematocrit 29.3 % (42.0-52.0) L Mean Corpuscular Volume 91 FL (80-99) Mean Corpuscular Hemoglobin 29.9 PG (27.0-31.0) Mean Corpuscular Hemoglobin Concent 33.0 G/DL (32.0-36.0) Red Cell Distribution Width 14.1 % (11.6-14.8) Platelet Count 304 K/UL (150-450) Mean Platelet Volume 4.9 FL (6.5-10.1) L Neutrophils (%) (Auto) 78.2 % (45.0-75.0) H Lymphocytes (%) (Auto) 10.2 % (20.0-45.0) L Monocytes (%) (Auto) 9.4 % (1.0-10.0) Eosinophils (%) (Auto) 1.5 % (0.0-3.0) Basophils (%) (Auto) 0.6 % (0.0-2.0) Sodium Level 149 MMOL/L (136-145) H Potassium Level 3.8 MMOL/L (3.5-5.1) Chloride Level 112 MMOL/L (98-107) H Carbon Dioxide Level 25 MMOL/L (21-32) Anion Gap 13 mmol/L (5-15) Blood Urea Nitrogen 32 mg/dL (7-18) H Creatinine 2.1 MG/DL (0.55-1.30) H Estimat Glomerular Filtration Rate mL/min (>60) Glucose Level 116 MG/DL (74-106) H Uric Acid 4.6 MG/DL (2.6-7.2) Calcium Level 9.9 MG/DL (8.5-10.1) Phosphorus Level 3.8 MG/DL (2.5-4.9) Magnesium Level 2.3 MG/DL (1.8-2.4) Total Bilirubin 1.7 MG/DL (0.2-1.0) H Direct Bilirubin 0.8 MG/DL (0.0-0.3) H Aspartate Amino Transf (AST/SGOT) 48 U/L (15-37) H Alanine Aminotransferase (ALT/SGPT) 55 U/L (12-78) Alkaline Phosphatase 78 U/L (46-116) Troponin I 0.068 ng/mL (0.000-0.056) Pro-B-Type Natriuretic Peptide 2001 pg/mL (0-125) H Total Protein 7.4 G/DL (6.4-8.2) Albumin 2.7 G/DL (3.4-5.0) L Globulin 4.7 g/dL Albumin/Globulin Ratio 0.6 (1.0-2.7) L Hepatitis A IgM Antibody Pending Hepatitis B Surface Antigen Pending Hepatitis B Core IgM Antibody Pending Hepatitis C Antibody Pending Microbiology Date/Time Source Procedure Growth Status 03/14/18 21:00 Indwelling Cath Urine Culture - Preliminary NO GROWTH Resulted Objective HEAD AND NECK: Showed no JVD LUNGS: Clear. CARDIOVASCULAR: Tachy regular S1 and S2 with no gallop or murmur. ABDOMEN: Soft. EXTREMITIES: S/P left hip surgery Med Faria MD Mar 15, 2018 11:32
[2018-03-15 12:00] VITALS: BP 145/70
--- NOTE | 2018-03-15 12:23 | Internal Med Progress Note ---
Subjective Physician Name Kaiser Price Attending Physician Kaiser Price MD Current Medications Medications (Trade) Dose Ordered Sig/Lorena Route PRN Reason Start Time Stop Time Status Last Admin Dose Admin Acetaminophen (Tylenol) 650 mg Q6H PRN ORAL Mild Pain/Temp > 100.0 03/14/18 10:10 04/07/18 10:09 Albuterol/ Ipratropium (Albuterol/ Ipratropium) 3 ml Q4H PRN HHN Shortness of Breath 03/14/18 11:00 03/15/18 14:54 Albuterol/ Ipratropium (Albuterol/ Ipratropium) 3 ml Q6HRT HHN 03/14/18 13:00 03/15/18 18:59 03/15/18 07:38 Amlodipine Besylate (Norvasc) 2.5 mg DAILY ORAL 03/14/18 14:22 04/13/18 14:21 03/15/18 08:42 Aspirin (ASA) 81 mg DAILY ORAL 03/14/18 14:22 04/13/18 14:21 03/15/18 08:41 Diphenhydramine HCl (Benadryl) 25 mg Q6H PRN IM agitation 03/14/18 10:10 04/12/18 10:09 Docusate Sodium (Colace) 100 mg TID ORAL 03/14/18 13:00 04/08/18 08:59 03/14/18 17:49 Doxycycline Hyclate 100 mg/ Dextrose 100 ml @ 100 mls/hr Q12H IV 03/14/18 20:00 03/21/18 19:59 03/15/18 08:40 Famotidine (Pepcid) 20 mg BID ORAL 03/14/18 18:00 04/11/18 17:59 03/15/18 08:41 Finasteride (Proscar) 5 mg DAILY ORAL 03/15/18 09:00 04/09/18 08:59 03/15/18 08:41 Haloperidol Lactate (Haldol) 5 mg Q6H PRN IM Agitation 03/14/18 10:10 04/08/18 10:09 Heparin Sodium (Porcine) (Heparin 5000 units/ml) 5,000 units EVERY 12 HOURS SUBQ 03/14/18 21:00 1/20/19 08:59 03/14/18 21:22 Hydralazine HCl (Apresoline) 25 mg Q4H PRN ORAL bp over 160 syst 03/14/18 10:11 04/08/18 10:10 Lorazepam (Ativan 2mg/ml 1ml) 2 mg Q6H PRN IM For Anxiety 03/14/18 10:11 03/20/18 10:10 Magnesium Oxide (Mag-Ox 400mg) 400 mg THREE TIMES A DAY ORAL 03/14/18 13:00 04/12/18 17:59 03/15/18 08:41 Metoprolol Tartrate (Lopressor) 50 mg Q12HR ORAL 03/14/18 21:00 04/10/18 08:59 03/15/18 08:43 Nitroglycerin (Ntg) 1 patch Q24H TDERMAL 03/14/18 15:00 04/13/18 14:59 03/14/18 16:08 Olanzapine (ZyPREXA) 5 mg BEDTIME ORAL 03/14/18 21:00 04/12/18 20:59 03/14/18 21:21 Ondansetron HCl (Zofran) 4 mg Q6H PRN IVP Nausea & Vomiting 03/14/18 10:11 04/07/18 10:10 Piperacillin Sod/ Tazobactam Sod 3.375 gm/Dextrose 100 ml @ 25 mls/hr EVERY 12 HOURS IVPB 03/14/18 21:00 03/19/18 20:59 03/15/18 11:45 Polyethylene Glycol (Miralax) 17 gm BEDTIME ORAL 03/14/18 21:00 04/08/18 20:59 Tamsulosin HCl (Flomax) 0.4 mg BEDTIME ORAL 03/14/18 21:00 04/11/18 20:59 03/14/18 21:20 Temazepam (Restoril) 7.5 mg DAILYPRN PRN ORAL Insomnia 03/14/18 10:12 03/19/18 10:11 Allergies: Coded Allergies: NO KNOWN ALLERGIES (Verified Allergy, Unknown, 03/08/18) Subjective awake, responsive, feeling okay, less confused, No SOB, No CP. at bedside, renal function worsening. Objective Last Vital Signs Date Time Temp Pulse Resp B/P (MAP) Pulse Ox O2 Delivery O2 Flow Rate FiO2 03/15/18 09:00 Room Air 03/15/18 08:43 117 154/63 03/15/18 08:06 21 03/15/18 08:00 97.5 20 97 03/13/18 07:59 2.0 Laboratory Tests Test 03/14/18 21:00 03/15/18 09:25 Urine Color Yellow Urine Appearance Clear Urine pH 5 (4.5-8.0) Urine Specific [place] 1.010 (1.005-1.035) Urine Protein 3+ (NEGATIVE) H Urine Glucose (UA) Negative (NEGATIVE) Urine Ketones Negative (NEGATIVE) Urine Blood 3+ (NEGATIVE) H Urine Nitrite Negative (NEGATIVE) Urine Bilirubin Negative (NEGATIVE) Urine Urobilinogen 4 MG/DL (0.0-1.0) H Urine Leukocyte Esterase Negative (NEGATIVE) Urine RBC 2-4 /HPF (0 - 0) H Urine WBC 0-2 /HPF (0 - 0) Urine Squamous Epithelial Cells Few /LPF (NONE/OCC) Urine Bacteria Few /HPF (NONE) Urine Legionella Antigen Pending White Blood Count 14.0 K/UL (4.8-10.8) H Red Blood Count 3.23 M/UL (4.70-6.10) L Hemoglobin 9.7 G/DL (14.2-18.0) L Hematocrit 29.3 % (42.0-52.0) L Mean Corpuscular Volume 91 FL (80-99) Mean Corpuscular Hemoglobin 29.9 PG (27.0-31.0) Mean Corpuscular Hemoglobin Concent 33.0 G/DL (32.0-36.0) Red Cell Distribution Width 14.1 % (11.6-14.8) Platelet Count 304 K/UL (150-450) Mean Platelet Volume 4.9 FL (6.5-10.1) L Neutrophils (%) (Auto) 78.2 % (45.0-75.0) H Lymphocytes (%) (Auto) 10.2 % (20.0-45.0) L Monocytes (%) (Auto) 9.4 % (1.0-10.0) Eosinophils (%) (Auto) 1.5 % (0.0-3.0) Basophils (%) (Auto) 0.6 % (0.0-2.0) Sodium Level 149 MMOL/L (136-145) H Potassium Level 3.8 MMOL/L (3.5-5.1) Chloride Level 112 MMOL/L (98-107) H Carbon Dioxide Level 25 MMOL/L (21-32) Anion Gap 13 mmol/L (5-15) Blood Urea Nitrogen 32 mg/dL (7-18) H Creatinine 2.1 MG/DL (0.55-1.30) H Estimat Glomerular Filtration Rate mL/min (>60) Glucose Level 116 MG/DL (74-106) H Uric Acid 4.6 MG/DL (2.6-7.2) Calcium Level 9.9 MG/DL (8.5-10.1) Phosphorus Level 3.8 MG/DL (2.5-4.9) Magnesium Level 2.3 MG/DL (1.8-2.4) Total Bilirubin 1.7 MG/DL (0.2-1.0) H Direct Bilirubin 0.8 MG/DL (0.0-0.3) H Aspartate Amino Transf (AST/SGOT) 48 U/L (15-37) H Alanine Aminotransferase (ALT/SGPT) 55 U/L (12-78) Alkaline Phosphatase 78 U/L (46-116) Troponin I 0.068 ng/mL (0.000-0.056) Pro-B-Type Natriuretic Peptide 2001 pg/mL (0-125) H Total Protein 7.4 G/DL (6.4-8.2) Albumin 2.7 G/DL (3.4-5.0) L Globulin 4.7 g/dL Albumin/Globulin Ratio 0.6 (1.0-2.7) L Hepatitis A IgM Antibody Pending Hepatitis B Surface Antigen Pending Hepatitis B Core IgM Antibody Pending Hepatitis C Antibody Pending Microbiology Date/Time Source Procedure Growth Status 03/14/18 21:00 Indwelling Cath Urine Culture - Preliminary NO GROWTH Resulted Intake and Output 03/14/18 03/15/18 19:00 07:00 Output Total 400 ml Balance -400 ml Output Urine Total 400 ml Objective General: No acute distress, awake and responsive. HEENT: NCAT, sclera anicteric, PERRL, EOMI. Neck: Supple, no significant jugular venous distention, Lungs: Fair inspiratory effort, decrease air on bases, no Wheeze or Rales. Heart: Regular rate and rhythm, normal S1/S2, no murmurs Abdomen: soft, nontender, nondistended. Normoactive bowel sounds. / Rectal: Refused and deferred. Extremities: No Cyanosis , clubbing or edema. Left hip surgical incision intact. Neuro: A&O x 3, Able to move all extremities Skin: warm, no rashes or lesions Assessment/Plan Assessment/Plan 1. Mechanical fall with the left hip fracture / Left comminuted intertrochanteric subtroch femur fracture S/p Open reduction and internal fixation of left comminuted intertrochanteric subtroch fracture (03/08/2018). 2. Hypertension. 3. YOAV on Chronic kidney disease. 4. BPH. 5. 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 6. Post surgery Anemia, most likely due to acute blood loss. 7. Hypoxemia most likely due to aspiration pneumonia. 8. Coffee ground emesis possible due to Upper GI bleeding s/p EGD (03/11/2018) - -> gastritis, gastric polyp. 9. Sinus tachycardia with premature supraventricular complexes, Right bundle branch block, Left anterior fascicular block, (Bifascicular block). 10. Dementia with agitation. 11. Rhabdomyolysis. 12. Leukocytosis etiology? 13. Chest pain most likely due to A Fib with RVR converted to sinus Rhythm. PLAN: Code status full code. DVT prophylaxis, heparin subcutaneous. Abx: Zosyn IV, Doxycycline PO Monitor labs and cultures DC planning to SNF Discuss with Dr. Faria cardiology at bedside Start IVF @ 75 cc/hr Kaiser Price MD Mar 15, 2018 12:23
--- NOTE | 2018-03-15 12:26 | Cardiac Electrophysiology PN ---
Assessment/Plan Assessment/Plan 1. Status post mechanical fall with left hip fracture. No syncope 2. 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 EF of 60%. Tolerated the surgery well. 3. Atrial fib with RVR up to 145. Converted to SR. On Metoprolol 50 bid and aspirin. Hold off on anticoagulation. 4. Hypertension. On metoprolol 50 mg p.o. b.i.d. Increase Norvasc to 5 mg daily 5. Renal failure with creatinine of 2.0 and hypernatremia. IV Fluid 1/2 NS at 75cc hr 6. Troponin leak levels flat likely due to renal failure and atruial with RVR. No CP on Metoprolol 7. Dementia DW RN and Dr Price Subjective Subjective No CP or SOB. In sinus tach with PACs and PVCs. No further atrial fib with RVR. Objective Last 24 Hour Vital Signs Date Time Temp Pulse Resp B/P (MAP) Pulse Ox O2 Delivery O2 Flow Rate FiO2 03/15/18 09:00 Room Air 03/15/18 08:43 117 154/63 03/15/18 08:42 117 154/63 03/15/18 08:06 Room Air 03/15/18 08:00 97.5 117 20 154/63 (93) 97 03/15/18 08:00 111 03/15/18 07:57 98 Room Air 03/15/18 07:57 118 20 98 Room Air 03/15/18 07:57 Room Air 03/15/18 04:00 104 03/15/18 04:00 97.8 80 20 157/89 (111) 93 03/15/18 01:11 78 18 99 Room Air 03/15/18 01:02 72 18 98 Room Air 03/15/18 00:00 111 03/15/18 00:00 97.9 63 20 159/95 (116) 93 03/14/18 21:21 130 122/81 03/14/18 21:00 Room Air 03/14/18 20:00 97.5 75 20 146/85 (105) 92 03/14/18 20:00 142 03/14/18 19:52 87 18 99 Room Air 03/14/18 19:44 Room Air 03/14/18 19:44 97 Room Air 03/14/18 19:42 79 18 97 Room Air 21 03/14/18 16:08 134/75 03/14/18 16:08 79 134/75 03/14/18 16:00 97.7 61 22 155/81 (105) 95 03/14/18 16:00 104 03/14/18 13:18 79 18 100 Room Air 21 03/14/18 13:09 72 18 98 Room Air 21 Intake and Output 03/14/18 03/15/18 19:00 07:00 Output Total 400 ml Balance -400 ml Output Urine Total 400 ml Laboratory Tests Test 03/14/18 21:00 03/15/18 09:25 Urine Color Yellow Urine Appearance Clear Urine pH 5 (4.5-8.0) Urine Specific [place] 1.010 (1.005-1.035) Urine Protein 3+ (NEGATIVE) H Urine Glucose (UA) Negative (NEGATIVE) Urine Ketones Negative (NEGATIVE) Urine Blood 3+ (NEGATIVE) H Urine Nitrite Negative (NEGATIVE) Urine Bilirubin Negative (NEGATIVE) Urine Urobilinogen 4 MG/DL (0.0-1.0) H Urine Leukocyte Esterase Negative (NEGATIVE) Urine RBC 2-4 /HPF (0 - 0) H Urine WBC 0-2 /HPF (0 - 0) Urine Squamous Epithelial Cells Few /LPF (NONE/OCC) Urine Bacteria Few /HPF (NONE) Urine Legionella Antigen Pending White Blood Count 14.0 K/UL (4.8-10.8) H Red Blood Count 3.23 M/UL (4.70-6.10) L Hemoglobin 9.7 G/DL (14.2-18.0) L Hematocrit 29.3 % (42.0-52.0) L Mean Corpuscular Volume 91 FL (80-99) Mean Corpuscular Hemoglobin 29.9 PG (27.0-31.0) Mean Corpuscular Hemoglobin Concent 33.0 G/DL (32.0-36.0) Red Cell Distribution Width 14.1 % (11.6-14.8) Platelet Count 304 K/UL (150-450) Mean Platelet Volume 4.9 FL (6.5-10.1) L Neutrophils (%) (Auto) 78.2 % (45.0-75.0) H Lymphocytes (%) (Auto) 10.2 % (20.0-45.0) L Monocytes (%) (Auto) 9.4 % (1.0-10.0) Eosinophils (%) (Auto) 1.5 % (0.0-3.0) Basophils (%) (Auto) 0.6 % (0.0-2.0) Sodium Level 149 MMOL/L (136-145) H Potassium Level 3.8 MMOL/L (3.5-5.1) Chloride Level 112 MMOL/L (98-107) H Carbon Dioxide Level 25 MMOL/L (21-32) Anion Gap 13 mmol/L (5-15) Blood Urea Nitrogen 32 mg/dL (7-18) H Creatinine 2.1 MG/DL (0.55-1.30) H Estimat Glomerular Filtration Rate mL/min (>60) Glucose Level 116 MG/DL (74-106) H Uric Acid 4.6 MG/DL (2.6-7.2) Calcium Level 9.9 MG/DL (8.5-10.1) Phosphorus Level 3.8 MG/DL (2.5-4.9) Magnesium Level 2.3 MG/DL (1.8-2.4) Total Bilirubin 1.7 MG/DL (0.2-1.0) H Direct Bilirubin 0.8 MG/DL (0.0-0.3) H Aspartate Amino Transf (AST/SGOT) 48 U/L (15-37) H Alanine Aminotransferase (ALT/SGPT) 55 U/L (12-78) Alkaline Phosphatase 78 U/L (46-116) Troponin I 0.068 ng/mL (0.000-0.056) Pro-B-Type Natriuretic Peptide 2001 pg/mL (0-125) H Total Protein 7.4 G/DL (6.4-8.2) Albumin 2.7 G/DL (3.4-5.0) L Globulin 4.7 g/dL Albumin/Globulin Ratio 0.6 (1.0-2.7) L Hepatitis A IgM Antibody Pending Hepatitis B Surface Antigen Pending Hepatitis B Core IgM Antibody Pending Hepatitis C Antibody Pending Microbiology Date/Time Source Procedure Growth Status 03/14/18 21:00 Indwelling Cath Urine Culture - Preliminary NO GROWTH Resulted Objective HEAD AND NECK: Showed no JVD LUNGS: Clear. CARDIOVASCULAR: Tachy regular S1 and S2 with no gallop or murmur. ABDOMEN: Soft. EXTREMITIES: S/P left hip surgery Med Faria MD Mar 15, 2018 12:26
--- NOTE | 2018-03-15 12:43 | Cardiac Electrophysiology PN ---
Assessment/Plan Assessment/Plan 1. Status post mechanical fall with left hip fracture. No syncope 2. 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 His echocardiogram showed normal left ventricular systolic function, EF of 60%. Tolerated the surgery well. 3. Hypertension. Blood pressure is stable on metoprolol 50 mg p.o. b.i.d. 4. Renal failure with creatinine of 2.7, improved to 1.6 5. Dementia D WRN Subjective Subjective Confused in restraints. No CP or SOB. Objective Last 24 Hour Vital Signs Date Time Temp Pulse Resp B/P (MAP) Pulse Ox O2 Delivery O2 Flow Rate FiO2 03/15/18 09:00 Room Air 03/15/18 08:43 117 154/63 03/15/18 08:42 117 154/63 03/15/18 08:06 Room Air 21 03/15/18 08:00 97.5 117 20 154/63 (93) 97 03/15/18 08:00 111 03/15/18 07:57 98 Room Air 21 03/15/18 07:57 118 20 98 Room Air 21 03/15/18 07:57 Room Air 21 03/15/18 04:00 104 03/15/18 04:00 97.8 80 20 157/89 (111) 93 03/15/18 01:11 78 18 99 Room Air 21 03/15/18 01:02 72 18 98 Room Air 21 03/15/18 00:00 111 03/15/18 00:00 97.9 63 20 159/95 (116) 93 03/14/18 21:21 130 122/81 03/14/18 21:00 Room Air 03/14/18 20:00 97.5 75 20 146/85 (105) 92 03/14/18 20:00 142 03/14/18 19:52 87 18 99 Room Air 21 03/14/18 19:44 Room Air 21 03/14/18 19:44 97 Room Air 21 03/14/18 19:42 79 18 97 Room Air 21 03/14/18 16:08 134/75 03/14/18 16:08 79 134/75 03/14/18 16:00 97.7 61 22 155/81 (105) 95 03/14/18 16:00 104 03/14/18 13:18 79 18 100 Room Air 21 03/14/18 13:09 72 18 98 Room Air 21 03/14/18 12:00 98.2 81 18 130/64 (86) 96 03/14/18 12:00 100 Intake and Output 03/14/18 03/15/18 19:00 07:00 Output Total 400 ml Balance -400 ml Output Urine Total 400 ml Laboratory Tests Test 03/14/18 21:00 03/15/18 09:25 Urine Color Yellow Urine Appearance Clear Urine pH 5 (4.5-8.0) Urine Specific [place] 1.010 (1.005-1.035) Urine Protein 3+ (NEGATIVE) H Urine Glucose (UA) Negative (NEGATIVE) Urine Ketones Negative (NEGATIVE) Urine Blood 3+ (NEGATIVE) H Urine Nitrite Negative (NEGATIVE) Urine Bilirubin Negative (NEGATIVE) Urine Urobilinogen 4 MG/DL (0.0-1.0) H Urine Leukocyte Esterase Negative (NEGATIVE) Urine RBC 2-4 /HPF (0 - 0) H Urine WBC 0-2 /HPF (0 - 0) Urine Squamous Epithelial Cells Few /LPF (NONE/OCC) Urine Bacteria Few /HPF (NONE) Urine Legionella Antigen Pending White Blood Count 14.0 K/UL (4.8-10.8) H Red Blood Count 3.23 M/UL (4.70-6.10) L Hemoglobin 9.7 G/DL (14.2-18.0) L Hematocrit 29.3 % (42.0-52.0) L Mean Corpuscular Volume 91 FL (80-99) Mean Corpuscular Hemoglobin 29.9 PG (27.0-31.0) Mean Corpuscular Hemoglobin Concent 33.0 G/DL (32.0-36.0) Red Cell Distribution Width 14.1 % (11.6-14.8) Platelet Count 304 K/UL (150-450) Mean Platelet Volume 4.9 FL (6.5-10.1) L Neutrophils (%) (Auto) 78.2 % (45.0-75.0) H Lymphocytes (%) (Auto) 10.2 % (20.0-45.0) L Monocytes (%) (Auto) 9.4 % (1.0-10.0) Eosinophils (%) (Auto) 1.5 % (0.0-3.0) Basophils (%) (Auto) 0.6 % (0.0-2.0) Sodium Level 149 MMOL/L (136-145) H Potassium Level 3.8 MMOL/L (3.5-5.1) Chloride Level 112 MMOL/L (98-107) H Carbon Dioxide Level 25 MMOL/L (21-32) Anion Gap 13 mmol/L (5-15) Blood Urea Nitrogen 32 mg/dL (7-18) H Creatinine 2.1 MG/DL (0.55-1.30) H Estimat Glomerular Filtration Rate mL/min (>60) Glucose Level 116 MG/DL (74-106) H Uric Acid 4.6 MG/DL (2.6-7.2) Calcium Level 9.9 MG/DL (8.5-10.1) Phosphorus Level 3.8 MG/DL (2.5-4.9) Magnesium Level 2.3 MG/DL (1.8-2.4) Total Bilirubin 1.7 MG/DL (0.2-1.0) H Direct Bilirubin 0.8 MG/DL (0.0-0.3) H Aspartate Amino Transf (AST/SGOT) 48 U/L (15-37) H Alanine Aminotransferase (ALT/SGPT) 55 U/L (12-78) Alkaline Phosphatase 78 U/L (46-116) Troponin I 0.068 ng/mL (0.000-0.056) Pro-B-Type Natriuretic Peptide 2001 pg/mL (0-125) H Total Protein 7.4 G/DL (6.4-8.2) Albumin 2.7 G/DL (3.4-5.0) L Globulin 4.7 g/dL Albumin/Globulin Ratio 0.6 (1.0-2.7) L Hepatitis A IgM Antibody Pending Hepatitis B Surface Antigen Pending Hepatitis B Core IgM Antibody Pending Hepatitis C Antibody Pending Microbiology Date/Time Source Procedure Growth Status 03/14/18 21:00 Indwelling Cath Urine Culture - Preliminary NO GROWTH Resulted Objective HEAD AND NECK: No JVD LUNGS: Clear. CARDIOVASCULAR: Tachy regular S1 and S2 with no gallop or murmur. ABDOMEN: Soft. EXTREMITIES: S/P left hip surgery Med Faria MD Mar 15, 2018 12:43
--- NOTE | 2018-03-15 12:50 | Nephrology Progress Note ---
Assessment/Plan Problem List: (1) Acute on chronic renal failure Assessment: Cr lowering (2) Hip fracture Assessment: left- surgery 03/08 (3) Anemia Assessment: likely mixed ckd and blood loss (4) BPH (benign prostatic hyperplasia) (5) Hypertensive kidney disease Assessment in2E for CP and rise in Cr Acute on chronic renal failure Hip Surgery 03/08 - Post op day one today- left hip HTN BPH CKD Dementia Plan one liter 1/2 NS campbell out add asa and norvasc Cardiac advise Mag and k supplement as needed IV Venofer as needed Alb bolus as needed monitor renal parameters Subjective ROS Limited/Unobtainable: No Constitutional: Reports: malaise, weakness Objective Objective Last 24 Hour Vital Signs Date Time Temp Pulse Resp B/P (MAP) Pulse Ox O2 Delivery O2 Flow Rate FiO2 03/15/18 12:00 97.0 77 20 145/70 (95) 97 03/15/18 09:00 Room Air 03/15/18 08:43 117 154/63 03/15/18 08:42 117 154/63 03/15/18 08:06 Room Air 21 03/15/18 08:00 97.5 117 20 154/63 (93) 97 03/15/18 08:00 111 03/15/18 07:57 98 Room Air 21 03/15/18 07:57 118 20 98 Room Air 21 03/15/18 07:57 Room Air 21 03/15/18 04:00 104 03/15/18 04:00 97.8 80 20 157/89 (111) 93 03/15/18 01:11 78 18 99 Room Air 21 03/15/18 01:02 72 18 98 Room Air 21 03/15/18 00:00 111 03/15/18 00:00 97.9 63 20 159/95 (116) 93 03/14/18 21:21 130 122/81 03/14/18 21:00 Room Air 03/14/18 20:00 97.5 75 20 146/85 (105) 92 03/14/18 20:00 142 03/14/18 19:52 87 18 99 Room Air 21 03/14/18 19:44 Room Air 21 03/14/18 19:44 97 Room Air 21 03/14/18 19:42 79 18 97 Room Air 21 03/14/18 16:08 134/75 03/14/18 16:08 79 134/75 03/14/18 16:00 97.7 61 22 155/81 (105) 95 03/14/18 16:00 104 03/14/18 13:18 79 18 100 Room Air 21 03/14/18 13:09 72 18 98 Room Air 21 Intake and Output 03/14/18 03/15/18 19:00 07:00 Output Total 400 ml Balance -400 ml Output Urine Total 400 ml Laboratory Tests 03/14/18 21:00: Urine Color Yellow, Urine Appearance Clear, Urine pH 5, Urine Specific [place] 1.010, Urine Protein 3+H, Urine Glucose (UA) Negative, Urine Ketones Negative, Urine Blood 3+H, Urine Nitrite Negative, Urine Bilirubin Negative, Urine Urobilinogen 4H, Urine Leukocyte Esterase Negative, Urine RBC 2-4H, Urine WBC 0- 2, Urine Squamous Epithelial Cells Few, Urine Bacteria Few, Urine Legionella Antigen [Pending] 03/15/18 09:25: White Blood Count 14.0H, Red Blood Count 3.23L, Hemoglobin 9.7L, Hematocrit 29.3L, Mean Corpuscular Volume 91, Mean Corpuscular Hemoglobin 29.9, Mean Corpuscular Hemoglobin Concent 33.0, Red Cell Distribution Width 14.1, Platelet Count 304, Mean Platelet Volume 4.9L, Neutrophils (%) (Auto) 78.2H, Lymphocytes (%) (Auto) 10.2L, Monocytes (%) (Auto) 9.4, Eosinophils (%) (Auto) 1.5, Basophils (%) (Auto) 0.6, Sodium Level 149H, Potassium Level 3.8, Chloride Level 112H, Carbon Dioxide Level 25, Anion Gap 13, Blood Urea Nitrogen 32H, Creatinine 2.1H, Estimat Glomerular Filtration Rate , Glucose Level 116H, Uric Acid 4.6, Calcium Level 9.9, Phosphorus Level 3.8, Magnesium Level 2.3, Total Bilirubin 1.7H, Direct Bilirubin 0.8H, Aspartate Amino Transf (AST/SGOT) 48H, Alanine Aminotransferase (ALT/SGPT) 55, Alkaline Phosphatase 78, Troponin I 0.068H, Pro-B-Type Natriuretic Peptide 2001H, Total Protein 7.4, Albumin 2.7L, Globulin 4.7, Albumin/Globulin Ratio 0.6L, Hepatitis A IgM Antibody [Pending], Hepatitis B Surface Antigen [Pending], Hepatitis B Core IgM Antibody [Pending], Hepatitis C Antibody [Pending] Height (Feet): 5 Height (Inches): 9.00 Weight (Pounds): 179 General Appearance: no apparent distress Cardiovascular: tachycardia Respiratory/Chest: decreased breath sounds Objective no change Ortiz Kinsey MD Mar 15, 2018 12:49
[2018-03-15] MEDS: Nitroglycerin Patch 0.4mg TDERMAL SCH (14:12)
--- NOTE | 2018-03-15 15:26 | Diagnostic Imaging Report ---
Indication: Sepsis, fevers, leukocytosis, pneumonia, abdominal pain, chronic renal failure Technique: Spiral acquisitions obtained through the abdomen and pelvis. Patient given oral contrast. No IV contrast utilized, per referring physician request.. Multiplanar reconstructions were generated. Total dose length product 850.95 mGycm. CTDIvol(s) 16.38 mGy. Dose reduction achieved using automated exposure control Comparison: No comparison CT scans. Reference made to abdomen ultrasound 03/11/2018 Findings: There is colonic diverticulosis. No evidence of diverticulitis. The appendix is normal. The distal esophagus demonstrates some retained contrast, is otherwise unremarkable. The stomach and duodenum are unremarkable. Contrast has only traversed part way through the small bowel. Distal small bowel loops are gas-filled but not dilated. No free or loculated intraperitoneal gas or fluid is evident. Lack of IV contrast limits assessment of solid organs. The liver demonstrates numerous small calcifications. The gallbladder and bile ducts are unremarkable. The pancreas is unremarkable. The spleen demonstrates numerous calcifications. The adrenals are unremarkable. The right kidney demonstrates a 16 mm soft tissue attenuation mass in the interpolar region. It demonstrates multiple cortical cysts as well as a parapelvic cyst. The left kidney demonstrates a large cyst. It also demonstrates numerous parenchymal calcifications. No hydronephrosis, hydroureter, or ureteral calculi demonstrated. The bladder is somewhat distended. The prostate is enlarged. No pelvic mass or adenopathy. Surgical hardware is seen reducing a left femoral fracture, recently repaired. There is extensive degenerative spondylosis change. There are degenerative changes of the right hip. The included lung bases demonstrate considerable bilateral basilar atelectasis and likely scarring. Parenchymal calcifications are seen at the left lung base. Confluent opacities are seen bilaterally Impression: No acute abnormality 16 mm soft tissue attenuation mass in the right kidney. While possibly a proteinaceous cyst, a solid mass and therefore neoplasm is not excludable. Note that this is not clearly visible on recent ultrasound of 03/11/2018 but could've been obscured by overlying ribs. Dedicated renal sonography may be useful to better assess. This finding was discussed by phone with Dr. 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 Other findings as noted, including degenerative changes of the right hip, bilateral renal cysts The CT scanner at [facility] is accredited by the [place] [employer] and the scans are performed using protocols designed to limit radiation exposure to as low as reasonably achievable to attain images of sufficient resolution adequate for diagnostic evaluation.
[2018-03-15 16:00] VITALS: BP 135/74
--- NOTE | 2018-03-15 16:50 | Pulmonology Progress Note ---
Assessment/Plan Problems: (1) Hypoxemia Assessment & Plan: RESOLVED (2) Pneumonia (3) Leukocytosis (4) Hip fracture (5) Coffee ground emesis Assessment & Plan: S/P EGD c/w gastritis HH stable (6) Upper GI bleed Assessment & Plan: as above (7) Anemia (8) Renal insufficiency Assessment & Plan: Improved (9) Hypertension Assessment/Plan 87 M h/o HTN, CKD, possible dementia initially transferred from [facility] after mechanical fall and ? CGE with L hip Fx now S/P ORIF 03/08. Post-op course c/b anemia, worsening encephalopathy, YOAV on CKD and progressive hypoxemia likely 2/ 2 aspiration pneumonia. ASSESSMENT: * Post-operative hypoxemia - IMPROVED * RLL infiltrate, likely aspiration * L hip Fx S/P ORIF 03/08 * Mechanical fall * YOAV on CKD - IMPROVED * HTN * AMS, likely toxic metabolic encephalopathy on top of underlying dementia * Acute on chronic anemia * ? CGE S/P EGD 03/11 --> gastritis * ? renal mass seen on CT A/P PLAN: * Optimize pulmonary hygiene/mobilize as tolerated * PRN O2 * RTC and PRN DUOnebs * Abx per ID * [employer] eval noted, F/U VSS, aspiration precautions * Pain control/supportive care * Monitor volumes and renal function * Monitor HH, transfuse as needed, PPI, F/U GI recs * DVT Px: Hep SQ * FC Subjective Allergies: Coded Allergies: NO KNOWN ALLERGIES (Verified Allergy, Unknown, 03/08/18) Subjective AFVSS on RA no distress CT noted Cr 2.1 Objective Last 24 Hour Vital Signs Date Time Temp Pulse Resp B/P (MAP) Pulse Ox O2 Delivery O2 Flow Rate FiO2 03/15/18 14:12 144/71 03/15/18 13:11 79 20 99 Room Air 21 03/15/18 13:01 75 20 97 Room Air 03/15/18 12:00 80 03/15/18 12:00 97.0 77 20 145/70 (95) 97 03/15/18 09:00 Room Air 03/15/18 08:43 117 154/63 03/15/18 08:42 117 154/63 03/15/18 08:06 Room Air 21 03/15/18 08:00 97.5 117 20 154/63 (93) 97 03/15/18 08:00 111 03/15/18 07:57 98 Room Air 21 03/15/18 07:57 118 20 98 Room Air 21 03/15/18 07:57 Room Air 21 03/15/18 04:00 104 03/15/18 04:00 97.8 80 20 157/89 (111) 93 03/15/18 01:11 78 18 99 Room Air 21 03/15/18 01:02 72 18 98 Room Air 21 03/15/18 00:00 111 03/15/18 00:00 97.9 63 20 159/95 (116) 93 03/14/18 21:21 130 122/81 03/14/18 21:00 Room Air 03/14/18 20:00 97.5 75 20 146/85 (105) 92 03/14/18 20:00 142 03/14/18 19:52 87 18 99 Room Air 21 03/14/18 19:44 Room Air 21 03/14/18 19:44 97 Room Air 21 03/14/18 19:42 79 18 97 Room Air 21 Intake and Output 03/14/18 03/15/18 19:00 07:00 Output Total 400 ml Balance -400 ml Output Urine Total 400 ml General Appearance: no acute distress, cachetic HEENT: normocephalic, atraumatic, anicteric, mucous membranes moist Respiratory/Chest: chest wall non-tender, lungs clear, normal breath sounds, no respiratory distress, no accessory muscle use Cardiovascular: normal peripheral pulses, normal rate, regular rhythm Abdomen: normal bowel sounds, soft, non tender, no organomegaly, non distended Extremities: no cyanosis, no clubbing, no edema Microbiology Date/Time Source Procedure Growth Status 03/14/18 21:00 Indwelling Cath Urine Culture - Preliminary NO GROWTH Resulted Laboratory Tests 03/14/18 21:00: Urine Color Yellow, Urine Appearance Clear, Urine pH 5, Urine Specific [place] 1.010, Urine Protein 3+H, Urine Glucose (UA) Negative, Urine Ketones Negative, Urine Blood 3+H, Urine Nitrite Negative, Urine Bilirubin Negative, Urine Urobilinogen 4H, Urine Leukocyte Esterase Negative, Urine RBC 2-4H, Urine WBC 0- 2, Urine Squamous Epithelial Cells Few, Urine Bacteria Few, Urine Legionella Antigen [Pending] 03/15/18 09:25: White Blood Count 14.0H, Red Blood Count 3.23L, Hemoglobin 9.7L, Hematocrit 29.3L, Mean Corpuscular Volume 91, Mean Corpuscular Hemoglobin 29.9, Mean Corpuscular Hemoglobin Concent 33.0, Red Cell Distribution Width 14.1, Platelet Count 304, Mean Platelet Volume 4.9L, Neutrophils (%) (Auto) 78.2H, Lymphocytes (%) (Auto) 10.2L, Monocytes (%) (Auto) 9.4, Eosinophils (%) (Auto) 1.5, Basophils (%) (Auto) 0.6, Sodium Level 149H, Potassium Level 3.8, Chloride Level 112H, Carbon Dioxide Level 25, Anion Gap 13, Blood Urea Nitrogen 32H, Creatinine 2.1H, Estimat Glomerular Filtration Rate , Glucose Level 116H, Uric Acid 4.6, Calcium Level 9.9, Phosphorus Level 3.8, Magnesium Level 2.3, Total Bilirubin 1.7H, Direct Bilirubin 0.8H, Aspartate Amino Transf (AST/SGOT) 48H, Alanine Aminotransferase (ALT/SGPT) 55, Alkaline Phosphatase 78, Troponin I 0.068H, Pro-B-Type Natriuretic Peptide 2001H, Total Protein 7.4, Albumin 2.7L, Globulin 4.7, Albumin/Globulin Ratio 0.6L, Hepatitis A IgM Antibody [Pending], Hepatitis B Surface Antigen [Pending], Hepatitis B Core IgM Antibody [Pending], Hepatitis C Antibody [Pending] Current Medications Medications (Trade) Dose Ordered Sig/Lorena Route PRN Reason Start Time Stop Time Status Last Admin Dose Admin Acetaminophen (Tylenol) 650 mg Q6H PRN ORAL Mild Pain/Temp > 100.0 03/14/18 10:10 04/07/18 10:09 Albuterol/ Ipratropium (Albuterol/ Ipratropium) 3 ml Q6HRT HHN 03/14/18 13:00 03/15/18 18:59 03/15/18 13:00 Amlodipine Besylate (Norvasc) 5 mg DAILY ORAL 03/16/18 09:00 04/13/18 14:21 Aspirin (ASA) 81 mg DAILY ORAL 03/14/18 14:22 04/13/18 14:21 03/15/18 08:41 Diphenhydramine HCl (Benadryl) 25 mg Q6H PRN IM agitation 03/14/18 10:10 04/12/18 10:09 Docusate Sodium (Colace) 100 mg TID ORAL 03/14/18 13:00 04/08/18 08:59 03/15/18 12:28 Doxycycline Hyclate 100 mg/ Dextrose 100 ml @ 100 mls/hr Q12H IV 03/14/18 20:00 03/21/18 19:59 03/15/18 08:40 Famotidine (Pepcid) 20 mg BID ORAL 03/14/18 18:00 04/11/18 17:59 03/15/18 08:41 Finasteride (Proscar) 5 mg DAILY ORAL 03/15/18 09:00 04/09/18 08:59 03/15/18 08:41 Haloperidol Lactate (Haldol) 5 mg Q6H PRN IM Agitation 03/14/18 10:10 04/08/18 10:09 Heparin Sodium (Porcine) (Heparin 5000 units/ml) 5,000 units EVERY 12 HOURS SUBQ 03/14/18 21:00 04/07/18 08:59 03/14/18 21:22 Hydralazine HCl (Apresoline) 25 mg Q4H PRN ORAL bp over 160 syst 03/14/18 10:11 04/08/18 10:10 Lorazepam (Ativan 2mg/ml 1ml) 2 mg Q6H PRN IM For Anxiety 03/14/18 10:11 03/20/18 10:10 Magnesium Oxide (Mag-Ox 400mg) 400 mg THREE TIMES A DAY ORAL 03/14/18 13:00 04/12/18 17:59 03/15/18 12:29 Metoprolol Tartrate (Lopressor) 50 mg Q12HR ORAL 03/14/18 21:00 04/10/18 08:59 03/15/18 08:43 Nitroglycerin (Ntg) 1 patch Q24H TDERMAL 03/14/18 15:00 04/13/18 14:59 03/15/18 14:12 Olanzapine (ZyPREXA) 5 mg BEDTIME ORAL 03/14/18 21:00 04/12/18 20:59 03/14/18 21:21 Ondansetron HCl (Zofran) 4 mg Q6H PRN IVP Nausea & Vomiting 03/14/18 10:11 04/07/18 10:10 Piperacillin Sod/ Tazobactam Sod 3.375 gm/Dextrose 100 ml @ 25 mls/hr EVERY 12 HOURS IVPB 03/14/18 21:00 03/19/18 20:59 03/15/18 11:45 Polyethylene Glycol (Miralax) 17 gm BEDTIME ORAL 03/14/18 21:00 04/08/18 20:59 Sodium Chloride 1,000 ml @ 100 mls/hr Q10H ONCE IV 03/15/18 13:00 03/15/18 22:59 03/15/18 13:05 Tamsulosin HCl (Flomax) 0.4 mg BEDTIME ORAL 03/14/18 21:00 04/11/18 20:59 03/14/18 21:20 Temazepam (Restoril) 7.5 mg DAILYPRN PRN ORAL Insomnia 03/14/18 10:12 03/19/18 10:11 Gabe Willams MD Mar 15, 2018 16:50
--- NOTE | 2018-03-15 18:33 | NUR ---
CASE MANAGEMENT: DCPNOTE PATIENT REFERRED TO [facility] [phone] AND [facility] [phone] AWAITING BED AVAILABILITY Addendum: 03/16/18 at 1259 by AYSHA CARPIO UPON DISCHARGE PATIENT WILL TRANSFER TO [facility] [phone] [facility]ILL[facility] 7A
--- NOTE | 2018-03-15 18:49 | General Progress Note ---
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 last colon at [facility] 3 years ago, (+) polyps family unaware of patient health details at [facility] d/w son re renal mass on CT and abnormal LFT advised family 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 advised needs urology eval advised will need f/u at the [place] re liver abnormalities Objective Last 24 Hour Vital Signs Date Time Temp Pulse Resp B/P (MAP) Pulse Ox O2 Delivery O2 Flow Rate FiO2 03/15/18 16:00 97.4 92 20 135/74 (94) 96 03/15/18 16:00 101 03/15/18 14:12 144/71 03/15/18 13:11 79 20 99 Room Air 21 03/15/18 13:01 75 20 97 Room Air 21 03/15/18 12:00 80 03/15/18 12:00 97.0 77 20 145/70 (95) 97 03/15/18 09:00 Room Air 03/15/18 08:43 117 154/63 03/15/18 08:42 117 154/63 03/15/18 08:06 Room Air 21 03/15/18 08:00 97.5 117 20 154/63 (93) 97 03/15/18 08:00 111 03/15/18 07:57 98 Room Air 21 03/15/18 07:57 118 20 98 Room Air 21 03/15/18 07:57 Room Air 21 03/15/18 04:00 104 03/15/18 04:00 97.8 80 20 157/89 (111) 93 03/15/18 01:11 78 18 99 Room Air 21 03/15/18 01:02 72 18 98 Room Air 21 03/15/18 00:00 111 03/15/18 00:00 97.9 63 20 159/95 (116) 93 03/14/18 21:21 130 122/81 03/14/18 21:00 Room Air 03/14/18 20:00 97.5 75 20 146/85 (105) 92 03/14/18 20:00 142 03/14/18 19:52 87 18 99 Room Air 21 03/14/18 19:44 Room Air 21 03/14/18 19:44 97 Room Air 21 03/14/18 19:42 79 18 97 Room Air 21 Intake and Output 03/14/18 03/15/18 19:00 07:00 Output Total 400 ml Balance -400 ml Output Urine Total 400 ml Laboratory Tests 03/14/18 21:00: Urine Color Yellow, Urine Appearance Clear, Urine pH 5, Urine Specific [place] 1.010, Urine Protein 3+H, Urine Glucose (UA) Negative, Urine Ketones Negative, Urine Blood 3+H, Urine Nitrite Negative, Urine Bilirubin Negative, Urine Urobilinogen 4H, Urine Leukocyte Esterase Negative, Urine RBC 2-4H, Urine WBC 0- 2, Urine Squamous Epithelial Cells Few, Urine Bacteria Few, Urine Legionella Antigen [Pending] 03/15/18 09:25: White Blood Count 14.0H, Red Blood Count 3.23L, Hemoglobin 9.7L, Hematocrit 29.3L, Mean Corpuscular Volume 91, Mean Corpuscular Hemoglobin 29.9, Mean Corpuscular Hemoglobin Concent 33.0, Red Cell Distribution Width 14.1, Platelet Count 304, Mean Platelet Volume 4.9L, Neutrophils (%) (Auto) 78.2H, Lymphocytes (%) (Auto) 10.2L, Monocytes (%) (Auto) 9.4, Eosinophils (%) (Auto) 1.5, Basophils (%) (Auto) 0.6, Sodium Level 149H, Potassium Level 3.8, Chloride Level 112H, Carbon Dioxide Level 25, Anion Gap 13, Blood Urea Nitrogen 32H, Creatinine 2.1H, Estimat Glomerular Filtration Rate , Glucose Level 116H, Uric Acid 4.6, Calcium Level 9.9, Phosphorus Level 3.8, Magnesium Level 2.3, Total Bilirubin 1.7H, Direct Bilirubin 0.8H, Aspartate Amino Transf (AST/SGOT) 48H, Alanine Aminotransferase (ALT/SGPT) 55, Alkaline Phosphatase 78, Troponin I 0.068H, Pro-B-Type Natriuretic Peptide 2001H, Total Protein 7.4, Albumin 2.7L, Globulin 4.7, Albumin/Globulin Ratio 0.6L, Hepatitis A IgM Antibody [Pending], Hepatitis B Surface Antigen [Pending], Hepatitis B Core IgM Antibody [Pending], Hepatitis C Antibody [Pending] Height (Feet): 5 Height (Inches): 9.00 Weight (Pounds): 179 Objective Elderly AA man Calm and in no distress NCAT supple CTA RR Abd soft ND NT (L) hip bandage, (L) thigh edema Vickey Mirza MD Mar 15, 2018 18:49
--- NOTE | 2018-03-15 18:57 | NUR ---
per Jana WALLER pt got accepted at [facility], rm 7A.
--- NOTE | 2018-03-15 19:26 | NUR ---
HAND-OFF: Report given to EBN Cain.
--- NOTE | 2018-03-15 19:30 | NUR ---
NURSE NOTES: Received report from BEN Salvador. Pt is resting in bed. In no acute distress. IV line intact and patent. Bed in lowest position, call light within reach. Will continue plan of care.
[2018-03-15 20:00] VITALS: BP 144/71
[2018-03-15] MEDS: Miralax 17gm pkt ORAL SCH (21:11)
[2018-03-15] MEDS: Tamsulosin 0.4mg cap ORAL SCH (21:12)
--- NOTE | 2018-03-15 21:54 | General Progress Note ---
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 Status: stable, progressing Assessment/Plan Haldol Im prn the pts next of keen should makes decisions the pt lacks capacity zyprexa ativan Subjective Neurologic/Psychiatric: Reports: anxiety Allergies: Coded Allergies: NO KNOWN ALLERGIES (Verified Allergy, Unknown, 03/08/18) Subjective The pt is more alert and calmer. less agitated. Objective Last 24 Hour Vital Signs Date Time Temp Pulse Resp B/P (MAP) Pulse Ox O2 Delivery O2 Flow Rate FiO2 03/15/18 21:12 110 143/70 03/15/18 16:00 97.4 92 20 135/74 (94) 96 03/15/18 16:00 101 03/15/18 14:12 144/71 03/15/18 13:11 79 20 99 Room Air 03/15/18 13:01 75 20 97 Room Air 21 03/15/18 12:00 80 03/15/18 12:00 97.0 77 20 145/70 (95) 97 03/15/18 09:00 Room Air 03/15/18 08:43 117 154/63 03/15/18 08:42 117 154/63 03/15/18 08:06 Room Air 21 03/15/18 08:00 97.5 117 20 154/63 (93) 97 03/15/18 08:00 111 03/15/18 07:57 98 Room Air 21 03/15/18 07:57 118 20 98 Room Air 21 03/15/18 07:57 Room Air 21 03/15/18 04:00 104 03/15/18 04:00 97.8 80 20 157/89 (111) 93 03/15/18 01:11 78 18 99 Room Air 21 03/15/18 01:02 72 18 98 Room Air 21 03/15/18 00:00 111 03/15/18 00:00 97.9 63 20 159/95 (116) 93 Intake and Output 03/14/18 03/15/18 19:00 07:00 Output Total 400 ml Balance -400 ml Output Urine Total 400 ml Laboratory Tests 03/15/18 09:25: White Blood Count 14.0H, Red Blood Count 3.23L, Hemoglobin 9.7L, Hematocrit 29.3L, Mean Corpuscular Volume 91, Mean Corpuscular Hemoglobin 29.9, Mean Corpuscular Hemoglobin Concent 33.0, Red Cell Distribution Width 14.1, Platelet Count 304, Mean Platelet Volume 4.9L, Neutrophils (%) (Auto) 78.2H, Lymphocytes (%) (Auto) 10.2L, Monocytes (%) (Auto) 9.4, Eosinophils (%) (Auto) 1.5, Basophils (%) (Auto) 0.6, Sodium Level 149H, Potassium Level 3.8, Chloride Level 112H, Carbon Dioxide Level 25, Anion Gap 13, Blood Urea Nitrogen 32H, Creatinine 2.1H, Estimat Glomerular Filtration Rate , Glucose Level 116H, Uric Acid 4.6, Calcium Level 9.9, Phosphorus Level 3.8, Magnesium Level 2.3, Total Bilirubin 1.7H, Direct Bilirubin 0.8H, Aspartate Amino Transf (AST/SGOT) 48H, Alanine Aminotransferase (ALT/SGPT) 55, Alkaline Phosphatase 78, Troponin I 0.068H, Pro-B-Type Natriuretic Peptide 2001H, Total Protein 7.4, Albumin 2.7L, Globulin 4.7, Albumin/Globulin Ratio 0.6L, Hepatitis A IgM Antibody [Pending], Hepatitis B Surface Antigen [Pending], Hepatitis B Core IgM Antibody [Pending], Hepatitis C Antibody [Pending] Height (Feet): 5 Height (Inches): 9.00 Weight (Pounds): 179 General Appearance: alert, confused, agitated Domenic Solomon MD Mar 15, 2018 21:54
[2018-03-16] VITALS: BP 156/66
[2018-03-16 04:00] VITALS: BP 109/87
[2018-03-16 06:57] LABS: BASOPHILS % (AUTO) 0.7 % (0.0-2.0); EOSINOPHILS % (AUTO) 2.7 % (0.0-3.0); HEMATOCRIT 28.4 % (42.0-52.0); HEMOGLOBIN 9.4 G/DL (14.2-18.0); LYMPHOCYTES % (AUTO) 11.7 % (20.0-45.0); MEAN CORPUSCULAR VOLUME 90 FL (80-99); MONOCYTES % (AUTO) 8.3 % (1.0-10.0); NEUTROPHILS % (AUTO) 76.7 % (45.0-75.0); PLATELET COUNT 304 K/UL (150-450); RED BLOOD COUNT 3.14 M/UL (4.70-6.10); WHITE BLOOD COUNT 13.1 K/UL (4.8-10.8)
--- NOTE | 2018-03-16 07:05 | NUR ---
HAND-OFF: Report given to BEN Paredes.
--- NOTE | 2018-03-16 07:30 | NUR ---
NURSE NOTES: Received report from BEN Zarco. Patient in bed sleeping, bed in lowest position, side rails up x2, call light within reach. No active s/s cardiac, respiratory distress noticed at this time. HR 109, ST with BBB. Patient in room air. IV site asymptomatic, patent, intact. Will continue to monitor. Addendum: 03/16/18 at 0738 by VALARIE ORONA RN Received report from BEN Cain. Patient in bed sleeping, bed in lowest position, side rails up x2, call light within reach. No active s/s cardiac, respiratory distress noticed at this time. HR 109, ST with BBB. Patient in room air. IV site asymptomatic, patent, intact. Will continue to monitor.
[2018-03-16 07:38] LABS: ALANINE AMINOTRANSFERASE 53 U/L (12-78); ALBUMIN 2.6 G/DL (3.4-5.0); ALBUMIN/GLOBULIN RATIO 0.5 (1.0-2.7); ALKALINE PHOSPHATASE 77 U/L (46-116); ANION GAP 11 mmol/L (5-15); ASPARTATE AMINO TRANSFERASE 50 U/L (15-37); BILIRUBIN,TOTAL 1.4 MG/DL (0.2-1.0); BLOOD UREA NITROGEN 32 mg/dL (7-18); CALCIUM 9.8 MG/DL (8.5-10.1); CARBON DIOXIDE 25 MMOL/L (21-32); CHLORIDE 112 MMOL/L (98-107); CREATININE 1.9 MG/DL (0.55-1.30); PHOSPHORUS 2.8 MG/DL (2.5-4.9); POTASSIUM 3.6 MMOL/L (3.5-5.1); SODIUM 148 MMOL/L (136-145)
[2018-03-16 07:41] LABS: BILIRUBIN,DIRECT 0.5 MG/DL (0.0-0.3)
[2018-03-16 08:00] VITALS: BP 105/64
[2018-03-16] MEDS: Magnesium Oxide 400mg tab ORAL SCH ×2 (08:12→12:04)
[2018-03-16] MEDS: Aspirin Baby 81mg ORAL SCH (08:12)
[2018-03-16] MEDS: Docusate 100mg cap ORAL SCH ×2 (08:12→12:04)
[2018-03-16] MEDS: Metoprolol Tartrate 50mg tab ORAL SCH (08:42)
[2018-03-16] MEDS: Heparin 5000 units/ml inj SUBQ SCH (08:43)
[2018-03-16 12:00] VITALS: BP 151/63
--- NOTE | 2018-03-16 13:40 | Nephrology Progress Note ---
Assessment/Plan Problem List: (1) Acute on chronic renal failure Assessment: Cr lowering (2) Hip fracture Assessment: left- surgery 03/08 (3) Anemia Assessment: likely mixed ckd and blood loss (4) BPH (benign prostatic hyperplasia) (5) Hypertensive kidney disease Assessment in2E for CP and rise in Cr Acute on chronic renal failure Hip Surgery 03/08 - Post op day one today- left hip HTN BPH CKD Dementia Plan one liter 1/2 NS given campbell out add asa and norvasc Cardiac advise Mag and k supplement as needed IV Venofer as needed Alb bolus as needed monitor renal parameters per consultants Subjective ROS Limited/Unobtainable: No Constitutional: Reports: malaise Objective Objective Last 24 Hour Vital Signs Date Time Temp Pulse Resp B/P (MAP) Pulse Ox O2 Delivery O2 Flow Rate FiO2 03/16/18 09:00 Room Air 03/16/18 08:42 119 97/60 03/16/18 08:42 119 94/60 03/16/18 08:00 107 03/16/18 08:00 97.7 97 21 105/64 (78) 96 03/16/18 04:00 97.7 102 20 109/87 (94) 96 03/16/18 04:00 102 03/16/18 00:00 98.0 84 20 156/66 (96) 97 03/16/18 00:00 84 03/15/18 21:12 110 143/70 03/15/18 21:00 Room Air 03/15/18 20:00 97.5 101 20 144/71 (95) 96 03/15/18 20:00 101 03/15/18 16:00 97.4 92 20 135/74 (94) 96 03/15/18 16:00 101 03/15/18 14:12 144/71 Intake and Output 03/15/18 03/16/18 19:00 07:00 Intake Total 360 ml 1200 ml Output Total 600 ml 700 ml Balance -240 ml 500 ml Intake Oral 360 ml IV Total 1200 ml Output Urine Total 600 ml 700 ml Laboratory Tests 03/16/18 06:05: White Blood Count 13.1H, Red Blood Count 3.14L, Hemoglobin 9.4L, Hematocrit 28.4L, Mean Corpuscular Volume 90, Mean Corpuscular Hemoglobin 29.8, Mean Corpuscular Hemoglobin Concent 33.0, Red Cell Distribution Width 15.0H, Platelet Count 304, Mean Platelet Volume 4.9L, Neutrophils (%) (Auto) 76.7H, Lymphocytes (%) (Auto) 11.7L, Monocytes (%) (Auto) 8.3, Eosinophils (%) (Auto) 2.7, Basophils (%) (Auto) 0.7, Sodium Level 148H, Potassium Level 3.6, Chloride Level 112H, Carbon Dioxide Level 25, Anion Gap 11, Blood Urea Nitrogen 32H, Creatinine 1.9H, Estimat Glomerular Filtration Rate , Glucose Level 104, Uric Acid 4.3, Calcium Level 9.8, Phosphorus Level 2.8, Magnesium Level 2.3, Total Bilirubin 1.4H, Direct Bilirubin 0.5H, Aspartate Amino Transf (AST/SGOT) 50H, Alanine Aminotransferase (ALT/SGPT) 53, Alkaline Phosphatase 77, Troponin I 0.044, C-Reactive Protein, Quantitative 16.1H, Pro-B-Type Natriuretic Peptide 880H, Total Protein 7.4, Albumin 2.6L, Globulin 4.8, Albumin/Globulin Ratio 0.5L , Angiotensin Converting Enzyme [Pending], Anti-Nuclear Antibody Screen [Pending ], Anti-Mitochondrial Antibody [Pending], F-Actin IgG Antibody [Pending], Rapid Plasma Reagin [Pending], Cryptococcus Antigen [Pending], Cytomegalovirus DNA Qual (PCR) [Pending], Monoscreen [Pending], Histoplasma Mycelial Antibody [ Pending], Histoplasma Antibody w Mycelial Ag [Pending], Histoplasma Antibody with Yeast Ag [Pending], Toxoplasma IgM Antibody [Pending] Height (Feet): 5 Height (Inches): 9.00 Weight (Pounds): 179 General Appearance: no apparent distress Objective no change Ortiz Kinsey MD Mar 16, 2018 13:40
--- NOTE | 2018-03-16 14:00 | NUR ---
NURSE NOTES: Dr. Faria at nurse station, per MD patient is cleared from cardiology standpoint and is okay for discharge. Noted.
--- NOTE | 2018-03-16 14:01 | Internal Med Progress Note ---
Subjective Date of Service: Mar 16, 2018 Physician Name Fletcher Sexton Attending Physician Kaiser Price MD Current Medications Medications (Trade) Dose Ordered Sig/Lorena Route PRN Reason Start Time Stop Time Status Last Admin Dose Admin Acetaminophen (Tylenol) 650 mg Q6H PRN ORAL Mild Pain/Temp > 100.0 03/14/18 10:10 04/07/18 10:09 Aspirin (ASA) 81 mg DAILY ORAL 03/14/18 14:22 04/13/18 14:21 03/16/18 08:12 Diphenhydramine HCl (Benadryl) 25 mg Q6H PRN IM agitation 03/14/18 10:10 04/12/18 10:09 Docusate Sodium (Colace) 100 mg TID ORAL 03/14/18 13:00 04/08/18 08:59 03/16/18 12:04 Doxycycline Hyclate 100 mg/ Dextrose 100 ml @ 100 mls/hr Q12H IV 03/14/18 20:00 03/21/18 19:59 03/16/18 08:12 Famotidine (Pepcid) 20 mg BID ORAL 03/14/18 18:00 04/11/18 17:59 03/16/18 08:12 Finasteride (Proscar) 5 mg DAILY ORAL 03/15/18 09:00 04/09/18 08:59 03/16/18 08:12 Haloperidol Lactate (Haldol) 5 mg Q6H PRN IM Agitation 03/14/18 10:10 04/08/18 10:09 Heparin Sodium (Porcine) (Heparin 5000 units/ml) 5,000 units EVERY 12 HOURS SUBQ 03/14/18 21:00 04/07/18 08:59 03/14/18 21:22 Hydralazine HCl (Apresoline) 25 mg Q4H PRN ORAL bp over 160 syst 03/14/18 10:11 04/08/18 10:10 Lorazepam (Ativan 2mg/ml 1ml) 2 mg Q6H PRN IM For Anxiety 03/14/18 10:11 03/20/18 10:10 Magnesium Oxide (Mag-Ox 400mg) 400 mg THREE TIMES A DAY ORAL 03/14/18 13:00 04/12/18 17:59 03/16/18 12:04 Metoprolol Tartrate (Lopressor) 50 mg Q12HR ORAL 03/14/18 21:00 04/10/18 08:59 03/15/18 21:12 Nitroglycerin (Ntg) 1 patch Q24H TDERMAL 03/14/18 15:00 04/13/18 14:59 03/15/18 14:12 Olanzapine (ZyPREXA) 5 mg BEDTIME ORAL 03/14/18 21:00 04/12/18 20:59 03/15/18 21:11 Ondansetron HCl (Zofran) 4 mg Q6H PRN IVP Nausea & Vomiting 03/14/18 10:11 04/07/18 10:10 Piperacillin Sod/ Tazobactam Sod 3.375 gm/Dextrose 100 ml @ 25 mls/hr EVERY 12 HOURS IVPB 03/14/18 21:00 03/19/18 20:59 03/16/18 09:35 Polyethylene Glycol (Miralax) 17 gm BEDTIME ORAL 03/14/18 21:00 04/08/18 20:59 03/15/18 21:11 Tamsulosin HCl (Flomax) 0.4 mg BEDTIME ORAL 03/14/18 21:00 04/11/18 20:59 03/15/18 21:12 Temazepam (Restoril) 7.5 mg DAILYPRN PRN ORAL Insomnia 03/14/18 10:12 03/19/18 10:11 Allergies: Coded Allergies: NO KNOWN ALLERGIES (Verified Allergy, Unknown, 03/08/18) ROS Limited/Unobtainable: No Constitutional: Reports: no symptoms HEENT: Reports: no symptoms Cardiovascular: Reports: no symptoms Respiratory: Reports: no symptoms Gastrointestinal/Abdominal: Reports: no symptoms Genitourinary: Reports: no symptoms Neurologic/Psychiatric: Reports: no symptoms Subjective 87 YO M admitted with fracture left femur. S/P ORIF 03/08/18. Cover for Int Aashish-Dr Price Objective Last Vital Signs Date Time Temp Pulse Resp B/P (MAP) Pulse Ox O2 Delivery O2 Flow Rate FiO2 03/16/18 09:00 Room Air 03/16/18 08:42 119 97/60 03/16/18 08:00 97.7 21 96 03/15/18 13:11 21 03/13/18 07:59 2.0 Laboratory Tests Test 03/16/18 06:05 White Blood Count 13.1 K/UL (4.8-10.8) H Red Blood Count 3.14 M/UL (4.70-6.10) L Hemoglobin 9.4 G/DL (14.2-18.0) L Hematocrit 28.4 % (42.0-52.0) L Mean Corpuscular Volume 90 FL (80-99) Mean Corpuscular Hemoglobin 29.8 PG (27.0-31.0) Mean Corpuscular Hemoglobin Concent 33.0 G/DL (32.0-36.0) Red Cell Distribution Width 15.0 % (11.6-14.8) H Platelet Count 304 K/UL (150-450) Mean Platelet Volume 4.9 FL (6.5-10.1) L Neutrophils (%) (Auto) 76.7 % (45.0-75.0) H Lymphocytes (%) (Auto) 11.7 % (20.0-45.0) L Monocytes (%) (Auto) 8.3 % (1.0-10.0) Eosinophils (%) (Auto) 2.7 % (0.0-3.0) Basophils (%) (Auto) 0.7 % (0.0-2.0) Sodium Level 148 MMOL/L (136-145) H Potassium Level 3.6 MMOL/L (3.5-5.1) Chloride Level 112 MMOL/L (98-107) H Carbon Dioxide Level 25 MMOL/L (21-32) Anion Gap 11 mmol/L (5-15) Blood Urea Nitrogen 32 mg/dL (7-18) H Creatinine 1.9 MG/DL (0.55-1.30) H Estimat Glomerular Filtration Rate mL/min (>60) Glucose Level 104 MG/DL (74-106) Uric Acid 4.3 MG/DL (2.6-7.2) Calcium Level 9.8 MG/DL (8.5-10.1) Phosphorus Level 2.8 MG/DL (2.5-4.9) Magnesium Level 2.3 MG/DL (1.8-2.4) Total Bilirubin 1.4 MG/DL (0.2-1.0) H Direct Bilirubin 0.5 MG/DL (0.0-0.3) H Aspartate Amino Transf (AST/SGOT) 50 U/L (15-37) H Alanine Aminotransferase (ALT/SGPT) 53 U/L (12-78) Alkaline Phosphatase 77 U/L (46-116) Troponin I 0.044 ng/mL (0.000-0.056) C-Reactive Protein, Quantitative 16.1 mg/dL (0.00-0.90) H Pro-B-Type Natriuretic Peptide 880 pg/mL (0-125) H Total Protein 7.4 G/DL (6.4-8.2) Albumin 2.6 G/DL (3.4-5.0) L Globulin 4.8 g/dL Albumin/Globulin Ratio 0.5 (1.0-2.7) L Angiotensin Converting Enzyme Pending Anti-Nuclear Antibody Screen Pending Anti-Mitochondrial Antibody Pending F-Actin IgG Antibody Pending Rapid Plasma Reagin Pending Cryptococcus Antigen Pending Cytomegalovirus DNA Qual (PCR) Pending Monoscreen Pending Histoplasma Mycelial Antibody Pending Histoplasma Antibody w Mycelial Ag Pending Histoplasma Antibody with Yeast Ag Pending Toxoplasma IgM Antibody Pending Microbiology Date/Time Source Procedure Growth Status 03/14/18 20:55 Blood Blood Culture - Preliminary NO GROWTH AFTER 24 HOURS Resulted 03/14/18 20:45 Blood Blood Culture - Preliminary NO GROWTH AFTER 24 HOURS Resulted 03/14/18 21:00 Indwelling Cath Urine Culture - Final NO GROWTH AFTER 48 HOURS Complete Intake and Output 03/15/18 03/16/18 19:00 07:00 Intake Total 360 ml 1200 ml Output Total 600 ml 700 ml Balance -240 ml 500 ml Intake Oral 360 ml IV Total 1200 ml Output Urine Total 600 ml 700 ml Objective General Appearance: WD/WN, no apparent distress, alert EENT: PERRL/EOMI, normal ENT inspection, TMs normal Neck: non-tender, normal alignment, supple, normal inspection Cardiovascular: normal peripheral pulses, normal rate, regular rhythm, no gallop/murmur, no JVD Respiratory/Chest: chest wall non-tender, lungs clear, normal breath sounds, no respiratory distress, no accessory muscle use Abdomen: normal bowel sounds, non tender, soft, no organomegaly, no mass Extremities: normal range of motion, non-tender Neurologic: global 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 See ortho note. (3) BPH (benign prostatic hyperplasia) (4) Acute on chronic renal failure Assessment & Plan: See nephrology note. May require hemodialysis (5) Atrial fibrillation Assessment & Plan: Converted-see cardiology note. (6) Coffee ground emesis (7) Pneumonia Assessment & Plan: Atypical. Continue zosyn and doxycycline. See ID note. Status: stable Assessment/Plan D/C to Rehab center on [address] today Fletcher Sexton MD Mar 16, 2018 14:01
[2018-03-16] MEDS ORDERED: HYDRALAZINE HCL25 M1 ORAL (14:07)
[2018-03-16] MEDS ORDERED: HEPARIN SO5000 UNIT2 SUBQ (14:07)
[2018-03-16] MEDS ORDERED: FAMOTIDINE20 MG ORAL (14:07)
[2018-03-16] MEDS ORDERED: RESTORIL7.5 MG ORAL (14:07)
[2018-03-16] MEDS ORDERED: FLOMAX0.4 MG ORAL (14:07)
[2018-03-16] MEDS ORDERED: METOPROLOL TART50 MG ORAL (14:07)
[2018-03-16] MEDS ORDERED: ASPIRIN81 MG ORAL (14:07)
[2018-03-16] MEDS ORDERED: OLANZAPINE5 MG ORAL (14:07)
[2018-03-16] MEDS ORDERED: MAG-OX 400400 MG ORAL (14:07)
[2018-03-16] MEDS ORDERED: FINASTERIDE5 MG ORAL (14:07)
--- NOTE | 2018-03-16 14:09 | Cardiac Electrophysiology PN ---
Assessment/Plan Assessment/Plan 1. Status post mechanical fall with left hip fracture. No syncope 2. 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 EF of 60%. Tolerated the surgery well. 3. Atrial fib with RVR up to 145. Converted to SR. On Metoprolol 50 bid and aspirin. Hold off on anticoagulation. 4. Hypertension. On metoprolol 50 mg p.o. b.i.d. DC Norvasc 5. Renal failure with creatinine of 2.0 and hypernatremia. IV Fluid 1/2 NS at 75cc hr 6. Troponin leak levels flat likely due to renal failure and atrial fib with RVR. No CP on Metoprolol 7. Dementia DW RN Subjective Subjective Confused in NAD. No CP or SOB.DC planning in progress Objective Last 24 Hour Vital Signs Date Time Temp Pulse Resp B/P (MAP) Pulse Ox O2 Delivery O2 Flow Rate FiO2 03/16/18 09:00 Room Air 03/16/18 08:42 119 97/60 03/16/18 08:42 119 94/60 03/16/18 08:00 107 03/16/18 08:00 97.7 97 21 105/64 (78) 96 03/16/18 04:00 97.7 102 20 109/87 (94) 96 03/16/18 04:00 102 03/16/18 00:00 98.0 84 20 156/66 (96) 97 03/16/18 00:00 84 03/15/18 21:12 110 143/70 03/15/18 21:00 Room Air 03/15/18 20:00 97.5 101 20 144/71 (95) 96 03/15/18 20:00 101 03/15/18 16:00 97.4 92 20 135/74 (94) 96 03/15/18 16:00 101 03/15/18 14:12 144/71 Intake and Output 03/15/18 03/16/18 19:00 07:00 Intake Total 360 ml 1200 ml Output Total 600 ml 700 ml Balance -240 ml 500 ml Intake Oral 360 ml IV Total 1200 ml Output Urine Total 600 ml 700 ml Laboratory Tests Test 03/16/18 06:05 White Blood Count 13.1 K/UL (4.8-10.8) H Red Blood Count 3.14 M/UL (4.70-6.10) L Hemoglobin 9.4 G/DL (14.2-18.0) L Hematocrit 28.4 % (42.0-52.0) L Mean Corpuscular Volume 90 FL (80-99) Mean Corpuscular Hemoglobin 29.8 PG (27.0-31.0) Mean Corpuscular Hemoglobin Concent 33.0 G/DL (32.0-36.0) Red Cell Distribution Width 15.0 % (11.6-14.8) H Platelet Count 304 K/UL (150-450) Mean Platelet Volume 4.9 FL (6.5-10.1) L Neutrophils (%) (Auto) 76.7 % (45.0-75.0) H Lymphocytes (%) (Auto) 11.7 % (20.0-45.0) L Monocytes (%) (Auto) 8.3 % (1.0-10.0) Eosinophils (%) (Auto) 2.7 % (0.0-3.0) Basophils (%) (Auto) 0.7 % (0.0-2.0) Sodium Level 148 MMOL/L (136-145) H Potassium Level 3.6 MMOL/L (3.5-5.1) Chloride Level 112 MMOL/L (98-107) H Carbon Dioxide Level 25 MMOL/L (21-32) Anion Gap 11 mmol/L (5-15) Blood Urea Nitrogen 32 mg/dL (7-18) H Creatinine 1.9 MG/DL (0.55-1.30) H Estimat Glomerular Filtration Rate mL/min (>60) Glucose Level 104 MG/DL (74-106) Uric Acid 4.3 MG/DL (2.6-7.2) Calcium Level 9.8 MG/DL (8.5-10.1) Phosphorus Level 2.8 MG/DL (2.5-4.9) Magnesium Level 2.3 MG/DL (1.8-2.4) Total Bilirubin 1.4 MG/DL (0.2-1.0) H Direct Bilirubin 0.5 MG/DL (0.0-0.3) H Aspartate Amino Transf (AST/SGOT) 50 U/L (15-37) H Alanine Aminotransferase (ALT/SGPT) 53 U/L (12-78) Alkaline Phosphatase 77 U/L (46-116) Troponin I 0.044 ng/mL (0.000-0.056) C-Reactive Protein, Quantitative 16.1 mg/dL (0.00-0.90) H Pro-B-Type Natriuretic Peptide 880 pg/mL (0-125) H Total Protein 7.4 G/DL (6.4-8.2) Albumin 2.6 G/DL (3.4-5.0) L Globulin 4.8 g/dL Albumin/Globulin Ratio 0.5 (1.0-2.7) L Angiotensin Converting Enzyme Pending Anti-Nuclear Antibody Screen Pending Anti-Mitochondrial Antibody Pending F-Actin IgG Antibody Pending Rapid Plasma Reagin Pending Cryptococcus Antigen Pending Cytomegalovirus DNA Qual (PCR) Pending Monoscreen Pending Histoplasma Mycelial Antibody Pending Histoplasma Antibody w Mycelial Ag Pending Histoplasma Antibody with Yeast Ag Pending Toxoplasma IgM Antibody Pending Microbiology Date/Time Source Procedure Growth Status 03/14/18 20:55 Blood Blood Culture - Preliminary NO GROWTH AFTER 24 HOURS Resulted 03/14/18 20:45 Blood Blood Culture - Preliminary NO GROWTH AFTER 24 HOURS Resulted 03/14/18 21:00 Indwelling Cath Urine Culture - Final NO GROWTH AFTER 48 HOURS Complete Objective HEAD AND NECK: No JVD LUNGS: Clear. CARDIOVASCULAR: Regular S1 and S2 with no gallop or murmur. ABDOMEN: Soft. EXTREMITIES: S/P left hip surgery Med Faria MD Mar 16, 2018 14:09
[2018-03-16 14:22] VITALS: BP 138/72
[2018-03-16] MEDS: Nitroglycerin Patch 0.4mg TDERMAL SCH (14:22)
--- NOTE | 2018-03-16 15:26 | General Progress Note ---
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) - GB sludge on ultrasound - 1.6 cm [address]al mass on CT - OBS / encephalopathy Recommendations - H2B - Follow CBC and LFT - Check hepatitis serologies - Hepatitis A/B/C negative - Check CMV/RPR/[place]/TB Gold/ROC - pending - may benefit from eventual liver biopsy - Consider urology - Son and daughter aware that they need to f/u liver and kidney issues at [facility] after d/c Subjective Allergies: Coded Allergies: NO KNOWN ALLERGIES (Verified Allergy, Unknown, 03/08/18) Subjective Feels "OK" denies complaints Objective Last 24 Hour Vital Signs Date Time Temp Pulse Resp B/P (MAP) Pulse Ox O2 Delivery O2 Flow Rate FiO2 03/16/18 14:22 138/72 03/16/18 12:00 103 03/16/18 12:00 97.2 101 24 151/63 (92) 98 03/16/18 09:00 Room Air 03/16/18 08:42 119 97/60 03/16/18 08:42 119 94/60 03/16/18 08:00 107 03/16/18 08:00 97.7 97 21 105/64 (78) 96 03/16/18 04:00 97.7 102 20 109/87 (94) 96 03/16/18 04:00 102 03/16/18 00:00 98.0 84 20 156/66 (96) 97 03/16/18 00:00 84 03/15/18 21:12 110 143/70 03/15/18 21:00 Room Air 03/15/18 20:00 97.5 101 20 144/71 (95) 96 03/15/18 20:00 101 03/15/18 16:00 97.4 92 20 135/74 (94) 96 03/15/18 16:00 101 Intake and Output 03/15/18 03/16/18 19:00 07:00 Intake Total 360 ml 1200 ml Output Total 600 ml 700 ml Balance -240 ml 500 ml Intake Oral 360 ml IV Total 1200 ml Output Urine Total 600 ml 700 ml Laboratory Tests 03/16/18 06:05: White Blood Count 13.1H, Red Blood Count 3.14L, Hemoglobin 9.4L, Hematocrit 28.4L, Mean Corpuscular Volume 90, Mean Corpuscular Hemoglobin 29.8, Mean Corpuscular Hemoglobin Concent 33.0, Red Cell Distribution Width 15.0H, Platelet Count 304, Mean Platelet Volume 4.9L, Neutrophils (%) (Auto) 76.7H, Lymphocytes (%) (Auto) 11.7L, Monocytes (%) (Auto) 8.3, Eosinophils (%) (Auto) 2.7, Basophils (%) (Auto) 0.7, Sodium Level 148H, Potassium Level 3.6, Chloride Level 112H, Carbon Dioxide Level 25, Anion Gap 11, Blood Urea Nitrogen 32H, Creatinine 1.9H, Estimat Glomerular Filtration Rate , Glucose Level 104, Uric Acid 4.3, Calcium Level 9.8, Phosphorus Level 2.8, Magnesium Level 2.3, Total Bilirubin 1.4H, Direct Bilirubin 0.5H, Aspartate Amino Transf (AST/SGOT) 50H, Alanine Aminotransferase (ALT/SGPT) 53, Alkaline Phosphatase 77, Troponin I 0.044, C-Reactive Protein, Quantitative 16.1H, Pro-B-Type Natriuretic Peptide 880H, Total Protein 7.4, Albumin 2.6L, Globulin 4.8, Albumin/Globulin Ratio 0.5L , Angiotensin Converting Enzyme [Pending], Anti-Nuclear Antibody Screen [Pending ], Anti-Mitochondrial Antibody [Pending], F-Actin IgG Antibody [Pending], Rapid Plasma Reagin [Pending], Cryptococcus Antigen [Pending], Cytomegalovirus DNA Qual (PCR) [Pending], Monoscreen [Pending], Histoplasma Mycelial Antibody [ Pending], Histoplasma Antibody w Mycelial Ag [Pending], Histoplasma Antibody with Yeast Ag [Pending], Toxoplasma IgM Antibody [Pending] Height (Feet): 5 Height (Inches): 9.00 Weight (Pounds): 179 Objective Elderly AA man Calm and in no distress NCAT supple CTA RR, tachy Abd soft ND NT (L) hip bandage, (L) thigh edema - decreased c/t yesterday no leg edema Vickey Mirza MD Mar 16, 2018 15:26
--- NOTE | 2018-03-16 15:50 | Infectious Diseases Prog Note ---
Assessment/Plan Assessment/Plan ASSESSMENT AND PLAN: 1. Possible sepsis, pna, leukocytosis, hx of fevers, s/p ORIF - currently on zosyn and vancomycin - change to doxycycline and augmentin x 5 days - CT without abscess, chest x-ray stable, sc-nf, bc/uc negative - monitor labs and chest x-ray - stable ID standpoint - d/w RN about abx 2. The patient has anemia. 3. Elevated creatinine. 4. Chronic renal failure. 5. Hypertension. 6. Hypertensive kidney disease. 7. Arrhythmia risk with history of heart block and SVT. 8. No history of diabetes. 9. Status post fall and fracture of left hip, status post open reduction and internal fixation. 10. Possible Alzheimer's. 11. Dementia. 12. Hypoxia. 13. BPH. 14. Mechanical fall. 15. Rhabdomyolysis. 16. Coffee-ground emesis with gastritis seen on esophagogastroduodenoscopy. 17. History of hypoxia. 18. Memory loss. 19. Past medical history as noted. 20. No known allergies. 21. Social history is negative. 22. Family history is noncontributory. 23. MAR was noted. 24. Case was discussed with RN. 25. Case was discussed with Dr. Price. 26. Continue treatment per primary consultants. 27. Skin care protocol. Subjective Constitutional: Reports: fatigue; Denies: fever HEENT: Denies: congestion Respiratory: Denies: shortness of breath Cardiovascular: Denies: chest pain Gastrointestinal/Abdominal: Denies: nausea, vomiting, diarrhea Genitourinary: Reports: other - condom catheter Neurologic: Denies: headache Psychiatric: Denies: depression Skin: Denies: rash Hematologic: Denies: bleeding Musculoskeletal: Denies: pain Allergies: Coded Allergies: NO KNOWN ALLERGIES (Verified Allergy, Unknown, 03/08/18) Objective Vital Signs Last 24 Hour Vital Signs Date Time Temp Pulse Resp B/P (MAP) Pulse Ox O2 Delivery O2 Flow Rate FiO2 03/16/18 14:22 138/72 03/16/18 12:00 103 03/16/18 12:00 97.2 101 24 151/63 (92) 98 03/16/18 09:00 Room Air 03/16/18 08:42 119 97/60 03/16/18 08:42 119 94/60 12/29/18 08:00 107 03/16/18 08:00 97.7 97 21 105/64 (78) 96 03/16/18 04:00 97.7 102 20 109/87 (94) 96 03/16/18 04:00 102 03/16/18 00:00 98.0 84 20 156/66 (96) 97 03/16/18 00:00 84 03/15/18 21:12 110 143/70 03/15/18 21:00 Room Air 03/15/18 20:00 97.5 101 20 144/71 (95) 96 03/15/18 20:00 101 03/15/18 16:00 97.4 92 20 135/74 (94) 96 03/15/18 16:00 101 Height (Feet): 5 Height (Inches): 9.00 Weight (Pounds): 179 General Appearance: no acute distress HEENT: normocephalic, atraumatic, anicteric, mucous membranes moist Respiratory/Chest: rhonchi - bilaterally, other - fairly clear bilateral, no rales Cardiovascular: normal rate, regular rhythm, no gallop/murmur Abdomen: normal bowel sounds, soft, non tender, no organomegaly, non distended Genitourinary: other - condom catheter - urine clear Extremities: no cyanosis Skin: no rash Neurologic/Psychiatric: rounder and backer II-XII grossly normal, alert, oriented x 3, responsive Lymphatic: no neck adenopathy Musculoskeletal: no effusion Objective 03/14/18 - chest x-ray: Impression: Increased reticular markings most pronounced at the bases bilaterally. Findings may be due to a degree of chronic interstitial fibrosis/interstitial disease. Linear opacities at the bases thought related to subsegmental atelectasis. No new focal consolidation compared to prior exam. CT abdomen and pelvis: Impression: No acute abnormality 16 mm soft tissue attenuation mass in the right kidney. While possibly a proteinaceous cyst, a solid mass and therefore neoplasm is not excludable. Note that this is not clearly visible on recent ultrasound of 03/11/2018 but could've been obscured by overlying ribs. Dedicated renal sonography may be useful to better assess. This finding was discussed by phone with Dr. 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 Other findings as noted, including degenerative changes of the right hip, bilateral renal cysts The CT scanner at [facility] is accredited by the [employer] [place] and the scans are performed using protocols designed to limit radiation exposure to as low as reasonably achievable to attain images of sufficient resolution adequate for diagnostic evaluation. Microbiology Date/Time Source Procedure Growth Status 03/14/18 20:55 Blood Blood Culture - Preliminary NO GROWTH AFTER 24 HOURS Resulted 03/10/18 15:36 Sputum Expectorated Gram Stain - Final Complete 03/10/18 15:36 Sputum Expectorated Sputum Culture - Final NORMAL UPPER RESPIRATORY JUSTIN PRESENT Complete 03/14/18 21:00 Indwelling Cath Urine Culture - Final NO GROWTH AFTER 48 HOURS Complete Microbiology Date/Time Source Procedure Growth Status 03/14/18 20:55 Blood Blood Culture - Preliminary NO GROWTH AFTER 24 HOURS Resulted 03/14/18 20:45 Blood Blood Culture - Preliminary NO GROWTH AFTER 24 HOURS Resulted 03/14/18 21:00 Indwelling Cath Urine Culture - Final NO GROWTH AFTER 48 HOURS Complete Laboratory Tests Test 03/16/18 06:05 White Blood Count 13.1 K/UL (4.8-10.8) H Red Blood Count 3.14 M/UL (4.70-6.10) L Hemoglobin 9.4 G/DL (14.2-18.0) L Hematocrit 28.4 % (42.0-52.0) L Mean Corpuscular Volume 90 FL (80-99) Mean Corpuscular Hemoglobin 29.8 PG (27.0-31.0) Mean Corpuscular Hemoglobin Concent 33.0 G/DL (32.0-36.0) Red Cell Distribution Width 15.0 % (11.6-14.8) H Platelet Count 304 K/UL (150-450) Mean Platelet Volume 4.9 FL (6.5-10.1) L Neutrophils (%) (Auto) 76.7 % (45.0-75.0) H Lymphocytes (%) (Auto) 11.7 % (20.0-45.0) L Monocytes (%) (Auto) 8.3 % (1.0-10.0) Eosinophils (%) (Auto) 2.7 % (0.0-3.0) Basophils (%) (Auto) 0.7 % (0.0-2.0) Sodium Level 148 MMOL/L (136-145) H Potassium Level 3.6 MMOL/L (3.5-5.1) Chloride Level 112 MMOL/L (98-107) H Carbon Dioxide Level 25 MMOL/L (21-32) Anion Gap 11 mmol/L (5-15) Blood Urea Nitrogen 32 mg/dL (7-18) H Creatinine 1.9 MG/DL (0.55-1.30) H Estimat Glomerular Filtration Rate mL/min (>60) Glucose Level 104 MG/DL (74-106) Uric Acid 4.3 MG/DL (2.6-7.2) Calcium Level 9.8 MG/DL (8.5-10.1) Phosphorus Level 2.8 MG/DL (2.5-4.9) Magnesium Level 2.3 MG/DL (1.8-2.4) Total Bilirubin 1.4 MG/DL (0.2-1.0) H Direct Bilirubin 0.5 MG/DL (0.0-0.3) H Aspartate Amino Transf (AST/SGOT) 50 U/L (15-37) H Alanine Aminotransferase (ALT/SGPT) 53 U/L (12-78) Alkaline Phosphatase 77 U/L (46-116) Troponin I 0.044 ng/mL (0.000-0.056) C-Reactive Protein, Quantitative 16.1 mg/dL (0.00-0.90) H Pro-B-Type Natriuretic Peptide 880 pg/mL (0-125) H Total Protein 7.4 G/DL (6.4-8.2) Albumin 2.6 G/DL (3.4-5.0) L Globulin 4.8 g/dL Albumin/Globulin Ratio 0.5 (1.0-2.7) L Angiotensin Converting Enzyme Pending Anti-Nuclear Antibody Screen Pending Anti-Mitochondrial Antibody Pending F-Actin IgG Antibody Pending Rapid Plasma Reagin Pending Cryptococcus Antigen Pending Cytomegalovirus DNA Qual (PCR) Pending Monoscreen Pending Histoplasma Mycelial Antibody Pending Histoplasma Antibody w Mycelial Ag Pending Histoplasma Antibody with Yeast Ag Pending Toxoplasma IgM Antibody Pending Current Medications Medications (Trade) Dose Ordered Sig/[place] Route PRN Reason Start Time Stop Time Status Last Admin Dose Admin Acetaminophen (Tylenol) 650 mg Q6H PRN ORAL Mild Pain/Temp > 100.0 03/14/18 10:10 04/07/18 10:09 Aspirin (ASA) 81 mg DAILY ORAL 03/14/18 14:22 04/13/18 14:21 03/16/18 08:12 Diphenhydramine HCl (Benadryl) 25 mg Q6H PRN IM agitation 03/14/18 10:10 04/12/18 10:09 Docusate Sodium (Colace) 100 mg TID ORAL 03/14/18 13:00 04/08/18 08:59 03/16/18 12:04 Doxycycline Hyclate 100 mg/ Dextrose 100 ml @ 100 mls/hr Q12H IV 03/14/18 20:00 03/21/18 19:59 03/16/18 08:12 Famotidine (Pepcid) 20 mg BID ORAL 03/14/18 18:00 04/11/18 17:59 03/16/18 08:12 Finasteride (Proscar) 5 mg DAILY ORAL 03/15/18 09:00 04/09/18 08:59 03/16/18 08:12 Haloperidol Lactate (Haldol) 5 mg Q6H PRN IM Agitation 03/14/18 10:10 04/08/18 10:09 Heparin Sodium (Porcine) (Heparin 5000 units/ml) 5,000 units EVERY 12 HOURS SUBQ 03/14/18 21:00 04/07/18 08:59 03/14/18 21:22 Hydralazine HCl (Apresoline) 25 mg Q4H PRN ORAL bp over 160 syst 03/14/18 10:11 04/08/18 10:10 Lorazepam (Ativan 2mg/ml 1ml) 2 mg Q6H PRN IM For Anxiety 03/14/18 10:11 03/20/18 10:10 Magnesium Oxide (Mag-Ox 400mg) 400 mg THREE TIMES A DAY ORAL 03/14/18 13:00 04/12/18 17:59 03/16/18 12:04 Metoprolol Tartrate (Lopressor) 50 mg Q12HR ORAL 03/14/18 21:00 04/10/18 08:59 03/15/18 21:12 Nitroglycerin (Ntg) 1 patch Q24H TDERMAL 03/14/18 15:00 04/13/18 14:59 03/16/18 14:22 Olanzapine (ZyPREXA) 5 mg BEDTIME ORAL 03/14/18 21:00 04/12/18 20:59 03/15/18 21:11 Ondansetron HCl (Zofran) 4 mg Q6H PRN IVP Nausea & Vomiting 03/14/18 10:11 04/07/18 10:10 Piperacillin Sod/ Tazobactam Sod 3.375 gm/Dextrose 100 ml @ 25 mls/hr EVERY 12 HOURS IVPB 03/14/18 21:00 03/19/18 20:59 03/16/18 09:35 Polyethylene Glycol (Miralax) 17 gm BEDTIME ORAL 03/14/18 21:00 04/08/18 20:59 03/15/18 21:11 Tamsulosin HCl (Flomax) 0.4 mg BEDTIME ORAL 03/14/18 21:00 04/11/18 20:59 03/15/18 21:12 Temazepam (Restoril) 7.5 mg DAILYPRN PRN ORAL Insomnia 03/14/18 10:12 03/19/18 10:11 Ilya Bridges MD Mar 16, 2018 15:50
[2018-03-16] MEDS ORDERED: AUGMENTIN 500-1 EACH ORAL (16:01)
[2018-03-16] MEDS ORDERED: AUGMENTIN 500M500 MG ORAL (16:09)
[2018-03-16] MEDS ORDERED: DOXYCYCLINE MO100 MG ORAL ×3 (16:09→16:12)
--- NOTE | 2018-03-16 16:30 | NUR ---
NURSE NOTES: Called [facility] and gave report to BEN Maldonado. Reported to BEN Maldonado that patient will have 5 days of PO antibiotics. Also endorsed that patient will need CBC, BMP, and chest x-ray on Sunday. Noted. Will continue to monitor patient.
[2018-03-16] MEDS ORDERED: Tubing IV Secondary IV ONE (17:34)
--- NOTE | 2018-03-16 17:38 | NUR ---
NURSE NOTES: Per Dr. Bridges instructions left non-urgent message with Dr. Sexton to inform MD that patient will have a CBC, BMP, and chest x-ray on Sunday at [facility]. Noted.
--- NOTE | 2018-03-16 18:00 | NUR ---
NURSE NOTES: Dr. Sexton called back nurse station and made aware of CBC, BMP, chest x-ray at SNF on Sunday. acknowledged.
--- NOTE | 2018-03-16 18:09 | NUR ---
NURSE NOTES: Patient transferred to [facility] room #7C per Dr. Sexton. Given report to BEN Maldonado. Heart monitor returned to night monitor. Patient's ID removed and placed in shredder. IV removed. Patient transferred via ambulance in stable condition. Patient transferred with all belongings. Family members made aware.
--- NOTE | 2018-03-17 10:38 | Discharge Summary ---
Discharge Summary Discharge Summary _ DATE OF ADMISSION: 03/08/2018 DATE OF DISCHARGE: 03/16/2018 DISCHARGED BY: Dr. Price REASON FOR ADMISSION: 87 years old male with past medical history of hypertension, chronic kidney disease, BPH, presented initially to [facility] , status post fall resulting in left hip injury. Patient reported mechanical fall: while walking downstairs he lost his balance and fell on his left hip. He denied head trauma or loss of consciousness. He denied any seizure activity. Patient was not able to bear weight on his left lower extremity and complained of the left leg deformity and pain, worsening with position change. Shortly after initial evaluation in [facility] , tylorw as diagnsoed with left hip fracture and was transferred to [facility] for insurance purposes for surgical intervention. CONSULTANTS: on car supervisor Dr. Denny pulmonary ID specialist GI specialist Dr. Krause instructor adjunct surgical technician Dr. Kinsey ortho surgery Dr. Ingram psychiatrist HOSPITAL COURSE: Patient admitted to medical surgical floor. Cardiology and surgery consults were requested along with nephrology consult. Patient started on DVT prophylaxis. Pain management was addressed. Patient was on IV hydration. EKG revealed sinus rhythm with right bundle branch block and left anterior fascicular block. Echocardiogram revealed preserved ejection fraction 70-75% with mild left ventricular hypertrophy. No evidence of pericardial effusion. No evidence of wall motion abnormality. Right ventricular systolic pressure of 34. Initial troponin was negative. No further cardiac intervention was necessary at this time as patient had no prior history of coronary artery disease or congestive heart failure. Patient was cleared for surgery. Patient subsequently undergone on 03/08 open reduction and internal fixation of left comminuted intertrochanteric femur fracture Pain management was addressed, and pain was controlled. DVT prophylaxis provided. Bowel regimen instituted. Renal parameters and electrolytes were closely monitored. Electrolytes were corrected as needed. Nephrotoxics were avoided. Truck Sales Manager followed. Patient noted to have rise in creatinine postoperatively. Per instructor adjunct surgical technician patient had acute on chronic renal failure. Patient received additional IV hydration. Dowell catheter was discontinued. Albumin boluses provided as needed. Prior to discharge BUN 32 creatinine 1.9 Patient demonstrated atrial fibrillation with rapid ventricular response, spontaneously converted to sinus rhythm. Patient noted to have an elevated troponin. 0.137 and 0.068. Last troponin negative. Per on car supervisor, levels of elevation were flat and minimal, likely troponin leak due to renal failure and atrial fibrillation with rapid ventricular response. No chest pain. Patient was on beta-raiza . Patient started on antiplatelet therapy with aspirin. Lipid panel was stable. Blood pressure was managed with calcium channel raiza and beta-raiza and remained stable. Bell Captain followed. Patient had postoperative hypoxemia. Venous duplex bilateral lower extremity revealed no evidence of acute DVT. DVT prophylaxis continued. Incentive spirometry was encouraged every hour while in the bed. Patient was mobilized and working with physical therapy. Fall precaution maintained. Supplemental oxygen provided as needed to keep pulse oximetry above 92%. Pulmonary toilet provided [id number] and as needed with DuoNeb. Initial CXR revealed bilateral basilar reticular interstitial disease, acuity indeterminant, possibly reflecting t chronic interstitial fibrosis or acute infiltrates. CT of the chest revealed patchy consolidation in the right lower lobe with reticular interstitial infiltrate in the dependent portion of the right upper and middle lobes and left lower lobe, concerning for pneumonia. No evidence of abscess. Small layering right pleural effusion noted. Per high school library media specialist, patient likely had aspiration pneumonia . Patient started on empiric antibiotics as per ID specialist recommendations. Patient demonstrated persistent leukocytosis with low grade fevers. Blood cultures were negative. Urine culture initially showed mixed gram- positive organism, but repeated urine cultures were negative. Sputum culture was negative. ID specialist recommended to complete antibiotic treatment with oral doxycycline and Augmentin for 5 additional days upon discharge. Fever resolved. Leukocytosis trending down -13.1. Pulse oximetry stable on room air. Bed side swallow evaluation revealed evidence of dysphagia and high aspiration risk. Diet provided as per speech therapist recommendation with strict aspiration/ reflux precaution. Hemoglobin and hematocrit were closely monitored with goal to keep hemoglobin above 7. Patient undergone transfusion of 1 unit of packed red blood cells. Hemoglobin and hematocrit remained at baseline prior to discharge. Anemia work up was consistent with anemia of chronic disease . Stool for occult blood was positive. GI seen and evaluated the patient. Patient undergone upper endoscopy with biopsy which revealed diffuse gastritis ,suspicious for portal hypertensive gastropathy and one inflammatory- looking gastric polyp , status post removal. Pathology of stomach antrum revealed Helicobacter pylori gastritis , and pathology of gastric polyp revealed hyperplastic polyp positive for Helicobacter. Patient was on PPI. Patient undergone abdominal ultrasound which revealed gallbladder with sludge, but was negative for biliary ductal dilatation. Liver demonstrated normal echogenicity and no focal abnormality. Abdominal /pelvis CT showed evidence of old granulomatous disease in the left lung, liver and spleen. 3 mm soft tissue mass in the right kidney ,possible cyst ,however solid mass and neoplasm not excluded. Patient will be started on treatment for H. pylori at the facility. Hepatitis panel was negative. RPR nonreactive. Serology for Cryptococci, CMV, Monoscreen, histoplasma, mycoplasma antibodies and titer, MELY screen , antimitochondrial antibody and F actin IgG antibody - all pending. Per GI specialist , patient may benefit from eventual liver biopsy. Patient will benefit from urology evaluation for findings of 1.6 cm renal mass on CT scan. GI specialist discussed findings on CT of the abdomen and pelvis with the patient's family. Per family , will follow up upon discharge with [facility] for further workup and management. Psychiatrist followed and diagnosed patient with encephalopathy due to toxin. Psychiatric medication regimen optimized as per psychiatrist. 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 DISCHARGE INSTRUCTIONS: Patient was discharged to the residential facility. Follow up with medical doctor at the facility. I have been assigned to dictate discharge summary for this account. I was not involved in the patient's management. Imani Bolton NP Mar 17, 2018 10:38
--- NOTE | 2018-03-17 18:29 | General Progress Note ---
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 Assessment/Plan Haldol Im prn the pts next of keen should makes decisions the pt lacks capacity zyprexa ativan Subjective Date patient seen: Mar 16, 2018 Neurologic/Psychiatric: Reports: anxiety Allergies: Coded Allergies: NO KNOWN ALLERGIES (Verified Allergy, Unknown, 03/08/18) Subjective The pt is more alert and calmer. less agitated. Objective Height (Feet): 5 Height (Inches): 9.00 Weight (Pounds): 179 Domenic Solomon MD Mar 17, 2018 18:29
== END 2018-03-16 18:06 | DRG 480 ==
LOC: 4E 03-08 02:00 → 3E 03-09 06:37 → 2E 03-09 22:45 → 2W 03-10 08:18 → 3E 03-12 15:00 → 2E 03-14 09:46
PROC: 0QS704Z Reposition Left Upper Femur with Internal Fixation Device, Open Approach (ICD-10-PCS; principal; 2018-03-08 18:15)
PROC: 0DB78ZX Excision of Stomach, Pylorus, Via Natural or Artificial Opening Endoscopic, Diagnostic (ICD-10-PCS; 2018-03-11)
PROC: 0DB68ZX Excision of Stomach, Via Natural or Artificial Opening Endoscopic, Diagnostic (ICD-10-PCS; 2018-03-11)
DX: S72.142A Displaced intertrochanteric fracture of left femur, initial encounter for closed fracture (principal); G93.41 Metabolic encephalopathy; J69.0 Pneumonitis due to inhalation of food and vomit; A41.9 Sepsis, unspecified organism; N17.9 Acute kidney failure, unspecified; I45.2 Bifascicular block; D62 Acute posthemorrhagic anemia; K92.2 Gastrointestinal hemorrhage, unspecified; K76.6 Portal hypertension; W10.8XXA Fall (on) (from) other stairs and steps, initial encounter; Y92.9 Unspecified place or not applicable; I48.91 Unspecified atrial fibrillation; I12.9 Hypertensive chronic kidney disease with stage 1 through stage 4 chronic kidney disease, or unspecified chronic kidney disease; N18.9 Chronic kidney disease, unspecified; N40.0 Benign prostatic hyperplasia without lower urinary tract symptoms; R09.02 Hypoxemia; G30.9 Alzheimer's disease, unspecified; F02.80 Dementia in other diseases classified elsewhere, unspecified severity, without behavioral disturbance, psychotic disturbance, mood disturbance, and anxiety; K29.70 Gastritis, unspecified, without bleeding; B96.81 Helicobacter pylori [H. pylori] as the cause of diseases classified elsewhere; K31.7 Polyp of stomach and duodenum; E87.8 Other disorders of electrolyte and fluid balance, not elsewhere classified; K31.89 Other diseases of stomach and duodenum; R13.10 Dysphagia, unspecified; K57.30 Diverticulosis of large intestine without perforation or abscess without bleeding
CPT/HCPCS: 36415; 36600; 71045; 71250; 73502; 74176; 76001; 76700; 80048; 80053; 80061; 80076; 81001; 81003; 82164; 82248; 82270; 82550; 82607; 82728; 82746; 82803; 82977; 83036; 83540; 83550; 83735; 83880; 84100; 84443; 84484; 84550; 85007; 85025; 85610; 85730; 86039; 86140; 86171; 86235; 86256; 86308; 86592; 86705; 86709; 86738; 86778; 86803; 86850; 86900; 86901; 86920; 87040; 87070; 87086; 87205; 87340; 87449; 87496; 93005; 93306; 93970; 94003; 94150; 94640; 94664; 94760; C9399; J2250; J2405; J3490; J7620; J8499

== ENCOUNTER 2018-03-25 09:31 | Emergency (ER) | payer MEDICARE, OTHER ==
[~2018-03-25] VITALS: Ht 182.9 cm; Wt 84.8 kg
[~2018-03-25 09:31] MED LIST: ASPIRIN81 MG ORAL; AUGMENTIN 500-1 EACH ORAL; AUGMENTIN 500M500 MG ORAL; DOXYCYCLINE MO100 MG ORAL; FAMOTIDINE20 MG ORAL; FINASTERIDE5 MG ORAL; FLOMAX0.4 MG ORAL; HEPARIN SO5000 UNIT2 SUBQ; HYDRALAZINE HCL25 M1 ORAL; MAG-OX 400400 MG ORAL; METOPROLOL TART50 MG ORAL; OLANZAPINE5 MG ORAL; RESTORIL7.5 MG ORAL
--- NOTE | 2018-03-25 09:32 | NUR ---
ED Nurse Note: patient from [facility]. alert and awake with some forgetfulness. ground level fall patient found by the bedside on the ground by the staff at [facility].
[2018-03-25 09:36] VITALS: BP 164/72
--- NOTE | 2018-03-25 09:59 | NUR ---
ED Nurse Note: patient going down for ct
[2018-03-25] MEDS ORDERED: Morphine Sulfate 4mg/ml Inj (IV/IM USE ONLY) IVP ONE (10:00)
--- NOTE | 2018-03-25 10:06 | NUR ---
ED Nurse Note: labs drawn and sent down to the lab
[2018-03-25 10:24] LABS: ANION GAP 7 mmol/L (5-15); BLOOD UREA NITROGEN 18 mg/dL (7-18); CALCIUM 9.6 MG/DL (8.5-10.1); CARBON DIOXIDE 28 MMOL/L (21-32); CHLORIDE 106 MMOL/L (98-107); CREATININE 1.5 MG/DL (0.55-1.30); POTASSIUM 3.8 MMOL/L (3.5-5.1); SODIUM 141 MMOL/L (136-145)
[2018-03-25 10:29] LABS: ALANINE AMINOTRANSFERASE 28 U/L (12-78); ALBUMIN 2.8 G/DL (3.4-5.0); ALBUMIN/GLOBULIN RATIO 0.5 (1.0-2.7); ALKALINE PHOSPHATASE 167 U/L (46-116); ASPARTATE AMINO TRANSFERASE 35 U/L (15-37); BILIRUBIN,TOTAL 0.7 MG/DL (0.2-1.0)
--- NOTE | 2018-03-25 10:30 | Diagnostic Imaging Report ---
Indication: Head pain, trauma, ground-level fall Technique: spiral acquisitions obtained through the brain. Angled axial and coronal 5 x 5 mm slices were reconstructed. No IV contrast utilized. Radiation dose was minimized using automated exposure control Total dose length product 2488 mGycm. CTDIvol(s) 70.38,70.38 mGy Comparison: none FINDINGS: No acute hemorrhage or edema. No mass effect or midline shift. There is age-related enlargement of the ventricles and extra axial CSF spaces. There is periventricular deep white matter ischemic change. Normal blake-white differentiation. Visualized orbits are unremarkable. Visualized sinuses are unremarkable. Intact calvarium. There is minimal periorbital soft tissue swelling. IMPRESSION: Chronic and age-related changes. Negative for acute intracranial bleed or mass effect The CT scanner at [facility] is accredited by the [employer] and the scans are performed using protocols designed to limit radiation exposure to as low as reasonably achievable to attain images of sufficient resolution adequate for diagnostic evaluation
[2018-03-25 10:34] LABS: INR 1.2 (0.9-1.1)
[2018-03-25 10:35] LABS: BASOPHILS % (AUTO) 1.1 % (0.0-2.0); EOSINOPHILS % (AUTO) 1.9 % (0.0-3.0); HEMATOCRIT 33.5 % (42.0-52.0); HEMOGLOBIN 10.7 G/DL (14.2-18.0); MEAN CORPUSCULAR VOLUME 90 FL (80-99); MONOCYTES % (AUTO) 8.7 % (1.0-10.0); NEUTROPHILS % (AUTO) 71.5 % (45.0-75.0); PLATELET COUNT 383 K/UL (150-450); RED BLOOD COUNT 3.74 M/UL (4.70-6.10); RED CELL DISTRIBUTION WIDTH 14.9 % (11.6-14.8); WHITE BLOOD COUNT 7.7 K/UL (4.8-10.8)
--- NOTE | 2018-03-25 10:40 | NUR ---
ED Nurse Note: patient went down for xray
--- NOTE | 2018-03-25 13:34 | NUR ---
ED Nurse Note: report given to Crystal nurse that pt is going back to the facility IV removed, ID band removed
[2018-03-25 13:39] VITALS: BP 164/72
--- NOTE | 2018-03-25 14:05 | Diagnostic Imaging Report ---
Indications: Pain, status post fall Technique: Two views of the left femur Comparison: 03/08/2018 intraoperative images Findings: Compression screw and long medullary lester are seen reducing a comminuted left hip intertrochanteric and subtrochanteric fracture. The alignment of the fragments and of the hardware appears similar to that demonstrated on the operative images. The hardware appears to be intact no evidence of pelvic fracture. No distal fracture demonstrated. There is mild degenerative joint narrowing of the superior joint space. The knee joint spaces appear preserved. There are vascular calcifications Impression: Posttraumatic and postsurgical changes of the left hip, appearing similar to intraoperative images at time of surgery on 03/08/2018. No definite acute reinjury Mild degenerative changes, as described
--- NOTE | 2018-03-25 14:09 | Diagnostic Imaging Report ---
Indication: Right hip pain Technique: 2 views of the right hip Comparison: none Findings: No acute fractures. No dislocations. The joint spaces are preserved. The bones are osteoporotic Impression: No acute process Note, however, that in elderly osteoporotic patients, nondisplaced hip and pelvic fractures can easily be occult. Consider cross-sectional imaging if there is high clinical suspicion Osteoporosis
--- NOTE | 2018-03-25 14:46 | Emergency Room Report ---
History of Present Illness General Chief Complaint: Lower Extremity Injury Source: Patient, EMS Present Illness HPI 87-year-old male presents ED for evaluation. Complaining of left hip pain status post fall. Found down at snf today. Unwitnessed. Patient denies LOC. Complaining of pain to his left hip. Sharp, 8 out of 10, nonradiating. States he just had surgery on this hip last month. Denies any other injuries. Denies any headache. Denies any neck pain. No other aggravating relieving factors. Denies any other associated symptoms Allergies: Coded Allergies: NO KNOWN ALLERGIES (Verified Allergy, Unknown, 03/08/18) Patient History Past Medical History: HTN Past Surgical History: other - s/p ORIF L femur Pertinent Family History: none Social History: Denies: smoking, alcohol use, drug use Immunizations: UTD Reviewed Nursing Documentation: PMH: Agreed; PSxH: Agreed Nursing Documentation-PMH Past Medical History: No History, Except For Hx Cardiac Problems: No - ANEMIA, BPH, HYPOXIA, CKD, DEMENTIA Hx Hypertension: Yes Hx Cancer: No Hx Gastrointestinal Problems: No Hx Neurological Problems: No Review of Systems All Other Systems: negative except mentioned in HPI Physical Exam Vital Signs Date Time Temp Pulse Resp B/P (MAP) Pulse Ox O2 Delivery O2 Flow Rate FiO2 03/25/18 09:20 98.1 75 18 165/67 100 Room Air Sp02 EP Interpretation: reviewed, normal General Appearance: alert, GCS 15, non-toxic, mild distress Head: normocephalic Eyes: bilateral eye normal inspection, bilateral eye PERRL ENT: normal ENT inspection Neck: normal inspection Respiratory: normal inspection Cardiovascular #1: normal inspection Gastrointestinal: normal inspection Rectal: black stool Genitourinary: no CVA tenderness Musculoskeletal: decreased range of motion, other - swelling over anterior L proximal thigh, tender - L hip Neurologic: alert, oriented x3, responsive, motor strength/tone normal, sensory intact, speech normal Psychiatric: normal inspection Skin: normal inspection Lymphatic: normal inspection Medical Decision Making Diagnostic Impression: Primary Impression: Hip pain Qualified Codes: M25.552 - Pain in left hip Additional Impressions: Fall Qualified Codes: W19.XXXA - Unspecified fall, initial encounter Renal insufficiency ER Course Hospital Course 87-year-old male presents to ED with L hip pain s/p fall. s/p femur surgery last month Differential diagnoses include: fracture, dislocation, contusion Clinical course Patient placed on stretcher. After initial history and physical I ordered labs , pain medication and imaging studies CT head unremarkable X-rays of left hip and femur show hardware in place. No acute fracture Right hip x-ray unremarkable I reviewed x-rays with Dr Ingram who performed the surgery last month. He agrees there is nothing acute. States that there is also a hematoma on the left proximal thigh which is been healing. He states it looks improved compared to previous discussed with PMD Dr Price. Agrees patient is safe for discharge i. I feel this is a highly complex case requiring extensive working including EKG/Rhythm strip, Xray/CT/US, Blood/urine lab work, repeat exams while in ED, and administration of strong opiates/narcotics for pain control, admission to hospital or close patient follow up. Diagnosis - hip pain, fall, renal insufficiency stable and discharged to SNF. f/u with PMD. return to ED if symptoms recur/ worsen. Labs Test 03/25/18 09:58 White Blood Count 7.7 K/UL (4.8-10.8) Red Blood Count 3.74 M/UL (4.70-6.10) Hemoglobin 10.7 G/DL (14.2-18.0) Hematocrit 33.5 % (42.0-52.0) Mean Corpuscular Volume 90 FL (80-99) Mean Corpuscular Hemoglobin 28.6 PG (27.0-31.0) Mean Corpuscular Hemoglobin Concent 32.0 G/DL (32.0-36.0) Red Cell Distribution Width 14.9 % (11.6-14.8) Platelet Count 383 K/UL (150-450) Mean Platelet Volume 5.0 FL (6.5-10.1) Neutrophils (%) (Auto) 71.5 % (45.0-75.0) Lymphocytes (%) (Auto) 17.0 % (20.0-45.0) Monocytes (%) (Auto) 8.7 % (1.0-10.0) Eosinophils (%) (Auto) 1.9 % (0.0-3.0) Basophils (%) (Auto) 1.1 % (0.0-2.0) Prothrombin Time 12.2 SEC (9.30-11.50) Prothromb Time International Ratio 1.2 (0.9-1.1) Activated Partial Thromboplast Time 25 SEC (23-33) Sodium Level 141 MMOL/L (136-145) Potassium Level 3.8 MMOL/L (3.5-5.1) Chloride Level 106 MMOL/L (98-107) Carbon Dioxide Level 28 MMOL/L (21-32) Anion Gap 7 mmol/L (5-15) Blood Urea Nitrogen 18 mg/dL (7-18) Creatinine 1.5 MG/DL (0.55-1.30) Estimat Glomerular Filtration Rate mL/min (>60) Glucose Level 122 MG/DL (74-106) Calcium Level 9.6 MG/DL (8.5-10.1) Total Bilirubin 0.7 MG/DL (0.2-1.0) Aspartate Amino Transf (AST/SGOT) 35 U/L (15-37) Alanine Aminotransferase (ALT/SGPT) 28 U/L (12-78) Alkaline Phosphatase 167 U/L (46-116) Total Protein 7.9 G/DL (6.4-8.2) Albumin 2.8 G/DL (3.4-5.0) Globulin 5.1 g/dL Albumin/Globulin Ratio 0.5 (1.0-2.7) Other X-Ray Diagnostic Results Other X-Ray Diagnostic Results #1: X-Ray ordered: L femur # of Views/Limited Vs Complete: 3 View Indication: Pain EP Interpretation: Yes Interpretation: no dislocation, no soft tissue swelling, no fractures, other - hardware in place Impression: No acute disease Electronically Signed by: Electronically signed by Baljeet Mccain MD Other X-Ray Diagnostic Results #2: X-Ray ordered: L hip # of Views/Limited Vs Complete: 2 View Indication: Pain EP Interpretation: Yes Interpretation: no dislocation, no soft tissue swelling, no fractures, other - hardware in place Impression: No acute disease Electronically Signed by: Electronically signed by Baljeet Mccain MD Other X-Ray Diagnostic Results #3: X-Ray ordered: R hip # of Views/Limited Vs Complete: 2 View Indication: Pain EP Interpretation: Yes Interpretation: no dislocation, no soft tissue swelling, no fractures Impression: No acute disease Electronically Signed by: Electronically signed by Baljeet Mccain MD CT/MRI/US Diagnostic Results CT/MRI/US Diagnostic Results : Imaging Test Ordered: CT Head Impression no acute process Last Vital Signs Date Time Temp Pulse Resp B/P (MAP) Pulse Ox O2 Delivery O2 Flow Rate FiO2 03/25/18 13:39 98.1 76 15 164/72 100 Room Air Status: improved Disposition: HOME, SELF-CARE Condition: Stable Patient Instructions: Hip Pain Baljeet Mccain MD Mar 25, 2018 14:46
--- NOTE | 2018-03-25 15:29 | Diagnostic Imaging Report ---
Indication: Left hip pain Technique: 2 views of the left hip Comparison: Intraoperative images from surgery 03/08/2018 Findings: Surgical hardware is seen reducing intertrochanteric and subtrochanteric comminuted fracture. Alignment of the hardware and fragments appears similar to the intraoperative images. The hardware appears intact. No evidence of pelvic fracture. There are vascular calcifications. Impression: Evidence of recent left hip surgery and trauma. Presence of displaced fracture fragments makes acute reinjury impossible to confidently exclude. However, the hardware is intact and alignment of the bone fragments appears similar to intraoperative images of 03/08/2018, so there is no definite evidence of acute reinjury Degenerative changes, as described
== END 2018-03-25 14:30 | disposition home or self-care (01) ==
LOC: EDBD 09:31 → EMR 10:35
DX: M25.552 Pain in left hip (principal); W19.XXXA Unspecified fall, initial encounter; Y92.129 Unspecified place in nursing home as the place of occurrence of the external cause; N28.9 Disorder of kidney and ureter, unspecified; I12.9 Hypertensive chronic kidney disease with stage 1 through stage 4 chronic kidney disease, or unspecified chronic kidney disease; N18.9 Chronic kidney disease, unspecified; F03.90 Unspecified dementia, unspecified severity, without behavioral disturbance, psychotic disturbance, mood disturbance, and anxiety
CPT/HCPCS: 36415; 70450; 73502; 73552; 80053; 85025; 85610; 85730; 96374; 99284; J2270

== ENCOUNTER 2018-04-04 10:19 | Inpatient (IN) | payer MEDICARE, OTHER ==
[~2018-04-04] VITALS: Ht 175.3 cm; Wt 71.7 kg
[2018-04-04 10:40] VITALS: BP 148/58
--- NOTE | 2018-04-04 10:40 | NUR ---
ED Nurse Note: Pt JAMI from [facility] rehab due to abscess on Lt upper thigh. Pt AAO x3-4. Pt reported that he fell around [place] time and injured Lt hip and had surgery. Abscess was noted for 3-4 days from today per patient. Pt c/o pain 4/10 and verbalized that he does not want anything for pain. Pt reported pain gets worse upon position change. Healed surgical site was noted on Lt lateral thigh without s/s of infection or complications. Skin intact and warm to touch. Addendum: 04/04/18 at 1309 by [email or web address] ED Nurse Note: Pt JAMI from [facility] rehab due to abscess on Lt upper thigh. Pt AAO x3-4. Pt reported that he fell around [place] time and injured Lt hip and had surgery. Visible abscess was noted and hard to touch and elevated. Pt reported that abscess has been noticed for 3-4 days from today. Pt c/o pain 4/10 and verbalized that he does not want anything for pain. Pt reported pain gets worse upon position change. Healed surgical site was noted on Lt lateral thigh without s/s of infection or complications. Skin intact and warm to touch.
[2018-04-04 11:09] LABS: ANION GAP 9 mmol/L (5-15); BLOOD UREA NITROGEN 22 mg/dL (7-18); CALCIUM 10.2 MG/DL (8.5-10.1); CARBON DIOXIDE 27 MMOL/L (21-32); CHLORIDE 107 MMOL/L (98-107); CREATININE 1.8 MG/DL (0.55-1.30); POTASSIUM 4.6 MMOL/L (3.5-5.1); SODIUM 143 MMOL/L (136-145)
[2018-04-04] MEDS ORDERED: NORCO 5-325 TA1 EACH ORAL (11:12)
[2018-04-04] MEDS ORDERED: ACETAMINOPHEN325 M1 ORAL (11:12)
[2018-04-04 11:15] LABS: ALANINE AMINOTRANSFERASE 10 U/L (12-78); ALBUMIN 2.9 G/DL (3.4-5.0); ALBUMIN/GLOBULIN RATIO 0.5 (1.0-2.7); ALKALINE PHOSPHATASE 173 U/L (46-116); ASPARTATE AMINO TRANSFERASE 27 U/L (15-37); BILIRUBIN,TOTAL 0.6 MG/DL (0.2-1.0)
--- NOTE | 2018-04-04 11:32 | NUR ---
ED Nurse Note: Recieved phone call from lab that previous blood samples were clott. New samples were obtained and sent to the lab.
[2018-04-04 11:34] LABS: BASOPHILS % (AUTO) 0.8 % (0.0-2.0); EOSINOPHILS % (AUTO) 4.8 % (0.0-3.0); HEMATOCRIT 40.2 % (42.0-52.0); HEMOGLOBIN 12.7 G/DL (14.2-18.0); LYMPHOCYTES % (AUTO) 23.3 % (20.0-45.0); MEAN CORPUSCULAR VOLUME 89 FL (80-99); MONOCYTES % (AUTO) 10.6 % (1.0-10.0); NEUTROPHILS % (AUTO) 60.6 % (45.0-75.0); PLATELET COUNT 196 K/UL (150-450); RED CELL DISTRIBUTION WIDTH 14.1 % (11.6-14.8); WHITE BLOOD COUNT 6.2 K/UL (4.8-10.8)
[2018-04-04 11:42] LABS: INR 1.2 (0.9-1.1)
--- NOTE | 2018-04-04 11:56 | NUR ---
ED Nurse Note: confirmed with MD that pt can eat. Pt and reported pt's diet sofe diet.
[2018-04-04 12:00] VITALS: BP 148/58
--- NOTE | 2018-04-04 12:21 | Diagnostic Imaging Report ---
Indication: Left thigh pain COMPARISON: 03/25/2018, 03/08/2018 Findings: 2 views of the left femur were obtained. There is no change compared to the last examination. Patient has had fracture of the intertrochanteric region of the left hip which was reduced by a dynamic hip screw and a long intramedullary lester with distal femoral interlocking screws. No new fractures are identified. Moderate displacement of the subtrochanteric femur which includes the lesser trochanter and moderate displacement of the greater trochanter are noted but these were seen back at the time that the the fractures were reduced surgically. The configuration is similar. IMPRESSION: Left proximal femur fracture surgically reduced in February. No new fracture identified.
--- NOTE | 2018-04-04 12:34 | NUR ---
ED Nurse Note: PT. GIVEN LUNCH TRAY
--- NOTE | 2018-04-04 12:53 | NUR ---
ED Nurse Note: no assigned room number yet at this time
--- NOTE | 2018-04-04 12:56 | Emergency Room Report ---
History of Present Illness General Chief Complaint: Skin Rash/Abscess Source: Patient, Medical Record, EMS Present Illness HPI This patient presents from a nursing home facility. There is concern about a protrusion on the left anterior thigh. The patient suffered a left hip fracture in February 2018. He underwent open reduction and internal fixation at that time. He has been at a nursing home facility ever since for rehabilitation. He complains of pain in the left hip. There is been no new injury or trauma. There are no other complaints. Allergies: Coded Allergies: NO KNOWN ALLERGIES (Verified Allergy, Unknown, 03/08/18) Patient History Past Medical History: see triage record, HTN, dementia, renal disease, other - Hx of UGI bleed Social History: Denies: smoking, alcohol use, drug use Reviewed Nursing Documentation: PMH: Agreed; PSxH: Agreed Nursing Documentation-PMH Past Medical History: No History, Except For Hx Cardiac Problems: No - ANEMIA, BPH, HYPOXIA, CKD, DEMENTIA Hx Hypertension: Yes Hx Cancer: No Hx Gastrointestinal Problems: No Hx Neurological Problems: No Review of Systems All Other Systems: negative except mentioned in HPI Physical Exam Vital Signs Date Time Temp Pulse Resp B/P (MAP) Pulse Ox O2 Delivery O2 Flow Rate FiO2 04/04/18 10:20 97.3 73 18 151/55 97 Room Air Sp02 EP Interpretation: reviewed, normal General Appearance: no apparent distress, alert, GCS 15, non-toxic Head: normocephalic, atraumatic Eyes: bilateral eye normal inspection, bilateral eye PERRL ENT: hearing grossly normal, normal pharynx, no angioedema, normal voice Neck: full range of motion, supple/symm/no masses Respiratory: chest non-tender, lungs clear, normal breath sounds, no respiratory distress, no retraction, no accessory muscle use, speaking full sentences Cardiovascular #1: regular rate, rhythm, no edema, systolic murmur Gastrointestinal: normal bowel sounds, non tender, soft, non-distended, no guarding, no rebound Rectal: deferred Musculoskeletal: normal range of motion, other - sharp protrusion in L. upper thigh with tenting of the skin and overyling erythema c/w sharp bony protrusion from fracture site. Neurologic: alert, oriented x3, responsive, motor strength/tone normal, sensory intact, speech normal Psychiatric: judgement/insight normal, mood/affect normal, no suicidal/ homicidal ideation Skin: warm/dry, well hydrated, other - See above in [facility] Medical Decision Making Diagnostic Impression: Primary Impression: Fracture site tenting skin of anterior thigh Additional Impression: Post-operative complication ER Course This patient has tenting of the skin on the left anterior thigh consistent with protrusion of the sharp fracture site at the left hip. A left femur x-ray was obtained which shows intact hardware. Likely this site will need to be revised surgically to prevent puncture through the skin and open surgical site. The patient was admitted for further evaluation and treatment by orthopedic surgery. Laboratory Tests Test 04/04/18 10:50 04/04/18 11:30 Sodium Level 143 MMOL/L (136-145) Potassium Level 4.6 MMOL/L (3.5-5.1) Chloride Level 107 MMOL/L (98-107) Carbon Dioxide Level 27 MMOL/L (21-32) Anion Gap 9 mmol/L (5-15) Blood Urea Nitrogen 22 mg/dL (7-18) H Creatinine 1.8 MG/DL (0.55-1.30) H Estimate Glomerular Filtration Rate mL/min (>60) Glucose Level 104 MG/DL (74-106) Calcium Level 10.2 MG/DL (8.5-10.1) H Total Bilirubin 0.6 MG/DL (0.2-1.0) Aspartate Amino Transferase (AST) 27 U/L (15-37) Alanine Aminotransferase (ALT) 10 U/L (12-78) L Alkaline Phosphatase 173 U/L (46-116) H Total Protein 8.3 G/DL (6.4-8.2) H Albumin 2.9 G/DL (3.4-5.0) L Globulin 5.4 g/dL Albumin/Globulin Ratio 0.5 (1.0-2.7) L White Blood Count 6.2 K/UL (4.8-10.8) Red Blood Count 4.50 M/UL (4.70-6.10) L Hemoglobin 12.7 G/DL (14.2-18.0) L Hematocrit 40.2 % (42.0-52.0) L Mean Corpuscular Volume 89 FL (80-99) Mean Corpuscular Hemoglobin 28.1 PG (27.0-31.0) Mean Corpuscular Hemoglobin Concent 31.5 G/DL (32.0-36.0) L Red Cell Distribution Width 14.1 % (11.6-14.8) Platelet Count 196 K/UL (150-450) Mean Platelet Volume 5.4 FL (6.5-10.1) L Neutrophils (%) (Auto) 60.6 % (45.0-75.0) Lymphocytes (%) (Auto) 23.3 % (20.0-45.0) Monocytes (%) (Auto) 10.6 % (1.0-10.0) H Eosinophils (%) (Auto) 4.8 % (0.0-3.0) H Basophils (%) (Auto) 0.8 % (0.0-2.0) Prothrombin Time 12.2 SEC (9.30-11.50) H Prothrombin Time INR 1.2 (0.9-1.1) H PTT 29 SEC (23-33) Last Vital Signs Date Time Temp Pulse Resp B/P (MAP) Pulse Ox O2 Delivery O2 Flow Rate FiO2 04/04/18 10:40 99.1 59 18 148/58 98 Room Air Disposition: ADMITTED INPATIENT Condition: Stable Referrals: Kaiser Price MD (PCP) Porsche Philip DO Apr 04, 2018 12:56
--- NOTE | 2018-04-04 13:03 | NUR ---
ED Nurse Note: Attempted to give report to BEN Billy in [place]. Nurse is not available at this moment. Will try again in 10 minutes.
[2018-04-04 13:13] VITALS: BP 145/82
--- NOTE | 2018-04-04 13:36 | NUR ---
ED Nurse Note: Report given to BEN Billy in [place]. CN also informed nurse that pt might be transferred to [facility] or back to assisted. Will wait for the update for now.
--- NOTE | 2018-04-04 14:11 | NUR ---
ED Nurse Note: Pt's advocate requested to transfer pt to [facility] in [place]. CN was informed and will try arrangement.
[2018-04-04] MEDS ORDERED: HYDROcodone/Acetamin 5/325 tab ORAL PRN (14:45)
[2018-04-04] MEDS ORDERED: Albuterol/Ipratropium 3ml neb HHN PRN (14:45)
[2018-04-04] MEDS ORDERED: Morphine Sulfate 4mg/ml Inj (IV USE ONLY) IVP PRN (14:45)
[2018-04-04] MEDS ORDERED: Nitroglycerin Subl 0.4mg tab SL PRN (14:45)
[2018-04-04] MEDS ORDERED: Miralax 17gm pkt ORAL PRN (14:45)
[2018-04-04] MEDS ORDERED: HydrALAZINE 25mg tab ORAL PRN (14:45)
--- NOTE | 2018-04-04 14:48 | Consultation ---
History of Present Illness General Date patient seen: Apr 04, 2018 Present Illness HPI 87 year old male with hx of HTN, Dementia, BPH with recent hip fracture [facility] with CC of protrusion on the left anterior thigh. The patient suffered a left hip fracture in February 2018. He underwent open reduction and internal fixation at that time. In ER he was diagnosed to have DVT and admitted for further treatment. Allergies: Coded Allergies: NO KNOWN ALLERGIES (Verified Allergy, Unknown, 03/08/18) Medication History Scheduled Amoxicillin/Clavulanate K (Amox-Clav 500-125 mg Tablet), 500 MG ORAL BID, ( Reported) Aspirin* (Aspirin*), 81 MG ORAL DAILY Doxycycline Monohydrate* (Doxycycline Monohydrate*), 100 MG ORAL TWICE A DAY, ( Reported) Famotidine (Famotidine), 20 MG ORAL BID Finasteride (Finasteride), 5 MG ORAL DAILY Heparin Sod (Porcine) (Heparin Sodium*), 5,000 UNITS SUBQ EVERY 12 HOURS Magnesium Oxide (Magnesium Oxide), 400 MG ORAL THREE TIMES A DAY Metoprolol Tartrate* (Metoprolol Tartrate*), 50 MG ORAL Q12HR Olanzapine (Olanzapine), 5 MG ORAL BEDTIME Tamsulosin HCl (Flomax), 0.4 MG ORAL BEDTIME Scheduled PRN Acetaminophen* (Acetaminophen 325MG Tablet*), 650 MG ORAL Q4H PRN for For Pain, (Reported) Hydralazine Hcl* (Hydralazine Hcl*), 25 MG ORAL Q4H PRN Hydrocodone Bit/Acetaminophen 5-325* ([place] 5-325*), 1 TAB ORAL Q6H PRN for For Pain, (Reported) Temazepam* (Restoril*), 7.5 MG ORAL DAILYPRN PRN Patient History Healthcare decision maker Resuscitation status Advanced Directive on File Past Medical/Surgical History Past Medical/Surgical History: (1) dementia with behavioral disturbance (2) Left displaced femoral neck fracture (3) BPH (benign prostatic hyperplasia) (4) Hypertension (5) Hip fracture (6) Atrial fibrillation Review of Systems All Other Systems: negative except mentioned in HPI Physical Exam General Appearance: cachetic Lines, tubes and drains: peripheral HEENT: normocephalic, atraumatic Neck: non-tender, normal alignment Respiratory/Chest: chest wall non-tender, lungs clear Breasts: no masses Cardiovascular/Chest: normal peripheral pulses, normal rate, no JVD Abdomen: normal bowel sounds Genitourinary/Rectal: normal genital exam Neurologic: manager developmental II-XII grossly normal Last 24 Hour Vital Signs Date Time Temp Pulse Resp B/P (MAP) Pulse Ox O2 Delivery O2 Flow Rate FiO2 04/04/18 13:13 99.0 68 18 145/82 98 Room Air 04/04/18 12:00 99.0 59 19 148/58 98 Room Air 04/04/18 10:40 99.1 59 18 148/58 98 Room Air 04/04/18 10:20 97.3 73 18 151/55 97 Room Air Laboratory Tests Test 04/04/18 10:50 04/04/18 11:30 Sodium Level 143 MMOL/L (136-145) Potassium Level 4.6 MMOL/L (3.5-5.1) Chloride Level 107 MMOL/L (98-107) Carbon Dioxide Level 27 MMOL/L (21-32) Anion Gap 9 mmol/L (5-15) Blood Urea Nitrogen 22 mg/dL (7-18) H Creatinine 1.8 MG/DL (0.55-1.30) H Estimat Glomerular Filtration Rate mL/min (>60) Glucose Level 104 MG/DL (74-106) Calcium Level 10.2 MG/DL (8.5-10.1) H Total Bilirubin 0.6 MG/DL (0.2-1.0) Aspartate Amino Transf (AST/SGOT) 27 U/L (15-37) Alanine Aminotransferase (ALT/SGPT) 10 U/L (12-78) L Alkaline Phosphatase 173 U/L (46-116) H Total Protein 8.3 G/DL (6.4-8.2) H Albumin 2.9 G/DL (3.4-5.0) L Globulin 5.4 g/dL Albumin/Globulin Ratio 0.5 (1.0-2.7) L White Blood Count 6.2 K/UL (4.8-10.8) Red Blood Count 4.50 M/UL (4.70-6.10) L Hemoglobin 12.7 G/DL (14.2-18.0) L Hematocrit 40.2 % (42.0-52.0) L Mean Corpuscular Volume 89 FL (80-99) Mean Corpuscular Hemoglobin 28.1 PG (27.0-31.0) Mean Corpuscular Hemoglobin Concent 31.5 G/DL (32.0-36.0) L Red Cell Distribution Width 14.1 % (11.6-14.8) Platelet Count 196 K/UL (150-450) Mean Platelet Volume 5.4 FL (6.5-10.1) L Neutrophils (%) (Auto) 60.6 % (45.0-75.0) Lymphocytes (%) (Auto) 23.3 % (20.0-45.0) Monocytes (%) (Auto) 10.6 % (1.0-10.0) H Eosinophils (%) (Auto) 4.8 % (0.0-3.0) H Basophils (%) (Auto) 0.8 % (0.0-2.0) Prothrombin Time 12.2 SEC (9.30-11.50) H Prothromb Time International Ratio 1.2 (0.9-1.1) H Activated Partial Thromboplast Time 29 SEC (23-33) Microbiology Date/Time Source Procedure Growth Status 04/04/18 11:00 Rectum Received Height (Feet): 6 Height (Inches): 1.00 Weight (Pounds): 160 Medications Current Medications Medications (Trade) Dose Ordered Sig/Lorena Route PRN Reason Start Time Stop Time Status Last Admin Dose Admin Acetaminophen (Tylenol) 650 mg Q4H PRN ORAL fever 04/04/18 14:45 05/04/18 14:44 UNV Acetaminophen/ Hydrocodone Bitart ([place] 5/325) 1 tab Q6H PRN ORAL For Pain 04/04/18 14:45 04/11/18 14:44 UNV Albuterol/ Ipratropium (Albuterol/ Ipratropium) 3 ml EVERY 4 HOURS PRN HHN Shortness of Breath 04/04/18 14:45 04/09/18 14:44 UNV Cefepime HCl 2 gm/ Dextrose 110 ml @ 220 mls/hr EVERY 12 HOURS IV 04/04/18 21:00 04/11/18 20:59 UNV Dextrose (Dextrose 50%) 25 ml STAT PRN IV Hypoglycemia 04/04/18 14:45 05/04/18 14:44 UNV Dextrose (Dextrose 50%) 50 ml Q30M PRN IV Hypoglycemia 04/04/18 14:45 05/04/18 14:44 UNV Famotidine (Pepcid) 20 mg BID ORAL 04/04/18 18:00 05/04/18 17:59 UNV Finasteride (Proscar) 5 mg DAILY ORAL 04/05/18 09:00 05/05/18 08:59 UNV Heparin Sodium (Porcine) (Heparin 5000 units/ml) 5,000 units EVERY 12 HOURS SUBQ 04/04/18 21:00 05/04/18 20:59 UNV Hydralazine HCl (Apresoline) 25 mg Q4H PRN ORAL sbp > 160 04/04/18 14:45 05/04/18 14:44 UNV Metoprolol Tartrate (Lopressor) 50 mg Q12HR ORAL 04/04/18 21:00 05/04/18 20:59 UNV Morphine Sulfate (Morphine Sulfate) 2 mg EVERY 4 HOURS PRN IVP Moderate Pain (Pain Scale 4-6) 04/04/18 14:45 04/11/18 14:44 UNV Nitroglycerin (Ntg) 0.4 mg Every 5 Minutes PRN SL Prn Chest Pain 04/04/18 14:45 05/04/18 14:44 UNV Olanzapine (ZyPREXA) 5 mg BEDTIME ORAL 04/04/18 21:00 05/04/18 20:59 UNV Ondansetron HCl (Zofran) 4 mg Q6H PRN IVP Nausea & Vomiting 04/04/18 14:45 05/04/18 14:44 UNV Polyethylene Glycol (Miralax) 17 gm DAILYPRN PRN ORAL Constipation 04/04/18 14:45 05/04/18 14:44 UNV Tamsulosin HCl (Flomax) 0.4 mg BEDTIME ORAL 04/04/18 21:00 05/04/18 20:59 UNV Temazepam (Restoril) 15 mg HSPRN PRN ORAL Insomnia 04/04/18 14:45 04/11/18 14:44 UNV Vancomycin HCl 1 gm/Dextrose 275 ml @ 183.3 mls/ hr Q24H IV 04/05/18 00:30 04/10/18 00:29 UNV Assessment/Plan Problem List: (1) Femoral deep venous thrombosis ICD Codes: I82.419 - Acute embolism and thrombosis of unspecified femoral vein SNOMED: 685012956 (2) Post-operative complication ICD Codes: T81.9XXA - Unspecified complication of procedure, initial encounter SNOMED: 604661893 (3) Left displaced femoral neck fracture ICD Codes: S72.002A - Fracture of unspecified part of neck of left femur, initial encounter for closed fracture SNOMED: 2409189, 467016356 (4) BPH (benign prostatic hyperplasia) ICD Codes: N40.0 - Benign prostatic hyperplasia without lower urinary tract symptoms SNOMED: 560241293 (5) Anemia ICD Codes: D64.9 - Anemia, unspecified SNOMED: 213691318 (6) dementia with behavioral disturbance Assessment/Plan IV heparin symptomatic treatment pharmacy to follow pt/ptt check electrolytes psych to follow for dementia with behavioral disturbance Monitor BP Dillon Mchugh MD Apr 04, 2018 14:48
--- NOTE | 2018-04-04 15:46 | NUR ---
ED Nurse Note: [facility] is not available to take pt to treat the post surgery complication at this time and [facility] also was not able to take patient. Called [facility] and report given to BEN Rojas at [facility] that transportation will be here at 1630. Pt's Son Campbell Aldridge was informed about the pt's condition and that pt is going back to SNF. He said he will call Dr. Price and ask for more information why pt is going back to SNF.
--- NOTE | 2018-04-04 15:50 | Consultation ---
History of Present Illness General Date patient seen: Apr 04, 2018 Chief Complaint: Skin Rash/Abscess Present Illness HPI 87 y/o M with hx of HTN, Dementia, CKD, anemia, UGIB, SNF resident presented to ED on 04/04 with L anterior thigh protrusion and pain. Patient suffered a L hip fracture in Feb 2018 and underwent ORIF and sent to SNF for rehab. No new trauma/injury Allergies: Coded Allergies: NO KNOWN ALLERGIES (Verified Allergy, Unknown, 03/08/18) Medication History Scheduled Amoxicillin/Clavulanate K (Amox-Clav 500-125 mg Tablet), 500 MG ORAL BID, ( Reported) Aspirin* (Aspirin*), 81 MG ORAL DAILY Doxycycline Monohydrate* (Doxycycline Monohydrate*), 100 MG ORAL TWICE A DAY, ( Reported) Famotidine (Famotidine), 20 MG ORAL BID Finasteride (Finasteride), 5 MG ORAL DAILY Heparin Sod (Porcine) (Heparin Sodium*), 5,000 UNITS SUBQ EVERY 12 HOURS Magnesium Oxide (Magnesium Oxide), 400 MG ORAL THREE TIMES A DAY Metoprolol Tartrate* (Metoprolol Tartrate*), 50 MG ORAL Q12HR Olanzapine (Olanzapine), 5 MG ORAL BEDTIME Tamsulosin HCl (Flomax), 0.4 MG ORAL BEDTIME Scheduled PRN Acetaminophen* (Acetaminophen 325MG Tablet*), 650 MG ORAL Q4H PRN for For Pain, (Reported) Hydralazine Hcl* (Hydralazine Hcl*), 25 MG ORAL Q4H PRN Hydrocodone Bit/Acetaminophen 5-325* ([place] 5-325*), 1 TAB ORAL Q6H PRN for For Pain, (Reported) Temazepam* (Restoril*), 7.5 MG ORAL DAILYPRN PRN Patient History Healthcare decision maker Resuscitation status Advanced Directive on File Patient History Narrative Pmhx: as above Shx: no t/e/d Fhx: non contributory Review of Systems All Other Systems: negative except mentioned in HPI Physical Exam Physical Exam Narrative General Appearance: no apparent distress, alert, GCS 15, non-toxic Head: normocephalic, atraumatic Eyes: bilateral eye normal inspection, bilateral eye PERRL ENT: hearing grossly normal, normal pharynx, no angioedema, normal voice Neck: full range of motion, supple/symm/no masses Respiratory: chest non-tender, lungs clear, normal breath sounds, no respiratory distress, no retraction, no accessory muscle use, speaking full sentences Cardiovascular #1: regular rate, rhythm, no edema, systolic murmur Gastrointestinal: normal bowel sounds, non tender, soft, non-distended, no guarding, no rebound Rectal: deferred Musculoskeletal: normal range of motion, other - sharp protrusion in L. upper thigh with tenting of the skin and overyling erythema c/w sharp bony protrusion from fracture site. Neurologic: alert, oriented x3, responsive, motor strength/tone normal, sensory intact, speech normal Psychiatric: judgement/insight normal, mood/affect normal, no suicidal/ homicidal ideation Skin: warm/dry, well hydrated, other - See above in [facility] Last 24 Hour Vital Signs Date Time Temp Pulse Resp B/P (MAP) Pulse Ox O2 Delivery O2 Flow Rate FiO2 04/04/18 13:13 99.0 68 18 145/82 98 Room Air 04/04/18 12:00 99.0 59 19 148/58 98 Room Air 04/04/18 10:40 99.1 59 18 148/58 98 Room Air 04/04/18 10:20 97.3 73 18 151/55 97 Room Air Laboratory Tests Test 04/04/18 10:50 04/04/18 11:30 Sodium Level 143 MMOL/L (136-145) Potassium Level 4.6 MMOL/L (3.5-5.1) Chloride Level 107 MMOL/L (98-107) Carbon Dioxide Level 27 MMOL/L (21-32) Anion Gap 9 mmol/L (5-15) Blood Urea Nitrogen 22 mg/dL (7-18) H Creatinine 1.8 MG/DL (0.55-1.30) H Estimat Glomerular Filtration Rate mL/min (>60) Glucose Level 104 MG/DL (74-106) Calcium Level 10.2 MG/DL (8.5-10.1) H Total Bilirubin 0.6 MG/DL (0.2-1.0) Aspartate Amino Transf (AST/SGOT) 27 U/L (15-37) Alanine Aminotransferase (ALT/SGPT) 10 U/L (12-78) L Alkaline Phosphatase 173 U/L (46-116) H Total Protein 8.3 G/DL (6.4-8.2) H Albumin 2.9 G/DL (3.4-5.0) L Globulin 5.4 g/dL Albumin/Globulin Ratio 0.5 (1.0-2.7) L White Blood Count 6.2 K/UL (4.8-10.8) Red Blood Count 4.50 M/UL (4.70-6.10) L Hemoglobin 12.7 G/DL (14.2-18.0) L Hematocrit 40.2 % (42.0-52.0) L Mean Corpuscular Volume 89 FL (80-99) Mean Corpuscular Hemoglobin 28.1 PG (27.0-31.0) Mean Corpuscular Hemoglobin Concent 31.5 G/DL (32.0-36.0) L Red Cell Distribution Width 14.1 % (11.6-14.8) Platelet Count 196 K/UL (150-450) Mean Platelet Volume 5.4 FL (6.5-10.1) L Neutrophils (%) (Auto) 60.6 % (45.0-75.0) Lymphocytes (%) (Auto) 23.3 % (20.0-45.0) Monocytes (%) (Auto) 10.6 % (1.0-10.0) H Eosinophils (%) (Auto) 4.8 % (0.0-3.0) H Basophils (%) (Auto) 0.8 % (0.0-2.0) Prothrombin Time 12.2 SEC (9.30-11.50) H Prothromb Time International Ratio 1.2 (0.9-1.1) H Activated Partial Thromboplast Time 29 SEC (23-33) Microbiology Date/Time Source Procedure Growth Status 04/04/18 11:00 Rectum Received Height (Feet): 6 Height (Inches): 1.00 Weight (Pounds): 160 Medications Current Medications Medications (Trade) Dose Ordered Sig/Lorena Route PRN Reason Start Time Stop Time Status Last Admin Dose Admin Acetaminophen (Tylenol) 650 mg Q4H PRN ORAL fever 04/04/18 14:45 05/04/18 14:44 Acetaminophen/ Hydrocodone Bitart ([place] 5/325) 1 tab Q6H PRN ORAL For Pain 04/04/18 14:45 04/11/18 14:44 Albuterol/ Ipratropium (Albuterol/ Ipratropium) 3 ml Q4H PRN HHN Shortness of Breath 04/04/18 14:45 04/09/18 14:44 Cefepime HCl 2 gm/ Dextrose 110 ml @ 220 mls/hr ONCE IV 04/04/18 16:00 04/04/18 17:00 Cefepime HCl 2 gm/ Dextrose 110 ml @ 220 mls/hr Q24H IV 04/05/18 04:00 04/12/18 03:59 Dextrose (Dextrose 50%) 25 ml Q30M PRN IV Hypoglycemia 04/04/18 14:45 05/04/18 14:44 Dextrose (Dextrose 50%) 50 ml Q30M PRN IV Hypoglycemia 04/04/18 14:45 05/04/18 14:44 Famotidine (Pepcid) 20 mg BID ORAL 04/04/18 18:00 05/04/18 17:59 Finasteride (Proscar) 5 mg DAILY ORAL 04/05/18 09:00 05/05/18 08:59 Heparin Sodium (Porcine) (Heparin 5000 units/ml) 5,000 units EVERY 12 HOURS SUBQ 04/04/18 21:00 05/04/18 20:59 Hydralazine HCl (Apresoline) 25 mg Q4H PRN ORAL sbp > 160 04/04/18 14:45 05/04/18 14:44 Metoprolol Tartrate (Lopressor) 50 mg Q12HR ORAL 04/04/18 21:00 05/04/18 20:59 Morphine Sulfate (Morphine Sulfate) 2 mg Q4H PRN IVP Moderate Pain (Pain Scale 4-6) 04/04/18 14:45 04/11/18 14:44 Nitroglycerin (Ntg) 0.4 mg Q5M PRN SL Prn Chest Pain 04/04/18 14:45 05/04/18 14:44 Olanzapine (ZyPREXA) 5 mg BEDTIME ORAL 04/04/18 21:00 05/04/18 20:59 Ondansetron HCl (Zofran) 4 mg Q6H PRN IVP Nausea & Vomiting 04/04/18 14:45 05/04/18 14:44 Polyethylene Glycol (Miralax) 17 gm DAILYPRN PRN ORAL Constipation 04/04/18 14:45 05/04/18 14:44 Tamsulosin HCl (Flomax) 0.4 mg BEDTIME ORAL 04/04/18 21:00 05/04/18 20:59 Temazepam (Restoril) 15 mg HSPRN PRN ORAL Insomnia 04/04/18 14:45 04/11/18 14:44 Vancomycin HCl (Vanco rx to dose) 1 ea DAILY PRN MISC Per rx protocol 04/04/18 15:15 05/04/18 15:14 Vancomycin HCl/ Dextrose 250 ml @ 125 mls/hr ONCE IVPB 04/04/18 17:00 04/04/18 19:00 Assessment/Plan Assessment/Plan Abx: IV Vancomycin 02/02- Cefepime 02/02- Assessment: Post-op complication ORIF (protrusion through skin) - Xray femur: Left proximal femur fracture surgically reduced in February. No new fracture identified. Afebrile No leukocytosis HTN Dementia, hx of UGIB CKD Anemia Plan: -Continue IV Vancomycin and Cefepime for now -f/u cx -Monitor CBC/CMP, temperatures -ortho f/u- need transfer to [facility] for revision Thank you for this consultation. Will continue to follow along with you. Discussed with Le Gomez M.D. Apr 04, 2018 15:50
--- NOTE | 2018-04-04 16:12 | NUR ---
ED Nurse Note: Spoke to the son Campbell Aldridge again and informed that pt will stay in our hospital in [place] per his request and Dr. Price agreed with. Dr Price will make an arrangement with [facility] for treatment for the pt. The son agreed with it.
[2018-04-04] MEDS: Cefepime HCl 2 GM in D5W 110 ML IV SCH ×2 (16:32→17:40)
--- NOTE | 2018-04-04 16:34 | NUR ---
ED Nurse Note: Pt is AAO x1 and confused. Pt pulled out IV.
--- NOTE | 2018-04-04 16:40 | NUR ---
ED Nurse Note: MD was noted regarding pt's confusion and agitation. Non- behavioral restraints order received.
--- NOTE | 2018-04-04 17:35 | NUR ---
ED Nurse Note: Pt will be admitted to 410-2. Report given to Elena chargeback specialist nurse at CT.
[2018-04-04] MEDS ORDERED: Cefepime 2gm ONE (17:39)
[2018-04-04 18:00] VITALS: BP 145/82
--- NOTE | 2018-04-04 18:00 | NUR ---
ED Nurse Note: pt was transferred to [place] by orthopedic tech. Pt AAO x1 and agiatated. Non- behavioral restraints are on both wrists.
--- NOTE | 2018-04-04 18:20 | NUR ---
NURSE NOTES: Received pt from ED, no report from primary ED nurse, notes received from pocket creaser Ginger. Pt assisted to room 410-1, blateral soft wrist restraints applied and discussed with pt per order. Vitals obtain. Reviewed paper work send from ED, no belongings list included in papers. Pt only has a auctioneer automobile and hospital gown at bedside.
--- NOTE | 2018-04-04 19:02 | NUR ---
NURSE NOTES: Called ED to see if they have the belongings list, the will look at call back.
--- NOTE | 2018-04-04 19:30 | NUR ---
NURSE NOTES: Received patient in bed, soft bilateral wrist restraints are applied, patient is in no acute distress at this time. awake, alert and oriented x2, will continue to monitor for safety and comfort. Bed is in low position, locked and alarm is on, call light is within reach.
--- NOTE | 2018-04-04 19:32 | NUR ---
HAND-OFF: Report given to BEN Alfonso .
[2018-04-04] MEDS: Vancomycin 1500mg IVPB SCH ×2 (19:47→20:00)
--- NOTE | 2018-04-04 19:49 | NUR ---
NURSE NOTES: Pt admitted to 4th floor at 1820. IV Vanco due at 1700. Call pharmacy about Vanco, will reschedule for 1999. Scanned pt and Vanco bag given at 1949.
[2018-04-04 20:00] VITALS: BP 145/82
[2018-04-04] MEDS ORDERED: Vancomycin 1500mg IVPB SCH (20:00)
--- NOTE | 2018-04-04 20:18 | NUR ---
NURSE NOTES: Preliminary duplex was done at bedside, acute DVT femoral and poplletiel veins, results were communicated to Dr. Killian, CN was made aware as well.
[2018-04-04] MEDS: Metoprolol Tartrate 50mg tab ORAL SCH (20:41)
[2018-04-04] MEDS: Tamsulosin 0.4mg cap ORAL SCH (20:41)
[2018-04-04] MEDS ORDERED: Heparin 5000 units/ml inj SUBQ SCH (21:00)
[2018-04-04] MEDS ORDERED: Heparin 25,000u/D5W 500ml 500 ML IV SCH (21:15)
--- NOTE | 2018-04-04 21:29 | NUR ---
NURSE NOTES: Per Dr. Killian start patient on heparin drip, no bolus, communicated new order to Lanny pharmacist. Due to patient aggressive and combative behavior OK not to draw PTT at this time, PTT was drawn in ED earlier.
[2018-04-04] MEDS ORDERED: LORazepam Inj 2mg/ml 1ml IV PRN (21:30)
[2018-04-05] VITALS: BP 135/71
[2018-04-05] MEDS ORDERED: Vancomycin 1 GM in D5W 275 ML IV SCH (00:30)
[2018-04-05 04:00] VITALS: BP 126/68
[2018-04-05] MEDS: Cefepime HCl 2 GM in D5W 110 ML IV SCH (04:12)
[2018-04-05 05:42] LABS: EOSINOPHILS % (AUTO) 6.6 % (0.0-3.0); HEMATOCRIT 37.1 % (42.0-52.0); LYMPHOCYTES % (AUTO) 26.6 % (20.0-45.0); MEAN CORPUSCULAR VOLUME 89 FL (80-99); MONOCYTES % (AUTO) 11.6 % (1.0-10.0); NEUTROPHILS % (AUTO) 54.2 % (45.0-75.0); PLATELET COUNT 170 K/UL (150-450); RED BLOOD COUNT 4.18 M/UL (4.70-6.10); WHITE BLOOD COUNT 5.9 K/UL (4.8-10.8)
[2018-04-05 05:53] LABS: ALANINE AMINOTRANSFERASE 19 U/L (12-78); ALBUMIN 2.6 G/DL (3.4-5.0); ALBUMIN/GLOBULIN RATIO 0.5 (1.0-2.7); ALKALINE PHOSPHATASE 159 U/L (46-116); ANION GAP 8 mmol/L (5-15); ASPARTATE AMINO TRANSFERASE 27 U/L (15-37); BILIRUBIN,TOTAL 0.7 MG/DL (0.2-1.0); BLOOD UREA NITROGEN 21 mg/dL (7-18); CALCIUM 9.7 MG/DL (8.5-10.1); CARBON DIOXIDE 26 MMOL/L (21-32); CHLORIDE 108 MMOL/L (98-107); CREATININE 1.6 MG/DL (0.55-1.30); SODIUM 142 MMOL/L (136-145)
--- NOTE | 2018-04-05 06:25 | NUR ---
NURSE NOTES: Lab reported PTT >150, RN called pipeline, per pharmacist stop Heparin infusion for one hour, restart at 0730 with new rate of 14 units/kg/hour= 20.3 ml/hr. Redraw PTT in 6 hours, around 1330. Will rely information to am shift nurse.
[2018-04-05] MEDS ORDERED: Heparin 25,000u/D5W 500ml 500 ML IV SCH ×2 (07:20→14:45)
--- NOTE | 2018-04-05 07:25 | NUR ---
HAND-OFF: Report given to Igor CONTRERAS.
--- NOTE | 2018-04-05 07:34 | NUR ---
NURSE NOTES: pt asleep easily arousable , no distress. no sob. call light within reach. will monitor. sales secretary applied, no swelling in upper extremities able to move arm. will monitor.
[2018-04-05 07:42] VITALS: BP 140/70
[2018-04-05] MEDS: Metoprolol Tartrate 50mg tab ORAL SCH ×2 (07:57→21:27)
[2018-04-05 11:56] VITALS: BP 127/55
--- NOTE | 2018-04-05 13:17 | Consultation ---
History of Present Illness General Date patient seen: Apr 04, 2018 Chief Complaint: Skin Rash/Abscess Present Illness HPI 87 y/o M with hx of Dementia, anemia, UGIB, htn and pain who was admitted for medical stabilization. the sister was in the room. the pt has been agitated and is confused. the pt has waxing and waning of consciousness and is very forgetful / Unable to understand nor process the information. Allergies: Coded Allergies: NO KNOWN ALLERGIES (Verified Allergy, Unknown, 03/08/18) Medication History Scheduled Amoxicillin/Clavulanate K (Amox-Clav 500-125 mg Tablet), 500 MG ORAL BID, ( Reported) Aspirin* (Aspirin*), 81 MG ORAL DAILY Doxycycline Monohydrate* (Doxycycline Monohydrate*), 100 MG ORAL TWICE A DAY, ( Reported) Famotidine (Famotidine), 20 MG ORAL BID Finasteride (Finasteride), 5 MG ORAL DAILY Heparin Sod (Porcine) (Heparin Sodium*), 5,000 UNITS SUBQ EVERY 12 HOURS Magnesium Oxide (Magnesium Oxide), 400 MG ORAL THREE TIMES A DAY Metoprolol Tartrate* (Metoprolol Tartrate*), 50 MG ORAL Q12HR Olanzapine (Olanzapine), 5 MG ORAL BEDTIME Tamsulosin HCl (Flomax), 0.4 MG ORAL BEDTIME Scheduled PRN Acetaminophen* (Acetaminophen 325MG Tablet*), 650 MG ORAL Q4H PRN for For Pain, (Reported) Hydralazine Hcl* (Hydralazine Hcl*), 25 MG ORAL Q4H PRN Hydrocodone Bit/Acetaminophen 5-325* ([place] 5-325*), 1 TAB ORAL Q6H PRN for For Pain, (Reported) Temazepam* (Restoril*), 7.5 MG ORAL DAILYPRN PRN Patient History Limited by: medical condition History Provided By: Family Member, Medical Record, PMD Healthcare decision maker Resuscitation status Full Code Advanced Directive on File Past Medical/Surgical History Past Medical/Surgical History: (1) Anemia (2) Leukocytosis (3) Electrolyte imbalance (4) Coffee ground emesis (5) Upper GI bleed (6) Hip fracture (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 (8) Acute on chronic renal failure (9) BPH (benign prostatic hyperplasia) (10) Hypertensive kidney disease (11) Hypertension (12) Left displaced femoral neck fracture (13) Hypoxemia (14) Pneumonia (15) Atrial fibrillation (16) Fall (17) Renal insufficiency (18) Hip pain (19) Post-operative complication Review of Systems Psychiatric: Reports: anxiety, hallucinations Physical Exam General Appearance: alert, confused, severe distress, agitated, combative Last 24 Hour Vital Signs Date Time Temp Pulse Resp B/P (MAP) Pulse Ox O2 Delivery O2 Flow Rate FiO2 04/05/18 11:56 98.1 67 18 127/55 (79) 04/05/18 08:43 89 18 Room Air 21 04/05/18 08:06 Room Air 04/05/18 07:57 71 140/70 04/05/18 07:42 97.9 71 18 140/70 (93) 04/05/18 04:00 97.9 70 18 126/68 (87) 04/05/18 00:00 97.9 73 18 135/71 (92) 04/04/18 21:33 Room Air 04/04/18 21:00 Room Air 04/04/18 20:53 77 18 Room Air 21 04/04/18 20:41 80 123/68 04/04/18 20:00 99.0 68 18 145/82 (103) 98 04/04/18 19:29 Room Air 04/04/18 18:00 99.0 68 18 145/82 98 Room Air 04/04/18 18:00 98.0 71 18 144/85 99 Room Air Intake and Output 04/04/18 04/05/18 18:59 06:59 Intake Total 0 ml 182.889 ml Balance 0 ml 182.889 ml Intake Oral 0 ml IV Total 182.889 ml # Voids 2 # Bowel Movements 6 Laboratory Tests Test 04/05/18 05:00 White Blood Count 5.9 K/UL (4.8-10.8) Red Blood Count 4.18 M/UL (4.70-6.10) L Hemoglobin 12.0 G/DL (14.2-18.0) L Hematocrit 37.1 % (42.0-52.0) L Mean Corpuscular Volume 89 FL (80-99) Mean Corpuscular Hemoglobin 28.8 PG (27.0-31.0) Mean Corpuscular Hemoglobin Concent 32.4 G/DL (32.0-36.0) Red Cell Distribution Width 14.0 % (11.6-14.8) Platelet Count 170 K/UL (150-450) Mean Platelet Volume 5.5 FL (6.5-10.1) L Neutrophils (%) (Auto) 54.2 % (45.0-75.0) Lymphocytes (%) (Auto) 26.6 % (20.0-45.0) Monocytes (%) (Auto) 11.6 % (1.0-10.0) H Eosinophils (%) (Auto) 6.6 % (0.0-3.0) H Basophils (%) (Auto) 1.0 % (0.0-2.0) Activated Partial Thromboplast Time > 150 SEC (23-33) *H Sodium Level 142 MMOL/L (136-145) Potassium Level 4.0 MMOL/L (3.5-5.1) Chloride Level 108 MMOL/L (98-107) H Carbon Dioxide Level 26 MMOL/L (21-32) Anion Gap 8 mmol/L (5-15) Blood Urea Nitrogen 21 mg/dL (7-18) H Creatinine 1.6 MG/DL (0.55-1.30) H Estimat Glomerular Filtration Rate mL/min (>60) Glucose Level 100 MG/DL (74-106) Calcium Level 9.7 MG/DL (8.5-10.1) Total Bilirubin 0.7 MG/DL (0.2-1.0) Aspartate Amino Transf (AST/SGOT) 27 U/L (15-37) Alanine Aminotransferase (ALT/SGPT) 19 U/L (12-78) Alkaline Phosphatase 159 U/L (46-116) H Total Protein 7.8 G/DL (6.4-8.2) Albumin 2.6 G/DL (3.4-5.0) L Globulin 5.2 g/dL Albumin/Globulin Ratio 0.5 (1.0-2.7) L Height (Feet): 5 Height (Inches): 9.00 Weight (Pounds): 158 Medications Current Medications Medications (Trade) Dose Ordered Sig/[place] Route PRN Reason Start Time Stop Time Status Last Admin Dose Admin Acetaminophen (Tylenol) 650 mg Q4H PRN ORAL fever 04/04/18 14:45 05/04/18 14:44 Acetaminophen/ Hydrocodone Bitart ([place] 5/325) 1 tab Q6H PRN ORAL For Pain 04/04/18 14:45 04/11/18 14:44 Albuterol/ Ipratropium (Albuterol/ Ipratropium) 3 ml Q4H PRN HHN Shortness of Breath 04/04/18 14:45 04/09/18 14:44 Cefepime HCl 2 gm/ Dextrose 110 ml @ 220 mls/hr Q24H IV 04/05/18 04:00 04/12/18 03:59 04/05/18 04:12 Dextrose (Dextrose 50%) 25 ml Q30M PRN IV Hypoglycemia 04/04/18 14:45 05/04/18 14:44 Dextrose (Dextrose 50%) 50 ml Q30M PRN IV Hypoglycemia 04/04/18 14:45 05/04/18 14:44 Famotidine (Pepcid) 20 mg BID ORAL 04/04/18 18:00 05/04/18 17:59 04/05/18 07:57 Finasteride (Proscar) 5 mg DAILY ORAL 04/05/18 09:00 05/05/18 08:59 04/05/18 08:19 Heparin Sodium/ Dextrose 500 ml @ 20.321 mls/ hr ADJUST PER PROTOCOL IV 04/05/18 07:20 05/04/18 21:14 04/05/18 07:31 Hydralazine HCl (Apresoline) 25 mg Q4H PRN ORAL sbp > 160 04/04/18 14:45 05/04/18 14:44 Lorazepam (Ativan 2mg/ml 1ml) 1 mg Q6H PRN IV For Anxiety 04/04/18 21:30 04/11/18 21:29 04/05/18 00:26 Metoprolol Tartrate (Lopressor) 50 mg Q12HR ORAL 04/04/18 21:00 05/04/18 20:59 04/05/18 07:57 Morphine Sulfate (Morphine Sulfate) 2 mg Q4H PRN IVP Moderate Pain (Pain Scale 4-6) 04/04/18 14:45 04/11/18 14:44 Nitroglycerin (Ntg) 0.4 mg Q5M PRN SL Prn Chest Pain 04/04/18 14:45 05/04/18 14:44 Olanzapine (ZyPREXA) 5 mg BEDTIME ORAL 04/04/18 21:00 05/04/18 20:59 04/04/18 20:41 Olanzapine (ZyPREXA) 5 mg BEDTIME PRN ORAL agitation 04/05/18 21:00 05/05/18 20:59 Ondansetron HCl (Zofran) 4 mg Q6H PRN IVP Nausea & Vomiting 04/04/18 14:45 05/04/18 14:44 Polyethylene Glycol (Miralax) 17 gm DAILYPRN PRN ORAL Constipation 04/04/18 14:45 05/04/18 14:44 Tamsulosin HCl (Flomax) 0.4 mg BEDTIME ORAL 04/04/18 21:00 05/04/18 20:59 04/04/18 20:41 Temazepam (Restoril) 15 mg HSPRN PRN ORAL Insomnia 04/04/18 14:45 04/11/18 14:44 Vancomycin HCl (Vanco rx to dose) 1 ea DAILY PRN MISC Per rx protocol 04/04/18 15:15 05/04/18 15:14 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
--- NOTE | 2018-04-05 13:18 | General Progress Note ---
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 Status: stable Assessment/Plan zyprexa 5mg qhs syprexa 5mg q 6hr prn restraints as needed Subjective Neurologic/Psychiatric: Reports: anxiety Allergies: Coded Allergies: NO KNOWN ALLERGIES (Verified Allergy, Unknown, 03/08/18) Objective Last 24 Hour Vital Signs Date Time Temp Pulse Resp B/P (MAP) Pulse Ox O2 Delivery O2 Flow Rate FiO2 04/05/18 11:56 98.1 67 18 127/55 (79) 04/05/18 08:43 89 18 Room Air 21 04/05/18 08:06 Room Air 04/05/18 07:57 71 140/70 04/05/18 07:42 97.9 71 18 140/70 (93) 04/05/18 04:00 97.9 70 18 126/68 (87) 04/05/18 00:00 97.9 73 18 135/71 (92) 04/04/18 21:33 Room Air 04/04/18 21:00 Room Air 04/04/18 20:53 77 18 Room Air 21 04/04/18 20:41 80 123/68 04/04/18 20:00 99.0 68 18 145/82 (103) 98 04/04/18 19:29 Room Air 04/04/18 18:00 99.0 68 18 145/82 98 Room Air 04/04/18 18:00 98.0 71 18 144/85 99 Room Air Intake and Output 04/04/18 04/05/18 18:59 06:59 Intake Total 0 ml 182.889 ml Balance 0 ml 182.889 ml Intake Oral 0 ml IV Total 182.889 ml # Voids 2 # Bowel Movements 6 Laboratory Tests 04/05/18 05:00: White Blood Count 5.9, Red Blood Count 4.18L, Hemoglobin 12.0L, Hematocrit 37.1L , Mean Corpuscular Volume 89, Mean Corpuscular Hemoglobin 28.8, Mean Corpuscular Hemoglobin Concent 32.4, Red Cell Distribution Width 14.0, Platelet Count 170, Mean Platelet Volume 5.5L, Neutrophils (%) (Auto) 54.2, Lymphocytes ( %) (Auto) 26.6, Monocytes (%) (Auto) 11.6H, Eosinophils (%) (Auto) 6.6H, Basophils (%) (Auto) 1.0, Activated Partial Thromboplast Time > 150*H, Sodium Level 142, Potassium Level 4.0, Chloride Level 108H, Carbon Dioxide Level 26, Anion Gap 8, Blood Urea Nitrogen 21H, Creatinine 1.6H, Estimat Glomerular Filtration Rate , Glucose Level 100, Calcium Level 9.7, Total Bilirubin 0.7, Aspartate Amino Transf (AST/SGOT) 27, Alanine Aminotransferase (ALT/SGPT) 19, Alkaline Phosphatase 159H, Total Protein 7.8, Albumin 2.6L, Globulin 5.2, Albumin/Globulin Ratio 0.5L Height (Feet): 5 Height (Inches): 9.00 Weight (Pounds): 158 General Appearance: alert, confused, agitated Domenic Solomon MD Apr 05, 2018 13:18
--- NOTE | 2018-04-05 15:00 | Pulmonology Progress Note ---
Assessment/Plan Problems: (1) Femoral deep venous thrombosis (2) Post-operative complication (3) Left displaced femoral neck fracture (4) BPH (benign prostatic hyperplasia) (5) Anemia (6) dementia with behavioral disturbance Assessment/Plan looks comfortable on Heparin drip by pharmacy to follow pt/ptt symptomatic treatment needs to transfer to [facility] Subjective ROS Limited/Unobtainable: No Constitutional: Reports: no symptoms HEENT: Repors: no symptoms Respiratory: Reports: no symptoms Allergies: Coded Allergies: NO KNOWN ALLERGIES (Verified Allergy, Unknown, 03/08/18) Objective Last 24 Hour Vital Signs Date Time Temp Pulse Resp B/P (MAP) Pulse Ox O2 Delivery O2 Flow Rate FiO2 04/05/18 14:07 98.1 04/05/18 11:56 98.1 67 18 127/55 (79) 04/05/18 08:43 89 18 Room Air 21 04/05/18 08:06 Room Air 04/05/18 07:57 71 140/70 04/05/18 07:42 97.9 71 18 140/70 (93) 04/05/18 04:00 97.9 70 18 126/68 (87) 04/05/18 00:00 97.9 73 18 135/71 (92) 04/04/18 21:33 Room Air 04/04/18 21:00 Room Air 04/04/18 20:53 77 18 Room Air 21 04/04/18 20:41 80 123/68 04/04/18 20:00 99.0 68 18 145/82 (103) 98 04/04/18 19:29 Room Air 04/04/18 18:00 99.0 68 18 145/82 98 Room Air 04/04/18 18:00 98.0 71 18 144/85 99 Room Air Intake and Output 04/04/18 04/05/18 18:59 06:59 Intake Total 0 ml 182.889 ml Balance 0 ml 182.889 ml Intake Oral 0 ml IV Total 182.889 ml # Voids 2 # Bowel Movements 6 General Appearance: cachetic Respiratory/Chest: chest wall non-tender, lungs clear, chest wall tender Cardiovascular: normal rate, no JVD Abdomen: normal bowel sounds, soft, non tender Extremities: no cyanosis, no clubbing Skin: no rash Microbiology Date/Time Source Procedure Growth Status 04/04/18 11:00 Rectum Received Laboratory Tests 04/05/18 05:00: White Blood Count 5.9, Red Blood Count 4.18L, Hemoglobin 12.0L, Hematocrit 37.1L , Mean Corpuscular Volume 89, Mean Corpuscular Hemoglobin 28.8, Mean Corpuscular Hemoglobin Concent 32.4, Red Cell Distribution Width 14.0, Platelet Count 170, Mean Platelet Volume 5.5L, Neutrophils (%) (Auto) 54.2, Lymphocytes ( %) (Auto) 26.6, Monocytes (%) (Auto) 11.6H, Eosinophils (%) (Auto) 6.6H, Basophils (%) (Auto) 1.0, Activated Partial Thromboplast Time > 150*H, Sodium Level 142, Potassium Level 4.0, Chloride Level 108H, Carbon Dioxide Level 26, Anion Gap 8, Blood Urea Nitrogen 21H, Creatinine 1.6H, Estimat Glomerular Filtration Rate , Glucose Level 100, Calcium Level 9.7, Total Bilirubin 0.7, Aspartate Amino Transf (AST/SGOT) 27, Alanine Aminotransferase (ALT/SGPT) 19, Alkaline Phosphatase 159H, Total Protein 7.8, Albumin 2.6L, Globulin 5.2, Albumin/Globulin Ratio 0.5L 04/05/18 13:15: Activated Partial Thromboplast Time 106H Current Medications Medications (Trade) Dose Ordered Sig/[place]orena Route PRN Reason Start Time Stop Time Status Last Admin Dose Admin Acetaminophen (Tylenol) 650 mg Q4H PRN ORAL fever 04/04/18 14:45 05/04/18 14:44 04/05/18 13:37 Acetaminophen/ Hydrocodone Bitart ([place] 5/325) 1 tab Q6H PRN ORAL For Pain 04/04/18 14:45 04/11/18 14:44 Albuterol/ Ipratropium (Albuterol/ Ipratropium) 3 ml Q4H PRN HHN Shortness of Breath 04/04/18 14:45 04/09/18 14:44 Cefepime HCl 2 gm/ Dextrose 110 ml @ 220 mls/hr Q24H IV 04/05/18 04:00 04/12/18 03:59 04/05/18 04:12 Dextrose (Dextrose 50%) 25 ml Q30M PRN IV Hypoglycemia 04/04/18 14:45 05/04/18 14:44 Dextrose (Dextrose 50%) 50 ml Q30M PRN IV Hypoglycemia 04/04/18 14:45 05/04/18 14:44 Famotidine (Pepcid) 20 mg BID ORAL 04/04/18 18:00 05/04/18 17:59 04/05/18 07:57 Finasteride (Proscar) 5 mg DAILY ORAL 04/05/18 09:00 05/05/18 08:59 04/05/18 08:19 Heparin Sodium/ Dextrose 500 ml @ 15.967 mls/ hr ADJUST PER PROTOCOL IV 04/05/18 14:45 05/05/18 14:44 04/05/18 14:46 Hydralazine HCl (Apresoline) 25 mg Q4H PRN ORAL sbp > 160 04/04/18 14:45 05/04/18 14:44 Lorazepam (Ativan 2mg/ml 1ml) 1 mg Q6H PRN IV For Anxiety 04/04/18 21:30 04/11/18 21:29 04/05/18 00:26 Metoprolol Tartrate (Lopressor) 50 mg Q12HR ORAL 04/04/18 21:00 05/04/18 20:59 04/05/18 07:57 Morphine Sulfate (Morphine Sulfate) 2 mg Q4H PRN IVP Moderate Pain (Pain Scale 4-6) 04/04/18 14:45 04/11/18 14:44 Nitroglycerin (Ntg) 0.4 mg Q5M PRN SL Prn Chest Pain 04/04/18 14:45 05/04/18 14:44 Olanzapine (ZyPREXA) 5 mg BEDTIME ORAL 04/04/18 21:00 05/04/18 20:59 04/04/18 20:41 Olanzapine (ZyPREXA) 5 mg BEDTIME PRN ORAL agitation 04/05/18 21:00 05/05/18 20:59 Ondansetron HCl (Zofran) 4 mg Q6H PRN IVP Nausea & Vomiting 04/04/18 14:45 05/04/18 14:44 Polyethylene Glycol (Miralax) 17 gm DAILYPRN PRN ORAL Constipation 04/04/18 14:45 05/04/18 14:44 Tamsulosin HCl (Flomax) 0.4 mg BEDTIME ORAL 04/04/18 21:00 05/04/18 20:59 04/04/18 20:41 Temazepam (Restoril) 15 mg HSPRN PRN ORAL Insomnia 04/04/18 14:45 04/11/18 14:44 Vancomycin HCl (Vanco rx to dose) 1 ea DAILY PRN MISC Per rx protocol 04/04/18 15:15 05/04/18 15:14 Dillon Mchugh MD Apr 05, 2018 15:00
[2018-04-05 16:02] VITALS: BP 120/56
--- NOTE | 2018-04-05 16:04 | Infectious Diseases Prog Note ---
Assessment/Plan Assessment/Plan Abx: IV Vancomycin 02/02- Cefepime 02/02- Assessment: Post-op complication ORIF (displacement of hardware)- r/o infectious process ( localized erythema and TTP; no open wound or discharge) - Xray femur: Left proximal femur fracture surgically reduced in February. No new fracture identified. Afebrile No leukocytosis HTN Dementia, hx of UGIB CKD Anemia Plan: -Continue IV Vancomycin and Cefepime #2 for now -f/u cx -Monitor CBC/CMP, temperatures -ortho f/u- need transfer to [facility] for revision -ESR, CRP am Thank you for this consultation. Will continue to follow along with you. Discussed with RN. Subjective Allergies: Coded Allergies: NO KNOWN ALLERGIES (Verified Allergy, Unknown, 03/08/18) Subjective afebrile no leukocytosis Objective Vital Signs Last 24 Hour Vital Signs Date Time Temp Pulse Resp B/P (MAP) Pulse Ox O2 Delivery O2 Flow Rate FiO2 04/05/18 14:07 98.1 04/05/18 11:56 98.1 67 18 127/55 (79) 04/05/18 08:43 89 18 Room Air 21 04/05/18 08:06 Room Air 04/05/18 07:57 71 140/70 04/05/18 07:42 97.9 71 18 140/70 (93) 04/05/18 04:00 97.9 70 18 126/68 (87) 04/05/18 00:00 97.9 73 18 135/71 (92) 04/04/18 21:33 Room Air 04/04/18 21:00 Room Air 04/04/18 20:53 77 18 Room Air 21 04/04/18 20:41 80 123/68 04/04/18 20:00 99.0 68 18 145/82 (103) 98 04/04/18 19:29 Room Air 04/04/18 18:00 99.0 68 18 145/82 98 Room Air 04/04/18 18:00 98.0 71 18 144/85 99 Room Air Height (Feet): 5 Height (Inches): 9.00 Weight (Pounds): 158 Objective General Appearance: no apparent distress, alert, GCS 15, non-toxic Head: normocephalic, atraumatic Eyes: bilateral eye normal inspection, bilateral eye PERRL ENT: hearing grossly normal, normal pharynx, no angioedema, normal voice Neck: full range of motion, supple/symm/no masses Respiratory: chest non-tender, lungs clear, normal breath sounds, no respiratory distress, no retraction, no accessory muscle use, speaking full sentences Cardiovascular #1: regular rate, rhythm, no edema, systolic murmur Gastrointestinal: normal bowel sounds, non tender, soft, non-distended, no guarding, no rebound Rectal: deferred Musculoskeletal: normal range of motion, other - sharp protrusion in L. upper thigh with tenting of the skin and overyling erythema c/w sharp bony protrusion from fracture site. Neurologic: alert, oriented x3, responsive, motor strength/tone normal, sensory intact, speech normal Psychiatric: judgement/insight normal, mood/affect normal, no suicidal/ homicidal ideation Skin: warm/dry, well hydrated, other - See above in MSK Microbiology Date/Time Source Procedure Growth Status 04/04/18 11:00 Rectum Received Laboratory Tests Test 04/05/18 05:00 04/05/18 13:15 White Blood Count 5.9 K/UL (4.8-10.8) Red Blood Count 4.18 M/UL (4.70-6.10) L Hemoglobin 12.0 G/DL (14.2-18.0) L Hematocrit 37.1 % (42.0-52.0) L Mean Corpuscular Volume 89 FL (80-99) Mean Corpuscular Hemoglobin 28.8 PG (27.0-31.0) Mean Corpuscular Hemoglobin Concent 32.4 G/DL (32.0-36.0) Red Cell Distribution Width 14.0 % (11.6-14.8) Platelet Count 170 K/UL (150-450) Mean Platelet Volume 5.5 FL (6.5-10.1) L Neutrophils (%) (Auto) 54.2 % (45.0-75.0) Lymphocytes (%) (Auto) 26.6 % (20.0-45.0) Monocytes (%) (Auto) 11.6 % (1.0-10.0) H Eosinophils (%) (Auto) 6.6 % (0.0-3.0) H Basophils (%) (Auto) 1.0 % (0.0-2.0) Activated Partial Thromboplast Time > 150 SEC (23-33) *H 106 SEC (23-33) H Sodium Level 142 MMOL/L (136-145) Potassium Level 4.0 MMOL/L (3.5-5.1) Chloride Level 108 MMOL/L (98-107) H Carbon Dioxide Level 26 MMOL/L (21-32) Anion Gap 8 mmol/L (5-15) Blood Urea Nitrogen 21 mg/dL (7-18) H Creatinine 1.6 MG/DL (0.55-1.30) H Estimat Glomerular Filtration Rate mL/min (>60) Glucose Level 100 MG/DL (74-106) Calcium Level 9.7 MG/DL (8.5-10.1) Total Bilirubin 0.7 MG/DL (0.2-1.0) Aspartate Amino Transf (AST/SGOT) 27 U/L (15-37) Alanine Aminotransferase (ALT/SGPT) 19 U/L (12-78) Alkaline Phosphatase 159 U/L (46-116) H Total Protein 7.8 G/DL (6.4-8.2) Albumin 2.6 G/DL (3.4-5.0) L Globulin 5.2 g/dL Albumin/Globulin Ratio 0.5 (1.0-2.7) L Current Medications Medications (Trade) Dose Ordered Sig/Lorena Route PRN Reason Start Time Stop Time Status Last Admin Dose Admin Acetaminophen (Tylenol) 650 mg Q4H PRN ORAL fever 04/04/18 14:45 05/04/18 14:44 04/05/18 13:37 Acetaminophen/ Hydrocodone Bitart ([place] 5/325) 1 tab Q6H PRN ORAL For Pain 04/04/18 14:45 04/11/18 14:44 Albuterol/ Ipratropium (Albuterol/ Ipratropium) 3 ml Q4H PRN HHN Shortness of Breath 04/04/18 14:45 04/09/18 14:44 Cefepime HCl 2 gm/ Dextrose 110 ml @ 220 mls/hr Q24H IV 04/05/18 04:00 04/12/18 03:59 04/05/18 04:12 Dextrose (Dextrose 50%) 25 ml Q30M PRN IV Hypoglycemia 04/04/18 14:45 05/04/18 14:44 Dextrose (Dextrose 50%) 50 ml Q30M PRN IV Hypoglycemia 04/04/18 14:45 05/04/18 14:44 Famotidine (Pepcid) 20 mg BID ORAL 04/04/18 18:00 05/04/18 17:59 04/05/18 07:57 Finasteride (Proscar) 5 mg DAILY ORAL 04/05/18 09:00 05/05/18 08:59 04/05/18 08:19 Heparin Sodium/ Dextrose 500 ml @ 15.967 mls/ hr ADJUST PER PROTOCOL IV 04/05/18 14:45 05/05/18 14:44 04/05/18 14:46 Hydralazine HCl (Apresoline) 25 mg Q4H PRN ORAL sbp > 160 04/04/18 14:45 05/04/18 14:44 Lorazepam (Ativan 2mg/ml 1ml) 1 mg Q6H PRN IV For Anxiety 04/04/18 21:30 04/11/18 21:29 04/05/18 00:26 Metoprolol Tartrate (Lopressor) 50 mg Q12HR ORAL 04/04/18 21:00 05/04/18 20:59 04/05/18 07:57 Morphine Sulfate (Morphine Sulfate) 2 mg Q4H PRN IVP Moderate Pain (Pain Scale 4-6) 04/04/18 14:45 04/11/18 14:44 Nitroglycerin (Ntg) 0.4 mg Q5M PRN SL Prn Chest Pain 04/04/18 14:45 05/04/18 14:44 Olanzapine (ZyPREXA) 5 mg BEDTIME ORAL 04/04/18 21:00 05/04/18 20:59 04/04/18 20:41 Olanzapine (ZyPREXA) 5 mg BEDTIME PRN ORAL agitation 04/05/18 21:00 05/05/18 20:59 Ondansetron HCl (Zofran) 4 mg Q6H PRN IVP Nausea & Vomiting 04/04/18 14:45 05/04/18 14:44 Polyethylene Glycol (Miralax) 17 gm DAILYPRN PRN ORAL Constipation 04/04/18 14:45 05/04/18 14:44 Tamsulosin HCl (Flomax) 0.4 mg BEDTIME ORAL 04/04/18 21:00 05/04/18 20:59 04/04/18 20:41 Temazepam (Restoril) 15 mg HSPRN PRN ORAL Insomnia 04/04/18 14:45 04/11/18 14:44 Vancomycin HCl (Vanco rx to dose) 1 ea DAILY PRN MISC Per rx protocol 04/04/18 15:15 05/04/18 15:14 Le Stephens M.D. Apr 05, 2018 16:04
--- NOTE | 2018-04-05 17:24 | History & Physical ---
History and Physical History & Physicial Kaiser Price MD Apr 05, 2018 17:24
--- NOTE | 2018-04-05 17:30 | NUR ---
CASE MANAGEMENT:REVIEW BIBA FROM [facility] CC: LUMP ON LT THIGH SI: POST OP COMPLICATIONS OF LT HIP ACUTE LT LEG THROMBUS 99.1 73 18 151/55 97% ON RA BUN+22 CR=1.8 IS: IV CEFEPIME : TO MED/SURG IS: HEPARIN GTT INTERQUAL CRITERIA MET
--- NOTE | 2018-04-05 19:23 | NUR ---
HAND-OFF: Report given to SRINI CONTRERAS.
--- NOTE | 2018-04-05 19:30 | NUR ---
NURSE NOTES: Recieved patient in bed, asleep, responsive to verbal and tactile stimuli, in no acute distress, bed is locked in low position and alarm is on. Call light is within reach, will continue to monitor for comfort and safety.
[2018-04-05 20:00] VITALS: BP 136/89
[2018-04-05] MEDS ORDERED: OLANZapine 2.5mg tab ORAL PRN (21:00)
--- NOTE | 2018-04-05 21:00 | History and Physical Report ---
DATE OF ADMISSION: 04/04/2018 CHIEF COMPLAINT: Left hip protrusion bone. HISTORY OF PRESENT ILLNESS: This is an 87-year-old gentleman with past medical history significant for hypertension, dementia, chronic kidney disease, and history of upper GI bleed in the past, who had a history of fall with left hip fracture, status post ORIF in February 2018 at [facility] by Dr. Ingram. Postoperatively, the patient's status improved and was discharged to the nursing facility. However, at the nursing facility, the patient was noted to have a protruded bone on the left anterior thigh area. X-ray was done, was unremarkable. However, the patient's status did not improve, was not ambulatory, and subsequently the patient was transferred to the hospital. 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 PAST MEDICAL HISTORY/PAST SURGICAL HISTORY: As above. History of hypertension, dementia, chronic kidney disease, history of upper GI bleed. MEDICATIONS: Medications at home please refer to medication reconciliation. ALLERGIES: No known drug allergies. SOCIAL HISTORY: The patient denies any smoking, alcohol, or drugs at this time. Residing in nursing facility. FAMILY HISTORY: Noncontributory. REVIEW OF SYSTEMS: Mostly as above. Denies any dysuria, frequency, or hematuria. Denies any hemoptysis or hematochezia. Complained about pain and lack of movement. Denies any loss of consciousness. Denies any fall or head trauma. PHYSICAL EXAMINATION: VITAL SIGNS: On admission, temperature 97.3, pulse of 73, respirations 18, and blood pressure 151/55. GENERAL: The patient is awake and responsive, not acute distress. HEAD AND NECK: Pupils are equal and reactive to light. Extraocular movements are intact. Neck was supple. No JVD. LUNGS: Good air entry. No wheezes or rales. Decreased in bases. HEART: S1, S2. Regular rhythm. No gallops. ABDOMEN: Soft, nontender, and nondistended. Positive bowel sounds. EXTREMITIES: No cyanosis, clubbing, or edema. Left hip has a protruded bone over the hip area. No sign of infection. No tenderness. No discharges from surgical site. Surgical site intact and no sign of breaking skin. NEUROLOGIC: Cranial nerves II through XII are grossly intact. The patient moving all extremities except the left lower extremity. RECTAL: Refused and deferred. GENITOURINARY: Refused and deferred. LABORATORY AND DIAGNOSTIC DATA: On admission from the ER is significant for WBC of 6.2, hemoglobin 12, hematocrit 40, and platelets 196. Sodium 143, potassium 4.6, chloride 107, bicarbonate 27, BUN 22, creatinine 1.8, and calcium is 10.2. Albumin is 2.9. AST of 27 and ALT of 10. PT of 12, INR 1.2, and PTT of 29. The patient had a duplex of the lower extremity, which noted to be acute thrombosis in the superficial femoral to the popliteal vein on the left side. The patency of the common femoral as well as calf vein, the greater saphenous vein is within the normal limits. ASSESSMENT: 1. 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 2. History of left hip fracture, status post ORIF in February. 3. Acute kidney injury on chronic renal insufficiency. 4. Dehydration. 5. Prior history of GI bleed. 6. Hypertension. 7. Dementia. 8. Anemia. 9. Left lower extremity superficial thrombosis proximal femur superficial thrombosis. PLAN: Admit the patient to medical floor. We will follow up with Dr. Ingram, orthopedics. Discussed the case with Dr. Quintero at [facility] for possible transfer to [facility] as soon as possible. We will call the transfer center. Start the patient on heparin drip. Discussed with Dr. Mchugh, pulmonary critical care. Code status Full Code. Follow up with the ID consultation with Dr. tSephens and DVT on heparin drip. Kaiser Price M.D. DR: SHARATH JOB#: [id number] CC:
[2018-04-05] MEDS: Tamsulosin 0.4mg cap ORAL SCH (21:27)
[2018-04-05] MEDS ORDERED: Heparin 5000 units/ml inj IV SCH (22:00)
[2018-04-05] MEDS: Heparin 25,000u/D5W 500ml 500 ML IV SCH (22:16)
--- NOTE | 2018-04-05 22:27 | NUR ---
NURSE NOTES: PPT level is 60, reported to Félix at the pharmacy, new protocol orders obtained and carried out, PPT draw is scheduled for 04/06/18 at 4 am.
[2018-04-06 00:53] VITALS: BP 130/80
[2018-04-06 04:00] VITALS: BP 130/67
[2018-04-06] MEDS: Cefepime HCl 2 GM in D5W 110 ML IV SCH (04:15)
[2018-04-06] MEDS ORDERED: Vancomycin 1.5 GM/D5W 250ML IVPB ONE ×2 (06:00→09:00)
--- NOTE | 2018-04-06 06:51 | NUR ---
NURSE NOTES: PTT 94 within range. Will not change drip. Repeat PTT tomorrow AM
--- NOTE | 2018-04-06 07:46 | NUR ---
NURSE NOTES: Received patient from Naty CONTRERAS, no distress noted, patient in upin bed, repositioned, no distress noted, bed is locked and in lowest position, soft wrist restraints in place, +pulse, and no skin issue noted, heparin dripp running at 18.87/hr will continue to monitor.
[2018-04-06 08:00] VITALS: BP 101/63
--- NOTE | 2018-04-06 08:59 | Pulmonology Progress Note ---
Assessment/Plan Assessment/Plan ASSESSMENT DVT LLE postop complication of ORIF L femoral fracture anemia dementia with behavioral disturbances encephalopathy due to toxin HTN CKD PLAN OF CARE MS floor O2 titrate to keep pulse ox above 90% pulm toilet empiric abx per ID recs Venous Duplex + acute DVT LLE SFV to popliteal, on heparin gtt pain management monitor HH with goal to keep Hgb above 7 bowel regimen GI propahxlsi continue Proscar and Flomax BP management with BB monitor renal parameters, lytes, correct lytes pr\n avoid nephrotoxic will need transfer to [facility] for revision will continue heparin drip w/out bridging to Coumadin for now since awaiting for surgery case discussed and evaluated by supervising physician Subjective Allergies: Coded Allergies: NO KNOWN ALLERGIES (Verified Allergy, Unknown, 03/08/18) Subjective no signs of resp distress pulse ox stable no signs of bleeding, HH stable awaiting for transfer to [facility] Objective Last 24 Hour Vital Signs Date Time Temp Pulse Resp B/P (MAP) Pulse Ox O2 Delivery O2 Flow Rate FiO2 04/06/18 04:00 97.0 68 130/67 (88) 04/06/18 00:53 98.1 81 19 130/80 (97) 96 04/05/18 21:27 81 136/89 04/05/18 21:00 Room Air 04/05/18 20:00 98.1 81 19 136/89 (105) 96 04/05/18 19:51 64 18 Room Air 21 04/05/18 16:02 98.1 59 18 120/56 (77) 04/05/18 14:07 98.1 04/05/18 11:56 98.1 67 18 127/55 (79) Intake and Output 04/05/18 04/06/18 19:00 07:00 Intake Total 389.506 ml Output Total 800 ml Balance 389.506 ml -800 ml Intake Oral 240 ml IV Total 149.506 ml Output Urine Total 800 ml # Voids 3 # Bowel Movements 2 General Appearance: WD/WN, no acute distress HEENT: normocephalic, atraumatic, anicteric Respiratory/Chest: lungs clear, no respiratory distress Cardiovascular: normal peripheral pulses, normal rate, no JVD Abdomen: soft, non tender, non distended Extremities: no edema, pedal pulses normal, other - left hip with protruded bone, but surgical site intact, no opening, no drainage , no edema Neurologic/Psychiatric: abnormal gait, alert, responsive Musculoskeletal: atrophy - BLE Microbiology Date/Time Source Procedure Growth Status 04/04/18 10:50 Nasal Nares MRSA Culture - Final Staphylococcus Aureus - Mrsa Complete 04/04/18 11:00 Rectum Received Laboratory Tests 04/05/18 13:15: Activated Partial Thromboplast Time 106H 04/05/18 20:30: Activated Partial Thromboplast Time 61H 04/06/18 04:17: Activated Partial Thromboplast Time 94H, Erythrocyte Sedimentation Rate 54H, C- Reactive Protein, Quantitative 5.7H, Random Vancomycin Level 8.2 Current Medications Medications (Trade) Dose Ordered Sig/Lorena Route PRN Reason Start Time Stop Time Status Last Admin Dose Admin Acetaminophen (Tylenol) 650 mg Q4H PRN ORAL fever 04/04/18 14:45 05/04/18 14:44 04/05/18 13:37 Acetaminophen/ Hydrocodone Bitart ([place] 5/325) 1 tab Q6H PRN ORAL For Pain 04/04/18 14:45 04/11/18 14:44 Albuterol/ Ipratropium (Albuterol/ Ipratropium) 3 ml Q4H PRN HHN Shortness of Breath 04/04/18 14:45 04/09/18 14:44 Cefepime HCl 2 gm/ Dextrose 110 ml @ 220 mls/hr Q24H IV 04/05/18 04:00 04/12/18 03:59 04/06/18 04:15 Dextrose (Dextrose 50%) 25 ml Q30M PRN IV Hypoglycemia 04/04/18 14:45 05/04/18 14:44 Dextrose (Dextrose 50%) 50 ml Q30M PRN IV Hypoglycemia 04/04/18 14:45 05/04/18 14:44 Famotidine (Pepcid) 20 mg BID ORAL 04/04/18 18:00 05/04/18 17:59 04/05/18 07:57 Finasteride (Proscar) 5 mg DAILY ORAL 04/05/18 09:00 05/05/18 08:59 04/05/18 08:19 Heparin Sodium/ Dextrose 500 ml @ 18.87 mls/ hr ADJUST PER PROTOCOL IV 04/05/18 22:03 05/05/18 22:02 04/05/18 22:16 Hydralazine HCl (Apresoline) 25 mg Q4H PRN ORAL sbp > 160 04/04/18 14:45 05/04/18 14:44 Lorazepam (Ativan 2mg/ml 1ml) 1 mg Q6H PRN IV For Anxiety 04/04/18 21:30 04/11/18 21:29 04/05/18 00:26 Metoprolol Tartrate (Lopressor) 50 mg Q12HR ORAL 04/04/18 21:00 05/04/18 20:59 04/05/18 21:27 Morphine Sulfate (Morphine Sulfate) 2 mg Q4H PRN IVP Moderate Pain (Pain Scale 4-6) 04/04/18 14:45 04/11/18 14:44 Nitroglycerin (Ntg) 0.4 mg Q5M PRN SL Prn Chest Pain 04/04/18 14:45 05/04/18 14:44 Olanzapine (ZyPREXA) 5 mg BEDTIME ORAL 04/04/18 21:00 05/04/18 20:59 04/05/18 21:28 Olanzapine (ZyPREXA) 5 mg BEDTIME PRN ORAL agitation 04/05/18 21:00 05/05/18 20:59 Ondansetron HCl (Zofran) 4 mg Q6H PRN IVP Nausea & Vomiting 04/04/18 14:45 05/04/18 14:44 Polyethylene Glycol (Miralax) 17 gm DAILYPRN PRN ORAL Constipation 04/04/18 14:45 05/04/18 14:44 Tamsulosin HCl (Flomax) 0.4 mg BEDTIME ORAL 04/04/18 21:00 05/04/18 20:59 04/05/18 21:27 Temazepam (Restoril) 15 mg HSPRN PRN ORAL Insomnia 04/04/18 14:45 04/11/18 14:44 Vancomycin HCl (Vanco rx to dose) 1 ea DAILY PRN MISC Per rx protocol 04/04/18 15:15 05/04/18 15:14 Vancomycin HCl/ Dextrose 250 ml @ 125 mls/hr ONCE ONCE IVPB 04/06/18 09:00 04/06/18 10:59 Imani Bolton NP Apr 06, 2018 08:59
[2018-04-06] MEDS: Metoprolol Tartrate 50mg tab ORAL SCH (09:00)
--- NOTE | 2018-04-06 10:45 | Infectious Diseases Prog Note ---
Assessment/Plan Assessment/Plan Assessment: Post-op complication ORIF (displacement of hardware)- r/o infectious process ( localized erythema and TTP; no open wound or discharge) - Xray femur: Left proximal femur fracture surgically reduced in February. No new fracture identified. Afebrile No leukocytosis HTN Dementia, hx of UGIB CKD Anemia Plan: -Continue IV Vancomycin and Cefepime # 3 for now -f/u cx -Monitor CBC/CMP, temperatures -ortho f/u- need transfer to [facility] for revision -ESR, CRP am Subjective Allergies: Coded Allergies: NO KNOWN ALLERGIES (Verified Allergy, Unknown, 03/08/18) Subjective afebrile Objective Vital Signs Last 24 Hour Vital Signs Date Time Temp Pulse Resp B/P (MAP) Pulse Ox O2 Delivery O2 Flow Rate FiO2 04/06/18 08:00 Room Air 04/06/18 08:00 98.4 85 19 101/63 (76) 99 04/06/18 04:00 97.0 68 130/67 (88) 04/06/18 00:53 98.1 81 19 130/80 (97) 96 04/05/18 21:27 81 136/89 04/05/18 21:00 Room Air 04/05/18 20:00 98.1 81 19 136/89 (105) 96 04/05/18 19:51 64 18 Room Air 21 04/05/18 16:02 98.1 59 18 120/56 (77) 04/05/18 14:07 98.1 04/05/18 11:56 98.1 67 18 127/55 (79) Height (Feet): 5 Height (Inches): 9.00 Weight (Pounds): 158 HEENT: anicteric Respiratory/Chest: normal breath sounds Cardiovascular: regularly irregular Abdomen: no organomegaly Microbiology Date/Time Source Procedure Growth Status 04/04/18 10:50 Nasal Nares MRSA Culture - Final Staphylococcus Aureus - Mrsa Complete 04/04/18 11:00 Rectum VRE Culture - Final NO VANCOMYCIN RESISTANT ENTEROCOCCUS ... Complete 04/04/18 11:00 Rectum - Final NO CARBAPENEM-RESISTANT ENTEROBACTERI... Complete Laboratory Tests Test 04/05/18 13:15 04/05/18 20:30 04/06/18 04:17 Activated Partial Thromboplast Time 106 SEC (23-33) H 61 SEC (23-33) H 94 SEC (23-33) H Erythrocyte Sedimentation Rate 54 MM/HR (0-20) H C-Reactive Protein, Quantitative 5.7 mg/dL (0.00-0.90) H Random Vancomycin Level 8.2 ug/mL Current Medications Medications (Trade) Dose Ordered Sig/Lorena Route PRN Reason Start Time Stop Time Status Last Admin Dose Admin Acetaminophen (Tylenol) 650 mg Q4H PRN ORAL fever 04/04/18 14:45 05/04/18 14:44 04/05/18 13:37 Acetaminophen/ Hydrocodone Bitart ([place] 5/325) 1 tab Q6H PRN ORAL For Pain 04/04/18 14:45 04/11/18 14:44 Albuterol/ Ipratropium (Albuterol/ Ipratropium) 3 ml Q4H PRN HHN Shortness of Breath 04/04/18 14:45 04/09/18 14:44 Cefepime HCl 2 gm/ Dextrose 110 ml @ 220 mls/hr Q24H IV 04/05/18 04:00 04/12/18 03:59 04/06/18 04:15 Dextrose (Dextrose 50%) 25 ml Q30M PRN IV Hypoglycemia 04/04/18 14:45 05/04/18 14:44 Dextrose (Dextrose 50%) 50 ml Q30M PRN IV Hypoglycemia 04/04/18 14:45 05/04/18 14:44 Famotidine (Pepcid) 20 mg BID ORAL 04/04/18 18:00 05/04/18 17:59 04/06/18 09:24 Finasteride (Proscar) 5 mg DAILY ORAL 04/05/18 09:00 05/05/18 08:59 04/06/18 09:24 Heparin Sodium/ Dextrose 500 ml @ 18.87 mls/ hr ADJUST PER PROTOCOL IV 04/05/18 22:03 05/05/18 22:02 04/05/18 22:16 Hydralazine HCl (Apresoline) 25 mg Q4H PRN ORAL sbp > 160 04/04/18 14:45 05/04/18 14:44 Lorazepam (Ativan 2mg/ml 1ml) 1 mg Q6H PRN IV For Anxiety 04/04/18 21:30 04/11/18 21:29 04/05/18 00:26 Metoprolol Tartrate (Lopressor) 50 mg Q12HR ORAL 04/04/18 21:00 05/04/18 20:59 04/05/18 21:27 Morphine Sulfate (Morphine Sulfate) 2 mg Q4H PRN IVP Moderate Pain (Pain Scale 4-6) 04/04/18 14:45 04/11/18 14:44 Nitroglycerin (Ntg) 0.4 mg Q5M PRN SL Prn Chest Pain 04/04/18 14:45 05/04/18 14:44 Olanzapine (ZyPREXA) 5 mg BEDTIME ORAL 04/04/18 21:00 05/04/18 20:59 04/05/18 21:28 Olanzapine (ZyPREXA) 5 mg BEDTIME PRN ORAL agitation 04/05/18 21:00 05/05/18 20:59 Ondansetron HCl (Zofran) 4 mg Q6H PRN IVP Nausea & Vomiting 04/04/18 14:45 05/04/18 14:44 Polyethylene Glycol (Miralax) 17 gm DAILYPRN PRN ORAL Constipation 04/04/18 14:45 05/04/18 14:44 Tamsulosin HCl (Flomax) 0.4 mg BEDTIME ORAL 04/04/18 21:00 05/04/18 20:59 04/05/18 21:27 Temazepam (Restoril) 15 mg HSPRN PRN ORAL Insomnia 04/04/18 14:45 04/11/18 14:44 Vancomycin HCl (Vanco rx to dose) 1 ea DAILY PRN MISC Per rx protocol 04/04/18 15:15 05/04/18 15:14 Vancomycin HCl/ Dextrose 250 ml @ 125 mls/hr ONCE ONCE IVPB 04/06/18 09:00 04/06/18 10:59 04/06/18 10:37 Clif Barth MD Apr 06, 2018 10:45
[2018-04-06 11:48] VITALS: BP 108/68
[2018-04-06] MEDS: Heparin 25,000u/D5W 500ml 500 ML IV SCH (13:47)
--- NOTE | 2018-04-06 13:51 | NUR ---
NURSE NOTES: RN noticed that Heparin bag was almost empty, RN noted that eMAR shows next heparin bag change for 2202 today 04-06-18, RN called pharmacist and spoke to pharmacist about bag being nearly empty and heparin bag change not due till later this evening, pharmacist advised that RN is able to change heparin bag PRN as to not interrupt heparin therapy, heparin bag removed from pixus and administered, no interruption in heparin therapy noted, will continue to monitor.
--- NOTE | 2018-04-06 15:42 | NUR ---
NURSE NOTES: Spoke with [facility] transfer center, received bed number for patient, room 7008. Verbalized to put any imaging on disk if possible, send copy of chart, and all [phone] (transfer center) to get connected with unit/primary RN for report. Endorsed to set up transportation from our end. Will notify Dr. Price for orders regarding dc order and heparin drip order.
[2018-04-06 16:00] VITALS: BP 98/62
--- NOTE | 2018-04-06 16:17 | NUR ---
NURSE NOTES: Attempted multiple extensions for x-ray; no pickup to get imaging on CD. Will attempt and also endorse on report that we are working on getting it done. Rest of discharge packet made.
[2018-04-06] MEDS ORDERED: ACETAMINOPHEN325 M1 ORAL (16:21)
[2018-04-06] MEDS ORDERED: CEFEPIME-D2 GM/50 ML IVPB (16:24)
[2018-04-06] MEDS ORDERED: DUONEB 0.5-3(2.53 ML HHN (16:36)
[2018-04-06] MEDS ORDERED: HEPARIN-D525000 UNI1 IV (16:37)
[2018-04-06] MEDS ORDERED: HYDRALAZINE HCL25 M1 ORAL (16:39)
[2018-04-06] MEDS ORDERED: LORAZEPAM2 MG/1 M1 IV (16:40)
[2018-04-06] MEDS ORDERED: MORPHINE 22 MG/1 ML IV (16:42)
[2018-04-06] MEDS ORDERED: NITROSTAT0.4 M1 SL (16:43)
[2018-04-06] MEDS ORDERED: ZOFRAN 4 MG4 MG/2 ML IV (16:44)
[2018-04-06] MEDS ORDERED: POLYETHYLENE GL17 GM ORAL (16:46)
[2018-04-06] MEDS ORDERED: TEMAZEPAM15 MG ORAL (16:47)
[2018-04-06] MEDS ORDERED: [UNRECOGNIZED DRUG - REMARK] MC (16:49)
[2018-04-06] MEDS ORDERED: VANCOCIN250 MG IVP (16:49)
--- NOTE | 2018-04-06 17:38 | Internal Med Progress Note ---
Subjective Date of Service: Apr 06, 2018 Physician Name Fletcher Sexton Attending Physician Kaiser Price MD Current Medications Medications (Trade) Dose Ordered Sig/Lorena Route PRN Reason Start Time Stop Time Status Last Admin Dose Admin Acetaminophen (Tylenol) 650 mg Q4H PRN ORAL fever 04/04/18 14:45 05/04/18 14:44 04/05/18 13:37 Acetaminophen/ Hydrocodone Bitart ([place] 5/325) 1 tab Q6H PRN ORAL For Pain 04/04/18 14:45 04/11/18 14:44 Albuterol/ Ipratropium (Albuterol/ Ipratropium) 3 ml Q4H PRN HHN Shortness of Breath 04/04/18 14:45 04/09/18 14:44 Cefepime HCl 2 gm/ Dextrose 110 ml @ 220 mls/hr Q24H IV 04/05/18 04:00 04/12/18 03:59 04/06/18 04:15 Dextrose (Dextrose 50%) 25 ml Q30M PRN IV Hypoglycemia 04/04/18 14:45 05/04/18 14:44 Dextrose (Dextrose 50%) 50 ml Q30M PRN IV Hypoglycemia 04/04/18 14:45 05/04/18 14:44 Famotidine (Pepcid) 20 mg BID ORAL 04/04/18 18:00 05/04/18 17:59 04/06/18 09:24 Finasteride (Proscar) 5 mg DAILY ORAL 04/05/18 09:00 05/05/18 08:59 04/06/18 09:24 Heparin Sodium/ Dextrose 500 ml @ 18.87 mls/ hr ADJUST PER PROTOCOL IV 04/05/18 22:03 05/05/18 22:02 04/06/18 13:47 Hydralazine HCl (Apresoline) 25 mg Q4H PRN ORAL sbp > 160 04/04/18 14:45 05/04/18 14:44 Lorazepam (Ativan 2mg/ml 1ml) 1 mg Q6H PRN IV For Anxiety 04/04/18 21:30 04/11/18 21:29 04/05/18 00:26 Metoprolol Tartrate (Lopressor) 50 mg Q12HR ORAL 04/04/18 21:00 05/04/18 20:59 04/05/18 21:27 Morphine Sulfate (Morphine Sulfate) 2 mg Q4H PRN IVP Moderate Pain (Pain Scale 4-6) 04/04/18 14:45 04/11/18 14:44 Nitroglycerin (Ntg) 0.4 mg Q5M PRN SL Prn Chest Pain 04/04/18 14:45 05/04/18 14:44 Olanzapine (ZyPREXA) 5 mg BEDTIME ORAL 04/04/18 21:00 05/04/18 20:59 04/05/18 21:28 Olanzapine (ZyPREXA) 5 mg BEDTIME PRN ORAL agitation 04/05/18 21:00 05/05/18 20:59 Ondansetron HCl (Zofran) 4 mg Q6H PRN IVP Nausea & Vomiting 04/04/18 14:45 05/04/18 14:44 Polyethylene Glycol (Miralax) 17 gm DAILYPRN PRN ORAL Constipation 04/04/18 14:45 05/04/18 14:44 Tamsulosin HCl (Flomax) 0.4 mg BEDTIME ORAL 04/04/18 21:00 05/04/18 20:59 04/05/18 21:27 Temazepam (Restoril) 15 mg HSPRN PRN ORAL Insomnia 04/04/18 14:45 04/11/18 14:44 Vancomycin HCl (Vanco rx to dose) 1 ea DAILY PRN MISC Per rx protocol 04/04/18 15:15 05/04/18 15:14 Allergies: Coded Allergies: NO KNOWN ALLERGIES (Verified Allergy, Unknown, 03/08/18) ROS Limited/Unobtainable: Yes Subjective 87 YO M with history of left hip fracture, S/P ORIF 03/05, admitted with left hip pain. Now protrusion hardware left hip. Cover for Int Med-Dr Price. Await transfer to [facility] Objective Last Vital Signs Date Time Temp Pulse Resp B/P (MAP) Pulse Ox O2 Delivery O2 Flow Rate FiO2 04/06/18 16:00 97.8 93 19 98/62 (74) 98 04/06/18 13:32 Room Air 21 Laboratory Tests Test 04/05/18 20:30 04/06/18 04:17 Activated Partial Thromboplast Time 61 SEC (23-33) H 94 SEC (23-33) H Erythrocyte Sedimentation Rate 54 MM/HR (0-20) H C-Reactive Protein, Quantitative 5.7 mg/dL (0.00-0.90) H Random Vancomycin Level 8.2 ug/mL Microbiology Date/Time Source Procedure Growth Status 04/04/18 10:50 Nasal Nares MRSA Culture - Final Staphylococcus Aureus - Mrsa Complete 04/04/18 11:00 Rectum VRE Culture - Final NO VANCOMYCIN RESISTANT ENTEROCOCCUS ... Complete 04/04/18 11:00 Rectum - Final NO CARBAPENEM-RESISTANT ENTEROBACTERI... Complete Intake and Output 04/05/18 04/06/18 18:59 06:59 Intake Total 389.506 ml Output Total 800 ml Balance 389.506 ml -800 ml Intake Oral 240 ml IV Total 149.506 ml Output Urine Total 800 ml # Voids 3 # Bowel Movements 2 Objective PHYSICAL EXAMINATION: GENERAL: The patient is awake and responsive, not acute distress. HEAD AND NECK: Pupils are equal and reactive to light. Extraocular movements are intact. Neck was supple. No JVD. LUNGS: Good air entry. No wheezes or rales. Decreased in bases. HEART: S1, S2. Regular rhythm. No gallops. ABDOMEN: Soft, nontender, and nondistended. Positive bowel sounds. EXTREMITIES: No cyanosis, clubbing, or edema. Left hip has a protruded bone over the hip area. No sign of infection. No tenderness. No discharges from surgical site. Surgical site intact and no sign of breaking skin. NEUROLOGIC: Cranial nerves II through XII are grossly intact. The patient moving all extremities except the left lower extremity. RECTAL: Refused and deferred. GENITOURINARY: Refused and deferred. Assessment/Plan Assessment/Plan ASSESSMENT: 1. 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 2. History of left hip fracture, status post ORIF in February. 3. Acute kidney injury on chronic renal insufficiency. 4. Dehydration. 5. Prior history of GI bleed. 6. Hypertension. 7. Dementia. 8. Anemia. 9. Left lower extremity superficial thrombosis proximal femur superficial thrombosis. PLAN: Admit the patient to medical floor. We will follow up with Dr. Ingram, orthopedics. Discussed the case with Dr. Quintero at [facility] for possible transfer to [facility] as soon as possible. We will call the transfer center. Start the patient on heparin drip. Discussed with Dr. Mchugh, pulmonary critical care. Code status Full Code. Follow up with the ID consultation with Dr. Stephens and DVT on heparin drip. Transfer to [facility] today per family request Fletcher Sexton MD Apr 06, 2018 17:38
--- NOTE | 2018-04-06 19:25 | NUR ---
HAND-OFF: Report given to Michael CONTRERAS.
--- NOTE | 2018-04-06 19:25 | NUR ---
NURSE NOTES: Received patient on bed awake, no s/s of any distress, IV line patent and intact, on soft wrist restraints on both hands. Bed in low position and locked, waiting for ambulance for discharge, will continue to monitor.
--- NOTE | 2018-04-06 20:29 | NUR ---
NURSE NOTES: Patient discharged to [facility], vital signs stable, no s/s of any distress upon discharged.
--- NOTE | 2018-04-06 21:33 | General Progress Note ---
Assessment/Plan Problem List: (1) dementia with behavioral disturbance Status: unchanged Assessment/Plan zyprexa 5mg qhs syprexa 5mg q 6hr prn restraints as needed Subjective Neurologic/Psychiatric: Reports: anxiety Allergies: Coded Allergies: NO KNOWN ALLERGIES (Verified Allergy, Unknown, 03/08/18) Objective Last 24 Hour Vital Signs Date Time Temp Pulse Resp B/P (MAP) Pulse Ox O2 Delivery O2 Flow Rate FiO2 04/06/18 19:41 88 18 Room Air 21 04/06/18 16:00 97.8 93 19 98/62 (74) 98 04/06/18 13:32 67 18 Room Air 21 04/06/18 11:48 98.0 88 19 108/68 (81) 99 04/06/18 08:00 Room Air 04/06/18 08:00 98.4 85 19 101/63 (76) 99 04/06/18 04:00 97.0 68 130/67 (88) 04/06/18 00:53 98.1 81 19 130/80 (97) 96 Intake and Output 04/05/18 04/06/18 19:00 07:00 Intake Total 389.506 ml 18.87 ml Output Total 800 ml Balance 389.506 ml -781.13 ml Intake Oral 240 ml IV Total 149.506 ml 18.87 ml Output Urine Total 800 ml # Voids 3 # Bowel Movements 2 Laboratory Tests 04/06/18 04:17: Erythrocyte Sedimentation Rate 54H, Activated Partial Thromboplast Time 94H, C- Reactive Protein, Quantitative 5.7H, Random Vancomycin Level 8.2 Height (Feet): 5 Height (Inches): 9.00 Weight (Pounds): 158 General Appearance: alert, confused, moderate distress, agitated Domenic Solomon MD Apr 06, 2018 21:33
--- NOTE | 2018-04-08 12:57 | Discharge Summary ---
Discharge Summary Discharge Summary _ DATE OF ADMISSION: 04/04/2018 DATE OF DISCHARGE: 04/06/2018 DISCHARGED BY: Dr. Price REASON FOR ADMISSION: 87 years old male with past medical history significant for hypertension, chronic kidney disease, history of upper GI bleeding in the past, dementia, history of fall with left hip fracture, status post open reduction internal fixation in February 2018 at [facility] by Dr. Ingram., postoperatively improved and was discharged to halfway facility. At the facility patient was noted to have protruding bone on the left anterior thigh area. Patient was not ambulatory and subsequently was transferred to emergency department for further evaluation. Upon evaluation vital signs were stable. BUN 22 creatinine 1.8, stable electrolytes. Glucose 104. Stable LFT. Albumin 2.9. No leukocytosis. Hemoglobin 12.7, hematocrit 40.2. Physical examination revealed tenting of the skin of the left anterior thigh, consistent with protrusion of the sharp fracture site at the left hip. Left femur x-ray revealed intact hardware. Patient was admitted for evaluation and further management. CONSULTANTS: pulmonary Dr. Mchugh ID specialist Dr. Barth psychiatrist [facility] COURSE: Patient admitted to medical surgical floor. Case was discussed with orthopedic surgeon Dr. Quintero at [facility] for possible transfer to [facility] as soon as possible for revision. Patient was placed on a waiting list for transfer to [facility]. Patient was in need of surgical revision to prevent puncture to the skin and open surgical site. Venous duplex revealed acute DVT left leg in the superficial femoral to popliteal vein. Patient started on heparin drip. Pain management was addressed. Hemoglobin NS hematocrit were closely monitored with goal to keep hemoglobin above 7. Patient started on empiric antibiotic as per ID recommendations. ESR and CRP elevated. GI prophylaxis provided. Proscar and Flomax continued. Blood pressure was managed with beta-raiza. Bowel regimen instituted. Renal parameters and electrolytes were closely monitored. Nephrotoxins were avoided and electrolytes corrected as needed. Prior to discharge creatinine down to 1.6 from initial 1.8. Hemoglobin and hematocrit were closely monitored , remained at baseline. Bed became available at [facility]. Patient was subsequently transferred to [facility] for probable revision . 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 DISCHARGE INSTRUCTIONS: Patient was transferred to [facility]. Follow-up with medical doctor Imani Bolton NP Apr 08, 2018 12:57
--- NOTE | 2018-04-08 22:48 | Diagnostic Imaging Report ---
APPROVED REPORT CPT Code: 90476 RIGHT LEG: Venous imaging reveals a patent deep venous system. There is no evidence of thrombus within the femoral, popliteal or tibial segments. The greater saphenous vein is also within normal limits. Doppler indicates normal spontaneous flow within these segments. LEFT LEG: Venous imaging reveals acute thrombus in the superficial femoral to popliteal veins.Imaging also reveals patency of the common femoral and calf veins (posterior tibial and peroneal). The greater saphenous vein is within normal limits. BEN LINCOLN AWARE AT 20:00 HRS.
== END 2018-04-06 20:30 | disposition short-term general hospital (02) | DRG 559 ==
LOC: EDBD 10:19 → EMR 11:03 → UNDOADMIN 12:44 → 4E 12:44 → EDBEDREQ 13:20 → 4E 15:55
DX: T84.125A Displacement of internal fixation device of left femur, initial encounter (principal); G92 Toxic encephalopathy; N17.9 Acute kidney failure, unspecified; I82.812 Embolism and thrombosis of superficial veins of left lower extremity; I82.432 Acute embolism and thrombosis of left popliteal vein; I82.412 Acute embolism and thrombosis of left femoral vein; F03.91 Unspecified dementia, unspecified severity, with behavioral disturbance; Y83.8 Other surgical procedures as the cause of abnormal reaction of the patient, or of later complication, without mention of misadventure at the time of the procedure; I12.9 Hypertensive chronic kidney disease with stage 1 through stage 4 chronic kidney disease, or unspecified chronic kidney disease; N18.9 Chronic kidney disease, unspecified; D64.9 Anemia, unspecified; N40.0 Benign prostatic hyperplasia without lower urinary tract symptoms
CPT/HCPCS: 36415; 80053; 80202; 85025; 85610; 85651; 85730; 86140; 87081; 93970; 94664; 96365; 96366; 96367; 99285